=== PATIENT | male | born 1955 | race Caucasian/White ===

== ENCOUNTER 2017-06-10 09:42 | Emergency (ER) | payer MEDICAID, OTHER ==
[2017-06-10 09:51] VITALS: BP 122/72
[2017-06-10] MEDS ORDERED: SULFAMETHOXAZOLE/TRIMETHOPRIM 800-160 MG TABLET PO ONE (10:15)
[2017-06-10] MEDS ORDERED: IBUPROFEN 600 MG TABLET PO ONE (10:15)
[2017-06-10] MEDS ORDERED: LIDOCAINE 2% VISCOUS SOLN 20 ML UDCUP PO ONE (10:15)
--- NOTE | 2017-06-10 10:16 | ER Document Report ---
ED ENT - General Chief Complaint: Swollen Glands Stated Complaint: SWOLLEN JAW Time Seen by Provider: 06/10/17 10:02 Mode of Arrival: Ambulatory Information source: Patient Notes: 61-year-old male presents to ED for complaint of painful left ear with swollen gland to the left side of his jaw. He states he has had this multiple times and they have always given him some kind of antibiotic that was 500 mg but he does not know the name and that it worked. He has no teeth. He also complains of the left ear but there is no ear infection. TRAVEL OUTSIDE OF THE [place] IN LAST 30 DAYS: No - HPI Patient complains to provider of: Ear problem, Other - Left jaw Onset: Other - 2 days states he has had it in the past Onset/Duration: Intermittent Quality of pain: Achy, Dull Severity: Moderate Pain Level: 3 Location of pain: Ears, Other - Gland on the left jaw Associated symptoms: Ear pain, Swollen glands - Left jaw Similar symptoms previously: Yes Recently seen / treated by doctor: No - Related Data Allergies/Adverse Reactions: No Known Allergies Allergy (Verified 06/10/17 09:43) Past Medical History - General Information source: Patient - Social History Smoking Status: Current Every Day Smoker Cigarette use (# per day): Yes - 1-1/2 pack per day Chew tobacco use (# tins/day): No Smoking Education Provided: Yes - Less than 2 minutes Frequency of alcohol use: None Drug Abuse: None Occupation: None Lives with: Alone Family History: Arthritis, CAD, Hyperlipidemia, Hypertension, Malignancy. denies: COPD, CVA, DM, Thyroid Disfunction Patient has suicidal ideation: No Patient has homicidal ideation: No - Past Medical History Cardiac Medical History: Reports: None Pulmonary Medical History: Reports: None EENT Medical History: Reports: None Neurological Medical History: Reports: None Endocrine Medical History: Reports: None Renal/ Medical History: Reports: None Malignancy Medical History: Reports None GI Medical History: Reports: Hx Hepatitis - c Musculoskeltal Medical History: Reports Hx Arthritis - Hands, Reports Hx Musculoskeletal Deformity - Degenerative disc disease especially in the neck Skin Medical History: Reports None Psychiatric Medical History: Reports: None Traumatic Medical History: Reports: None Infectious Medical History: Reports: Hx Hepatitis Past Surgical History: Reports: Hx Orthopedic Surgery - Removal of multiple disc from neck area - Immunizations Immunizations up to date: Yes Hx Diphtheria, Pertussis, Tetanus Vaccination: Yes Review of Systems - Review of Systems Constitutional: No symptoms reported EENT: Ear pain, Other - swollen lymph node left jaw Cardiovascular: No symptoms reported Respiratory: No symptoms reported Gastrointestinal: No symptoms reported Genitourinary: No symptoms reported Male Genitourinary: No symptoms reported Musculoskeletal: No symptoms reported Skin: No symptoms reported Hematologic/Lymphatic: No symptoms reported Neurological/Psychological: No symptoms reported -: Yes All other systems reviewed and negative Physical Exam - Vital signs Vitals: Temp Pulse Resp BP Pulse Ox 98.4 F 84 16 122/72 97 06/10/17 09:51 06/10/17 09:51 06/10/17 09:51 06/10/17 09:51 06/10/17 09:51 Interpretation: Normal - General General appearance: Appears well, Alert - HEENT Head: Normocephalic, Atraumatic Eyes: Normal Pupils: PERRL Ears: Normal External canal: Normal Tympanic membrane: Normal Sinus: Normal Nasal: Normal Mouth/Lips: Normal Mucous membranes: Normal Pharynx: Normal Neck: Supple - Swelling noted along the left side of his jaw - Respiratory Respiratory status: No respiratory distress Chest status: Nontender Breath sounds: Normal Chest palpation: Normal - Cardiovascular Rhythm: Regular Heart sounds: Normal auscultation Murmur: No - Abdominal Inspection: Normal Distension: No distension Bowel sounds: Normal Tenderness: Nontender Organomegaly: No organomegaly - Back Back: Normal, Nontender - Extremities General upper extremity: Normal inspection, Nontender, Normal color, Normal ROM , Normal temperature General lower extremity: Normal inspection, Nontender, Normal color, Normal ROM , Normal temperature, Normal weight bearing. No: Gaurav's sign - Neurological Neuro grossly intact: Yes Cognition: Normal Orientation: AAOx4 [place] Coma Scale Eye Opening: Spontaneous [place] Coma Scale Verbal: Oriented [place] Coma Scale Motor: Obeys Commands [place] Coma Scale Total: 15 Speech: Normal Motor strength normal: LUE, RUE, LLE, RLE Sensory: Normal - Psychological Associated symptoms: Normal affect, Normal mood - Skin Skin Temperature: Warm Skin Moisture: Dry Skin Color: Normal Course - Re-evaluation Re-evalutation: 06/10/17 10:34 Patient treated with Bactrim DS for his swollen lymph node and viscous lidocaine for his ear pain. Patient was discharged home to follow-up with a oral maxillofacial surgeon. - Vital Signs Vital signs: Temp Pulse Resp BP Pulse Ox 98.4 F 84 16 122/72 97 06/10/17 09:51 06/10/17 09:51 06/10/17 09:51 06/10/17 09:51 06/10/17 09:51 Discharge - Discharge Clinical Impression: Otalgia of left ear, Swollen lymph nodes Condition: Stable Disposition: HOME, SELF-CARE Additional Instructions: 61-year-old male you were seen today for swollen lymph night on the left side of your jaw. He states you have had this in the past and antibiotics have reduced it. You do need to follow-up with an actual facial surgeon to have this removed for definitive treatment. I will give him some antibiotics today need to take them to they are completed do not stop until they are all gone. And then take Tylenol or Motrin for your discomfort. I will give him some viscous lidocaine that she can put a small amount in your ear to help with the ear pain. TRIMETHOPRIM-SULFA: You have been given a prescription for trimethoprim-sulfa (TMS, Septra, Bactrim). This is a combination antibiotic of the sulfa class, often used for urinary tract infections, middle ear infections, bronchitis, shigella intestinal infection, and Pneumocystis pneumonia. TMS is usually well-tolerated. Occasional side effects include nausea and decreased appetite. Septra is not recommended for infants less than two months of age. Do not take this medication if you have experienced severe side effects or allergy to sulfa medicine. You should stop this medicine at once and contact your physician if you develop any rash, joint pain, shortness of breath, bruising, or jaundice ( yellow color in the skin), or if you develop any other new or unusual symptoms. FOLLOW-UP CARE: If you have been referred to a physician for follow-up care, call the physician s office for an appointment as you were instructed or within the next two days. If you experience worsening or a significant change in your symptoms, notify the physician immediately or return to the Emergency Department at any time for re-evaluation. Prescriptions: Sulfamethoxazole/Trimethoprim [Bactrim Ds Tablet] 1 each PO BID #20 tablet Forms: Smoking Cessation Education Referrals: TERRY SINGH DDS [ACTIVE STAFF] - Follow up as needed
== END 2017-06-10 10:30 | disposition home or self-care (01) ==
LOC: ER 09:42
DX: R59.0 Localized enlarged lymph nodes (principal); H92.02 Otalgia, left ear; K00.0 Anodontia; F17.210 Nicotine dependence, cigarettes, uncomplicated; Z71.6 Tobacco abuse counseling
CPT/HCPCS: 99283; J3490 ×3

== ENCOUNTER → 2017-08-31 | Outpatient (CLI) | payer MEDICAID ==
--- NOTE | 2017-08-31 13:53 | RADIOLOGY REPORT (SQ) ---
EXAM DESCRIPTION: U/S ABDOMEN LIMITED W/O DOP COMPLETED DATE/TIME: 08/31/2017 8:49 am REASON FOR STUDY: B18.2 CHRONIC VIRAL HEPATITIS C B18.2 CHRONIC VIRAL HEPATITIS C COMPARISON: None. TECHNIQUE: Dynamic and static grayscale images acquired of the abdomen and recorded on PACS. Additio nal selected color Doppler and spectral images recorded. LIMITATIONS: None. FINDINGS: PANCREAS: No masses. Visualized pancreatic duct normal caliber. LIVER: No masses. Echotexture normal. LIVER VASCULATURE: Normal directional flow of the main portal vein. GALLBLADDER: Multiple gallstones are identified. Gallbladder wall is at the upper limits of normal i n thickness. No pericholecystic fluid. ULTRASOUND-DETECTED LAU'S SIGN: Negative. INTRAHEPATIC DUCTS AND COMMON DUCT: CBD and intrahepatic ducts normal caliber. No filling defects. INFERIOR VENA CAVA: Normal flow. AORTA: Abdominal aorta was incompletely visualize. Visualized portions of the abdominal aorta showed no evidence for an abdominal aortic aneurysm. RIGHT KIDNEY: Normal size. Normal echogenicity. No solid or suspicious masses. No hydronephrosis. No calcifications. PERITONEAL AND RIGHT PLEURAL SPACE: No ascites or effusions. OTHER: No other significant findings. IMPRESSION: Multiple gallstones are identified. Gallbladder wall is at the upper limits of normal i n thickness. Other findings as noted above TECHNICAL DOCUMENTATION: JOB ID: [id number]- All Rights Reserved Reading location - IP/workstation name: [email or web address]
== END ==
LOC: RAD 08:07
PROVIDERS: ATTEND Internal Medicine Gastroenterology
DX: B18.2 Chronic viral hepatitis C (principal)
CPT/HCPCS: 76705

== ENCOUNTER 2017-09-02 10:01 | Emergency (ER) | payer MEDICAID ==
[2017-09-02] MEDS ORDERED: DEXAMETHASONE SOD PHOS INJ 10 MG/1 ML VIAL IM ONE (10:50)
[2017-09-02] MEDS ORDERED: DIPHENHYDRAMINE HCL 50 MG CAPSULE PO ONE (10:51)
--- NOTE | 2017-09-02 10:59 | ER Document Report ---
ED Skin Rash/Insect Bite/Abscs - General Chief Complaint: Rash Stated Complaint: POSSIBLE RASH Time Seen by Provider: 09/02/17 10:43 Notes: Patient is a 61-year-old male complaining of a pruritic rash to his back for several weeks that is progressively worsening. Patient denies any new contacts , soaps, lotions, detergents, medications. Sister who lives with him does not have the rash. Patient denies any fever. TRAVEL OUTSIDE OF THE [place] IN LAST 30 DAYS: No - HPI Patient complains to provider of: Skin rash/lesion Onset/Duration: Gradual, Persistent, Worse Skin Character: Erythema, Patchy, Rash Skin Temperature: Warm Quality of rash: Itchy - Related Data Allergies/Adverse Reactions: No Known Allergies Allergy (Verified 09/02/17 10:01) Past Medical History - General Information source: Patient, Relative - Social History Smoking Status: Current Every Day Smoker Frequency of alcohol use: None Drug Abuse: None Lives with: Family Family History: Arthritis, CAD, Hyperlipidemia, Hypertension, Malignancy. denies: COPD, CVA, DM, Thyroid Disfunction - Past Medical History Cardiac Medical History: Denies: Hx Coronary Artery Disease, Hx Heart Attack, Hx Hypertension Pulmonary Medical History: Denies: Hx Asthma, Hx Bronchitis, Hx COPD, Hx Pneumonia Neurological Medical History: Denies: Hx Cerebrovascular Accident, Hx Seizures Renal/ Medical History: Denies: Hx Peritoneal Dialysis GI Medical History: Reports: Hx Hepatitis Musculoskeltal Medical History: Reports Hx Arthritis - Hands, Reports Hx Musculoskeletal Deformity - Degenerative disc disease especially in the neck Infectious Medical History: Reports: Hx Hepatitis Past Surgical History: Reports: Hx Orthopedic Surgery - Removal of multiple disc from neck area - Immunizations Immunizations up to date: Yes Hx Diphtheria, Pertussis, Tetanus Vaccination: Yes Review of Systems - Review of Systems Constitutional: No symptoms reported EENT: No symptoms reported Cardiovascular: No symptoms reported Respiratory: No symptoms reported Gastrointestinal: No symptoms reported Genitourinary: No symptoms reported Male Genitourinary: No symptoms reported Musculoskeletal: No symptoms reported Skin: See HPI, Rash Hematologic/Lymphatic: No symptoms reported Neurological/Psychological: No symptoms reported Physical Exam - Vital signs Vitals: Temp Pulse Resp BP Pulse Ox 98.1 F 83 20 116/68 97 09/02/17 10:15 09/02/17 10:15 09/02/17 10:15 09/02/17 10:15 09/02/17 10:15 Interpretation: Normal - General General appearance: Appears well, Alert - HEENT Head: Normocephalic, Atraumatic Eyes: Normal Pupils: PERRL - Respiratory Respiratory status: No respiratory distress Chest status: Nontender Breath sounds: Normal Chest palpation: Normal - Cardiovascular Rhythm: Regular Heart sounds: Normal auscultation Murmur: No - Abdominal Inspection: Normal Distension: No distension Bowel sounds: Normal Tenderness: Nontender Organomegaly: No organomegaly - Back Back: Normal, Nontender - Extremities General upper extremity: Normal inspection, Nontender, Normal color, Normal ROM , Normal temperature General lower extremity: Normal inspection, Nontender, Normal color, Normal ROM , Normal temperature, Normal weight bearing. No: Gaurav's sign - Neurological Neuro grossly intact: Yes Cognition: Normal Orientation: AAOx4 [place] Coma Scale Eye Opening: Spontaneous Antoinette Coma Scale Verbal: Oriented Antoinette Coma Scale Motor: Obeys Commands [place] Coma Scale Total: 15 Speech: Normal Motor strength normal: LUE, RUE, LLE, RLE Sensory: Normal - Psychological Associated symptoms: Normal affect, Normal mood - Skin Skin Temperature: Warm Skin Moisture: Dry Skin Color: Normal Skin irregularity: Rash Location of irregularity: Back Character of irregularity: Macular, Patchy, Erythematous Irregularity with: Inflammation. negative: Crusting, Weeping Course - Re-evaluation Re-evalutation: 09/02/17 10:55 After performing history and physical Examination, I estimate there is LOW risk for any life threatening rash. At this time the patient looks extremely well and there are no signs of systemic infection. I will treat this rash as more of an allergic dermatitis of some type. IM giving a dose of intramuscular steroid and oral antihistamine. I will prescribe a short course of topical steroid and oral antihistamines. Patient instructed to follow-up with primary care for further evaluation if rash persists. Home care and ED return precautions were discussed. Patient is agreeable with plan and stable for discharge - Vital Signs Vital signs: Temp Pulse Resp BP Pulse Ox 98.1 F 83 20 116/68 97 09/02/17 10:15 09/02/17 10:15 09/02/17 10:15 09/02/17 10:15 09/02/17 10:15 Discharge - Discharge Clinical Impression: Rash and nonspecific skin eruption Condition: Stable Disposition: HOME, SELF-CARE Instructions: Contact Dermatitis ([facility]), Steroid Medication Injection, Topical Steroid Cream or Ointment ([facility]), Antihistamines ([facility]) Additional Instructions: I am treating or rash with topical steroids and oral antihistamines You received a dose of intramuscular steroid here in the emergency department Please follow-up with your primary care for further evaluation and treatment if this rash persists Prescriptions: Hydroxyzine HCl 50 mg PO TID PRN #30 tablet PRN Reason: Triamcinolone Acetonide [Aristocort 0.5% Cream 15 gm] 1 applic TP BID #45 g Referrals: ORIN REYNOLDS MD [Primary Care Provider] - Follow up as needed
[2017-09-02 11:27] VITALS: BP 104/70
== END 2017-09-02 11:27 | disposition home or self-care (01) ==
LOC: ER 10:01
DX: R21 Rash and other nonspecific skin eruption (principal); L29.9 Pruritus, unspecified; F17.200 Nicotine dependence, unspecified, uncomplicated
CPT/HCPCS: 99282; 96372; J3490; J1100

== ENCOUNTER → 2017-09-29 | Outpatient (CLI) | payer MEDICAID ==
[2017-09-29 14:27] LABS: ALANINE AMINOTRANSFERASE 89 U/L (21-72); ALBUMIN 3.3 g/dL (3.5-5.0); ALKALINE PHOSPHATASE 148 U/L (38-126); ASPARTATE AMINO TRANSFERASE 136 U/L (17-59); BILIRUBIN,DIRECT 0.5 mg/dL (0.0-0.4); TOTAL PROTEIN 7.7 g/dL (6.3-8.2)
== END ==
LOC: OD 12:57
PROVIDERS: ATTEND Surgery
DX: R10.9 Unspecified abdominal pain (principal); B19.20 Unspecified viral hepatitis C without hepatic coma
CPT/HCPCS: 36415; 80076

== ENCOUNTER → 2017-10-05 | Outpatient (CLI) | payer MEDICAID ==
--- NOTE | 2017-10-05 10:36 | RADIOLOGY REPORT (SQ) ---
EXAM DESCRIPTION: CT ABD/PELVIS WITH IV ORAL COMPLETED DATE/TIME: 10/05/2017 8:34 am REASON FOR STUDY: UNSPEC ABD PAIN (R10.9), UNSPEC VIRAL HEP C W/O HEPATIC COMA (B19.20) R10.9 UNSPE CIFIED ABDOMINAL PAIN B19.20 UNSPECIFIED VIRAL HEPATITIS C WITHOUT HEPATIC COMA COMPARISON: None. TECHNIQUE: CT scan of the abdomen and pelvis performed with intravenous and oral contrast using elana yvonne scanning technique with dynamic intravenous contrast injection. Images reviewed with lung, soft t issue, and bone windows. Reconstructed coronal and sagittal MPR images reviewed. Delayed images for e valuation of the urinary system also acquired. All images stored on PACS. All CT scanners at this facility use dose modulation, iterative reconstruction, and/or weight based d osing when appropriate to reduce radiation dose to as low as reasonably achievable (ALARA). [facility]: Dose Right [facility]: CareDose [facility]: Dose Right [facility]: Teradose 4D [facility]: Twitt2go CONTRAST TYPE AND DOSE: contrast/concentration: Isovue 370.00 mg/ml; Total Contrast Delivered: 71.0 ml; Total Saline Delivered: 66.0 ml RENAL FUNCTION: Creatinine 0.9 RADIATION DOSE: CT Rad equipment meets quality standard of care and radiation dose reduction techniq ues were employed. CTDIvol: 3.4 - 3.9 mGy. DLP: 360 mGy-cm. . LIMITATIONS: None. FINDINGS: LOWER CHEST: No significant findings. No nodules or infiltrates. LIVER: No focal masses. Moderate ascites. Esophageal, gastric, and perisplenic varices. SPLEEN: Splenomegaly. 14 cm. No focal lesions. PANCREAS: No masses. No significant calcifications. No adjacent inflammation or peripancreatic fluid collections. Pancreatic duct not dilated. GALLBLADDER: Multiple stones in the gallbladder. No pericholecystic fluid. ADRENAL GLANDS: No significant masses or asymmetry. RIGHT KIDNEY AND URETER: No solid masses. No significant calcifications. No hydronephrosis or hyd roureter. LEFT KIDNEY AND URETER: No solid masses. No significant calcifications. No hydronephrosis or hydr oureter. AORTA AND VESSELS: No aneurysm. No dissection. Renal arteries, SMA, celiac without stenosis. RETROPERITONEUM: No retroperitoneal adenopathy, hemorrhage or masses. BOWEL AND PERITONEAL CAVITY: No obstruction. No visualized masses. No free fluid. No inflammatory ch anges or thickening of bowel wall. APPENDIX: Normal. PELVIS: Free fluid. Bladder unremarkable. ABDOMINAL WALL: No masses. No hernias. BONES: No significant or acute findings. OTHER: No other significant finding. IMPRESSION: Generalized ascites. Esophageal gastric and francisco splenic varices. Splenomegaly. Multiple gallstones. No focal lesion in the liver. TECHNICAL DOCUMENTATION: JOB ID: [id number] Quality ID # [id number]: Final reports with documentation of one or more dose reduction techniques (e.g., Au tomated exposure control, adjustment of the mA and/or kV according to patient size, use of iterative reconstruction technique) 2010 [employer]- All Rights Reserved Reading location - IP/workstation name: [email or web address]
== END ==
LOC: RAD 07:43
PROVIDERS: ATTEND Surgery
DX: R10.9 Unspecified abdominal pain (principal); B19.20 Unspecified viral hepatitis C without hepatic coma; R18.8 Other ascites; R16.1 Splenomegaly, not elsewhere classified; K80.80 Other cholelithiasis without obstruction
CPT/HCPCS: 74177; 82565

== ENCOUNTER 2017-11-24 12:25 | Inpatient (IN) | payer MEDICAID ==
[2017-11-24] MEDS ORDERED: HYDROMORPHONE HCL INJ/PF 2 MG/ML AMPULE IV ONE ×2 (12:33→13:23)
[2017-11-24] MEDS ORDERED: ONDANSETRON HCL INJ/PF 4 MG/2 ML SDV IV ONE (12:33)
[2017-11-24] MEDS ORDERED: NORMAL SALINE 1000 ML 1,000 ML IV ONE ×2 (12:34→12:51)
[2017-11-24 13:20] LABS: HEMATOCRIT 33.4 % (37.9-51.0); HEMOGLOBIN 11.7 g/dL (13.5-17.0); INTERNATIONAL RATION (INR) 1.28; MEAN CORPUSCULAR HEMOGLOBIN 32.4 pg (27.0-33.4); MEAN CORPUSCULAR HGB CONC 35.1 g/dL (32.0-36.0); MEAN CORPUSCULAR VOLUME 92 fl (80-97); PLATELET COUNT 201 10^3/uL (150-450); PROTHROMBIN TIME 16.6 SEC (11.4-15.4); RED BLOOD COUNT 3.62 10^6/uL (4.35-5.55); RED CELL DISTRIBUTION WIDTH 14.5 % (11.5-14.0); WHITE BLOOD COUNT 21.9 10^3/uL (4.0-10.5)
[2017-11-24] MEDS ORDERED: PIPERACILLIN/TAZOBACTAM 4.5 GM VIAL IV ONE (13:20)
[2017-11-24 13:21] LABS: PARTIAL THROMBOPLASTIN TIME 37.2 SEC (23.5-35.8)
[2017-11-24] MEDS ORDERED: PIPERACILLIN/TAZOBACTAM 3.375 GM VIAL IV ONE (13:21)
--- NOTE | 2017-11-24 13:23 | ER Document Report ---
ED General - General Chief Complaint: Abdominal Swelling Stated Complaint: ABDOMINAL PAIN Time Seen by Provider: 11/24/17 12:30 TRAVEL OUTSIDE OF THE [place] IN LAST 30 DAYS: No - HPI Patient complains to provider of: Abdominal pain swelling Notes: Patient coming in for abdominal pain and swelling. States ongoing for the last 4 days. Patient states he does have history of umbilical hernia. Patient states most time the hernia will pop up and then go down by itself. Patient states is been able to push his back down state that has become hard. Denies any fevers chills nausea vomiting does state he is having diarrhea. Patient otherwise looks to be hemodynamically stable upon initial visit. Instructed nursing staff is that does like the patient does have incarcerated hernia at this time start IV place an ice pack on the patient and the put him in Trendelenburg. - Related Data Allergies/Adverse Reactions: No Known Allergies Allergy (Verified 09/02/17 10:01) Past Medical History - Social History Smoking Status: Current Some Day Smoker Chew tobacco use (# tins/day): No Frequency of alcohol use: None Drug Abuse: None Family History: Arthritis, CAD, Hyperlipidemia, Hypertension, Malignancy. denies: COPD, CVA, DM, Thyroid Disfunction Patient has suicidal ideation: No Patient has homicidal ideation: No - Past Medical History Cardiac Medical History: Denies: Hx Coronary Artery Disease, Hx Heart Attack, Hx Hypertension Pulmonary Medical History: Denies: Hx Asthma, Hx Bronchitis, Hx COPD, Hx Pneumonia Neurological Medical History: Denies: Hx Cerebrovascular Accident, Hx Seizures Renal/ Medical History: Denies: Hx Peritoneal Dialysis GI Medical History: Reports: Hx Hepatitis Musculoskeltal Medical History: Reports Hx Arthritis - Hands, Reports Hx Musculoskeletal Deformity - Degenerative disc disease especially in the neck Infectious Medical History: Reports: Hx Hepatitis Past Surgical History: Reports: Hx Orthopedic Surgery - Removal of multiple disc from neck area - Immunizations Immunizations up to date: Yes Hx Diphtheria, Pertussis, Tetanus Vaccination: Yes Review of Systems - Review of Systems Constitutional: No symptoms reported EENT: No symptoms reported Cardiovascular: No symptoms reported Respiratory: No symptoms reported Gastrointestinal: Abdominal pain Genitourinary: No symptoms reported Male Genitourinary: No symptoms reported Musculoskeletal: No symptoms reported Skin: No symptoms reported Hematologic/Lymphatic: No symptoms reported Neurological/Psychological: No symptoms reported -: Yes All other systems reviewed and negative Physical Exam - Vital signs Vitals: Temp Resp BP Pulse Ox 98.2 F 25 H 102/68 99 11/24/17 12:55 11/24/17 12:55 11/24/17 12:55 11/24/17 12:55 Interpretation: Normal - General General appearance: Appears well, Alert - HEENT Head: Normocephalic, Atraumatic Eyes: Normal Pupils: PERRL - Respiratory Respiratory status: No respiratory distress Chest status: Nontender Breath sounds: Normal Chest palpation: Normal - Cardiovascular Rhythm: Regular Heart sounds: Normal auscultation Murmur: No - Abdominal Inspection: Normal Distension: No distension Bowel sounds: Normal Tenderness: Tender, Other - The umbilicus does have an area of hardness and bulging consistent with what looks like to be a an umbilical hernia there is already skin changes the skin is erythematous warm to touch and very painful to touch. Auscultation over the bulging area does reveal active bowel sounds again concern for incarcerated hernia Organomegaly: No organomegaly - Back Back: Normal, Nontender - Extremities General upper extremity: Normal inspection, Nontender, Normal color, Normal ROM , Normal temperature General lower extremity: Normal inspection, Nontender, Normal color, Normal ROM , Normal temperature, Normal weight bearing. No: Gaurav's sign - Neurological Neuro grossly intact: Yes Cognition: Normal Orientation: AAOx4 [place] Coma Scale Eye Opening: Spontaneous [place] Coma Scale Verbal: Oriented [place] Coma Scale Motor: Obeys Commands [place] Coma Scale Total: 15 Speech: Normal Motor strength normal: LUE, RUE, LLE, RLE Sensory: Normal - Psychological Associated symptoms: Normal affect, Normal mood - Skin Skin Temperature: Warm Skin Moisture: Dry Skin Color: Normal Course - Re-evaluation Re-evalutation: 11/24/17 16:22 Ice packs pain medication Trendelenburg and gentle pressure were applied to the area of concern for an umbilical hernia this was not able to reduce I did contact the surgeon [facility] laboratory studies were drawn patient does have slight elevation lactic acid with leukocytosis of 21,000. Gracielasyn was initiated Dr. Cintron at bedside evaluate the patient and agrees patient will need to go to the OR for exploration. The requested CT scan with IV contrast this is showing significant fluid collection at the umbilicus unclear if this is bowel omentum or abscess. During patient's stay here in the ER for sure he did go into A. fib with RVR the surgeon was notified IV fluids are given. Instructions otherwise patient remained asymptomatic no chest pain complaining of palpitations. - Vital Signs Vital signs: Temp Pulse Resp BP Pulse Ox 98.7 F 20 102/68 95 11/24/17 14:08 11/24/17 14:00 11/24/17 12:55 11/24/17 14:00 - Laboratory Result Diagrams: 11/24/17 12:45 11/24/17 12:45 Laboratory results interpreted by me: 11/24/17 11/24/17 11/24/17 12:45 12:45 12:45 WBC 21.9 H RBC 3.62 L Hgb 11.7 L Hct 33.4 L RDW 14.5 H Seg Neuts % (Manual) 93 H Lymphocytes % (Manual) 3 L Abs Neuts (Manual) 20.4 H PT APTT Chloride 108 H BUN 26 H Glucose 138 H Lactic Acid 2.4 H Calcium 8.1 L 11/24/17 12:45 WBC RBC Hgb Hct RDW Seg Neuts % (Manual) Lymphocytes % (Manual) Abs Neuts (Manual) PT 16.6 H APTT 37.2 H Chloride BUN Glucose Lactic Acid Calcium Critical Care Note - Critical Care Note Total time excluding time spent on procedures (mins): 35 Comments: Multiple evaluation for concern of incarcerated hernia Discharge - Discharge Clinical Impression: Incarcerated hernia of abdominal cavity Condition: Good Disposition: ADMITTED INPATIENT Admitting Provider: Surgicalist - [facility] Admitted: OR
[2017-11-24 13:34] LABS: ANION GAP 7 (5-19); BLOOD UREA NITROGEN 26 mg/dL (7-20); CALCIUM 8.1 mg/dL (8.4-10.2); CARBON DIOXIDE 23 mmol/L (22-30); CHLORIDE 108 mmol/L (98-107); GLUCOSE 138 mg/dL (75-110); POTASSIUM 3.7 mmol/L (3.6-5.0); SODIUM 137.7 mmol/L (137-145)
[2017-11-24 13:49] LABS: ABSOLUTE LYMPHOCYTES# (MANUAL) 0.7 10^3/uL (0.5-4.7); ABSOLUTE MONOCYTES # (MANUAL) 0.9 10^3/uL (0.1-1.4); ABSOLUTE NEUTROPHILS# (MANUAL) 20.4 10^3/uL (1.7-8.2); BASOPHILS % (MANUAL) 0 % (0-2); EOSINOPHILS % (MANUAL) 0 % (0-6); LYMPHOCYTES % (MANUAL) 3 % (13-45); MONOCYTES % (MANUAL) 4 % (3-13); PLATELET COMMENT ADEQUATE; RBC MORPHOLOGY COMMENT NORMO-CYTIC/CHROMIC; SEGMENTED NEUTROPHILS % (MAN) 93 % (42-78); TOTAL CELLS COUNTED 100; TOXIC GRANULATION SLIGHT
[2017-11-24] MEDS ORDERED: BUPIVACAINE HCL 0.5%-EPI 1:200000 INJ/PF 30 ML VIAL ONE (14:16)
[2017-11-24] MEDS ORDERED: NORMAL SALINE 1000 ML 1,000 ML IV PRN (14:46)
--- NOTE | 2017-11-24 15:11 | RADIOLOGY REPORT (SQ) ---
EXAM DESCRIPTION: CT ABD/PELVIS WITH IV ONLY COMPLETED DATE/TIME: 11/24/2017 2:27 pm REASON FOR STUDY: Eval incarcerated hernia COMPARISON: 10/05/2017 TECHNIQUE: CT scan of the abdomen and pelvis performed using helical scanning technique with dynamic intravenous contrast injection. No oral contrast. Images reviewed with lung, soft tissue, and bone windows. Reconstructed coronal and sagittal MPR images reviewed. Delayed images for evaluation of the urinary system also acquired. All images stored on PACS. All CT scanners at this facility use dose modulation, iterative reconstruction, and/or weight based d osing when appropriate to reduce radiation dose to as low as reasonably achievable (ALARA). [facility]: Dose Right [facility]: CareDose [facility]: Dose Right [facility]: Teradose 4D [facility]: [employer] CONTRAST TYPE AND DOSE: contrast/concentration: Isovue 370.00 mg/ml; Total Contrast Delivered: 69.0 ml; Total Saline Delivered: 65.0 ml 69 cc Isovue 370- low osmolar. RENAL FUNCTION: Creatinine 0.86 RADIATION DOSE: CT Rad equipment meets quality standard of care and radiation dose reduction techniq ues were employed. CTDIvol: 4.9 - 5.6 mGy. DLP: 581 mGy-cm.. LIMITATIONS: None. FINDINGS: LOWER CHEST: No significant findings. No nodules or infiltrates. LIVER: Normal size. No masses. No dilated ducts. SPLEEN: Borderline stable splenomegaly PANCREAS: No masses. No significant calcifications. No adjacent inflammation or peripancreatic fluid collections. Pancreatic duct not dilated. GALLBLADDER: Gallstones. ADRENAL GLANDS: No significant masses or asymmetry. RIGHT KIDNEY AND URETER: No solid masses. No significant calcifications. No hydronephrosis or hyd roureter. LEFT KIDNEY AND URETER: No solid masses. No significant calcifications. No hydronephrosis or hydr oureter. AORTA AND VESSELS: No aneurysm. No dissection. Renal arteries, SMA, celiac without stenosis. RETROPERITONEUM: No retroperitoneal adenopathy, hemorrhage or masses. BOWEL AND PERITONEAL CAVITY: No masses or inflammatory changes. No free fluid or peritoneal masses. APPENDIX: Normal. PELVIS: No mass. No free fluid. Normal bladder. ABDOMINAL WALL: No masses. No hernias. BONES: No significant or acute findings. OTHER: Moderate ascites -volume appears unchanged. Splenic, esophageal and gastric varices again not ed. Thickening of the omentum more prominent than on the previous study. IMPRESSION: Moderate probably stable ascites. Stable borderline splenomegaly. Stable varices. Thi ckening of the omentum that appears more prominent than on the previous study. TECHNICAL DOCUMENTATION: JOB ID: [id number] Quality ID # [id number]: Final reports with documentation of one or more dose reduction techniques (e.g., Au tomated exposure control, adjustment of the mA and/or kV according to patient size, use of iterative reconstruction technique) 2010 [employer]- All Rights Reserved Reading location - IP/workstation name: [email or web address]
[2017-11-24] MEDS ORDERED: FENTANYL CITRATE INJ/PF 250 MCG/5 ML AMPULE ONE (15:30)
[2017-11-24] MEDS ORDERED: MIDAZOLAM 2 MG/2 ML INJ ONE (15:30)
[2017-11-24] MEDS ORDERED: PROPOFOL INJ 200 MG/20 ML VIAL IV ONE (15:30)
[2017-11-24] MEDS ORDERED: HYDROMORPHONE HCL INJ/PF 2 MG/ML AMPULE ONE (15:31)
--- NOTE | 2017-11-24 15:42 | PDOC H&P ---
History of Present Illness Admission Date/PCP: 11/24/17 13:42 VENKATA SAAB MD Patient complains of: umbilical pains History of Present Illness: ELDER KIMBALL is a 62 year old male Past Medical History Cardiac Medical History: Denies: Coronary Artery Disease, Myocardial Infarction, Hypertension Pulmonary Medical History: Denies: Asthma, Bronchitis, Chronic Obstructive Pulmonary Disease (COPD), Pneumonia Neurological Medical History: Denies: Seizures GI Medical History: Reports: Hepatitis Musculoskeltal Medical History: Reports: Arthritis - Hands Hematology: Denies: Anemia Infectious Medical History: Reports: Hepatitis C Past Surgical History Past Surgical History: Reports: Orthopedic Surgery - Removal of multiple disc from neck area Social History Smoking Status: Current Some Day Smoker - Advance Directive Resuscitation Status: Full Code Family History Family History: Arthritis, CAD, Hyperlipidemia, Hypertension, Malignancy. denies: COPD, CVA, DM, Thyroid Disfunction Parental Family History Reviewed: Yes Children Family History Reviewed: No Sibling(s) Family History Reviewed.: No Medication/Allergy Allergies/Adverse Reactions: No Known Allergies Allergy (Verified 09/02/17 10:01) Review of Systems Constitutional: ABSENT: fever(s) Eyes: PRESENT: other - no visual/hearing changes Cardiovascular: ABSENT: other - no chest pains/cough Gastrointestinal: PRESENT: abdominal pain, diarrhea Genitourinary: PRESENT: other - no dysuria Neurological: PRESENT: other - no seizures Physical Exam Vital Signs: Temp Pulse Resp BP Pulse Ox 98.7 F 20 102/68 95 11/24/17 14:08 11/24/17 14:00 11/24/17 12:55 11/24/17 14:00 General appearance: PRESENT: severe distress Head exam: PRESENT: atraumatic Eye exam: PRESENT: conjunctiva pink Mouth exam: PRESENT: dry mucosa Neck exam: PRESENT: full ROM Respiratory exam: PRESENT: clear to auscultation henny Cardiovascular exam: PRESENT: tachycardia Pulses: PRESENT: normal radial pulses Vascular exam: PRESENT: normal capillary refill GI/Abdominal exam: PRESENT: soft, tenderness - and erythematous umbilicus Rectal exam: PRESENT: deferred Extremities exam: PRESENT: full ROM Musculoskeletal exam: PRESENT: ambulatory Neurological exam: PRESENT: alert, oriented to person, oriented to place, oriented to time, oriented to situation Psychiatric exam: PRESENT: appropriate affect Skin exam: PRESENT: normal color, warm Results Impressions: Abdomen/Pelvis CT 11/24/17 13:21 IMPRESSION: Moderate probably stable ascites. Stable borderline splenomegaly. Stable varices. Thickening of the omentum that appears more prominent than on the previous study. Assessment & Plan - Time Time Spent: 30 to 50 Minutes - Inpatient Certification Medical Necessity: Need For IV Fluids, Need for IV Antibiotics, Need for Surgery - Plan Summary Plan Summary: For exploration umbilicus, possible bowel resection and repair of umbilical hernia Start IV antibiotics and hydration
[2017-11-24] MEDS ORDERED: ESMOLOL HCL INJ/PF 100 MG/10 ML SDV IV ONE (16:27)
[2017-11-24] MEDS ORDERED: METOPROLOL TARTRATE PF/INJ 5 MG/5 ML SDV IV ONE (16:27)
[2017-11-24] MEDS ORDERED: AMIODARONE HCL 150 MG in DEXTROSE 5%-WATER 100 ML IV ONE (17:00)
[2017-11-24] MEDS ORDERED: BUPIVACAINE HCL 0.5 % INJ/PF 30 ML SDV ONE (17:05)
[2017-11-24] MEDS ORDERED: DEXTROSE 5%-WATER 500 ML with AMIODARONE HCL 900 MG IV PRN ×2 (17:15)
[2017-11-24] MEDS ORDERED: MEPERIDINE HCL/PF INJ 25 MG/1 ML DISP.SYRIN IV PRN (17:52)
[2017-11-24] MEDS ORDERED: FENTANYL CITRATE INJ/PF 100 MCG/2 ML AMPUL IV PRN ×3 (17:52)
[2017-11-24] MEDS ORDERED: MORPHINE SULFATE 10 MG/ML INJ IV PRN (17:52)
[2017-11-24] MEDS ORDERED: PROMETHAZINE HCL INJ 25 MG/1 ML VIAL IV PRN ×2 (17:52)
[2017-11-24] MEDS ORDERED: DIPHENHYDRAMINE HCL 50 MG/ML VIAL IV PRN (17:52)
[2017-11-24] MEDS ORDERED: ADENOSINE INJ/PF 6 MG/2 ML SDV IV ONE (19:02)
[2017-11-24] MEDS ORDERED: PROPOFOL 1,000 MG/100 ML INFUS..BTL IV ONE (19:08)
[2017-11-24] MEDS ORDERED: PIPERACILLIN SODIUM/TAZOBACTAM 3.375 GM in NORMAL SALINE 100 ML IV ONE (19:30)
[2017-11-24] MEDS ORDERED: PHENYLEPHRINE HCL INJ/PF 10 MG/1 ML SDV ONE (19:45)
[2017-11-24] MEDS ORDERED: ONDANSETRON HCL INJ/PF 4 MG/2 ML SDV ONE (19:45)
[2017-11-24] MEDS ORDERED: SUCCINYLCHOLINE CHLORIDE INJ 200 MG/10 ML VIAL ONE (19:45)
[2017-11-24] MEDS ORDERED: LIDOCAINE 2% INJ-PF (20 MG/ML) 2 ML AMPUL ONE (19:45)
[2017-11-24] MEDS ORDERED: VECURONIUM BROMIDE INJ 10 MG VIAL IV ONE (19:45)
[2017-11-24] MEDS ORDERED: DEXAMETHASONE SOD PHOSPHATE INJ 4 MG/1 ML VIAL ONE (19:45)
[2017-11-24 19:53] LABS: ARTERIAL BLOOD BASE EXCESS -10.3 mmol/L; ARTERIAL BLOOD H2CO3 1.46 mmol/L (1.05-1.35); ARTERIAL BLOOD HCO3 17.9 mmol/L (20-26); ARTERIAL BLOOD PCO2 48.6 mmHg (35-45); ARTERIAL BLOOD PO2 113.1 mmHg (80-100); ARTERIAL BLOOD TOTAL CO2 19.3 mmol/L (23-27)
[2017-11-24 19:54] LABS: ARTERIAL BLOOD FIO2 40%
[2017-11-24] MEDS: PROPOFOL 1,000 MG/100 ML INFUS..BTL IV PRN (19:54)
[2017-11-24 19:57] LABS: ARTERIAL BLOOD PH 7.18 (7.35-7.45)
--- NOTE | 2017-11-24 21:25 | OPERATIVE REPORT E ---
Operative Report NAME: ELDER KIMBALL : 1955 AGE: 62Y DATE OF SURGERY: 11/24/2017 ROOM: 603 PREOPERATIVE DIAGNOSIS: ABSCESS OF UMBILICAL HERNIA. POSTOPERATIVE DIAGNOSIS: ABSCESS OF UMBILICAL HERNIA SAC. OPERATION: Evacuation of abscess and removal of hernia sac, abdominal exploration. SURGEON: RICKEY HORNER M.D. ANESTHESIA: General. INDICATION FOR PROCEDURE: This is a 62-year-old male who has not eaten for the past 4 days because of umbilical pains. The pains in the umbilical area have been getting worse and therefore, he went to the ED today. He had a CT scan of the abdomen which showed abscess in the umbilical hernia sac but no evidence of bowel. Patient claims he had a hernia for the past month. DESCRIPTION OF PROCEDURE: After adequate general anesthesia, patient was placed in the supine position and the abdomen prepped and draped in the usual sterile fashion. An appropriate timeout was then called. A midline incision from above the inflamed area on the umbilicus going to the right of the midline and down below the inflamed area. The sac was then entered and there was a spurt of light yellowish purulent material. This was then suctioned out. Another smaller sac was then opened and again, this spurt of the same material. Cultures were then obtained. The sac was then dissected bluntly down into the base. The patient has a small hernia defect close to 1 cm. Because of the purulent material in the sac, I just was not sure that it went down also into the abdominal cavity. Because of this, the midline incision was then opened through the hernia defect to a distance of about 7-8 cm, just enough to inspect the whole bowel. The small bowel was then lifted up and checked for any evidence of rectus herniation or necrosis. The whole bowel was checked close to the ligament of Treitz to the ileocecal area. No evidence of any abnormality noted. There was a lot, however, of ascites fluid. It is light yellow. Following this, the abdominal cavity was then irrigated with 2 L of saline until the return flow was almost clear. The omentum was then pulled over the area of the umbilicus and the fascia subsequently closed with running suture using #1 single strand PDS. A couple of single stitches of 1 PDS *------* in the fascia to reinforce the closure. Following this, it appears that the wound has been contaminated and a wound V.A.C. was placed to aid in the healing process. Patient tolerated procedure quite well, though he will be continued on intubation to the intensive care unit. Needle, instrument, sponge count were all correct and estimated blood loss about 20 mL. DISPOSITION: Patient then brought to the intensive care unit in guarded condition. DICTATING PHYSICIAN: RICKEY HORNER M.D. [id number] PHY#: [id number] ID: [id number] JOB#: [id number] ACCT: [id number] cc:RICKEY HORNER M.D. >
[2017-11-24 21:29] LABS: ARTERIAL BLOOD BASE EXCESS -7.5 mmol/L; ARTERIAL BLOOD HCO3 17.4 mmol/L (20-26); ARTERIAL BLOOD O2 SATURATION 97.9 % (94-98); ARTERIAL BLOOD PCO2 33.3 mmHg (35-45); ARTERIAL BLOOD PH 7.34 (7.35-7.45); ARTERIAL BLOOD PO2 113.4 mmHg (80-100); ARTERIAL BLOOD TOTAL CO2 18.4 mmol/L (23-27)
[2017-11-24 21:30] LABS: ARTERIAL BLOOD FIO2 40%
--- NOTE | 2017-11-24 22:10 | EKG REPORT ---
SEVERITY:- ABNORMAL ECG - SINUS RHYTHM : Confirmed by: Beth Iqbal MD 24-Nov-2017 22:09:31
--- NOTE | 2017-11-24 22:10 | EKG REPORT ---
SEVERITY:- NORMAL ECG - SINUS RHYTHM : Confirmed by: Beth Iqbal MD 24-Nov-2017 22:09:21
--- NOTE | 2017-11-24 22:10 | EKG REPORT ---
SEVERITY:- ABNORMAL ECG - ATRIAL FIBRILLATION, V-RATE 87-205 : Confirmed by: Beth Iqbal MD 24-Nov-2017 22:09:26
[2017-11-24] MEDS: PIPERACILLIN SODIUM/TAZOBACTAM 3.375 GM in NORMAL SALINE 100 ML IV SCH (23:35)
[2017-11-25] MEDS: PROPOFOL 1,000 MG/100 ML INFUS..BTL IV PRN ×3 (02:05→15:28)
[2017-11-25] MEDS: NORMAL SALINE 1000 ML 1,000 ML IV PRN ×3 (02:05→18:19)
[2017-11-25 04:12] LABS: ABSOLUTE LYMPHOCYTES (AUTO) 1.3 10^3/uL (0.5-4.7); ABSOLUTE MONOCYTES (AUTO) 0.9 10^3/uL (0.1-1.4); ABSOLUTE NEUT (AUTO) 15.5 10^3/uL (1.7-8.2); BASOPHILS % (AUTO) 0.2 % (0-2); HEMATOCRIT 31.5 % (37.9-51.0); HEMOGLOBIN 10.9 g/dL (13.5-17.0); LYMPHOCYTES % (AUTO) 7.2 % (13-45); MEAN CORPUSCULAR HEMOGLOBIN 31.9 pg (27.0-33.4); MEAN CORPUSCULAR HGB CONC 34.6 g/dL (32.0-36.0); MEAN CORPUSCULAR VOLUME 93 fl (80-97); MONOCYTES % (AUTO) 4.9 % (3-13); PLATELET COUNT 216 10^3/uL (150-450); RED BLOOD COUNT 3.41 10^6/uL (4.35-5.55); RED CELL DISTRIBUTION WIDTH 14.8 % (11.5-14.0); SEGMENTED NEUTROPHILS % (AUTO) 87.7 % (42-78); TOTAL CELLS COUNTED % (AUTO) 100 %; WHITE BLOOD COUNT 17.7 10^3/uL (4.0-10.5)
[2017-11-25 04:29] LABS: ALANINE AMINOTRANSFERASE 53 U/L (21-72); ALBUMIN 2.3 g/dL (3.5-5.0); ALKALINE PHOSPHATASE 64 U/L (38-126); ANION GAP 5 (5-19); ASPARTATE AMINO TRANSFERASE 46 U/L (17-59); BILIRUBIN,DIRECT 0.7 mg/dL (0.0-0.4); BILIRUBIN,TOTAL 1.4 mg/dL (0.2-1.3); BLOOD UREA NITROGEN 22 mg/dL (7-20); CALCIUM 7.5 mg/dL (8.4-10.2); CARBON DIOXIDE 18 mmol/L (22-30); CHLORIDE 115 mmol/L (98-107); GLUCOSE 134 mg/dL (75-110); PHOSPHORUS 2.8 mg/dL (2.5-4.5); POTASSIUM 4.3 mmol/L (3.6-5.0)
[2017-11-25] MEDS: PIPERACILLIN SODIUM/TAZOBACTAM 3.375 GM in NORMAL SALINE 100 ML IV SCH ×4 (05:41→23:49)
[2017-11-25 06:10] LABS: ARTERIAL BLOOD BASE EXCESS -6.6 mmol/L; ARTERIAL BLOOD H2CO3 0.99 mmol/L (1.05-1.35); ARTERIAL BLOOD O2 SATURATION 80.3 % (94-98); ARTERIAL BLOOD PCO2 32.9 mmHg (35-45); ARTERIAL BLOOD PH 7.36 (7.35-7.45); ARTERIAL BLOOD PO2 45.6 mmHg (80-100)
[2017-11-25] MEDS: MIDAZOLAM HCL 50 MG/100 ML RTUINJ IV-INFUSE PRN (06:14)
[2017-11-25 06:15] LABS: ARTERIAL BLOOD FIO2 40%
--- NOTE | 2017-11-25 07:24 | RADIOLOGY REPORT (SQ) ---
EXAM DESCRIPTION: XR CHEST 1 VIEW CLINICAL HISTORY: 62 years Male, resp failure COMPARISON: 3..16 NUMBER OF VIEWS/TECHNIQUE: 1/AP FINDINGS: Adequate lung volume, small streaky opacity in the left lung base, normal cardiac silhouette, and tracheal tube tip is 3.7 cm from the jacki, enteric tube tip is 3 cm below the left diaphragm, and intact bony thorax. No pneumothorax. IMPRESSION: Small left basilar pneumonia/atelectasis.
--- NOTE | 2017-11-25 08:11 | PDOC CONSULTATION ---
Consultation Consult Date: 11/24/17 Attending physician:: RICKEY HORNER Consult reason:: resp failure History of Present Illness Admission Date/PCP: 11/24/17 13:42 VENKATA SAAB MD History of Present Illness: ELDER KIMBALL is a 62 year old male admitted after hernia repair when he went into afib=flutter refractory to medication requiring cardioversion currently intubated and sedated Past Medical History Cardiac Medical History: Denies: Coronary Artery Disease, Myocardial Infarction, Hypertension Pulmonary Medical History: Denies: Asthma, Bronchitis, Chronic Obstructive Pulmonary Disease (COPD), Pneumonia Neurological Medical History: Denies: Seizures GI Medical History: Reports: Hepatitis Musculoskeltal Medical History: Reports: Arthritis - Hands Hematology: Denies: Anemia Infectious Medical History: Reports: Hepatitis C Past Surgical History Past Surgical History: Reports: Orthopedic Surgery - Removal of multiple disc from neck area Social History Smoking Status: Current Some Day Smoker - Advance Directive Resuscitation Status: Full Code Family History Family History: Arthritis, CAD, Hyperlipidemia, Hypertension, Malignancy. denies: COPD, CVA, DM, Thyroid Disfunction Parental Family History Reviewed: No Children Family History Reviewed: No Sibling(s) Family History Reviewed.: No Medication/Allergy Home Medications: Oxycodone HCl [Oxycodone HCl 10 MG Tablet] 10 mg PO Q8HP PRN 11/24/17 Ribavirin 400 mg PO Q12 11/24/17 Sofosbuvir/Velpatas/Voxilaprev [Vosevi 400-100-100 mg Tablet] 1 tab PO DAILY 11/06 Allergies/Adverse Reactions: No Known Allergies Allergy (Verified 09/02/17 10:01) Review of Systems ROS unobtainable: Due to endotracheal tube, Due to mental status Physical Exam Vital Signs: Temp Pulse Resp BP Pulse Ox 98.4 F 140 H 10 L 136/107 H 98 11/24/17 19:25 11/24/17 19:25 11/24/17 19:25 11/24/17 19:25 11/24/17 19:25 Intake & Output 11/23/17 11/24/17 11/25/17 06:59 06:59 06:59 Intake Total 2000 Output Total 2000 Balance 0 Weight 63.9 kg General appearance: PRESENT: no acute distress, disheveled, well-developed, well -nourished. ABSENT: cooperative Head exam: PRESENT: atraumatic, normocephalic Eye exam: PRESENT: conjunctiva pale. ABSENT: nystagmus, periorbital swelling, scleral icterus Mouth exam: PRESENT: dry mucosa, neck supple, tongue midline, other - ET tube Neck exam: ABSENT: carotid bruit, JVD, lymphadenopathy, thyromegaly, tracheal deviation, tracheostomy Respiratory exam: PRESENT: decreased breath sounds, prolonged expiratory phas, rhonchi, unlabored. ABSENT: stridor Cardiovascular exam: PRESENT: irregular rhythm, rubs, tachycardia Pulses: PRESENT: normal radial pulses GI/Abdominal exam: PRESENT: other - s/p surgery Gentrourinary exam: PRESENT: indwelling catheter Extremities exam: ABSENT: clubbing, joint swelling Musculoskeletal exam: ABSENT: ambulatory, deformity, dislocation Neurological exam: ABSENT: awake Skin exam: PRESENT: dry, warm Results Laboratory Results: 11/24/17 11/24/17 18:50 19:39 Carbonic Acid 1.46 H HCO3/H2CO3 Ratio 12:1 ABG pH 7.18 L* ABG pCO2 48.6 H ABG pO2 113.1 H ABG HCO3 17.9 L ABG O2 Saturation 97.0 ABG Base Excess -10.3 FiO2 40% Lactic Acid 1.8 Impressions: Abdomen/Pelvis CT 11/24/17 13:21 IMPRESSION: Moderate probably stable ascites. Stable borderline splenomegaly. Stable varices. Thickening of the omentum that appears more prominent than on the previous study. Assessment & Plan - Diagnosis (1) Atrial fibrillation and flutter Is this a current diagnosis for this admission?: Yes Plan: controlled at this time (2) Acute respiratory failure Is this a current diagnosis for this admission?: Yes Plan: ventilate to correct ph (3) Incarcerated hernia of abdominal cavity Is this a current diagnosis for this admission?: Yes Plan: as per surgery - Time Total Critical Time (Minutes): 65
[2017-11-25 09:35] LABS: ARTERIAL BLOOD HCO3 16.3 mmol/L (20-26); ARTERIAL BLOOD PCO2 26.6 mmHg (35-45); ARTERIAL BLOOD PH 7.41 (7.35-7.45); ARTERIAL BLOOD PO2 106.6 mmHg (80-100); ARTERIAL BLOOD TOTAL CO2 17.1 mmol/L (23-27)
[2017-11-25] MEDS: ENOXAPARIN SODIUM INJ 40 MG/0.4 ML DISP.SYRIN SUBCUT SCH (09:43)
[2017-11-25] MEDS: AMIODARONE HCL 200 MG TABLET PO SCH ×2 (09:45→17:37)
[2017-11-25 10:08] LABS: ARTERIAL BLOOD FIO2 40%
[2017-11-25] MEDS ORDERED: HYDROMORPHONE HCL INJ/PF 2 MG/ML AMPULE IV PRN (10:16)
--- NOTE | 2017-11-25 11:27 | PDOC PROGRESS REPORT ---
Subjective Progress Note for:: 11/25/17 Subjective:: intubated/sedated Reason For Visit: ABSCESS OF UMBILICAL HERNIA Physical Exam Vital Signs: Temp Pulse Resp BP Pulse Ox 97.9 F 68 18 111/79 100 11/25/17 05:15 11/25/17 07:25 11/25/17 06:00 11/25/17 05:58 11/25/17 06:00 Intake & Output 11/24/17 11/25/17 11/26/17 06:59 06:59 06:59 Intake Total 4192 Output Total 2375 Balance 1817 Weight 62.2 kg General appearance: PRESENT: no acute distress, disheveled. ABSENT: cooperative Head exam: PRESENT: atraumatic, normocephalic Eye exam: PRESENT: conjunctiva pale. ABSENT: EOMI, nystagmus, periorbital swelling, scleral icterus Mouth exam: PRESENT: dry mucosa, neck supple, tongue midline, other - ET tube Neck exam: ABSENT: carotid bruit, JVD, lymphadenopathy, thyromegaly, tracheal deviation, tracheostomy Respiratory exam: PRESENT: decreased breath sounds, prolonged expiratory phas, rhonchi, unlabored. ABSENT: retraction, stridor Cardiovascular exam: PRESENT: +S1, +S2, tachycardia Pulses: PRESENT: normal radial pulses GI/Abdominal exam: PRESENT: other - < 24 h s/p surgery Extremities exam: ABSENT: clubbing, joint swelling Musculoskeletal exam: ABSENT: deformity, dislocation Neurological exam: ABSENT: awake Skin exam: PRESENT: dry, warm Results Laboratory Results: 11/25/17 03:54 11/25/17 03:54 11/24/17 11/24/17 11/24/17 18:50 19:39 21:15 WBC RBC Hgb Hct MCV MCH MCHC RDW Plt Count Seg Neutrophils % Lymphocytes % Monocytes % Eosinophils % Basophils % Absolute Neutrophils Absolute Lymphocytes Absolute Monocytes Absolute Eosinophils Absolute Basophils Carbonic Acid 1.46 H 1.00 L HCO3/H2CO3 Ratio 12:1 17:1 ABG pH 7.18 L* 7.34 L ABG pCO2 48.6 H 33.3 L ABG pO2 113.1 H 113.4 H ABG HCO3 17.9 L 17.4 L ABG O2 Saturation 97.0 97.9 ABG Base Excess -10.3 -7.5 FiO2 40% 40% Sodium Potassium Chloride Carbon Dioxide Anion Gap BUN Creatinine Est GFR ( Amer) Est GFR (Non-Af Amer) Glucose Lactic Acid 1.8 Calcium Phosphorus Magnesium Total Bilirubin AST ALT Alkaline Phosphatase Total Protein Albumin 11/25/17 11/25/17 11/25/17 03:54 03:54 06:02 WBC 17.7 H RBC 3.41 L Hgb 10.9 L Hct 31.5 L MCV 93 MCH 31.9 MCHC 34.6 RDW 14.8 H Plt Count 216 Seg Neutrophils % 87.7 H Lymphocytes % 7.2 L Monocytes % 4.9 Eosinophils % 0.0 Basophils % 0.2 Absolute Neutrophils 15.5 H Absolute Lymphocytes 1.3 Absolute Monocytes 0.9 Absolute Eosinophils 0.0 Absolute Basophils 0.0 Carbonic Acid 0.99 L HCO3/H2CO3 Ratio 18:1 ABG pH 7.36 ABG pCO2 32.9 L ABG pO2 45.6 L ABG HCO3 18.0 L ABG O2 Saturation 80.3 L ABG Base Excess -6.6 FiO2 40% Sodium 138.0 Potassium 4.3 Chloride 115 H Carbon Dioxide 18 L Anion Gap 5 BUN 22 H Creatinine 0.75 Est GFR ( Amer) > 60 Est GFR (Non-Af Amer) > 60 Glucose 134 H Lactic Acid Calcium 7.5 L Phosphorus 2.8 Magnesium 2.0 Total Bilirubin 1.4 H AST 46 ALT 53 Alkaline Phosphatase 64 Total Protein 6.0 L Albumin 2.3 L 11/25/17 03:54 NT-Pro-B Natriuret Pep 1590 H Impressions: Abdomen/Pelvis CT 11/24/17 13:21 IMPRESSION: Moderate probably stable ascites. Stable borderline splenomegaly. Stable varices. Thickening of the omentum that appears more prominent than on the previous study. Chest X-Ray 11/25/17 06:00 IMPRESSION: Small left basilar pneumonia/atelectasis. Assessment & Plan - Diagnosis (1) Atrial fibrillation and flutter Is this a current diagnosis for this admission?: Yes Plan: controlled at this time (2) Acute respiratory failure Is this a current diagnosis for this admission?: Yes Plan: ventilate to correct ph (3) Incarcerated hernia of abdominal cavity Is this a current diagnosis for this admission?: Yes - Time Total Critical Time (Minutes): 40
--- NOTE | 2017-11-25 12:24 | PDOC PROGRESS REPORT ---
Subjective Progress Note for:: 11/25/17 Subjective:: Intubated and sedated Reason For Visit: ABSCESS OF UMBILICAL HERNIA Physical Exam Vital Signs: Temp Pulse Resp BP Pulse Ox 96.8 F L 69 20 113/78 100 11/25/17 10:00 11/25/17 10:00 11/25/17 10:13 11/25/17 10:13 11/25/17 10:13 Intake & Output 11/24/17 11/25/17 11/26/17 06:59 06:59 06:59 Intake Total 4192 Output Total 2375 200 Balance 1817 -200 Weight 62.2 kg General appearance: PRESENT: no acute distress Respiratory exam: PRESENT: clear to auscultation henny Cardiovascular exam: PRESENT: RRR GI/Abdominal exam: PRESENT: other - Soft, nondistended, unable to appreciate whether he has tenderness due to sedation. Extremities exam: PRESENT: other - No swelling and no tenderness. Results Laboratory Results: 11/25/17 03:54 11/25/17 03:54 11/24/17 11/24/17 11/24/17 18:50 19:39 21:15 WBC RBC Hgb Hct MCV MCH MCHC RDW Plt Count Seg Neutrophils % Lymphocytes % Monocytes % Eosinophils % Basophils % Absolute Neutrophils Absolute Lymphocytes Absolute Monocytes Absolute Eosinophils Absolute Basophils Carbonic Acid 1.46 H 1.00 L HCO3/H2CO3 Ratio 12:1 17:1 ABG pH 7.18 L* 7.34 L ABG pCO2 48.6 H 33.3 L ABG pO2 113.1 H 113.4 H ABG HCO3 17.9 L 17.4 L ABG O2 Saturation 97.0 97.9 ABG Base Excess -10.3 -7.5 FiO2 40% 40% Sodium Potassium Chloride Carbon Dioxide Anion Gap BUN Creatinine Est GFR ( Amer) Est GFR (Non-Af Amer) Glucose Lactic Acid 1.8 Calcium Phosphorus Magnesium Total Bilirubin AST ALT Alkaline Phosphatase Total Protein Albumin 11/25/17 11/25/17 11/25/17 03:54 03:54 06:02 WBC 17.7 H RBC 3.41 L Hgb 10.9 L Hct 31.5 L MCV 93 MCH 31.9 MCHC 34.6 RDW 14.8 H Plt Count 216 Seg Neutrophils % 87.7 H Lymphocytes % 7.2 L Monocytes % 4.9 Eosinophils % 0.0 Basophils % 0.2 Absolute Neutrophils 15.5 H Absolute Lymphocytes 1.3 Absolute Monocytes 0.9 Absolute Eosinophils 0.0 Absolute Basophils 0.0 Carbonic Acid 0.99 L HCO3/H2CO3 Ratio 18:1 ABG pH 7.36 ABG pCO2 32.9 L ABG pO2 45.6 L ABG HCO3 18.0 L ABG O2 Saturation 80.3 L ABG Base Excess -6.6 FiO2 40% Sodium 138.0 Potassium 4.3 Chloride 115 H Carbon Dioxide 18 L Anion Gap 5 BUN 22 H Creatinine 0.75 Est GFR ( Amer) > 60 Est GFR (Non-Af Amer) > 60 Glucose 134 H Lactic Acid Calcium 7.5 L Phosphorus 2.8 Magnesium 2.0 Total Bilirubin 1.4 H AST 46 ALT 53 Alkaline Phosphatase 64 Total Protein 6.0 L Albumin 2.3 L 11/25/17 09:25 WBC RBC Hgb Hct MCV MCH MCHC RDW Plt Count Seg Neutrophils % Lymphocytes % Monocytes % Eosinophils % Basophils % Absolute Neutrophils Absolute Lymphocytes Absolute Monocytes Absolute Eosinophils Absolute Basophils Carbonic Acid 0.80 L HCO3/H2CO3 Ratio 20:1 ABG pH 7.41 ABG pCO2 26.6 L ABG pO2 106.6 H ABG HCO3 16.3 L ABG O2 Saturation 98.0 ABG Base Excess -7.0 FiO2 40% Sodium Potassium Chloride Carbon Dioxide Anion Gap BUN Creatinine Est GFR ( Amer) Est GFR (Non-Af Amer) Glucose Lactic Acid Calcium Phosphorus Magnesium Total Bilirubin AST ALT Alkaline Phosphatase Total Protein Albumin 11/25/17 03:54 NT-Pro-B Natriuret Pep 1590 H Impressions: Abdomen/Pelvis CT 11/24/17 13:21 IMPRESSION: Moderate probably stable ascites. Stable borderline splenomegaly. Stable varices. Thickening of the omentum that appears more prominent than on the previous study. Chest X-Ray 11/25/17 06:00 IMPRESSION: Small left basilar pneumonia/atelectasis. Assessment & Plan - Diagnosis (1) Incarcerated hernia of abdominal cavity Is this a current diagnosis for this admission?: Yes Plan: Status post repair. Still on ventilator. Defer to pulmonary for management. Pulmonary did not wish to try extubation today. We will keep sedated and will try tomorrow. Continue supportive care.
[2017-11-25] MEDS ORDERED: LEVALBUTEROL HCL NEB 0.63 MG/3 ML AMPUL NEB PRN (12:28)
--- NOTE | 2017-11-25 12:47 | PDOC CONSULTATION ---
Consultation Consult Date: 11/24/17 Attending physician:: RICKEY HORNER Consult reason:: Atrial fibrillation with rapid ventricular response History of Present Illness Admission Date/PCP: 11/24/17 13:42 VENKATA SAAB MD Patient complains of: Palpitations History of Present Illness: ELDER KIMBALL is a 62 year old male, patient was initially seen in the PACU unit when he was noted to be in atrial fibrillation with rapid ventricular response in the range of 150. Patient was en route to OR because of a incarcerated abdominal hernia. It seems patient was in sinus rhythm until recently. He denied any prior history of atrial fibrillation or any cardiac problems. Even though patient heart rate was in the 150s, he looked comfortable in no acute distress therefore emergency cardioversion was not performed. Anesthesiologist were advised that patient be given IV metoprolol or esmolol drip and also simultaneously start on amiodarone bolus and drip protocol. Patient subsequently taken to surgery and returned to the unit. He was noted to be intubated and sedated. Patient was noted to be in atrial flutter with heart rate in the 140 range. His blood pressure slight bit on the low side intermittently. It was felt that since he was already intubated and sedated, it may be worthwhile to just go ahead and cardiovert him. This was then performed. Patient converted to sinus rhythm. With this his vitals became more stable. Past Medical History Cardiac Medical History: Denies: Coronary Artery Disease, Myocardial Infarction, Hypertension Pulmonary Medical History: Denies: Asthma, Bronchitis, Chronic Obstructive Pulmonary Disease (COPD), Pneumonia Neurological Medical History: Denies: Seizures GI Medical History: Reports: Hepatitis Musculoskeltal Medical History: Reports: Arthritis - Hands Hematology: Denies: Anemia Infectious Medical History: Reports: Hepatitis C Past Surgical History Past Surgical History: Reports: Orthopedic Surgery - Removal of multiple disc from neck area Social History Information Source: Patient Smoking Status: Current Some Day Smoker - Advance Directive Resuscitation Status: Full Code Surrogate healthcare decision maker:: Patient sister is the surrogate decision-maker Family History Family History: Arthritis, CAD, Hyperlipidemia, Hypertension, Malignancy. denies: COPD, CVA, DM, Thyroid Disfunction Parental Family History Reviewed: Yes Children Family History Reviewed: Yes Sibling(s) Family History Reviewed.: Yes Medication/Allergy Home Medications: Oxycodone HCl [Oxycodone HCl 10 MG Tablet] 10 mg PO Q8HP PRN 11/24/17 Ribavirin 400 mg PO Q12 11/24/17 Sofosbuvir/Velpatas/Voxilaprev [Vosevi 400-100-100 mg Tablet] 1 tab PO DAILY 11/06 Allergies/Adverse Reactions: No Known Allergies Allergy (Verified 09/02/17 10:01) Review of Systems ROS unobtainable: Due to endotracheal tube Physical Exam Vital Signs: Temp Pulse Resp BP Pulse Ox 98.4 F 140 H 10 L 136/107 H 98 11/24/17 19:25 11/24/17 19:25 11/24/17 19:25 11/24/17 19:25 11/24/17 19:25 Intake & Output 11/23/17 11/24/17 11/25/17 06:59 06:59 06:59 Intake Total 2000 Output Total 1999 Balance 0 Weight 63.9 kg Exam: GENERAL: well-nourished and in no acute distress. Patient is intubated and sedated. Orientation cannot be checked HEAD: Atraumatic, normocephalic. EYES: Pupils equal round and reactive to light, extraocular movements could not be checked, sclera anicteric, conjunctiva are normal. ENT: TMs normal, nares patent, oropharynx clear without exudates. Moist mucous membranes. No oral ulcerations or bleeding gums noted NECK: supple without lymphadenopathy or JVD. Trachea is central. No cervical or axillary lymphadenopathy noted. Carotids are 2+ LUNGS: Breath sounds mostly clear to auscultation patient is noted to have bibasal crackles at the extreme bases CHEST: Palpation of the chest wall shows no significant chest wall tenderness or abnormalities. 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 ABDOMEN: Soft, no significant tenderness appreciated, normoactive bowel sounds. No guarding, no rebound. No rigidity noted . No masses appreciated. EXTREMITIES: Pedal pulses are 1-2+, no calf tenderness noted, Negative pedal edema noted. No clubbing or cyanosis. NEUROLOGICAL: The patient cannot participate in the neurological exam but no facial asymmetry noted. Extremities slightly hypotonic PSYCH: This cannot be evaluated. Patient cannot participate. SKIN: No significant ecchymosis, rash, or signs of pruritus noted. MUSCULOSKELETAL EXAM: No significant joint swelling noted. Patient cannot participate in musculoskeletal exam Results Laboratory Results: 11/24/17 18:50 Lactic Acid 1.8 EKG Comments: Atrial fibrillation with rapid ventricular response noted on monitor. Subsequently post cardioversion patient noted to maintain sinus rhythm. Impressions: Abdomen/Pelvis CT 11/24/17 13:21 IMPRESSION: Moderate probably stable ascites. Stable borderline splenomegaly. Stable varices. Thickening of the omentum that appears more prominent than on the previous study. Assessment & Plan - Diagnosis (1) Atrial fibrillation and flutter Is this a current diagnosis for this admission?: Yes (2) Incarcerated hernia of abdominal cavity Is this a current diagnosis for this admission?: Yes (3) COPD (chronic obstructive pulmonary disease) Qualifiers: Chronic bronchitis type: unspecified Is this a current diagnosis for this admission?: Yes (4) Tobacco abuse Is this a current diagnosis for this admission?: Yes (5) Acute respiratory failure Qualifiers: Respiratory failure complication: unspecified whether with hypoxia or hypercapnia Qualified Code(s): J96.00 - Acute respiratory failure, unspecified whether with hypoxia or hypercapnia Is this a current diagnosis for this admission?: Yes - Notes Notes: Atrial flutter fibrillation: Patient was noted to be in atrial flutter fibrillation with rapid ventricular response. Initially it was difficult to differentiate whether patient was in sinus tachycardia or atrial flutter with 2- 1 conduction. Patient was given IV adenosine 6 mg followed by 20 mL of normal saline bolus under my supervision. this clearly showed underlying flutter waves. Cardiac dysrhythmia most likely precipitated by incarcerated hernia. Patient was cardioverted. Currently maintaining sinus rhythm. I was at bedside for adenosine IV bolus and monitoring patient's heart rhythm. Incarcerated abdominal's hernia: Patient is status post surgery. Surgeons following patient very closely. COPD: Currently stable. Patient being evaluated by community service aide. Tobacco abuse: Currently intubated. Patient's sister advised to avoid any first time had secondhand smoking for the patient. Acute respiratory failure: This happened postop. Possibly related to anesthesia on top of underlying COPD. Patient was also noted to be acidotic probably related to CO2 retention versus some element of sepsis/lactic acidosis. - Time Time Spent: 50 to 70 Minutes Total Critical Time (Minutes): 30 Medications reviewed and adjusted accordingly: Yes
--- NOTE | 2017-11-25 12:49 | Progress Note ---
Provider Note Provider Note: Cardioversion: External synchronized cardioversion of atrial fibrillation to sinus rhythm. Patient was noted to be initially in atrial fibrillation with rapid ventricular response but subsequently converted to atrial flutter with 2-1 response. It was felt that cardioversion is indicated as patient was noted to have some acidosis, possible reduced cardiac output related and was also noted to have intermittently low blood pressure. Patient's was informed. Patient already being sedated and intubated. A single shock at 100 J was given synchronized to QRS. Patient converted to sinus rhythm. Impression: Successful cardioversion of atrial flutter to sinus rhythm without any immediate complications
[2017-11-25] MEDS: IPRATROPIUM/ALBUTEROL 0.5-2.5 MG/3 ML AMPUL NEB SCH ×2 (14:35→20:12)
[2017-11-25] MEDS: HYDROMORPHONE HCL INJ/PF 2 MG/ML AMPULE IV PRN (15:28)
[2017-11-25] MEDS: DILTIAZEM HCL 30 MG TABLET PO SCH ×2 (15:29→21:49)
--- NOTE | 2017-11-25 20:30 | PDOC PROGRESS REPORT ---
Subjective Progress Note for:: 11/25/17 Subjective:: Status post incarcerated hernia surgery. Was brought into the unit intubated and sedated. Was cardioverted last night from atrial fibrillation into sinus rhythm. There is no significant change in general condition. Patient remains intubated, sedated, patient however looks comfortable and in acute distress. Patient maintaining sinus rhythm. Medications reviewed. Reason For Visit: ABSCESS OF UMBILICAL HERNIA Physical Exam Vital Signs: Temp Pulse Resp BP Pulse Ox 97.7 F 70 18 104/75 100 11/25/17 12:00 11/25/17 12:00 11/25/17 12:00 11/25/17 12:00 11/25/17 12:23 Intake & Output 11/24/17 11/25/17 11/26/17 06:59 06:59 06:59 Intake Total 4192 Output Total 2375 280 Balance 1817 -280 Weight 62.2 kg Exam: GENERAL: well-nourished and in no acute distress. Patient is intubated and sedated. Orientation cannot be checked HEAD: Atraumatic, normocephalic. EYES: Pupils equal round and reactive to light, extraocular movements could not be checked, sclera anicteric, conjunctiva are normal. ENT: TMs normal, nares patent, oropharynx clear without exudates. Moist mucous membranes. No oral ulcerations or bleeding gums noted NECK: supple without lymphadenopathy or JVD. Trachea is central. No cervical or axillary lymphadenopathy noted. Carotids are 2+ LUNGS: Breath sounds mostly clear to auscultation patient is noted to have bibasal crackles at the extreme bases CHEST: Palpation of the chest wall shows no significant chest wall tenderness or abnormalities. 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 ABDOMEN: Soft, no significant tenderness appreciated, normoactive bowel sounds. No guarding, no rebound. No rigidity noted . No masses appreciated. EXTREMITIES: Pedal pulses are 1-2+, no calf tenderness noted, 1+ pedal edema noted. No clubbing or cyanosis. NEUROLOGICAL: The patient cannot participate in the neurological exam but no facial asymmetry noted. Extremities slightly hypotonic PSYCH: This cannot be evaluated. Patient cannot participate. SKIN: No significant ecchymosis, rash, or signs of pruritus noted. MUSCULOSKELETAL EXAM: No significant joint swelling noted. Patient cannot participate in musculoskeletal exam Results Laboratory Results: 11/25/17 03:54 11/25/17 03:54 11/24/17 11/24/17 11/24/17 18:50 19:39 21:15 WBC RBC Hgb Hct MCV MCH MCHC RDW Plt Count Seg Neutrophils % Lymphocytes % Monocytes % Eosinophils % Basophils % Absolute Neutrophils Absolute Lymphocytes Absolute Monocytes Absolute Eosinophils Absolute Basophils Carbonic Acid 1.46 H 1.00 L HCO3/H2CO3 Ratio 12:1 17:1 ABG pH 7.18 L* 7.34 L ABG pCO2 48.6 H 33.3 L ABG pO2 113.1 H 113.4 H ABG HCO3 17.9 L 17.4 L ABG O2 Saturation 97.0 97.9 ABG Base Excess -10.3 -7.5 FiO2 40% 40% Sodium Potassium Chloride Carbon Dioxide Anion Gap BUN Creatinine Est GFR ( Amer) Est GFR (Non-Af Amer) Glucose Lactic Acid 1.8 Calcium Phosphorus Magnesium Total Bilirubin AST ALT Alkaline Phosphatase Total Protein Albumin 11/25/17 11/25/17 11/25/17 03:54 03:54 06:02 WBC 17.7 H RBC 3.41 L Hgb 10.9 L Hct 31.5 L MCV 93 MCH 31.9 MCHC 34.6 RDW 14.8 H Plt Count 216 Seg Neutrophils % 87.7 H Lymphocytes % 7.2 L Monocytes % 4.9 Eosinophils % 0.0 Basophils % 0.2 Absolute Neutrophils 15.5 H Absolute Lymphocytes 1.3 Absolute Monocytes 0.9 Absolute Eosinophils 0.0 Absolute Basophils 0.0 Carbonic Acid 0.99 L HCO3/H2CO3 Ratio 18:1 ABG pH 7.36 ABG pCO2 32.9 L ABG pO2 45.6 L ABG HCO3 18.0 L ABG O2 Saturation 80.3 L ABG Base Excess -6.6 FiO2 40% Sodium 138.0 Potassium 4.3 Chloride 115 H Carbon Dioxide 18 L Anion Gap 5 BUN 22 H Creatinine 0.75 Est GFR ( Amer) > 60 Est GFR (Non-Af Amer) > 60 Glucose 134 H Lactic Acid Calcium 7.5 L Phosphorus 2.8 Magnesium 2.0 Total Bilirubin 1.4 H AST 46 ALT 53 Alkaline Phosphatase 64 Total Protein 6.0 L Albumin 2.3 L 11/25/17 09:25 WBC RBC Hgb Hct MCV MCH MCHC RDW Plt Count Seg Neutrophils % Lymphocytes % Monocytes % Eosinophils % Basophils % Absolute Neutrophils Absolute Lymphocytes Absolute Monocytes Absolute Eosinophils Absolute Basophils Carbonic Acid 0.80 L HCO3/H2CO3 Ratio 20:1 ABG pH 7.41 ABG pCO2 26.6 L ABG pO2 106.6 H ABG HCO3 16.3 L ABG O2 Saturation 98.0 ABG Base Excess -7.0 FiO2 40% Sodium Potassium Chloride Carbon Dioxide Anion Gap BUN Creatinine Est GFR ( Amer) Est GFR (Non-Af Amer) Glucose Lactic Acid Calcium Phosphorus Magnesium Total Bilirubin AST ALT Alkaline Phosphatase Total Protein Albumin 11/25/17 03:54 NT-Pro-B Natriuret Pep 1590 H EKG Comments: Telemetry strips shows sinus rhythm. Impressions: Abdomen/Pelvis CT 11/24/17 13:21 IMPRESSION: Moderate probably stable ascites. Stable borderline splenomegaly. Stable varices. Thickening of the omentum that appears more prominent than on the previous study. Chest X-Ray 11/25/17 06:00 IMPRESSION: Small left basilar pneumonia/atelectasis. Assessment & Plan - Diagnosis (1) Atrial fibrillation and flutter Is this a current diagnosis for this admission?: Yes (2) Incarcerated hernia of abdominal cavity Is this a current diagnosis for this admission?: Yes (3) COPD (chronic obstructive pulmonary disease) Qualifiers: Chronic bronchitis type: unspecified Is this a current diagnosis for this admission?: Yes (4) Tobacco abuse Is this a current diagnosis for this admission?: Yes (5) Acute respiratory failure Qualifiers: Respiratory failure complication: unspecified whether with hypoxia or hypercapnia Qualified Code(s): J96.00 - Acute respiratory failure, unspecified whether with hypoxia or hypercapnia Is this a current diagnosis for this admission?: Yes - Notes Notes: Atrial flutter fibrillation: Patient was cardioverted yesterday. Previously he was also on amiodarone drip. Today he will be switched to p.o. amiodarone. Aim would be to give him amiodarone just for 1 month. Currently maintaining sinus rhythm. Incarcerated abdominal's hernia: Patient is status post surgery. COPD: Currently stable. 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 Tobacco abuse: Currently intubated. Patient's sister advised to avoid any first time had secondhand smoking for the patient. Acute respiratory failure: This happened postop. Possibly related to anesthesia on top of underlying COPD. Patient was also noted to be acidotic probably related to CO2 retention versus some element of sepsis/lactic acidosis. - Time Time with patient: Greater than 35 minutes - CODE STATUS was discussed, patient remains full code. Surrogate decision-maker unchanged. Multiple medical problems were addressed. More than 50% of the time spent coordinating care, discussing management plans with involved caregivers. Management plans discussed with involved personnels. Medical decision making was of moderate to high complexity, patient's has multiple comorbidities. Medications reviewed and adjusted accordingly: Yes
--- NOTE | 2017-11-25 20:47 | XCELERA REPORT ---
[address] [address] Transthoracic Echocardiogram Report Name: ELDER KIMBALL Age: 62 yrs Gender: Male : 1955 Patient Status: Inpatient Patient Location: ICU^[id number] Study Date: 11/25/2017 09:17 AM Procedure: A complete two-dimensional transthoracic echocardiogram was performed (2D, M-mode, spectral and color flow Doppler). The study was technically difficult with many images being suboptimal in quality. Reason For Study: a fib Ordering Physician: CORAL FLORES Performed By: Jimena Candelaria Interpretation Summary The left ventricular ejection fraction is normal. There is borderline concentric left ventricular hypertrophy. The left ventricle is grossly normal size. LV diastolic function could not be adequately assessed. Wall motion cannot be accurately commented on, but no definite regional wall motion abnormalities noted. The right ventricular systolic function is normal. The left atrial size is normal. The right atrium is normal in size There is no mitral valve stenosis. There is a mild amount of mitral regurgitation There is no aortic valve stenosis No aortic regurgitation is present. There is a trace or physiologic amount of tricuspid regurgitation Tricuspid regurgitation jet envelope not well defined to measure RV systolic pressure accurately. There is no pericardial effusion. MMode/2D Measurements & Calculations RVDd: 3.1 cm LVIDd: 4.3 cm FS: 38.4 % Ao root diam: 2.8 cm IVSd: 1.1 cm LVIDs: 2.6 cm EDV(Teich): 82.8 ml Ao root area: 6.0 cm2 LVPWd: 0.97 cmESV(Teich): 25.7 ml EF(Teich): 68.9 % LVOT diam: 1.7 cm LVOT area: 2.3 cm2 Doppler Measurements & Calculations MV E max yunior: MV dec slope: Ao V2 max: LV V1 max P.1 cm/sec 101.5 cm/sec 2.4 mmHg MV A max yunior: 351.9 cm/sec2 Ao max P.1 mmHg LV V1 max: 62.2 cm/sec MV dec time: 77.8 cm/sec MV E/A: 1.3 0.23 sec [place](V,D): 1.8 cm2 PA V2 max: TR max yunior: Pulm Sys Yunior: 83.0 cm/sec 218.6 cm/sec 39.7 cm/sec PA max PG: TR max P.1 mmHgPulm Vargas Yunior: 2.8 mmHg 30.0 cm/sec Pulm A Revs Yunior: 20.5 cm/sec Pulm A Revs Dur: 0.10 sec Pulm S/D: 1.3 Left Ventricle The left ventricle is grossly normal size. There is borderline concentric left ventricular hypertrophy. The left ventricular ejection fraction is normal. LV diastolic function could not be adequately assessed. Wall motion cannot be accurately commented on, but no definite regional wall motion abnormalities noted. Right Ventricle The right ventricle is grossly normal size. There is normal right ventricular wall thickness. The right ventricular systolic function is normal. Atria The right atrium is normal in size. The left atrial size is normal. Interarterial septum not well visualized and not well dopplered. Cannot comment on ASD/PFO presence. Mitral Valve There is mild mitral leaflet calcification. There is no mitral valve stenosis. There is a mild amount of mitral regurgitation. Aortic Valve The aortic valve is mildly calcified. The aortic valve is not well visualized secondary to technical limitations. There is no aortic valve stenosis. No aortic regurgitation is present. Tricuspid Valve The tricuspid valve is not well visualized, but is grossly normal. There is no tricuspid stenosis. There is a trace or physiologic amount of tricuspid regurgitation. Tricuspid regurgitation jet envelope not well defined to measure RV systolic pressure accurately. Pulmonic Valve The pulmonic valve is not well visualized. Great Vessels The aortic root is not well visualized but is probably normal size. Effusions There is no pericardial effusion. : CORAL FLORES > Coral Flores
[2017-11-25 21:32] LABS: CREATINE KINASE MB 0.68 ng/mL (<4.55)
[2017-11-25 21:35] LABS: TROPONIN I < 0.012 ng/mL
[2017-11-26] MEDS ORDERED: PIPERACILLIN/TAZOBACTAM 3.375 GM VIAL IV SCH
[2017-11-26] MEDS: IPRATROPIUM/ALBUTEROL 0.5-2.5 MG/3 ML AMPUL NEB SCH ×4 (01:41→19:49)
[2017-11-26 03:03] LABS: ABSOLUTE BASOPHILS # (AUTO) 0.1 10^3/uL (0.0-0.2); ABSOLUTE LYMPHOCYTES (AUTO) 1.9 10^3/uL (0.5-4.7); ABSOLUTE MONOCYTES (AUTO) 1.3 10^3/uL (0.1-1.4); ABSOLUTE NEUT (AUTO) 16.4 10^3/uL (1.7-8.2); BASOPHILS % (AUTO) 0.3 % (0-2); EOSINOPHILS % (AUTO) 0.2 % (0-6); HEMATOCRIT 30.6 % (37.9-51.0); HEMOGLOBIN 10.6 g/dL (13.5-17.0); LYMPHOCYTES % (AUTO) 9.7 % (13-45); MEAN CORPUSCULAR HEMOGLOBIN 31.9 pg (27.0-33.4); MEAN CORPUSCULAR HGB CONC 34.5 g/dL (32.0-36.0); MEAN CORPUSCULAR VOLUME 93 fl (80-97); MONOCYTES % (AUTO) 6.8 % (3-13); PLATELET COUNT 227 10^3/uL (150-450); RED BLOOD COUNT 3.31 10^6/uL (4.35-5.55); RED CELL DISTRIBUTION WIDTH 14.7 % (11.5-14.0); TOTAL CELLS COUNTED % (AUTO) 100 %; WHITE BLOOD COUNT 19.8 10^3/uL (4.0-10.5)
[2017-11-26 03:17] LABS: ANION GAP 10 (5-19); BLOOD UREA NITROGEN 21 mg/dL (7-20); CALCIUM 7.8 mg/dL (8.4-10.2); CARBON DIOXIDE 16 mmol/L (22-30); CHLORIDE 116 mmol/L (98-107); GLUCOSE 113 mg/dL (75-110); POTASSIUM 3.8 mmol/L (3.6-5.0); SODIUM 141.7 mmol/L (137-145)
[2017-11-26 03:29] LABS: CREATINE KINASE MB 0.58 ng/mL (<4.55)
[2017-11-26 03:31] LABS: TROPONIN I < 0.012 ng/mL
[2017-11-26 05:59] LABS: ARTERIAL BLOOD BASE EXCESS -4.7 mmol/L; ARTERIAL BLOOD HCO3 18.9 mmol/L (20-26); ARTERIAL BLOOD O2 SATURATION 98.1 % (94-98); ARTERIAL BLOOD PH 7.42 (7.35-7.45); ARTERIAL BLOOD PO2 109.3 mmHg (80-100); ARTERIAL BLOOD TOTAL CO2 19.9 mmol/L (23-27)
[2017-11-26 06:00] LABS: ARTERIAL BLOOD FIO2 30%
[2017-11-26] MEDS: PIPERACILLIN SODIUM/TAZOBACTAM 3.375 GM in NORMAL SALINE 100 ML IV SCH ×4 (06:06→23:50)
[2017-11-26] MEDS: DILTIAZEM HCL 30 MG TABLET PO SCH ×3 (06:06→21:52)
--- NOTE | 2017-11-26 06:34 | RADIOLOGY REPORT (SQ) ---
EXAM DESCRIPTION: XR CHEST 1 VIEW CLINICAL HISTORY: 62 years Male, resp failure/pna COMPARISON: One day prior. NUMBER OF VIEWS/TECHNIQUE: 1/AP FINDINGS: Moderate lung volume, small left basilar atelectasis or scar, normal cardiac silhouette, and tracheal tube tip is 5.1 cm from the jacki, adequate appearing enteric tube. No pneumothorax. No acute bone defect. IMPRESSION: No significant change.
[2017-11-26] MEDS: AMIODARONE HCL 200 MG TABLET PO SCH ×2 (09:54→17:07)
[2017-11-26] MEDS: ENOXAPARIN SODIUM INJ 40 MG/0.4 ML DISP.SYRIN SUBCUT SCH (09:55)
[2017-11-26] MEDS: HYDROMORPHONE HCL INJ/PF 2 MG/ML AMPULE IV PRN ×3 (09:57→17:44)
[2017-11-26 10:03] LABS: CREATINE KINASE MB 0.53 ng/mL (<4.55)
[2017-11-26 10:08] LABS: TROPONIN I < 0.012 ng/mL
--- NOTE | 2017-11-26 11:46 | PDOC PROGRESS REPORT ---
Subjective Progress Note for:: 11/26/17 Subjective:: intubated/sedated Reason For Visit: ABSCESS OF UMBILICAL HERNIA Physical Exam Vital Signs: Temp Pulse Resp BP Pulse Ox 98.6 F 76 21 H 106/67 100 11/26/17 04:00 11/26/17 07:34 11/26/17 07:00 11/26/17 06:44 11/26/17 07:00 Intake & Output 11/25/17 11/26/17 11/27/17 06:59 06:59 06:59 Intake Total 4192 3689 Output Total 2375 1035 Balance 1815 8644 Weight 62.2 kg 64 kg General appearance: PRESENT: no acute distress, disheveled, well-developed, well -nourished Head exam: PRESENT: atraumatic, normocephalic Eye exam: PRESENT: conjunctiva pale. ABSENT: nystagmus, periorbital swelling, scleral icterus Mouth exam: PRESENT: dry mucosa, neck supple, tongue midline, other - ET tube Neck exam: ABSENT: carotid bruit, JVD, lymphadenopathy, thyromegaly, tracheal deviation, tracheostomy Respiratory exam: PRESENT: decreased breath sounds, prolonged expiratory phas, rhonchi, unlabored. ABSENT: stridor Cardiovascular exam: PRESENT: +S1, +S2, tachycardia Pulses: PRESENT: normal radial pulses GI/Abdominal exam: PRESENT: other - s/p surgery Extremities exam: ABSENT: calf tenderness, clubbing, joint swelling Musculoskeletal exam: ABSENT: ambulatory, deformity, dislocation Neurological exam: ABSENT: awake Skin exam: PRESENT: dry, warm Results Laboratory Results: 11/26/17 02:56 11/26/17 02:56 11/25/17 11/26/17 11/26/17 09:25 02:56 02:56 WBC 19.8 H RBC 3.31 L Hgb 10.6 L Hct 30.6 L MCV 93 MCH 31.9 MCHC 34.5 RDW 14.7 H Plt Count 227 Seg Neutrophils % 83.0 H Lymphocytes % 9.7 L Monocytes % 6.8 Eosinophils % 0.2 Basophils % 0.3 Absolute Neutrophils 16.4 H Absolute Lymphocytes 1.9 Absolute Monocytes 1.3 Absolute Eosinophils 0.0 Absolute Basophils 0.1 Carbonic Acid 0.80 L HCO3/H2CO3 Ratio 20:1 ABG pH 7.41 ABG pCO2 26.6 L ABG pO2 106.6 H ABG HCO3 16.3 L ABG O2 Saturation 98.0 ABG Base Excess -7.0 FiO2 40% Sodium 141.7 Potassium 3.8 Chloride 116 H Carbon Dioxide 16 L Anion Gap 10 BUN 21 H Creatinine 0.78 Est GFR ( Amer) > 60 Est GFR (Non-Af Amer) > 60 Glucose 113 H Calcium 7.8 L Magnesium 2.1 11/26/17 05:51 WBC RBC Hgb Hct MCV MCH MCHC RDW Plt Count Seg Neutrophils % Lymphocytes % Monocytes % Eosinophils % Basophils % Absolute Neutrophils Absolute Lymphocytes Absolute Monocytes Absolute Eosinophils Absolute Basophils Carbonic Acid 0.90 L HCO3/H2CO3 Ratio 21:1 ABG pH 7.42 ABG pCO2 30.0 L ABG pO2 109.3 H ABG HCO3 18.9 L ABG O2 Saturation 98.1 H ABG Base Excess -4.7 FiO2 30% Sodium Potassium Chloride Carbon Dioxide Anion Gap BUN Creatinine Est GFR ( Amer) Est GFR (Non-Af Amer) Glucose Calcium Magnesium 11/25/17 11/25/17 11/26/17 03:54 20:54 02:56 CK-MB (CK-2) 0.68 0.58 Troponin I < 0.012 < 0.012 NT-Pro-B Natriuret Pep 1590 H Impressions: Abdomen/Pelvis CT 11/24/17 13:21 IMPRESSION: Moderate probably stable ascites. Stable borderline splenomegaly. Stable varices. Thickening of the omentum that appears more prominent than on the previous study. Chest X-Ray 11/26/17 06:00 IMPRESSION: No significant change. Assessment & Plan - Diagnosis (1) Atrial fibrillation and flutter Is this a current diagnosis for this admission?: Yes Plan: controlled at this time (2) Acute respiratory failure Qualifiers: Respiratory failure complication: unspecified whether with hypoxia or hypercapnia Qualified Code(s): J96.00 - Acute respiratory failure, unspecified whether with hypoxia or hypercapnia Is this a current diagnosis for this admission?: Yes Plan: Labs- All tests 24 hr 11/24/17 11/25/17 11/26/17 12:45 03:54 02:56 Carbon Dioxide 23 18 L 16 L (3) Incarcerated hernia of abdominal cavity Is this a current diagnosis for this admission?: Yes Plan: as per surgery Labs- All tests 24 hr 11/24/17 11/25/17 11/26/17 12:45 03:54 02:56 WBC 21.9 H 17.7 H 19.8 H 11/24/17 17:21 Gram Stain - Final Abdomen - Tissue (Surgical) Wound Culture - Final Escherichia Coli No Anaerobic Organisms 11/24/17 17:11 Gram Stain - Final Abdomen - Abscess Wound Culture - Final Escherichia Coli No Anaerobic Organisms - Time Total Critical Time (Minutes): 40
--- NOTE | 2017-11-26 12:35 | PDOC PROGRESS REPORT ---
Subjective Progress Note for:: 11/26/17 Subjective:: Intubated and sedated. Pulmonary did not wish to extubate patient today. Reason For Visit: ABSCESS OF UMBILICAL HERNIA Physical Exam Vital Signs: Temp Pulse Resp BP Pulse Ox 98.6 F 77 17 107/73 98 11/26/17 04:00 11/26/17 09:05 11/26/17 11:00 11/26/17 10:45 11/26/17 11:00 Intake & Output 11/25/17 11/26/17 11/27/17 06:59 06:59 06:59 Intake Total 4192 3689 0 Output Total 2375 1035 225 Balance 1817 2654 -225 Weight 62.2 kg 64 kg General appearance: PRESENT: no acute distress, cooperative Respiratory exam: PRESENT: clear to auscultation henny Cardiovascular exam: PRESENT: RRR GI/Abdominal exam: PRESENT: other - Moderately distended. But soft. Unable to determine whether he has any tenderness. Patient does not respond with deep palpation. Results Laboratory Results: 11/26/17 02:56 11/26/17 02:56 11/26/17 11/26/17 11/26/17 02:56 02:56 05:51 WBC 19.8 H RBC 3.31 L Hgb 10.6 L Hct 30.6 L MCV 93 MCH 31.9 MCHC 34.5 RDW 14.7 H Plt Count 227 Seg Neutrophils % 83.0 H Lymphocytes % 9.7 L Monocytes % 6.8 Eosinophils % 0.2 Basophils % 0.3 Absolute Neutrophils 16.4 H Absolute Lymphocytes 1.9 Absolute Monocytes 1.3 Absolute Eosinophils 0.0 Absolute Basophils 0.1 Carbonic Acid 0.90 L HCO3/H2CO3 Ratio 21:1 ABG pH 7.42 ABG pCO2 30.0 L ABG pO2 109.3 H ABG HCO3 18.9 L ABG O2 Saturation 98.1 H ABG Base Excess -4.7 FiO2 30% Sodium 141.7 Potassium 3.8 Chloride 116 H Carbon Dioxide 16 L Anion Gap 10 BUN 21 H Creatinine 0.78 Est GFR ( Amer) > 60 Est GFR (Non-Af Amer) > 60 Glucose 113 H Calcium 7.8 L Magnesium 2.1 11/24/17 17:11 Abdomen - Abscess Gram Stain - Final 11/24/17 17:11 Abdomen - Abscess Wound Culture - Final Escherichia Coli No Anaerobic Organisms 11/24/17 17:21 Abdomen - Tissue (Surgical) Gram Stain - Final 11/24/17 17:21 Abdomen - Tissue (Surgical) Wound Culture - Final Escherichia Coli No Anaerobic Organisms 11/25/17 11/25/17 11/26/17 03:54 20:54 02:56 CK-MB (CK-2) 0.68 0.58 Troponin I < 0.012 < 0.012 NT-Pro-B Natriuret Pep 1590 H 11/26/17 09:24 CK-MB (CK-2) 0.53 Troponin I < 0.012 NT-Pro-B Natriuret Pep Impressions: Abdomen/Pelvis CT 11/24/17 13:21 IMPRESSION: Moderate probably stable ascites. Stable borderline splenomegaly. Stable varices. Thickening of the omentum that appears more prominent than on the previous study. Chest X-Ray 11/26/17 06:00 IMPRESSION: No significant change. Assessment & Plan - Diagnosis (1) Incarcerated hernia of abdominal cavity Is this a current diagnosis for this admission?: Yes Plan: Status post repair. Still on ventilator. Defer to pulmonary for management. Pulmonary did not wish to try extubation today. We will keep sedated and will try tomorrow. Continue supportive care. Leukocytosis is concerning but he does not have tachycardia and has been hemodynamically stable. I do not think he has abdominal sepsis. However will continue close observation.
[2017-11-26] MEDS: PROPOFOL 1,000 MG/100 ML INFUS..BTL IV PRN ×2 (14:28→20:32)
[2017-11-26 16:20] LABS: CREATINE KINASE MB 0.43 ng/mL (<4.55)
[2017-11-26 16:22] LABS: TROPONIN I < 0.012 ng/mL
[2017-11-26] MEDS: NORMAL SALINE 1000 ML 1,000 ML IV PRN (21:52)
--- NOTE | 2017-11-26 23:02 | PDOC PROGRESS REPORT ---
Subjective Progress Note for:: 11/26/17 Subjective:: Status post incarcerated hernia surgery. Was brought into the unit intubated and sedated. Was cardioverted last night from atrial fibrillation into sinus rhythm. There is no significant change in general condition. Patient remains intubated, sedated, patient however looks comfortable and in acute distress. Patient maintaining sinus rhythm. Medications reviewed. Reason For Visit: ABSCESS OF UMBILICAL HERNIA Physical Exam Vital Signs: Temp Pulse Resp BP Pulse Ox 97.7 F 83 18 109/67 99 11/26/17 21:53 11/26/17 20:00 11/26/17 22:00 11/26/17 21:45 11/26/17 22:00 Intake & Output 11/25/17 11/26/17 11/27/17 06:59 06:59 06:59 Intake Total 4192 3689 1458 Output Total 2375 1035 675 Balance 1817 9574 783 Weight 62.2 kg 64 kg Exam: GENERAL: well-nourished and in no acute distress. Patient is intubated and sedated. Orientation cannot be checked HEAD: Atraumatic, normocephalic. EYES: Pupils equal round and reactive to light, extraocular movements could not be checked, sclera anicteric, conjunctiva are normal. ENT: TMs normal, nares patent, oropharynx clear without exudates. Moist mucous membranes. No oral ulcerations or bleeding gums noted NECK: supple without lymphadenopathy or JVD. Trachea is central. No cervical or axillary lymphadenopathy noted. Carotids are 2+ LUNGS: Breath sounds mostly clear to auscultation patient is noted to have bibasal crackles at the extreme bases CHEST: Palpation of the chest wall shows no significant chest wall tenderness or abnormalities. HEART: [place] [employer], No PSH, 2/6 MARIANA aortic area, 1/6 arias systolic murmur mitral area , no rubs or gallops. ABDOMEN: Soft, mild abdominal distention noted with hypoactive bowel sounds. No guarding, no rebound. No rigidity noted . No masses appreciated. EXTREMITIES: Pedal pulses are 1-2+, no calf tenderness noted, 1+ pedal edema noted. No clubbing or cyanosis. NEUROLOGICAL: The patient cannot participate in the neurological exam but no facial asymmetry noted. Extremities slightly hypotonic PSYCH: This cannot be evaluated. Patient cannot participate. SKIN: No significant ecchymosis, rash, or signs of pruritus noted. MUSCULOSKELETAL EXAM: No significant joint swelling noted. Patient cannot participate in musculoskeletal exam Results Laboratory Results: 11/26/17 02:56 11/26/17 02:56 11/26/17 11/26/17 11/26/17 02:56 02:56 05:51 WBC 19.8 H RBC 3.31 L Hgb 10.6 L Hct 30.6 L MCV 93 MCH 31.9 MCHC 34.5 RDW 14.7 H Plt Count 227 Seg Neutrophils % 83.0 H Lymphocytes % 9.7 L Monocytes % 6.8 Eosinophils % 0.2 Basophils % 0.3 Absolute Neutrophils 16.4 H Absolute Lymphocytes 1.9 Absolute Monocytes 1.3 Absolute Eosinophils 0.0 Absolute Basophils 0.1 Carbonic Acid 0.90 L HCO3/H2CO3 Ratio 21:1 ABG pH 7.42 ABG pCO2 30.0 L ABG pO2 109.3 H ABG HCO3 18.9 L ABG O2 Saturation 98.1 H ABG Base Excess -4.7 FiO2 30% Sodium 141.7 Potassium 3.8 Chloride 116 H Carbon Dioxide 16 L Anion Gap 10 BUN 21 H Creatinine 0.78 Est GFR ( Amer) > 60 Est GFR (Non-Af Amer) > 60 Glucose 113 H Calcium 7.8 L Magnesium 2.1 11/24/17 17:11 Abdomen - Abscess Gram Stain - Final 11/24/17 17:11 Abdomen - Abscess Wound Culture - Final Escherichia Coli No Anaerobic Organisms 11/24/17 17:21 Abdomen - Tissue (Surgical) Gram Stain - Final 11/24/17 17:21 Abdomen - Tissue (Surgical) Wound Culture - Final Escherichia Coli No Anaerobic Organisms 11/25/17 11/25/17 11/26/17 03:54 20:54 02:56 CK-MB (CK-2) 0.68 0.58 Troponin I < 0.012 < 0.012 NT-Pro-B Natriuret Pep 1590 H 11/26/17 11/26/17 09:24 15:25 CK-MB (CK-2) 0.53 0.43 Troponin I < 0.012 < 0.012 NT-Pro-B Natriuret Pep EKG Comments: Shows sinus rhythm without any sustained tachycardia or bradycardia Impressions: Abdomen/Pelvis CT 11/24/17 13:21 IMPRESSION: Moderate probably stable ascites. Stable borderline splenomegaly. Stable varices. Thickening of the omentum that appears more prominent than on the previous study. Chest X-Ray 11/26/17 06:00 IMPRESSION: No significant change. Assessment & Plan - Diagnosis (1) Atrial fibrillation and flutter Is this a current diagnosis for this admission?: Yes (2) Incarcerated hernia of abdominal cavity Is this a current diagnosis for this admission?: Yes (3) COPD (chronic obstructive pulmonary disease) Qualifiers: Chronic bronchitis type: unspecified Is this a current diagnosis for this admission?: Yes (4) Tobacco abuse Is this a current diagnosis for this admission?: Yes (5) Acute respiratory failure Qualifiers: Respiratory failure complication: unspecified whether with hypoxia or hypercapnia Qualified Code(s): J96.00 - Acute respiratory failure, unspecified whether with hypoxia or hypercapnia Is this a current diagnosis for this admission?: Yes - Notes Notes: Atrial flutter fibrillation: Status post cardioversion. Completed amiodarone drip protocol currently switched to p.o. amiodarone. Aim would be to give him amiodarone just for 1 month. Currently maintaining sinus rhythm. No need for chronic anticoagulation. Incarcerated abdominal's hernia: Patient is status post surgery. COPD: Currently stable. Patient being evaluated by qa tech. Tobacco abuse: Currently intubated. Patient's sister advised to avoid any first time had secondhand smoking for the patient. Acute respiratory failure: This happened postop. Possibly related to anesthesia on top of underlying COPD. Patient was also noted to be acidotic probably related to CO2 retention versus some element of sepsis/lactic acidosis. Patient not ready for extubation as patient is noted to have increased respiratory rate during weaning. This was reported by the nurse. Patient also noted to have some abdominal distention. - Time Time with patient: Greater than 35 minutes - CODE STATUS was discussed, patient remains full code. Surrogate decision-maker unchanged. Multiple medical problems were addressed. More than 50% of the time spent coordinating care, discussing management plans with involved caregivers. Management plans discussed with involved personnels. Medical decision making was of moderate to high complexity, patient's has multiple comorbidities. Medications reviewed and adjusted accordingly: Yes
[2017-11-27] MEDS: HYDROMORPHONE HCL INJ/PF 2 MG/ML AMPULE IV PRN ×4 (00:57→14:24)
[2017-11-27] MEDS: IPRATROPIUM/ALBUTEROL 0.5-2.5 MG/3 ML AMPUL NEB SCH ×4 (02:03→20:50)
[2017-11-27] MEDS: PROPOFOL 1,000 MG/100 ML INFUS..BTL IV PRN ×5 (02:51→22:16)
[2017-11-27 04:05] LABS: ABSOLUTE EOSINOPHILS # (AUTO) 0.3 10^3/uL (0.0-0.6); ABSOLUTE LYMPHOCYTES (AUTO) 1.6 10^3/uL (0.5-4.7); ABSOLUTE MONOCYTES (AUTO) 1.3 10^3/uL (0.1-1.4); ABSOLUTE NEUT (AUTO) 8.6 10^3/uL (1.7-8.2); BASOPHILS % (AUTO) 0.4 % (0-2); EOSINOPHILS % (AUTO) 2.1 % (0-6); HEMATOCRIT 32.2 % (37.9-51.0); HEMOGLOBIN 11.1 g/dL (13.5-17.0); LYMPHOCYTES % (AUTO) 13.9 % (13-45); MEAN CORPUSCULAR HEMOGLOBIN 31.9 pg (27.0-33.4); MEAN CORPUSCULAR HGB CONC 34.3 g/dL (32.0-36.0); MEAN CORPUSCULAR VOLUME 93 fl (80-97); MONOCYTES % (AUTO) 10.7 % (3-13); PLATELET COUNT 206 10^3/uL (150-450); RED BLOOD COUNT 3.47 10^6/uL (4.35-5.55); RED CELL DISTRIBUTION WIDTH 14.8 % (11.5-14.0); SEGMENTED NEUTROPHILS % (AUTO) 72.9 % (42-78); TOTAL CELLS COUNTED % (AUTO) 100 %; WHITE BLOOD COUNT 11.8 10^3/uL (4.0-10.5)
[2017-11-27 04:19] LABS: ALANINE AMINOTRANSFERASE 39 U/L (21-72); ALBUMIN 2.5 g/dL (3.5-5.0); ALKALINE PHOSPHATASE 67 U/L (38-126); ANION GAP 9 (5-19); ASPARTATE AMINO TRANSFERASE 30 U/L (17-59); BILIRUBIN,DIRECT 0.7 mg/dL (0.0-0.4); BLOOD UREA NITROGEN 18 mg/dL (7-20); CALCIUM 7.7 mg/dL (8.4-10.2); CARBON DIOXIDE 21 mmol/L (22-30); CHLORIDE 116 mmol/L (98-107); GLUCOSE 88 mg/dL (75-110); POTASSIUM 3.2 mmol/L (3.6-5.0); SODIUM 145.5 mmol/L (137-145); TOTAL PROTEIN 6.2 g/dL (6.3-8.2)
[2017-11-27] MEDS: PIPERACILLIN SODIUM/TAZOBACTAM 3.375 GM in NORMAL SALINE 100 ML IV SCH ×3 (05:14→18:25)
[2017-11-27] MEDS: DILTIAZEM HCL 30 MG TABLET PO SCH ×3 (05:14→22:16)
[2017-11-27 05:40] LABS: ARTERIAL BLOOD BASE EXCESS -3.4 mmol/L; ARTERIAL BLOOD H2CO3 0.93 mmol/L (1.05-1.35); ARTERIAL BLOOD O2 SATURATION 97.5 % (94-98); ARTERIAL BLOOD PCO2 30.9 mmHg (35-45); ARTERIAL BLOOD PH 7.43 (7.35-7.45); ARTERIAL BLOOD PO2 94.1 mmHg (80-100)
[2017-11-27 05:45] LABS: ARTERIAL BLOOD FIO2 30%
--- NOTE | 2017-11-27 06:23 | RADIOLOGY REPORT (SQ) ---
EXAM DESCRIPTION: XR CHEST 1 VIEW COMPLETED DATE/TME: 11/27/2017 06:00 CLINICAL HISTORY: 62 years Male, resp failure/sepsis COMPARISON: One day prior. NUMBER OF VIEWS/TECHNIQUE: 1/AP FINDINGS: Small left basilar atelectasis or scar, normal cardiac silhouette, adequate appearing enteric tube, endotracheal tube tip is 4.8 cm from the jacki. No pneumothorax. No acute bone defect. IMPRESSION: No significant change.
[2017-11-27] MEDS: NORMAL SALINE 1000 ML 1,000 ML IV PRN (07:29)
[2017-11-27] MEDS ORDERED: POTASSI CL 20 MEQ/50 ML RIDER 20 MEQ/50 ML RTUPB IV ONE (07:40)
[2017-11-27] MEDS ORDERED: HYDROMORPHONE HCL INJ/PF 2 MG/ML AMPULE ONE (07:46)
[2017-11-27] MEDS: POTASSI CL 20 MEQ/50 ML RIDER 20 MEQ/50 ML RTUPB IV SCH ×3 (08:00→13:00)
[2017-11-27] MEDS ORDERED: NORMAL SALINE 1000 ML 1,000 ML IV PRN (08:21)
[2017-11-27] MEDS ORDERED: FUROSEMIDE INJ/PF 20 MG/2 ML SDV IV ONE (08:21)
--- NOTE | 2017-11-27 10:51 | PDOC PROGRESS REPORT ---
Subjective Progress Note for:: 11/27/17 Subjective:: Patient intubated; sedated; unable to communicate. Reason For Visit: ABSCESS OF UMBILICAL HERNIA Physical Exam Vital Signs: Temp Pulse Resp BP Pulse Ox 97.9 F 80 26 H 104/72 97 11/27/17 08:00 11/27/17 08:36 11/27/17 08:36 11/27/17 08:00 11/27/17 08:36 Intake & Output 11/26/17 11/27/17 11/28/17 06:59 06:59 06:59 Intake Total 3689 3296 Output Total 1035 985 125 Balance 2654 2311 -125 Weight 64 kg 67.9 kg General appearance: PRESENT: other - Support lines in position including NG tube , Mock catheter, oral tracheal tube; patient pharmacologically sedated. GI/Abdominal exam: PRESENT: other - Abdomen is distended; very edematous; dressing dry and intact; difficult to assess tenderness due to sedation status Results Laboratory Results: 11/27/17 03:53 11/27/17 03:53 11/27/17 11/27/17 11/27/17 03:53 03:53 05:22 WBC 11.8 H RBC 3.47 L Hgb 11.1 L Hct 32.2 L MCV 93 MCH 31.9 MCHC 34.3 RDW 14.8 H Plt Count 206 Seg Neutrophils % 72.9 Lymphocytes % 13.9 Monocytes % 10.7 Eosinophils % 2.1 Basophils % 0.4 Absolute Neutrophils 8.6 H Absolute Lymphocytes 1.6 Absolute Monocytes 1.3 Absolute Eosinophils 0.3 Absolute Basophils 0.0 Carbonic Acid 0.93 L HCO3/H2CO3 Ratio 21:1 ABG pH 7.43 ABG pCO2 30.9 L ABG pO2 94.1 ABG HCO3 20.0 ABG O2 Saturation 97.5 ABG Base Excess -3.4 FiO2 30% Sodium 145.5 H Potassium 3.2 L Chloride 116 H Carbon Dioxide 21 L Anion Gap 9 BUN 18 Creatinine 0.78 Est GFR ( Amer) > 60 Est GFR (Non-Af Amer) > 60 Glucose 88 Calcium 7.7 L Magnesium 2.1 Total Bilirubin 1.0 AST 30 ALT 39 Alkaline Phosphatase 67 Total Protein 6.2 L Albumin 2.5 L 11/24/17 17:11 Abdomen - Abscess Gram Stain - Final 11/24/17 17:11 Abdomen - Abscess Wound Culture - Final Escherichia Coli No Anaerobic Organisms 11/24/17 17:21 Abdomen - Tissue (Surgical) Gram Stain - Final 11/24/17 17:21 Abdomen - Tissue (Surgical) Wound Culture - Final Escherichia Coli No Anaerobic Organisms 11/25/17 11/25/17 11/26/17 03:54 20:54 02:56 CK-MB (CK-2) 0.68 0.58 Troponin I < 0.012 < 0.012 NT-Pro-B Natriuret Pep 1590 H 11/26/17 11/26/17 09:24 15:25 CK-MB (CK-2) 0.53 0.43 Troponin I < 0.012 < 0.012 NT-Pro-B Natriuret Pep Impressions: Abdomen/Pelvis CT 11/24/17 13:21 IMPRESSION: Moderate probably stable ascites. Stable borderline splenomegaly. Stable varices. Thickening of the omentum that appears more prominent than on the previous study. Chest X-Ray 11/27/17 06:00 IMPRESSION: No significant change. Assessment & Plan - Diagnosis (1) Incarcerated hernia of abdominal cavity Is this a current diagnosis for this admission?: Yes Plan: Patient remains intubated postoperative day 3 status post abdominal wall exploration, reduction of incarcerated umbilical hernia, with primary closure, no mesh, no bowel resection. Patient is very edematous. Volume status up. Recommendations: 1. Decrease IV fluids; provide IV diuretic now 2. Replace potassium; orders written 3. HEENT from ventilator; discussed with Dr. Ham 4. Continue nasogastric tube drainage; abdominal distention may be multifactorial including ascites; patient has a long history of liver insufficiency.
--- NOTE | 2017-11-27 11:18 | PDOC PROGRESS REPORT ---
Subjective Progress Note for:: 11/27/17 Subjective:: intubated/sedated discussed with surgeon was planning on extubation however abdomen distened and tympanitic Reason For Visit: ABSCESS OF UMBILICAL HERNIA Physical Exam Vital Signs: Temp Pulse Resp BP Pulse Ox 97.2 F 82 18 94/68 L 100 11/27/17 05:22 11/27/17 02:05 11/27/17 06:00 11/27/17 05:45 11/27/17 06:00 Intake & Output 11/26/17 11/27/17 11/28/17 06:59 06:59 06:59 Intake Total 3689 3296 Output Total 1035 985 Balance 2654 2311 Weight 64 kg 67.9 kg General appearance: PRESENT: no acute distress, disheveled, thin. ABSENT: cooperative Head exam: PRESENT: atraumatic, normocephalic Eye exam: PRESENT: conjunctiva pale. ABSENT: nystagmus, periorbital swelling, scleral icterus Mouth exam: PRESENT: dry mucosa, neck supple, tongue midline, other - ET tube Neck exam: ABSENT: carotid bruit, JVD, lymphadenopathy, thyromegaly, tracheal deviation, tracheostomy Respiratory exam: PRESENT: decreased breath sounds, prolonged expiratory phas, rhonchi, unlabored. ABSENT: rales, retraction, stridor Cardiovascular exam: PRESENT: RRR, +S1, +S2, tachycardia Pulses: PRESENT: normal radial pulses GI/Abdominal exam: PRESENT: distended Extremities exam: ABSENT: calf tenderness, clubbing, joint swelling Musculoskeletal exam: ABSENT: deformity, dislocation Neurological exam: ABSENT: awake, oriented to person Skin exam: PRESENT: dry, warm Results Laboratory Results: 11/27/17 03:53 11/27/17 03:53 11/27/17 11/27/17 11/27/17 03:53 03:53 05:22 WBC 11.8 H RBC 3.47 L Hgb 11.1 L Hct 32.2 L MCV 93 MCH 31.9 MCHC 34.3 RDW 14.8 H Plt Count 206 Seg Neutrophils % 72.9 Lymphocytes % 13.9 Monocytes % 10.7 Eosinophils % 2.1 Basophils % 0.4 Absolute Neutrophils 8.6 H Absolute Lymphocytes 1.6 Absolute Monocytes 1.3 Absolute Eosinophils 0.3 Absolute Basophils 0.0 Carbonic Acid 0.93 L HCO3/H2CO3 Ratio 21:1 ABG pH 7.43 ABG pCO2 30.9 L ABG pO2 94.1 ABG HCO3 20.0 ABG O2 Saturation 97.5 ABG Base Excess -3.4 FiO2 30% Sodium 145.5 H Potassium 3.2 L Chloride 116 H Carbon Dioxide 21 L Anion Gap 9 BUN 18 Creatinine 0.78 Est GFR ( Amer) > 60 Est GFR (Non-Af Amer) > 60 Glucose 88 Calcium 7.7 L Magnesium 2.1 Total Bilirubin 1.0 AST 30 ALT 39 Alkaline Phosphatase 67 Total Protein 6.2 L Albumin 2.5 L 11/24/17 17:11 Abdomen - Abscess Gram Stain - Final 11/24/17 17:11 Abdomen - Abscess Wound Culture - Final Escherichia Coli No Anaerobic Organisms 11/24/17 17:21 Abdomen - Tissue (Surgical) Gram Stain - Final 11/24/17 17:21 Abdomen - Tissue (Surgical) Wound Culture - Final Escherichia Coli No Anaerobic Organisms 11/25/17 11/25/17 11/26/17 03:54 20:54 02:56 CK-MB (CK-2) 0.68 0.58 Troponin I < 0.012 < 0.012 NT-Pro-B Natriuret Pep 1590 H 11/26/17 11/26/17 09:24 15:25 CK-MB (CK-2) 0.53 0.43 Troponin I < 0.012 < 0.012 NT-Pro-B Natriuret Pep Impressions: Abdomen/Pelvis CT 11/24/17 13:21 IMPRESSION: Moderate probably stable ascites. Stable borderline splenomegaly. Stable varices. Thickening of the omentum that appears more prominent than on the previous study. Chest X-Ray 11/27/17 06:00 IMPRESSION: No significant change. Assessment & Plan - Diagnosis (1) Atrial fibrillation and flutter Is this a current diagnosis for this admission?: Yes Plan: controlled at this time (2) Acute respiratory failure Qualifiers: Respiratory failure complication: unspecified whether with hypoxia or hypercapnia Qualified Code(s): J96.00 - Acute respiratory failure, unspecified whether with hypoxia or hypercapnia Is this a current diagnosis for this admission?: Yes Plan: Plan to extubate abdomen extremely distended will hold off for another 24 hours (3) Incarcerated hernia of abdominal cavity Is this a current diagnosis for this admission?: Yes Plan: as per surgery Labs- All tests 24 hr 11/24/17 11/25/17 11/26/17 12:45 03:54 02:56 WBC 21.9 H 17.7 H 19.8 H 11/24/17 17:21 Gram Stain - Final Abdomen - Tissue (Surgical) Wound Culture - Final Escherichia Coli No Anaerobic Organisms 11/24/17 17:11 Gram Stain - Final Abdomen - Abscess Wound Culture - Final Escherichia Coli No Anaerobic Organisms - Time Total Critical Time (Minutes): 50
[2017-11-27] MEDS: MIDAZOLAM HCL 50 MG/100 ML RTUINJ IV-INFUSE PRN ×2 (11:30→18:24)
[2017-11-27] MEDS: ENOXAPARIN SODIUM INJ 40 MG/0.4 ML DISP.SYRIN SUBCUT SCH (11:34)
[2017-11-27] MEDS: AMIODARONE HCL 200 MG TABLET PO SCH ×2 (11:34→18:23)
--- NOTE | 2017-11-27 13:51 | PDOC PROGRESS REPORT ---
Subjective Progress Note for:: 11/27/17 Subjective:: Status post incarcerated hernia surgery. Was brought into the unit intubated and sedated. Was cardioverted postop day from atrial fibrillation into sinus rhythm. There is no significant change in general condition. Patient has been noted to have progressive abdominal distention. This I am told is preventing extubation. Lung vincent am told that patient is doing reasonably well. Patient remains intubated, sedated, patient however looks comfortable and in acute distress. Patient maintaining sinus rhythm. Medications reviewed. Reason For Visit: ABSCESS OF UMBILICAL HERNIA Physical Exam Vital Signs: Temp Pulse Resp BP Pulse Ox 98.2 F 83 31 H 116/72 98 11/27/17 12:00 11/27/17 12:00 11/27/17 12:00 11/27/17 12:00 11/27/17 12:00 Intake & Output 11/26/17 11/27/17 11/28/17 06:59 06:59 06:59 Intake Total 3689 3296 Output Total 3014 764 6939 Balance 2654 2311 -1250 Weight 64 kg 67.9 kg Exam: GENERAL: well-nourished and in no acute distress. Patient is intubated and sedated. Orientation cannot be checked HEAD: Atraumatic, normocephalic. EYES: Pupils equal round and reactive to light, extraocular movements could not be checked, sclera anicteric, conjunctiva are normal. ENT: TMs normal, nares patent, oropharynx clear without exudates. Moist mucous membranes. No oral ulcerations or bleeding gums noted NECK: supple without lymphadenopathy or JVD. Trachea is central. No cervical or axillary lymphadenopathy noted. Carotids are 2+ LUNGS: Breath sounds mostly clear to auscultation patient is noted to have bibasal crackles at the extreme bases CHEST: Palpation of the chest wall shows no significant chest wall tenderness or abnormalities. HEART: [place] [employer], No PSH, 2/6 MARIANA aortic area, 1/6 arias systolic murmur mitral area , no rubs or gallops. ABDOMEN: Distended, tympanitic, hypoactive bowel sounds. No masses appreciated. EXTREMITIES: Pedal pulses are 1-2+, no calf tenderness noted, 1+ pedal edema noted. No clubbing or cyanosis. NEUROLOGICAL: The patient cannot participate in the neurological exam but no facial asymmetry noted. Extremities slightly hypotonic PSYCH: This cannot be evaluated. Patient cannot participate. SKIN: No significant ecchymosis, rash, or signs of pruritus noted. MUSCULOSKELETAL EXAM: No significant joint swelling noted. Patient cannot participate in musculoskeletal exam Results Laboratory Results: 11/27/17 03:53 11/27/17 03:53 11/27/17 11/27/17 11/27/17 03:53 03:53 05:22 WBC 11.8 H RBC 3.47 L Hgb 11.1 L Hct 32.2 L MCV 93 MCH 31.9 MCHC 34.3 RDW 14.8 H Plt Count 206 Seg Neutrophils % 72.9 Lymphocytes % 13.9 Monocytes % 10.7 Eosinophils % 2.1 Basophils % 0.4 Absolute Neutrophils 8.6 H Absolute Lymphocytes 1.6 Absolute Monocytes 1.3 Absolute Eosinophils 0.3 Absolute Basophils 0.0 Carbonic Acid 0.93 L HCO3/H2CO3 Ratio 21:1 ABG pH 7.43 ABG pCO2 30.9 L ABG pO2 94.1 ABG HCO3 20.0 ABG O2 Saturation 97.5 ABG Base Excess -3.4 FiO2 30% Sodium 145.5 H Potassium 3.2 L Chloride 116 H Carbon Dioxide 21 L Anion Gap 9 BUN 18 Creatinine 0.78 Est GFR ( Amer) > 60 Est GFR (Non-Af Amer) > 60 Glucose 88 Calcium 7.7 L Magnesium 2.1 Total Bilirubin 1.0 AST 30 ALT 39 Alkaline Phosphatase 67 Total Protein 6.2 L Albumin 2.5 L 11/24/17 17:11 Abdomen - Abscess Gram Stain - Final 11/24/17 17:11 Abdomen - Abscess Wound Culture - Final Escherichia Coli No Anaerobic Organisms 11/24/17 17:21 Abdomen - Tissue (Surgical) Gram Stain - Final 11/24/17 17:21 Abdomen - Tissue (Surgical) Wound Culture - Final Escherichia Coli No Anaerobic Organisms 11/25/17 11/25/17 11/26/17 03:54 20:54 02:56 CK-MB (CK-2) 0.68 0.58 Troponin I < 0.012 < 0.012 NT-Pro-B Natriuret Pep 1590 H 11/26/17 11/26/17 09:24 15:25 CK-MB (CK-2) 0.53 0.43 Troponin I < 0.012 < 0.012 NT-Pro-B Natriuret Pep EKG Comments: Patient seems to be maintaining sinus rhythm. Impressions: Abdomen/Pelvis CT 11/24/17 13:21 IMPRESSION: Moderate probably stable ascites. Stable borderline splenomegaly. Stable varices. Thickening of the omentum that appears more prominent than on the previous study. Chest X-Ray 11/27/17 06:00 IMPRESSION: No significant change. Assessment & Plan - Diagnosis (1) Atrial fibrillation and flutter Is this a current diagnosis for this admission?: Yes (2) Incarcerated hernia of abdominal cavity Is this a current diagnosis for this admission?: Yes (3) COPD (chronic obstructive pulmonary disease) Qualifiers: Chronic bronchitis type: unspecified Is this a current diagnosis for this admission?: Yes (4) Tobacco abuse Is this a current diagnosis for this admission?: Yes (5) Acute respiratory failure Qualifiers: Respiratory failure complication: unspecified whether with hypoxia or hypercapnia Qualified Code(s): J96.00 - Acute respiratory failure, unspecified whether with hypoxia or hypercapnia Is this a current diagnosis for this admission?: Yes - Notes Notes: Patient noted to have some progress in of abdominal distention. This is causing decreased lung function. I am told patient's pulmonary status otherwise better. Atrial flutter fibrillation: Status post cardioversion, currently on p.o. amiodarone. Aim would be to give him amiodarone just for 1 month. Currently maintaining sinus rhythm. No need for chronic anticoagulation Incarcerated abdominal's hernia: Patient is status post surgery. Patient is being followed by Surgeon every day. COPD: Currently stable. Patient being evaluated by pointer helper. Tobacco abuse: Currently intubated. Family had been advised about avoiding secondhand smoking for the patient. Acute respiratory failure: This happened postop. Multifactorial in nature. Pulmonary following. Currently intubated on assisted ventilation and oxygenation. - Time Time with patient: 15-25 minutes - CODE STATUS was discussed, patient remains full code. Surrogate decision-maker unchanged. Multiple medical problems were addressed. More than 50% of the time spent coordinating care, discussing management plans with involved caregivers. Management plans discussed with involved personnels. Medical decision making was of moderate to high complexity , patient's has multiple comorbidities. Medications reviewed and adjusted accordingly: Yes
[2017-11-28] MEDS: PIPERACILLIN SODIUM/TAZOBACTAM 3.375 GM in NORMAL SALINE 100 ML IV SCH ×2 (00:16→05:42)
[2017-11-28] MEDS: IPRATROPIUM/ALBUTEROL 0.5-2.5 MG/3 ML AMPUL NEB SCH ×4 (02:18→20:32)
[2017-11-28 03:44] LABS: HEMATOCRIT 33.3 % (37.9-51.0); HEMOGLOBIN 11.4 g/dL (13.5-17.0); MEAN CORPUSCULAR HEMOGLOBIN 31.9 pg (27.0-33.4); MEAN CORPUSCULAR HGB CONC 34.3 g/dL (32.0-36.0); MEAN CORPUSCULAR VOLUME 93 fl (80-97); PLATELET COUNT 219 10^3/uL (150-450); RED BLOOD COUNT 3.58 10^6/uL (4.35-5.55); RED CELL DISTRIBUTION WIDTH 15.1 % (11.5-14.0); WHITE BLOOD COUNT 13.2 10^3/uL (4.0-10.5)
[2017-11-28 03:57] LABS: ABSOLUTE MONOCYTES # (MANUAL) 1.5 10^3/uL (0.1-1.4); ABSOLUTE NEUTROPHILS# (MANUAL) 9.6 10^3/uL (1.7-8.2); BASOPHILS % (MANUAL) 0 % (0-2); EOSINOPHILS % (MANUAL) 1 % (0-6); LYMPHOCYTES % (MANUAL) 15 % (13-45); MONOCYTES % (MANUAL) 11 % (3-13); SEGMENTED NEUTROPHILS % (MAN) 73 % (42-78); TOTAL CELLS COUNTED 100
[2017-11-28 03:58] LABS: ALANINE AMINOTRANSFERASE 42 U/L (21-72); ALBUMIN 2.5 g/dL (3.5-5.0); ALKALINE PHOSPHATASE 70 U/L (38-126); ANION GAP 8 (5-19); ANISOCYTOSIS SLIGHT; ASPARTATE AMINO TRANSFERASE 38 U/L (17-59); BILIRUBIN,DIRECT 0.9 mg/dL (0.0-0.4); BILIRUBIN,TOTAL 1.2 mg/dL (0.2-1.3); BLOOD UREA NITROGEN 20 mg/dL (7-20); CARBON DIOXIDE 22 mmol/L (22-30); CHLORIDE 115 mmol/L (98-107); GLUCOSE 96 mg/dL (75-110); PLATELET COMMENT ADEQUATE; POTASSIUM 3.7 mmol/L (3.6-5.0); SODIUM 144.9 mmol/L (137-145); TOTAL PROTEIN 6.4 g/dL (6.3-8.2); TOXIC GRANULATION SLIGHT
[2017-11-28] MEDS: DILTIAZEM HCL 30 MG TABLET PO SCH ×3 (05:41→22:27)
[2017-11-28] MEDS: PROPOFOL 1,000 MG/100 ML INFUS..BTL IV PRN ×4 (05:42→22:21)
[2017-11-28 05:45] LABS: ARTERIAL BLOOD BASE EXCESS -3.1 mmol/L; ARTERIAL BLOOD FIO2 25%; ARTERIAL BLOOD H2CO3 0.88 mmol/L (1.05-1.35); ARTERIAL BLOOD HCO3 19.9 mmol/L (20-26); ARTERIAL BLOOD O2 SATURATION 95.4 % (94-98); ARTERIAL BLOOD PCO2 29.2 mmHg (35-45); ARTERIAL BLOOD PH 7.45 (7.35-7.45); ARTERIAL BLOOD TOTAL CO2 20.8 mmol/L (23-27)
--- NOTE | 2017-11-28 06:50 | RADIOLOGY REPORT (SQ) ---
EXAM DESCRIPTION: XR CHEST 1 VIEW COMPLETED DATE/TME: 11/28/2017 06:00 CLINICAL HISTORY: 62 years Male, pna COMPARISON: One day prior. NUMBER OF VIEWS/TECHNIQUE: 1/AP FINDINGS: Minimal left basilar atelectasis or scar, normal cardiac silhouette, endotracheal tip is 6.2 cm from the jacki adequate appearing enteric tube. No pneumothorax. No acute bone defect. IMPRESSION: No significant change.
[2017-11-28] MEDS: ENOXAPARIN SODIUM INJ 40 MG/0.4 ML DISP.SYRIN SUBCUT SCH (09:24)
[2017-11-28] MEDS: AMIODARONE HCL 200 MG TABLET PO SCH ×2 (09:24→17:08)
--- NOTE | 2017-11-28 09:52 | PDOC PROGRESS REPORT ---
Subjective Progress Note for:: 11/28/17 Subjective:: intubated/sedated discussed with surgeon was planning on extubation however abdomen distened and tympanitic Reason For Visit: ABSCESS OF UMBILICAL HERNIA Physical Exam Vital Signs: Temp Pulse Resp BP Pulse Ox 97.9 F 81 20 100/68 95 11/28/17 08:00 11/28/17 08:26 11/28/17 08:26 11/28/17 08:00 11/28/17 08:26 Intake & Output 11/27/17 11/28/17 11/29/17 06:59 06:59 06:59 Intake Total 3296 2555 Output Total 985 3785 90 Balance 2311 -1230 -90 Weight 67.9 kg 65.5 kg General appearance: PRESENT: no acute distress, disheveled Head exam: PRESENT: atraumatic, normocephalic Eye exam: PRESENT: conjunctiva pale. ABSENT: EOMI, nystagmus, periorbital swelling, scleral icterus Mouth exam: PRESENT: dry mucosa, neck supple, tongue midline, other - ET tube Neck exam: ABSENT: carotid bruit, JVD, lymphadenopathy, thyromegaly, tracheal deviation, tracheostomy Respiratory exam: PRESENT: decreased breath sounds, prolonged expiratory phas, rhonchi, unlabored. ABSENT: rales, retraction, stridor, tachypnea Cardiovascular exam: PRESENT: RRR, +S1, +S2 Pulses: PRESENT: normal radial pulses GI/Abdominal exam: PRESENT: other - s/p surgery Gentrourinary exam: PRESENT: indwelling catheter Musculoskeletal exam: ABSENT: ambulatory, deformity, dislocation Neurological exam: ABSENT: awake, oriented to person Skin exam: PRESENT: dry, warm Results Laboratory Results: 11/28/17 03:33 11/28/17 03:33 11/28/17 11/28/17 11/28/17 03:33 03:33 05:36 WBC 13.2 H RBC 3.58 L Hgb 11.4 L Hct 33.3 L MCV 93 MCH 31.9 MCHC 34.3 RDW 15.1 H Plt Count 219 Seg Neutrophils % Not Reportable Lymphocytes % Not Reportable Monocytes % Not Reportable Eosinophils % Not Reportable Basophils % Not Reportable Absolute Neutrophils Not Reportable Absolute Lymphocytes Not Reportable Absolute Monocytes Not Reportable Absolute Eosinophils Not Reportable Absolute Basophils Not Reportable Carbonic Acid 0.88 L HCO3/H2CO3 Ratio 22:1 ABG pH 7.45 ABG pCO2 29.2 L ABG pO2 72.0 L ABG HCO3 19.9 L ABG O2 Saturation 95.4 ABG Base Excess -3.1 FiO2 25% Sodium 144.9 Potassium 3.7 Chloride 115 H Carbon Dioxide 22 Anion Gap 8 BUN 20 Creatinine 0.85 Est GFR ( Amer) > 60 Est GFR (Non-Af Amer) > 60 Glucose 96 Calcium 8.0 L Total Bilirubin 1.2 AST 38 ALT 42 Alkaline Phosphatase 70 Total Protein 6.4 Albumin 2.5 L 11/25/17 11/25/17 11/26/17 03:54 20:54 02:56 CK-MB (CK-2) 0.68 0.58 Troponin I < 0.012 < 0.012 NT-Pro-B Natriuret Pep 1590 H 11/26/17 11/26/17 11/28/17 09:24 15:25 03:33 CK-MB (CK-2) 0.53 0.43 Troponin I < 0.012 < 0.012 NT-Pro-B Natriuret Pep 565 Impressions: Abdomen/Pelvis CT 11/24/17 13:21 IMPRESSION: Moderate probably stable ascites. Stable borderline splenomegaly. Stable varices. Thickening of the omentum that appears more prominent than on the previous study. Chest X-Ray 11/28/17 06:00 IMPRESSION: No significant change. Assessment & Plan - Diagnosis (1) Atrial fibrillation and flutter Is this a current diagnosis for this admission?: Yes Plan: controlled at this time (2) Acute respiratory failure Qualifiers: Respiratory failure complication: unspecified whether with hypoxia or hypercapnia Qualified Code(s): J96.00 - Acute respiratory failure, unspecified whether with hypoxia or hypercapnia Is this a current diagnosis for this admission?: Yes Plan: Plan to extubate abdomen extremely distended will hold off for another 24 hours (3) Incarcerated hernia of abdominal cavity Is this a current diagnosis for this admission?: Yes Plan: as per surgery Labs- All tests 24 hr 11/24/17 11/25/17 11/26/17 12:45 03:54 02:56 WBC 21.9 H 17.7 H 19.8 H 11/24/17 17:21 Gram Stain - Final Abdomen - Tissue (Surgical) Wound Culture - Final Escherichia Coli No Anaerobic Organisms 11/24/17 17:11 Gram Stain - Final Abdomen - Abscess Wound Culture - Final Escherichia Coli No Anaerobic Organisms - Time Total Critical Time (Minutes): 45
[2017-11-28] MEDS: DEXTROSE 5%-1/2 NORMAL SALINE 1,000 ML IV PRN (13:51)
--- NOTE | 2017-11-28 17:04 | PDOC PROGRESS REPORT ---
Subjective Progress Note for:: 11/28/17 Subjective:: No significant change in patient's condition. He remains on NG tube suction. Abdomen is still distended. Status post incarcerated hernia surgery. Patient on admission to the unit was noted to have atrial flutter fibrillation. Patient had borderline hemodynamic instability. He was cardioverted and since then has maintained sinus rhythm. He was however placed on amiodarone bolus and drip protocol. Currently on p.o. maintenance dose. There is no significant change in general condition. Patient has been noted to have progressive abdominal distention. This I am told is preventing extubation. Lung vincent am told that patient is doing reasonably well. Patient remains intubated, sedated, patient however looks comfortable and in acute distress. Patient maintaining sinus rhythm. Medications reviewed. Reason For Visit: ABSCESS OF UMBILICAL HERNIA Physical Exam Vital Signs: Temp Pulse Resp BP Pulse Ox 99.5 F 87 23 H 115/71 95 11/28/17 12:00 11/28/17 13:57 11/28/17 14:00 11/28/17 13:45 11/28/17 15:26 Intake & Output 11/27/17 11/28/17 11/29/17 06:59 06:59 06:59 Intake Total 3296 2555 Output Total 985 3785 320 Balance 2311 -1230 -320 Weight 67.9 kg 65.5 kg Exam: GENERAL: well-nourished and in no acute distress. Patient is intubated and sedated. Orientation cannot be checked. HEAD: Atraumatic, normocephalic. EYES: Pupils equal round and reactive to light, extraocular movements could not be checked, sclera anicteric, conjunctiva are normal. ENT: TMs normal, nares patent, oropharynx clear without exudates. Moist mucous membranes. No oral ulcerations or bleeding gums noted NECK: supple without lymphadenopathy or JVD. Trachea is central. No cervical or axillary lymphadenopathy noted. Carotids are 2+ LUNGS: Breath sounds mostly clear to auscultation patient is noted to have bibasal crackles at the extreme bases CHEST: Palpation of the chest wall shows no significant chest wall tenderness or abnormalities. HEART: [place] [employer] [employer], No PSH, 2/6 MARIANA aortic area, 1/6 arias systolic murmur mitral area , no rubs or gallops. ABDOMEN: Distended tympanitic and with reduced bowel sounds. No guarding, no rebound. No rigidity noted . No masses appreciated. EXTREMITIES: Pedal pulses are 1-2+, no calf tenderness noted, 1+ pedal edema noted. No clubbing or cyanosis. Mild generalized edema noted. NEUROLOGICAL: The patient cannot participate in the neurological exam but no facial asymmetry noted. Extremities slightly hypotonic PSYCH: This cannot be evaluated. Patient cannot participate. SKIN: No significant ecchymosis, rash, or signs of pruritus noted. MUSCULOSKELETAL EXAM: No significant joint swelling noted. Patient cannot participate in musculoskeletal exam Results Laboratory Results: 11/28/17 03:33 11/28/17 03:33 11/28/17 11/28/17 11/28/17 03:33 03:33 05:36 WBC 13.2 H RBC 3.58 L Hgb 11.4 L Hct 33.3 L MCV 93 MCH 31.9 MCHC 34.3 RDW 15.1 H Plt Count 219 Seg Neutrophils % Not Reportable Lymphocytes % Not Reportable Monocytes % Not Reportable Eosinophils % Not Reportable Basophils % Not Reportable Absolute Neutrophils Not Reportable Absolute Lymphocytes Not Reportable Absolute Monocytes Not Reportable Absolute Eosinophils Not Reportable Absolute Basophils Not Reportable Carbonic Acid 0.88 L HCO3/H2CO3 Ratio 22:1 ABG pH 7.45 ABG pCO2 29.2 L ABG pO2 72.0 L ABG HCO3 19.9 L ABG O2 Saturation 95.4 ABG Base Excess -3.1 FiO2 25% Sodium 144.9 Potassium 3.7 Chloride 115 H Carbon Dioxide 22 Anion Gap 8 BUN 20 Creatinine 0.85 Est GFR ( Amer) > 60 Est GFR (Non-Af Amer) > 60 Glucose 96 Calcium 8.0 L Total Bilirubin 1.2 AST 38 ALT 42 Alkaline Phosphatase 70 Total Protein 6.4 Albumin 2.5 L 11/25/17 11/25/17 11/26/17 03:54 20:54 02:56 CK-MB (CK-2) 0.68 0.58 Troponin I < 0.012 < 0.012 NT-Pro-B Natriuret Pep 1590 H 11/26/17 11/26/17 11/28/17 09:24 15:25 03:33 CK-MB (CK-2) 0.53 0.43 Troponin I < 0.012 < 0.012 NT-Pro-B Natriuret Pep 565 EKG Comments: Telemetry strips shows sinus rhythm without any sustained tachycardia or bradycardia Impressions: Abdomen/Pelvis CT 11/24/17 13:21 IMPRESSION: Moderate probably stable ascites. Stable borderline splenomegaly. Stable varices. Thickening of the omentum that appears more prominent than on the previous study. Chest X-Ray 11/28/17 06:00 IMPRESSION: No significant change. Assessment & Plan - Diagnosis (1) Atrial fibrillation and flutter Is this a current diagnosis for this admission?: Yes (2) Incarcerated hernia of abdominal cavity Is this a current diagnosis for this admission?: Yes (3) COPD (chronic obstructive pulmonary disease) Qualifiers: Chronic bronchitis type: unspecified Is this a current diagnosis for this admission?: Yes (4) Tobacco abuse Is this a current diagnosis for this admission?: Yes (5) Acute respiratory failure Qualifiers: Respiratory failure complication: unspecified whether with hypoxia or hypercapnia Qualified Code(s): J96.00 - Acute respiratory failure, unspecified whether with hypoxia or hypercapnia Is this a current diagnosis for this admission?: Yes (6) Paralytic ileus Is this a current diagnosis for this admission?: Yes - Notes Notes: Dr. Iqbal to cover from tomorrow. Nothing acute going on from cardiac standpoint however. Just need to make sure that we stop the amiodarone over the next several days, once his metabolic problems have resolved. Atrial flutter fibrillation: Status post cardioversion, currently on p.o. amiodarone. Aim would be to give him amiodarone just for 1 month. Currently maintaining sinus rhythm. No need for chronic anticoagulation Incarcerated abdominal's hernia: Patient is status post surgery. Patient is being followed by Surgeon every day. Currently seems to be having some postop ileus. Currently on NG suction. Paralytic ileus: Patient being managed by surgeon and has NG tube ongoing. COPD: Currently stable. Patient being evaluated by line patrolman. Tobacco abuse: Currently intubated. Family had been advised about avoiding secondhand smoking for the patient. Acute respiratory failure: This happened postop. Multifactorial in nature. Pulmonary following. Currently intubated on assisted ventilation and oxygenation. - Time Time with patient: 15-25 minutes - CODE STATUS was discussed, patient remains full code. Surrogate decision-maker unchanged. Multiple medical problems were addressed. More than 50% of the time spent coordinating care, discussing management plans with involved caregivers. Management plans discussed with involved personnels. Medical decision making was of moderate to high complexity , patient's has multiple comorbidities. Medications reviewed and adjusted accordingly: Yes
--- NOTE | 2017-11-28 20:04 | PDOC PROGRESS REPORT ---
Subjective Reason For Visit: ABSCESS OF UMBILICAL HERNIA Physical Exam Vital Signs: Temp Pulse Resp BP Pulse Ox 99.7 F 78 18 107/70 95 11/28/17 19:35 11/28/17 18:00 11/28/17 18:00 11/28/17 18:00 11/28/17 18:00 Intake & Output 11/27/17 11/28/17 11/29/17 06:59 06:59 06:59 Intake Total 3296 2555 1206 Output Total 985 9845 795 Balance 2311 -1230 411 Weight 67.9 kg 65.5 kg Results Laboratory Results: 11/28/17 03:33 11/28/17 03:33 11/28/17 11/28/17 11/28/17 03:33 03:33 05:36 WBC 13.2 H RBC 3.58 L Hgb 11.4 L Hct 33.3 L MCV 93 MCH 31.9 MCHC 34.3 RDW 15.1 H Plt Count 219 Seg Neutrophils % Not Reportable Lymphocytes % Not Reportable Monocytes % Not Reportable Eosinophils % Not Reportable Basophils % Not Reportable Absolute Neutrophils Not Reportable Absolute Lymphocytes Not Reportable Absolute Monocytes Not Reportable Absolute Eosinophils Not Reportable Absolute Basophils Not Reportable Carbonic Acid 0.88 L HCO3/H2CO3 Ratio 22:1 ABG pH 7.45 ABG pCO2 29.2 L ABG pO2 72.0 L ABG HCO3 19.9 L ABG O2 Saturation 95.4 ABG Base Excess -3.1 FiO2 25% Sodium 144.9 Potassium 3.7 Chloride 115 H Carbon Dioxide 22 Anion Gap 8 BUN 20 Creatinine 0.85 Est GFR ( Amer) > 60 Est GFR (Non-Af Amer) > 60 Glucose 96 Calcium 8.0 L Total Bilirubin 1.2 AST 38 ALT 42 Alkaline Phosphatase 70 Total Protein 6.4 Albumin 2.5 L 11/25/17 11/25/17 11/26/17 03:54 20:54 02:56 CK-MB (CK-2) 0.68 0.58 Troponin I < 0.012 < 0.012 NT-Pro-B Natriuret Pep 1590 H 11/26/17 11/26/17 11/28/17 09:24 15:25 03:33 CK-MB (CK-2) 0.53 0.43 Troponin I < 0.012 < 0.012 NT-Pro-B Natriuret Pep 565 Impressions: Abdomen/Pelvis CT 11/24/17 13:21 IMPRESSION: Moderate probably stable ascites. Stable borderline splenomegaly. Stable varices. Thickening of the omentum that appears more prominent than on the previous study. Chest X-Ray 11/28/17 06:00 IMPRESSION: No significant change. Assessment & Plan - Plan Summary Plan Summary: This is a 62-year-old male status post laparotomy for incarcerated hernia. Patient is still on the ventilator, and has been difficult to wean. Pulmonology is following for this. Patient continues to make urine. The patient has good bowel sounds. I will start thick tube feedings today. Monitor residuals closely.
[2017-11-29] MEDS: IPRATROPIUM/ALBUTEROL 0.5-2.5 MG/3 ML AMPUL NEB SCH ×4 (02:51→20:02)
[2017-11-29] MEDS: PROPOFOL 1,000 MG/100 ML INFUS..BTL IV PRN ×4 (03:32→18:31)
[2017-11-29 04:19] LABS: HEMATOCRIT 36.1 % (37.9-51.0); HEMOGLOBIN 12.3 g/dL (13.5-17.0); MEAN CORPUSCULAR HEMOGLOBIN 31.6 pg (27.0-33.4); MEAN CORPUSCULAR VOLUME 93 fl (80-97); PLATELET COUNT 241 10^3/uL (150-450); RED BLOOD COUNT 3.89 10^6/uL (4.35-5.55); RED CELL DISTRIBUTION WIDTH 15.2 % (11.5-14.0)
[2017-11-29 04:43] LABS: BLOOD UREA NITROGEN 19 mg/dL (7-20); CALCIUM 7.8 mg/dL (8.4-10.2); GLUCOSE 111 mg/dL (75-110)
[2017-11-29 04:44] LABS: ANION GAP 7 (5-19); CARBON DIOXIDE 25 mmol/L (22-30); CHLORIDE 113 mmol/L (98-107); PHOSPHORUS 2.8 mg/dL (2.5-4.5); POTASSIUM 4.1 mmol/L (3.6-5.0); SODIUM 145.2 mmol/L (137-145)
[2017-11-29 05:03] LABS: ABSOLUTE LYMPHOCYTES# (MANUAL) 1.8 10^3/uL (0.5-4.7); ABSOLUTE MONOCYTES # (MANUAL) 1.2 10^3/uL (0.1-1.4); ABSOLUTE NEUTROPHILS# (MANUAL) 16.8 10^3/uL (1.7-8.2); BASOPHILS % (MANUAL) 0 % (0-2); EOSINOPHILS % (MANUAL) 2 % (0-6); LYMPHOCYTES % (MANUAL) 9 % (13-45); MONOCYTES % (MANUAL) 6 % (3-13); SEGMENTED NEUTROPHILS % (MAN) 83 % (42-78); TOTAL CELLS COUNTED 100
[2017-11-29 05:04] LABS: ANISOCYTOSIS SLIGHT; OVALOCYTES SLIGHT; PLATELET COMMENT ADEQUATE; POLYCHROMASIA SLIGHT
[2017-11-29 05:14] LABS: WHITE BLOOD COUNT 20.2 10^3/uL (4.0-10.5)
[2017-11-29] MEDS: DILTIAZEM HCL 30 MG TABLET PO SCH ×3 (06:41→22:29)
[2017-11-29 06:58] LABS: ARTERIAL BLOOD BASE EXCESS 1.2 mmol/L; ARTERIAL BLOOD H2CO3 0.96 mmol/L (1.05-1.35); ARTERIAL BLOOD HCO3 23.8 mmol/L (20-26); ARTERIAL BLOOD O2 SATURATION 95.4 % (94-98); ARTERIAL BLOOD PCO2 31.9 mmHg (35-45); ARTERIAL BLOOD PH 7.49 (7.35-7.45); ARTERIAL BLOOD PO2 69.7 mmHg (80-100); ARTERIAL BLOOD TOTAL CO2 24.8 mmol/L (23-27)
[2017-11-29 06:59] LABS: ARTERIAL BLOOD FIO2 25%
[2017-11-29] MEDS: ENOXAPARIN SODIUM INJ 40 MG/0.4 ML DISP.SYRIN SUBCUT SCH (10:35)
[2017-11-29] MEDS: AMIODARONE HCL 200 MG TABLET PO SCH ×2 (10:35→17:18)
[2017-11-29 12:23] LABS: APPEARANCE,URINE CLEAR; BILIRUBIN,URINE NEGATIVE (NEGATIVE); COLOR,URINE AMBER; GLUCOSE, URINE NEGATIVE (NEGATIVE); KETONES,URINE NEGATIVE (NEGATIVE); LEUKOCYTE ESTERASE,URINE NEGATIVE (NEGATIVE); NITRITE,URINE NEGATIVE (NEGATIVE); PROTEIN,URINE 30 mg/dL (NEGATIVE); URINE SPECIFIC GRAVITY 1.029
--- NOTE | 2017-11-29 12:34 | PDOC PROGRESS REPORT ---
Subjective Reason For Visit: ABSCESS OF UMBILICAL HERNIA Physical Exam Vital Signs: Temp Pulse Resp BP Pulse Ox 98.1 F 72 27 H 125/87 H 97 11/29/17 07:40 11/29/17 08:00 11/29/17 10:14 11/29/17 10:14 11/29/17 10:14 Intake & Output 11/28/17 11/29/17 11/30/17 06:59 06:59 06:59 Intake Total 2555 2381 Output Total 3785 1205 25 Balance -1230 1176 -25 Weight 65.5 kg 67.3 kg Results Laboratory Results: 11/29/17 03:42 11/29/17 03:42 11/29/17 11/29/17 11/29/17 03:42 03:42 06:40 WBC 20.2 H RBC 3.89 L Hgb 12.3 L Hct 36.1 L MCV 93 MCH 31.6 MCHC 34.0 RDW 15.2 H Plt Count 241 Seg Neutrophils % Not Reportable Lymphocytes % Not Reportable Monocytes % Not Reportable Eosinophils % Not Reportable Basophils % Not Reportable Absolute Neutrophils Not Reportable Absolute Lymphocytes Not Reportable Absolute Monocytes Not Reportable Absolute Eosinophils Not Reportable Absolute Basophils Not Reportable Carbonic Acid 0.96 L HCO3/H2CO3 Ratio 24:1 ABG pH 7.49 H ABG pCO2 31.9 L ABG pO2 69.7 L ABG HCO3 23.8 ABG O2 Saturation 95.4 ABG Base Excess 1.2 FiO2 25% Sodium 145.2 H Potassium 4.1 Chloride 113 H Carbon Dioxide 25 Anion Gap 7 BUN 19 Creatinine 0.62 Est GFR ( Amer) > 60 Est GFR (Non-Af Amer) > 60 Glucose 111 H Calcium 7.8 L Phosphorus 2.8 Magnesium 2.2 11/25/17 11/25/17 11/26/17 03:54 20:54 02:56 CK-MB (CK-2) 0.68 0.58 Troponin I < 0.012 < 0.012 NT-Pro-B Natriuret Pep 1590 H 11/26/17 11/26/17 11/28/17 09:24 15:25 03:33 CK-MB (CK-2) 0.53 0.43 Troponin I < 0.012 < 0.012 NT-Pro-B Natriuret Pep 565 Impressions: Abdomen/Pelvis CT 11/24/17 13:21 IMPRESSION: Moderate probably stable ascites. Stable borderline splenomegaly. Stable varices. Thickening of the omentum that appears more prominent than on the previous study. Chest X-Ray 11/28/17 06:00 IMPRESSION: No significant change. Assessment & Plan - Plan Summary Plan Summary: This is a 62-year-old male status post laparotomy for incarcerated hernia. Patient is still on the ventilator, and has been difficult to wean. He is undergoing CPAP trials today. Pulmonology is following for this. Patient continues to make urine. The patient has good bowel sounds. Trophic tube feedings were started this morning. Monitor residuals closely. Electrolytes reasonable.
[2017-11-29] MEDS: DEXTROSE 5%-1/2 NORMAL SALINE 1,000 ML IV PRN (13:08)
--- NOTE | 2017-11-29 14:55 | PROGRESS NOTE E ---
Progress Note NAME: ELDER KIMBALL : 1955 AGE: 62Y DATE: 11/29/2017 ROOM: 603 SUBJECTIVE: Note that the patient is intubated and sedated. He is not on any pressors. The patient keeps his eyes open, but does not respond to any verbal communication or request, since the patient is sedated. He does not appear to be fighting the ventilator. He remains in sinus rhythm. There are no atrial or ventricular arrhythmias seen. The patient still has not passed any flatus. The patient has an NG tube connected to suction. OBJECTIVE: GENERAL: The patient is frail-built, appears malnourished and chronically ill. VITAL SIGNS: He is afebrile, with a temperature of 98.1 degrees Fahrenheit. His pulse is 79 beats per minute, with a sinus rhythm. Blood pressure is 125/87, respirations are 23 per minute, O2 sats are 975 on FiO2 of 25%. HEENT: Head is atraumatic, normocephalic. Eyes: Pupils are equal, reactive to light. ENT is negative. NECK: Supple. There is no JVD. There is no bruit. There is no goiter. There is no lymphadenopathy. Carotids are equal. Trachea is central. LUNGS: Clear to auscultation and percussion. HEART: S1, S2 are heard. There is no S3 gallop, there is no S4 gallop. S1 is of normal intensity. There is a systolic murmur in the left sternal border and in the apex. There is no significant radiation of the murmurs. There is no rub. There are no gallops. ABDOMEN: Soft, nondistended. There is no hepatosplenomegaly. Bowel sounds are absent. EXTREMITIES: Femorals are diminished. There are no femoral bruits. Leg pulses are diminished. There is no pedal edema. There is no DVT or cellulitis. There is no calf tenderness. BUSINESS LAW TEACHER/PSYCHIATRIC: Not examined since the patient is intubated and sedated. The patient's 24-hour intake is 2381 mL and output is 1205 mL. LABORATORY DATA: The patient's sodium is 145.2, potassium is 4.1, chloride is 113. The patient's CO2 is 25. The patient's BUN is 19, creatinine 0.62. GFR is greater than 60. Glucose is 111. His calcium is low at 7.8. His phosphorus is 2.8. Magnesium is 2.2. His NT-proBNP yesterday was 565. On the 7th, troponin I was negative x2. The patient's ABGs show pH of 7.49, pCO2 of 31.9, pO2 is low at 69.7. O2 sats are 95.4% on an FiO2 of 25%. IMPRESSION: 1. PAROXYSMAL ATRIAL FIBRILLATION *------*. Patient at present in sinus rhythm. Patient is on amiodarone via the NG tube. 2. STATUS POST SURGERY FOR INCARCERATED HERNIA. 3. PARALYTIC ILEUS. Patient being treated conservatively. 4. COPD. At present, no evidence of acute exacerbation. 5. TOBACCO ABUSE. 6. ACUTE RESPIRATORY FAILURE WITH HYPOXEMIA. RECOMMENDATIONS: Continue the patient on amiodarone. Continue ventilator support. Continue Cardizem 30 mg via the NG tube. Continue Versed drip and propofol drip. Continue IV fluids at 75 mL/hr. Continue amiodarone. Cardiac status is stable. Will follow with you. Note, 30 minutes spent on this patient, with more than 50% of the time spent on direct patient care. Medications have been reviewed. Also, new lab tests ordered, in the form of TSH and LFTs, since the patient is on amiodarone. This will be done on 11/30/2017 a.m. Note, medical decision-making is of moderate complexity. The patient is a FULL CODE. His healthcare surrogate decision-maker remains unchanged. Will follow with you. Discussed the case with the attending physician on the case. DICTATING PHYSICIAN: IBETH CHESTER M.D. [id number] PHY#: [id number] ID: [id number] JOB#: [id number] ACCT: [id number] cc: >
[2017-11-30] MEDS: IPRATROPIUM/ALBUTEROL 0.5-2.5 MG/3 ML AMPUL NEB SCH ×4 (01:09→20:42)
[2017-11-30 04:53] LABS: ABSOLUTE BASOPHILS # (AUTO) 0.1 10^3/uL (0.0-0.2); ABSOLUTE EOSINOPHILS # (AUTO) 0.5 10^3/uL (0.0-0.6); ABSOLUTE LYMPHOCYTES (AUTO) 1.2 10^3/uL (0.5-4.7); ABSOLUTE MONOCYTES (AUTO) 0.9 10^3/uL (0.1-1.4); ABSOLUTE NEUT (AUTO) 9.7 10^3/uL (1.7-8.2); BASOPHILS % (AUTO) 0.6 % (0-2); EOSINOPHILS % (AUTO) 3.8 % (0-6); HEMATOCRIT 33.7 % (37.9-51.0); HEMOGLOBIN 11.5 g/dL (13.5-17.0); LYMPHOCYTES % (AUTO) 9.6 % (13-45); MEAN CORPUSCULAR HGB CONC 34.2 g/dL (32.0-36.0); MEAN CORPUSCULAR VOLUME 94 fl (80-97); MONOCYTES % (AUTO) 7.1 % (3-13); PLATELET COUNT 253 10^3/uL (150-450); RED BLOOD COUNT 3.59 10^6/uL (4.35-5.55); RED CELL DISTRIBUTION WIDTH 15.6 % (11.5-14.0); SEGMENTED NEUTROPHILS % (AUTO) 78.9 % (42-78); TOTAL CELLS COUNTED % (AUTO) 100 %; WHITE BLOOD COUNT 12.3 10^3/uL (4.0-10.5)
[2017-11-30 05:00] LABS: ARTERIAL BLOOD BASE EXCESS 1.7 mmol/L; ARTERIAL BLOOD FIO2 25%; ARTERIAL BLOOD H2CO3 0.96 mmol/L (1.05-1.35); ARTERIAL BLOOD HCO3 24.4 mmol/L (20-26); ARTERIAL BLOOD O2 SATURATION 95.3 % (94-98); ARTERIAL BLOOD PCO2 31.9 mmHg (35-45); ARTERIAL BLOOD PO2 68.5 mmHg (80-100); ARTERIAL BLOOD TOTAL CO2 25.4 mmol/L (23-27)
[2017-11-30 05:19] LABS: ALANINE AMINOTRANSFERASE 42 U/L (21-72); ALBUMIN 2.3 g/dL (3.5-5.0); ALKALINE PHOSPHATASE 80 U/L (38-126); ANION GAP 9 (5-19); ASPARTATE AMINO TRANSFERASE 81 U/L (17-59); BILIRUBIN,DIRECT 0.9 mg/dL (0.0-0.4); BILIRUBIN,TOTAL 1.2 mg/dL (0.2-1.3); BLOOD UREA NITROGEN 18 mg/dL (7-20); CALCIUM 7.8 mg/dL (8.4-10.2); CARBON DIOXIDE 23 mmol/L (22-30); CHLORIDE 112 mmol/L (98-107); GLUCOSE 103 mg/dL (75-110); POTASSIUM 3.8 mmol/L (3.6-5.0); SODIUM 143.9 mmol/L (137-145); TOTAL PROTEIN 6.1 g/dL (6.3-8.2)
--- NOTE | 2017-11-30 06:20 | RADIOLOGY REPORT (SQ) ---
EXAM DESCRIPTION: XR CHEST 1 VIEW COMPLETED DATE/TME: 11/30/2017 06:00 CLINICAL HISTORY: 62 years Male, resp failure/sepsis COMPARISON: 2 days prior. NUMBER OF VIEWS/TECHNIQUE: 1/AP FINDINGS: Small bibasilar atelectasis or scar, normal cardiac silhouette size, endotracheal tube tip is 4.6 cm from the jacki, and adequate appearing enteric tube. No pneumothorax. No acute bone defect. IMPRESSION: No significant change.
[2017-11-30] MEDS: DILTIAZEM HCL 30 MG TABLET PO SCH ×3 (06:46→21:30)
[2017-11-30 08:19] LABS: FREE T3 2.9 pg/mL (2.77-5.27); FREE T4 (FREE THYROXINE) 2.02 ng/dL (0.78-2.19)
[2017-11-30 08:34] LABS: THYROID STIMULATING HORMONE 4.27 uIU/mL (0.47-4.68)
[2017-11-30] MEDS: MORPHINE SULFATE 10 MG/ML INJ IV PRN ×2 (08:42→21:29)
[2017-11-30] MEDS: PROPOFOL 1,000 MG/100 ML INFUS..BTL IV PRN ×3 (08:53→21:30)
--- NOTE | 2017-11-30 09:08 | PDOC PROGRESS REPORT ---
Subjective Progress Note for:: 11/30/17 Reason For Visit: ABSCESS OF UMBILICAL HERNIA Patient is intubated sedated Physical Exam Vital Signs: Temp Pulse Resp BP Pulse Ox 99.5 F 92 29 H 111/64 93 11/30/17 06:00 11/30/17 07:53 11/30/17 07:53 11/30/17 07:15 11/30/17 07:53 Intake & Output 11/29/17 11/30/17 12/01/17 06:59 06:59 06:59 Intake Total 2381 1979 Output Total 1205 595 Balance 1176 1384 Weight 67.3 kg 69.9 kg General appearance: PRESENT: no acute distress Respiratory exam: PRESENT: other - Occasional rales bilaterally GI/Abdominal exam: PRESENT: other - Slightly distended not as tight as it was last week; VAC in place. Bowel sounds hypoactive Gentrourinary exam: PRESENT: scrotal swelling - Secondary to anasarca, other - Massive scrotal swelling Results Laboratory Results: 11/30/17 04:11 11/30/17 04:11 11/29/17 11/30/17 11/30/17 12:00 04:11 04:11 WBC 12.3 H RBC 3.59 L Hgb 11.5 L Hct 33.7 L MCV 94 MCH 32.0 MCHC 34.2 RDW 15.6 H Plt Count 253 Seg Neutrophils % 78.9 H Lymphocytes % 9.6 L Monocytes % 7.1 Eosinophils % 3.8 Basophils % 0.6 Absolute Neutrophils 9.7 H Absolute Lymphocytes 1.2 Absolute Monocytes 0.9 Absolute Eosinophils 0.5 Absolute Basophils 0.1 Carbonic Acid HCO3/H2CO3 Ratio ABG pH ABG pCO2 ABG pO2 ABG HCO3 ABG O2 Saturation ABG Base Excess FiO2 Sodium 143.9 Potassium 3.8 Chloride 112 H Carbon Dioxide 23 Anion Gap 9 BUN 18 Creatinine 0.61 Est GFR ( Amer) > 60 Est GFR (Non-Af Amer) > 60 Glucose 103 Calcium 7.8 L Magnesium 2.1 Total Bilirubin 1.2 AST 81 H ALT 42 Alkaline Phosphatase 80 Total Protein 6.1 L Albumin 2.3 L TSH Free T4 Free T3 pg/mL Urine Color KINJAL Urine Appearance CLEAR Urine pH 5.0 Ur Specific [place] 1.029 Urine Protein 30 H Urine Glucose (UA) NEGATIVE Urine Ketones NEGATIVE Urine Blood SMALL H Urine Nitrite NEGATIVE Ur Leukocyte Esterase NEGATIVE Urine WBC (Auto) 3 Urine RBC (Auto) 102 11/30/17 11/30/17 04:11 04:45 WBC RBC Hgb Hct MCV MCH MCHC RDW Plt Count Seg Neutrophils % Lymphocytes % Monocytes % Eosinophils % Basophils % Absolute Neutrophils Absolute Lymphocytes Absolute Monocytes Absolute Eosinophils Absolute Basophils Carbonic Acid 0.96 L HCO3/H2CO3 Ratio 25:1 ABG pH 7.50 H ABG pCO2 31.9 L ABG pO2 68.5 L ABG HCO3 24.4 ABG O2 Saturation 95.3 ABG Base Excess 1.7 FiO2 25% Sodium Potassium Chloride Carbon Dioxide Anion Gap BUN Creatinine Est GFR ( Amer) Est GFR (Non-Af Amer) Glucose Calcium Magnesium Total Bilirubin AST ALT Alkaline Phosphatase Total Protein Albumin TSH 4.27 Free T4 2.02 Free T3 pg/mL 2.90 Urine Color Urine Appearance Urine pH Ur Specific [place] Urine Protein Urine Glucose (UA) Urine Ketones Urine Blood Urine Nitrite Ur Leukocyte Esterase Urine WBC (Auto) Urine RBC (Auto) 11/24/17 18:50 Blood Blood Culture - Final NO GROWTH IN 5 DAYS 11/25/17 11/25/17 11/26/17 03:54 20:54 02:56 CK-MB (CK-2) 0.68 0.58 Troponin I < 0.012 < 0.012 NT-Pro-B Natriuret Pep 1590 H 11/26/17 11/26/17 11/28/17 09:24 15:25 03:33 CK-MB (CK-2) 0.53 0.43 Troponin I < 0.012 < 0.012 NT-Pro-B Natriuret Pep 565 Impressions: Abdomen/Pelvis CT 11/24/17 13:21 IMPRESSION: Moderate probably stable ascites. Stable borderline splenomegaly. Stable varices. Thickening of the omentum that appears more prominent than on the previous study. Chest X-Ray 11/30/17 06:00 IMPRESSION: No significant change. Assessment & Plan - Diagnosis (1) Incarcerated hernia of abdominal cavity Is this a current diagnosis for this admission?: Yes Plan: Postoperative day 6 status post mini exploratory laparotomy through umbilical hernia with incarceration, status post repair without a bowel resection, Laboratory profile improved. Tolerating tube feeds Recommendations: 1. Start VAC dressing changes today. 2. Attempt to wean from ventilator. 3. Consolidate and/or discontinue intravenous antibiotics.
[2017-11-30] MEDS: ENOXAPARIN SODIUM INJ 40 MG/0.4 ML DISP.SYRIN SUBCUT SCH (09:13)
[2017-11-30] MEDS: AMIODARONE HCL 200 MG TABLET PO SCH ×2 (09:13→18:43)
[2017-11-30] MEDS ORDERED: ACETAMINOPHEN 325 MG TABLET PO PRN (09:29)
[2017-11-30] MEDS ORDERED: NORMAL SALINE 500 ML IV ONE ×2 (11:45→18:15)
[2017-11-30 13:22] LABS: ARTERIAL BLOOD BASE EXCESS -0.3 mmol/L; ARTERIAL BLOOD FIO2 25%; ARTERIAL BLOOD H2CO3 0.79 mmol/L (1.05-1.35); ARTERIAL BLOOD HCO3 21.2 mmol/L (20-26); ARTERIAL BLOOD O2 SATURATION 92.7 % (94-98); ARTERIAL BLOOD PCO2 26.4 mmHg (35-45); ARTERIAL BLOOD PH 7.52 (7.35-7.45); ARTERIAL BLOOD PO2 56.5 mmHg (80-100)
[2017-11-30] MEDS: MIDAZOLAM HCL 50 MG/100 ML RTUINJ IV-INFUSE PRN (14:27)
[2017-11-30 16:02] LABS: ARTERIAL BLOOD BASE EXCESS 0.3 mmol/L; ARTERIAL BLOOD H2CO3 0.85 mmol/L (1.05-1.35); ARTERIAL BLOOD HCO3 22.3 mmol/L (20-26); ARTERIAL BLOOD O2 SATURATION 94.3 % (94-98); ARTERIAL BLOOD PCO2 28.4 mmHg (35-45); ARTERIAL BLOOD PH 7.51 (7.35-7.45); ARTERIAL BLOOD PO2 62.7 mmHg (80-100); ARTERIAL BLOOD TOTAL CO2 23.2 mmol/L (23-27)
[2017-11-30 16:07] LABS: ARTERIAL BLOOD FIO2 35%
[2017-11-30] MEDS ORDERED: DEXTROSE 5%-WATER 250 ML with NOREPINEPHRINE BITARTRATE 4 MG IV PRN ×2 (18:01)
[2017-11-30] MEDS ORDERED: DEXTROSE 5%-WATER 250 ML with PHENYLEPHRINE HCL 40 MG IV PRN ×2 (18:09)
--- NOTE | 2017-11-30 18:59 | PROGRESS NOTE E ---
Progress Note NAME: ELDER KIMBALL : 1955 AGE: 62Y DATE: 11/30/2017 ROOM: 603 SUBJECTIVE: Note the patient remains in sinus rhythm, there is no ventricular arrhythmia, there is no recurrence of atrial fibrillation. The patient appears to be comfortably. He has passed only a minimal amount of flatus. He is tolerating tube feedings. OBJECTIVE: GENERAL: The patient is frail built, appears malnourished, and chronically ill. VITAL SIGNS: His temperature is 100.9 degrees Fahrenheit, pulse is 92 beats per minute, sinus rhythm on the monitor, blood pressure is 106/67, respirations are 22 per minute, O2 saturations are 92% on the ventilator with an FiO2 of 21%. Note, later the patient's blood pressure was 95 systolic, hence, we stopped the patient's Cardizem, continue with the amiodarone which is at 200 mg p.o. b.i.d. HEENT: Head is atraumatic, normocephalic. Eyes: Pupils are equal, round, regular, reactive to light. ENT is negative. NECK: Supple. There is no JVD. There is no lymphadenopathy. There is no goiter. Carotids are equal. There is no bruit. Trachea is central. LUNGS: Clear to auscultation and percussion. HEART: S1, S2 is heard. There is no S3 gallop. There is no S4 gallop. There is a systolic murmur in the left sternal border and the apex. There is no rub. S1 is of normal intensity. ABDOMEN: Soft, slightly distended. There is no hepatosplenomegaly. Bowel sounds are absent. EXTREMITIES: Femorals are diminished. There are no femoral bruits. Leg pulses are diminished. There is no pedal edema. There is no DVT or cellulitis. There is no calf tenderness. CENTRAL NERVOUS SYSTEM: Not examined since the patient is intubated and sedated. PSYCHIATRIC: Not examined since the patient is intubated and sedated. PSYCHIATRIC: The patient's judgment and insight are intact. His affect is normal. LABORATORY DATA: The patient's white count is 12,300; hemoglobin is 11.5; hematocrit is 33.7; and the platelet count is 253,000. The patient's sodium is 143.9, potassium 3.8, chloride 112, CO2 is 23. The patient's BUN is 18, creatinine is 0.61, GFR is greater than 60. His liver function test show an elevated AST of 81, an elevated bilirubin of 0.9, the rest of the liver function tests are normal. The patient's TSH is 4.27, free T4 is 2.02, and free T3 is 2.90. His total protein is 6.1, his albumin is 2.3. His NT-proBNP yesterday was 565. His ABG showed a pH of 7.51, pCO2 of 78.4, pO2 is 62.7, O2 sats are 94.3% on an FiO2 of 35%. On yesterday's stool *------* was positive. IMPRESSION: 1. PAROXYSMAL ATRIAL FIBRILLATION. Remains in sinus rhythm. Continue amiodarone. In view of the patient's blood pressure being marginal we will stop the patient's Cardizem. 2. STATUS POST SURGERY FOR INCARCERATED HERNIA. 3. PARALYTIC ILEUS. The patient is being treated conservatively. 4. COPD. No evidence of acute exacerbation. No prior tobacco abuse. No history of acute respiratory failure. Still some degree of hypoxemia on the ventilator. Continue ventilator support. RECOMMENDATIONS: Continue antibiotics. The patient's medications have been reviewed. Discussed with the patient's daughter, who is the patient's surrogate healthcare decision maker for the patient. TIME SPENT: Note 35 minutes spent on this patient with more than 50% of the time spent on direct patient care. His medications have been reviewed and adjusted. Medical decision making is of high complexity. We will follow with you. DICTATING PHYSICIAN: IBETH CHESTER M.D. [id number] GAYEY#: [id number] ID: [id number] JOB#: [id number] ACCT: [id number] cc: >
[2017-11-30] MEDS: DEXTROSE 5%-1/2 NORMAL SALINE 1,000 ML IV PRN (19:46)
--- NOTE | 2017-11-30 20:16 | PDOC PROGRESS REPORT ---
Subjective Progress Note for:: 11/30/17 Reason For Visit: ABSCESS OF UMBILICAL HERNIA The patient's family arrived at bedside. This was the patient's daughter, and son-in-law from [place]. This is the first family at bedside since patient hospitalization 1 week ago. They were concerned about his failure to progress. Patient's urine output throughout the day has dwindled despite fluid boluses. Physical Exam Vital Signs: Signs remained stable throughout the day. No pressors. Temp Pulse Resp BP Pulse Ox 100.0 F 89 18 99/70 L 99 11/30/17 19:34 11/30/17 20:00 11/30/17 18:36 11/30/17 18:36 11/30/17 18:36 Intake & Output 11/29/17 11/30/17 12/01/17 06:59 06:59 06:59 Intake Total 2381 1979 2299 Output Total 1205 595 327 Balance 1176 1384 1972 Weight 67.3 kg 69.9 kg General appearance: PRESENT: no acute distress GI/Abdominal exam: PRESENT: ascites, other - Marked abdominal distention but no titers this evening. VAC replaced earlier today. Gentrourinary exam: PRESENT: other - Massive scrotal edema. Especially around the glans penis. Results Laboratory Results: 11/30/17 04:11 11/30/17 04:11 11/30/17 11/30/17 11/30/17 04:11 04:11 04:11 WBC 12.3 H RBC 3.59 L Hgb 11.5 L Hct 33.7 L MCV 94 MCH 32.0 MCHC 34.2 RDW 15.6 H Plt Count 253 Seg Neutrophils % 78.9 H Lymphocytes % 9.6 L Monocytes % 7.1 Eosinophils % 3.8 Basophils % 0.6 Absolute Neutrophils 9.7 H Absolute Lymphocytes 1.2 Absolute Monocytes 0.9 Absolute Eosinophils 0.5 Absolute Basophils 0.1 Carbonic Acid HCO3/H2CO3 Ratio ABG pH ABG pCO2 ABG pO2 ABG HCO3 ABG O2 Saturation ABG Base Excess FiO2 Sodium 143.9 Potassium 3.8 Chloride 112 H Carbon Dioxide 23 Anion Gap 9 BUN 18 Creatinine 0.61 Est GFR ( Amer) > 60 Est GFR (Non-Af Amer) > 60 Glucose 103 Calcium 7.8 L Magnesium 2.1 Total Bilirubin 1.2 AST 81 H ALT 42 Alkaline Phosphatase 80 Total Protein 6.1 L Albumin 2.3 L TSH 4.27 Free T4 2.02 Free T3 pg/mL 2.90 11/30/17 11/30/17 11/30/17 04:45 13:10 15:43 WBC RBC Hgb Hct MCV MCH MCHC RDW Plt Count Seg Neutrophils % Lymphocytes % Monocytes % Eosinophils % Basophils % Absolute Neutrophils Absolute Lymphocytes Absolute Monocytes Absolute Eosinophils Absolute Basophils Carbonic Acid 0.96 L 0.79 L 0.85 L HCO3/H2CO3 Ratio 25:1 26:1 26:1 ABG pH 7.50 H 7.52 H 7.51 H ABG pCO2 31.9 L 26.4 L 28.4 L ABG pO2 68.5 L 56.5 L 62.7 L ABG HCO3 24.4 21.2 22.3 ABG O2 Saturation 95.3 92.7 L 94.3 ABG Base Excess 1.7 -0.3 0.3 FiO2 25% 25% 35% Sodium Potassium Chloride Carbon Dioxide Anion Gap BUN Creatinine Est GFR ( Amer) Est GFR (Non-Af Amer) Glucose Calcium Magnesium Total Bilirubin AST ALT Alkaline Phosphatase Total Protein Albumin TSH Free T4 Free T3 pg/mL 11/24/17 18:50 Blood Blood Culture - Final NO GROWTH IN 5 DAYS 11/25/17 11/25/17 11/26/17 03:54 20:54 02:56 CK-MB (CK-2) 0.68 0.58 Troponin I < 0.012 < 0.012 NT-Pro-B Natriuret Pep 1590 H 11/26/17 11/26/17 11/28/17 09:24 15:25 03:33 CK-MB (CK-2) 0.53 0.43 Troponin I < 0.012 < 0.012 NT-Pro-B Natriuret Pep 565 Impressions: Abdomen/Pelvis CT 11/24/17 13:21 IMPRESSION: Moderate probably stable ascites. Stable borderline splenomegaly. Stable varices. Thickening of the omentum that appears more prominent than on the previous study. Chest X-Ray 11/30/17 06:00 IMPRESSION: No significant change. Assessment & Plan - Diagnosis (1) Incarcerated hernia of abdominal cavity Is this a current diagnosis for this admission?: Yes Plan: Discussion: The patient's daughter was interested in speaking to a velvet steamer earlier today , however Dr. Hays was engaged in acute care and could attend to the family members needs at approximately 7:30 PM on 11/30/2017. I reviewed the intraoperative management of this patient from last week by Dr. Cintron, and patient's postoperative course to date. Fortunately the patient remains ventilator dependent for a variety of subtle reasons mostly having to do with it spacing of fluid. I explained to the patient's daughter that the patient has severe underlying liver insufficiency. I saw this patient 2 months ago at [facility] at which time the patient was complaining of some abdominal pain although not acute. He was sent to me for consideration for laparoscopic cholecystectomy for gallstones noted on ultrasonography. I discouraged him from undergoing the operation, and to support my decision, I obtained a CT scan of the abdomen and pelvis with oral contrast which showed the gallstones, but furthermore showed hepatomegaly, splenomegaly, mesenteric and splenic venous varicosities with ascites. I believe the patient's postoperative risk multiple complications was high. He did have the small umbilical hernia which was not incarcerated at the time. He agreed to nonoperative management. Over the next several weeks the patient to need to have an active lifestyle according to the patient's daughter. Patient is having difficulty mobilizing his third space fluid which is a manifestation of the acute fluid insult following surgery superimposed on his chronic ascites. I do not believe he has an acute abdomen, but to satisfy the daughter's concerns, will obtain tomorrow CT scan of the abdomen pelvis with oral contrast. Of note the patient is on tube feeds although it is low rate. She would also like hospitalist involved in the patient's care so we will recruit their services in the morning. (3) Mesenteric varices Is this a current diagnosis for this admission?: Yes (4) Ascites of liver Is this a current diagnosis for this admission?: Yes - Time Time Spent with patient: 25-34 minutes
[2017-12-01] MEDS: IPRATROPIUM/ALBUTEROL 0.5-2.5 MG/3 ML AMPUL NEB SCH ×4 (02:11→20:50)
[2017-12-01 04:35] LABS: HEMATOCRIT 31.6 % (37.9-51.0); HEMOGLOBIN 10.7 g/dL (13.5-17.0); MEAN CORPUSCULAR HEMOGLOBIN 31.9 pg (27.0-33.4); MEAN CORPUSCULAR VOLUME 94 fl (80-97); PLATELET COUNT 239 10^3/uL (150-450); RED BLOOD COUNT 3.37 10^6/uL (4.35-5.55)
[2017-12-01 04:45] LABS: WHITE BLOOD COUNT 26.1 10^3/uL (4.0-10.5)
[2017-12-01 04:46] LABS: ANION GAP 6 (5-19); BLOOD UREA NITROGEN 23 mg/dL (7-20); CALCIUM 7.7 mg/dL (8.4-10.2); CARBON DIOXIDE 23 mmol/L (22-30); CHLORIDE 112 mmol/L (98-107); GLUCOSE 121 mg/dL (75-110); SODIUM 141.2 mmol/L (137-145)
[2017-12-01 04:58] LABS: ABSOLUTE LYMPHOCYTES# (MANUAL) 1.3 10^3/uL (0.5-4.7); ABSOLUTE MONOCYTES # (MANUAL) 0.8 10^3/uL (0.1-1.4); ABSOLUTE NEUTROPHILS# (MANUAL) 23.8 10^3/uL (1.7-8.2); BAND NEUTROPHILS % (MANUAL) 4 % (3-5); BASOPHILS % (MANUAL) 1 % (0-2); EOSINOPHILS % (MANUAL) 0 % (0-6); LYMPHOCYTES % (MANUAL) 5 % (13-45); MONOCYTES % (MANUAL) 3 % (3-13); SEGMENTED NEUTROPHILS % (MAN) 87 % (42-78); TOTAL CELLS COUNTED 100
[2017-12-01 05:00] LABS: ANISOCYTOSIS SLIGHT; HYPOCHROMASIA 1+; TOXIC GRANULATION 1+
[2017-12-01 05:02] LABS: OVALOCYTES 1+; PLATELET COMMENT ADEQUATE
[2017-12-01] MEDS: DILTIAZEM HCL 30 MG TABLET PO SCH ×3 (05:27→21:29)
[2017-12-01] MEDS: PROPOFOL 1,000 MG/100 ML INFUS..BTL IV PRN ×4 (05:27→21:30)
[2017-12-01 05:50] LABS: ARTERIAL BLOOD BASE EXCESS -0.5 mmol/L; ARTERIAL BLOOD FIO2 35%; ARTERIAL BLOOD H2CO3 0.95 mmol/L (1.05-1.35); ARTERIAL BLOOD HCO3 22.5 mmol/L (20-26); ARTERIAL BLOOD O2 SATURATION 96.4 % (94-98); ARTERIAL BLOOD PCO2 31.6 mmHg (35-45); ARTERIAL BLOOD PH 7.47 (7.35-7.45); ARTERIAL BLOOD PO2 78.4 mmHg (80-100); ARTERIAL BLOOD TOTAL CO2 23.5 mmol/L (23-27)
[2017-12-01] MEDS ORDERED: NORMAL SALINE 1000 ML 1,000 ML IV PRN (06:46)
--- NOTE | 2017-12-01 07:06 | RADIOLOGY REPORT (SQ) ---
EXAM DESCRIPTION: XR CHEST 1 VIEW COMPLETED DATE/TME: 12/01/2017 06:00 CLINICAL HISTORY: 62 years, Male, resp failure. Endotracheal tube. COMPARISON: 11/30/2017 FINDINGS: Single view of the chest. Endotracheal tube with tip 5 cm above the jacki. NG tube with tip below the diaphragm. Leads overlie the chest. Cardiomediastinal silhouette is stable. Streaky bibasilar opacities are stable. No large effusion or pneumothorax. Osseous structures are stable. IMPRESSION: Stable appearance of the chest. 2010 [facility] [employer]- All Rights Reserved
--- NOTE | 2017-12-01 08:40 | PDOC PROGRESS REPORT ---
Subjective Progress Note for:: 11/29/17 Subjective:: intubated/sedated discussed with surgeon was planning on extubation however abdomen distened and tympanitic Reason For Visit: ABSCESS OF UMBILICAL HERNIA Physical Exam Vital Signs: Temp Pulse Resp BP Pulse Ox 98.1 F 75 18 109/67 97 11/29/17 06:00 11/29/17 02:51 11/29/17 06:00 11/29/17 05:46 11/29/17 06:00 Intake & Output 11/28/17 11/29/17 11/30/17 06:59 06:59 06:59 Intake Total 2555 1206 Output Total 3785 1205 Balance -1230 1 Weight 65.5 kg 67.3 kg General appearance: PRESENT: no acute distress, disheveled. ABSENT: cooperative Head exam: PRESENT: atraumatic, normocephalic Eye exam: PRESENT: conjunctiva pale. ABSENT: EOMI, nystagmus, periorbital swelling, scleral icterus Mouth exam: PRESENT: dry mucosa, neck supple, tongue midline, other - ET tube Neck exam: ABSENT: carotid bruit, JVD, lymphadenopathy, thyromegaly, tracheal deviation - [id number], tracheostomy Respiratory exam: PRESENT: decreased breath sounds, prolonged expiratory phas, rales, rhonchi, unlabored. ABSENT: retraction, stridor, tachypnea Cardiovascular exam: PRESENT: RRR, +S1, +S2, tachycardia Pulses: PRESENT: normal radial pulses GI/Abdominal exam: PRESENT: diminished bowel sounds, soft Extremities exam: ABSENT: calf tenderness, clubbing, joint swelling - [id number] Musculoskeletal exam: ABSENT: deformity, dislocation Neurological exam: ABSENT: awake, oriented to person Skin exam: PRESENT: dry, warm Results Laboratory Results: 11/29/17 03:42 11/29/17 03:42 11/29/17 11/29/17 11/29/17 03:42 03:42 06:40 WBC 20.2 H RBC 3.89 L Hgb 12.3 L Hct 36.1 L MCV 93 MCH 31.6 MCHC 34.0 RDW 15.2 H Plt Count 241 Seg Neutrophils % Not Reportable Lymphocytes % Not Reportable Monocytes % Not Reportable Eosinophils % Not Reportable Basophils % Not Reportable Absolute Neutrophils Not Reportable Absolute Lymphocytes Not Reportable Absolute Monocytes Not Reportable Absolute Eosinophils Not Reportable Absolute Basophils Not Reportable Carbonic Acid 0.96 L HCO3/H2CO3 Ratio 24:1 ABG pH 7.49 H ABG pCO2 31.9 L ABG pO2 69.7 L ABG HCO3 23.8 ABG O2 Saturation 95.4 ABG Base Excess 1.2 FiO2 25% Sodium 145.2 H Potassium 4.1 Chloride 113 H Carbon Dioxide 25 Anion Gap 7 BUN 19 Creatinine 0.62 Est GFR ( Amer) > 60 Est GFR (Non-Af Amer) > 60 Glucose 111 H Calcium 7.8 L Phosphorus 2.8 Magnesium 2.2 11/25/17 11/25/17 11/26/17 03:54 20:54 02:56 CK-MB (CK-2) 0.68 0.58 Troponin I < 0.012 < 0.012 NT-Pro-B Natriuret Pep 1590 H 11/26/17 11/26/17 11/28/17 09:24 15:25 03:33 CK-MB (CK-2) 0.53 0.43 Troponin I < 0.012 < 0.012 NT-Pro-B Natriuret Pep 565 Impressions: Abdomen/Pelvis CT 11/24/17 13:21 IMPRESSION: Moderate probably stable ascites. Stable borderline splenomegaly. Stable varices. Thickening of the omentum that appears more prominent than on the previous study. Chest X-Ray 11/28/17 06:00 IMPRESSION: No significant change. Assessment & Plan - Diagnosis (1) Atrial fibrillation and flutter Is this a current diagnosis for this admission?: Yes Plan: controlled (2) Acute respiratory failure Qualifiers: Respiratory failure complication: unspecified whether with hypoxia or hypercapnia Qualified Code(s): J96.00 - Acute respiratory failure, unspecified whether with hypoxia or hypercapnia Is this a current diagnosis for this admission?: Yes Plan: abdomen extremely distended (3) Incarcerated hernia of abdominal cavity Is this a current diagnosis for this admission?: Yes Plan: as per surgery Labs- All tests 24 hr 11/24/17 11/25/17 11/26/17 12:45 03:54 02:56 WBC 21.9 H 17.7 H 19.8 H 11/24/17 17:21 Gram Stain - Final Abdomen - Tissue (Surgical) Wound Culture - Final Escherichia Coli No Anaerobic Organisms 11/24/17 17:11 Gram Stain - Final Abdomen - Abscess Wound Culture - Final Escherichia Coli No Anaerobic Organisms - Time Total Critical Time (Minutes): 45
--- NOTE | 2017-12-01 08:42 | PDOC PROGRESS REPORT ---
Subjective Progress Note for:: 11/30/17 Subjective:: intubated/sedated discussed with surgeon was planning on extubation however abdomen distened and tympanitic Reason For Visit: ABSCESS OF UMBILICAL HERNIA Physical Exam Vital Signs: Temp Pulse Resp BP Pulse Ox 99.5 F 92 29 H 111/64 93 11/30/17 06:00 11/30/17 07:53 11/30/17 07:53 11/30/17 07:15 11/30/17 07:53 Intake & Output 11/29/17 11/30/17 12/01/17 06:59 06:59 06:59 Intake Total 2381 1979 Output Total 1205 595 Balance 1176 1384 Weight 67.3 kg 69.9 kg General appearance: PRESENT: no acute distress, disheveled. ABSENT: cooperative Head exam: ABSENT: atraumatic, normocephalic Eye exam: PRESENT: conjunctiva pale. ABSENT: EOMI, nystagmus, periorbital swelling, scleral icterus Mouth exam: PRESENT: dry mucosa, neck supple, tongue midline, other - ET tube Neck exam: ABSENT: carotid bruit, JVD, lymphadenopathy, thyromegaly, tracheal deviation, tracheostomy Respiratory exam: PRESENT: decreased breath sounds, prolonged expiratory phas, rhonchi, unlabored. ABSENT: retraction, stridor Cardiovascular exam: PRESENT: RRR, +S1, +S2 Pulses: PRESENT: normal radial pulses GI/Abdominal exam: PRESENT: diminished bowel sounds, soft Extremities exam: ABSENT: clubbing, joint swelling Musculoskeletal exam: ABSENT: deformity, dislocation Neurological exam: ABSENT: awake, oriented to person Skin exam: PRESENT: dry, warm Results Laboratory Results: 11/30/17 04:11 11/30/17 04:11 11/29/17 11/30/17 11/30/17 12:00 04:11 04:11 WBC 12.3 H RBC 3.59 L Hgb 11.5 L Hct 33.7 L MCV 94 MCH 32.0 MCHC 34.2 RDW 15.6 H Plt Count 253 Seg Neutrophils % 78.9 H Lymphocytes % 9.6 L Monocytes % 7.1 Eosinophils % 3.8 Basophils % 0.6 Absolute Neutrophils 9.7 H Absolute Lymphocytes 1.2 Absolute Monocytes 0.9 Absolute Eosinophils 0.5 Absolute Basophils 0.1 Carbonic Acid HCO3/H2CO3 Ratio ABG pH ABG pCO2 ABG pO2 ABG HCO3 ABG O2 Saturation ABG Base Excess FiO2 Sodium 143.9 Potassium 3.8 Chloride 112 H Carbon Dioxide 23 Anion Gap 9 BUN 18 Creatinine 0.61 Est GFR ( Amer) > 60 Est GFR (Non-Af Amer) > 60 Glucose 103 Calcium 7.8 L Magnesium 2.1 Total Bilirubin 1.2 AST 81 H ALT 42 Alkaline Phosphatase 80 Total Protein 6.1 L Albumin 2.3 L Urine Color KINJAL Urine Appearance CLEAR Urine pH 5.0 Ur Specific Waldo 1.029 Urine Protein 30 H Urine Glucose (UA) NEGATIVE Urine Ketones NEGATIVE Urine Blood SMALL H Urine Nitrite NEGATIVE Ur Leukocyte Esterase NEGATIVE Urine WBC (Auto) 3 Urine RBC (Auto) 102 11/30/17 04:45 WBC RBC Hgb Hct MCV MCH MCHC RDW Plt Count Seg Neutrophils % Lymphocytes % Monocytes % Eosinophils % Basophils % Absolute Neutrophils Absolute Lymphocytes Absolute Monocytes Absolute Eosinophils Absolute Basophils Carbonic Acid 0.96 L HCO3/H2CO3 Ratio 25:1 ABG pH 7.50 H ABG pCO2 31.9 L ABG pO2 68.5 L ABG HCO3 24.4 ABG O2 Saturation 95.3 ABG Base Excess 1.7 FiO2 25% Sodium Potassium Chloride Carbon Dioxide Anion Gap BUN Creatinine Est GFR ( Amer) Est GFR (Non-Af Amer) Glucose Calcium Magnesium Total Bilirubin AST ALT Alkaline Phosphatase Total Protein Albumin Urine Color Urine Appearance Urine pH Ur Specific [place] Urine Protein Urine Glucose (UA) Urine Ketones Urine Blood Urine Nitrite Ur Leukocyte Esterase Urine WBC (Auto) Urine RBC (Auto) 11/24/17 18:50 Blood Blood Culture - Final NO GROWTH IN 5 DAYS 11/25/17 11/25/17 11/26/17 03:54 20:54 02:56 CK-MB (CK-2) 0.68 0.58 Troponin I < 0.012 < 0.012 NT-Pro-B Natriuret Pep 1590 H 11/26/17 11/26/17 11/28/17 09:24 15:25 03:33 CK-MB (CK-2) 0.53 0.43 Troponin I < 0.012 < 0.012 NT-Pro-B Natriuret Pep 565 Impressions: Abdomen/Pelvis CT 11/24/17 13:21 IMPRESSION: Moderate probably stable ascites. Stable borderline splenomegaly. Stable varices. Thickening of the omentum that appears more prominent than on the previous study. Chest X-Ray 11/30/17 06:00 IMPRESSION: No significant change. Assessment & Plan - Diagnosis (1) Atrial fibrillation and flutter Is this a current diagnosis for this admission?: Yes Plan: controlled (2) Acute respiratory failure Qualifiers: Respiratory failure complication: unspecified whether with hypoxia or hypercapnia Qualified Code(s): J96.00 - Acute respiratory failure, unspecified whether with hypoxia or hypercapnia Is this a current diagnosis for this admission?: Yes Plan: abdomen extremely distended (3) Incarcerated hernia of abdominal cavity Is this a current diagnosis for this admission?: Yes Plan: as per surgery Labs- All tests 24 hr 11/24/17 11/25/17 11/26/17 12:45 03:54 02:56 WBC 21.9 H 17.7 H 19.8 H 11/24/17 17:21 Gram Stain - Final Abdomen - Tissue (Surgical) Wound Culture - Final Escherichia Coli No Anaerobic Organisms 11/24/17 17:11 Gram Stain - Final Abdomen - Abscess Wound Culture - Final Escherichia Coli No Anaerobic Organisms - Time Total Critical Time (Minutes): 40
[2017-12-01] MEDS ORDERED: DOPAMINE HCL/DEXTROSE 5%-WATER 800 MG/250 ML RTUINJ IV PRN (09:15)
--- NOTE | 2017-12-01 10:06 | PDOC PROGRESS REPORT ---
Subjective Progress Note for:: 12/01/17 Subjective:: abdomen distened and tympanitic Reason For Visit: ABSCESS OF UMBILICAL HERNIA Physical Exam Vital Signs: Temp Pulse Resp BP Pulse Ox 97.5 F 79 18 87/61 L 98 12/01/17 05:20 12/01/17 02:11 12/01/17 06:00 12/01/17 05:51 12/01/17 06:00 Intake & Output 11/30/17 12/01/17 12/02/17 06:59 06:59 06:59 Intake Total 1979 3513 Output Total 595 542 Balance 1384 2971 Weight 69.9 kg 70.7 kg General appearance: PRESENT: no acute distress, disheveled, thin. ABSENT: cooperative Head exam: PRESENT: atraumatic, normocephalic Eye exam: PRESENT: conjunctiva pale. ABSENT: EOMI, nystagmus, periorbital swelling, scleral icterus Mouth exam: PRESENT: dry mucosa, neck supple, tongue midline, other - Et tube Neck exam: ABSENT: carotid bruit, JVD, lymphadenopathy, thyromegaly, tracheal deviation, tracheostomy Respiratory exam: PRESENT: decreased breath sounds, prolonged expiratory phas, rhonchi, unlabored, other - Peak airway pressures elevated over the last 24 hours. ABSENT: rales, retraction, tachypnea Cardiovascular exam: PRESENT: RRR, +S1, +S2, tachycardia Pulses: PRESENT: normal radial pulses GI/Abdominal exam: PRESENT: distended, other - Status post surgery midline wound Gentrourinary exam: PRESENT: scrotal swelling, indwelling catheter Extremities exam: PRESENT: +2 edema. ABSENT: clubbing Musculoskeletal exam: ABSENT: ambulatory, deformity, dislocation Neurological exam: ABSENT: awake, oriented to person Skin exam: PRESENT: dry, warm, other - Generalized anasarca Results Laboratory Results: 12/01/17 04:13 12/01/17 04:13 11/30/17 11/30/17 11/30/17 04:11 13:10 15:43 WBC RBC Hgb Hct MCV MCH MCHC RDW Plt Count Seg Neutrophils % Lymphocytes % Monocytes % Eosinophils % Basophils % Absolute Neutrophils Absolute Lymphocytes Absolute Monocytes Absolute Eosinophils Absolute Basophils Carbonic Acid 0.79 L 0.85 L HCO3/H2CO3 Ratio 26:1 26:1 ABG pH 7.52 H 7.51 H ABG pCO2 26.4 L 28.4 L ABG pO2 56.5 L 62.7 L ABG HCO3 21.2 22.3 ABG O2 Saturation 92.7 L 94.3 ABG Base Excess -0.3 0.3 FiO2 25% 35% Sodium Potassium Chloride Carbon Dioxide Anion Gap BUN Creatinine Est GFR ( Amer) Est GFR (Non-Af Amer) Glucose Calcium Magnesium TSH 4.27 Free T4 2.02 Free T3 pg/mL 2.90 12/01/17 12/01/17 12/01/17 04:13 04:13 05:27 WBC 26.1 H D RBC 3.37 L Hgb 10.7 L Hct 31.6 L MCV 94 MCH 31.9 MCHC 34.0 RDW 15.0 H Plt Count 239 Seg Neutrophils % Not Reportable Lymphocytes % Not Reportable Monocytes % Not Reportable Eosinophils % Not Reportable Basophils % Not Reportable Absolute Neutrophils Not Reportable Absolute Lymphocytes Not Reportable Absolute Monocytes Not Reportable Absolute Eosinophils Not Reportable Absolute Basophils Not Reportable Carbonic Acid 0.95 L HCO3/H2CO3 Ratio 23:1 ABG pH 7.47 H ABG pCO2 31.6 L ABG pO2 78.4 L ABG HCO3 22.5 ABG O2 Saturation 96.4 ABG Base Excess -0.5 FiO2 35% Sodium 141.2 Potassium 4.0 Chloride 112 H Carbon Dioxide 23 Anion Gap 6 BUN 23 H Creatinine 0.69 Est GFR ( Amer) > 60 Est GFR (Non-Af Amer) > 60 Glucose 121 H Calcium 7.7 L Magnesium 2.1 TSH Free T4 Free T3 pg/mL 11/25/17 11/25/17 11/26/17 03:54 20:54 02:56 CK-MB (CK-2) 0.68 0.58 Troponin I < 0.012 < 0.012 NT-Pro-B Natriuret Pep 1590 H 11/26/17 11/26/17 11/28/17 09:24 15:25 03:33 CK-MB (CK-2) 0.53 0.43 Troponin I < 0.012 < 0.012 NT-Pro-B Natriuret Pep 565 Impressions: Abdomen/Pelvis CT 11/24/17 13:21 IMPRESSION: Moderate probably stable ascites. Stable borderline splenomegaly. Stable varices. Thickening of the omentum that appears more prominent than on the previous study. Chest X-Ray 12/01/17 06:00 IMPRESSION: Stable appearance of the chest. 2010 [employer]- All Rights Reserved Assessment & Plan - Diagnosis (1) Atrial fibrillation and flutter Is this a current diagnosis for this admission?: Yes Plan: controlled (2) Acute respiratory failure Qualifiers: Respiratory failure complication: unspecified whether with hypoxia or hypercapnia Qualified Code(s): J96.00 - Acute respiratory failure, unspecified whether with hypoxia or hypercapnia Is this a current diagnosis for this admission?: Yes Plan: Airway pressures increased significantly over the last 24 hours, will decrease tidal volume decreased respiratory time and increased respiratory rate to maintain the same minute ventilation this did bring his airway pressures down from the low 30's into 20's (3) Incarcerated hernia of abdominal cavity Is this a current diagnosis for this admission?: Yes Plan: Labs- All tests 24 hr 11/24/17 11/25/17 11/26/17 12:45 03:54 02:56 WBC 21.9 H 17.7 H 19.8 H 11/27/17 11/28/17 11/29/17 03:53 03:33 03:42 WBC 11.8 H 13.2 H 20.2 H 11/30/17 12/01/17 04:11 04:13 WBC 12.3 H 26.1 H D Selected Entries 11/30/17 11/30/17 11/30/17 08:00 08:15 08:50 Core 100.9 F H 101.3 F H 101.7 F H Temperature 11/30/17 11/30/17 11/30/17 09:20 09:51 10:20 Core 102.0 F H 102.2 F H 102.2 F H Temperature 11/30/17 11/30/17 11/30/17 10:50 11:20 11:50 Core 102.0 F H 101.8 F H 101.5 F H Temperature 11/30/17 11/30/17 11/30/17 12:21 17:21 17:36 Core 100.9 F H 100.6 F H 100.6 F H Temperature 11/30/17 11/30/17 11/30/17 17:51 18:06 20:00 Core 100.6 F H 100.6 F H 100.0 F Temperature 11/30/17 11/30/17 11/30/17 20:05 20:06 21:51 Core 100.0 F 100.0 F 99.7 F Temperature 11/30/17 11/30/17 11/30/17 22:00 22:01 22:05 Core 99.5 F 99.5 F 99.5 F Temperature - Time Total Critical Time (Minutes): 45
[2017-12-01] MEDS: DEXTROSE 5%-1/2 NORMAL SALINE 1,000 ML IV PRN (10:22)
[2017-12-01] MEDS: FUROSEMIDE INJ/PF 20 MG/2 ML SDV IV SCH ×2 (10:22→17:49)
[2017-12-01] MEDS: MIDAZOLAM HCL 50 MG/100 ML RTUINJ IV-INFUSE PRN (10:23)
[2017-12-01] MEDS: AMIODARONE HCL 200 MG TABLET PO SCH ×2 (10:23→17:53)
--- NOTE | 2017-12-01 11:02 | RADIOLOGY REPORT (SQ) ---
EXAM DESCRIPTION: CT ABD/PELVIS ORAL ONLY COMPLETED DATE/TIME: 12/01/2017 10:05 am REASON FOR STUDY: Failure to tolerate tube feeds; use NG for oral co COMPARISON: CT abdomen pelvis 11/24/2017, 10/05/2017 TECHNIQUE: CT scan of the abdomen and pelvis performed without intravenous contrast. Oral contrast was instilled through the patient's nasogastric tube. Images reviewed with lung, soft tissue, and kerwin ne windows. Reconstructed coronal and sagittal MPR images reviewed. All images stored on PACS. All CT scanners at this facility use dose modulation, iterative reconstruction, and/or weight based d osing when appropriate to reduce radiation dose to as low as reasonably achievable (ALARA). [facility]: Dose Right [facility]: CareDose [facility]: Dose Right [facility]: Teradose 4D [facility]: Smart Rapid Mobile RADIATION DOSE: CT Rad equipment meets quality standard of care and radiation dose reduction techniq ues were employed. CTDIvol: 8.8 mGy. DLP: 627 mGy-cm.mGy. LIMITATIONS: None. FINDINGS: Diffuse third-spacing is present, with edema/interstitial tissue fluid throughout the lowe r chest and abdominal wall, pelvic soft tissues, with masses scrotal edema. Moderate ascites, increa sed compared to 11/24/2017. Edema throughout the mesentery. LOWER CHEST: There is dense consolidation in the right lower lobe, right lower lobe segmental bronchi are occluded with fluid or debris. Findings are worrisome for aspiration pneumonia. Minimal left b asilar atelectasis. NON-CONTRASTED LIVER, SPLEEN, ADRENALS: Nodular liver with hypertrophy left lobe likely from cirrhosi s. Splenomegaly, 15 cm in greatest craniocaudad length. Varices in the upper abdomen are present. Adrenal glands are unremarkable PANCREAS: No masses. No peripancreatic inflammatory changes. GALLBLADDER: Stones in the gallbladder without gross gallbladder wall thickening RIGHT KIDNEY AND URETER: No suspicious masses. Assessment limited by lack of IV contrast. No signif icant calcifications. No hydronephrosis or hydroureter. LEFT KIDNEY AND URETER: No suspicious masses. Assessment limited by lack of IV contrast. No signifi cant calcifications. No hydronephrosis or hydroureter. AORTA AND RETROPERITONEUM: No aneurysm. No retroperitoneal masses or adenopathy. BOWEL AND PERITONEAL CAVITY: A nasogastric tube is present with the tip and side port in the stomach. Oral contrast was instilled through the nasogastric tube. This courses throughout the stomach smal l bowel and colon in a nonobstructive pattern. There is some bowel wall thickening along the ascendi ng and descending colon, likely related to 3rd spacing APPENDIX: Not identified PELVIS, BLADDER, AND ABDOMINAL WALL:Free pelvic fluid. Mock catheter drains the bladder. No gross pelvic masses or adenopathy. BONES: No significant findings. OTHER: Results discussed with Dr. Hays IMPRESSION: Diffuse third-spacing, now with moderate ascites Right lower lobe pneumonia worrisome for aspiration No CT evidence of bowel obstruction Portal hypertension/cirrhosis COMMENT: Quality ID # [id number]: Final reports with documentation of one or more dose reduction techniques (e.g., Automated exposure control, adjustment of the mA and/or kV according to patient size, use of iterative reconstruction technique) TECHNICAL DOCUMENTATION: JOB ID: [id number] [employer]- All Rights Reserved Reading location - IP/workstation name: [facility]
[2017-12-01] MEDS ORDERED: FUROSEMIDE INJ/PF 20 MG/2 ML SDV IV PRN (11:15)
[2017-12-01] MEDS ORDERED: NORMAL SALINE 500 ML IV PRN (11:16)
[2017-12-01] MEDS ORDERED: ALBUMIN HUMAN 12.5 GM/50 ML RTUINJ IV ONE (12:00)
[2017-12-01] MEDS ORDERED: PIPERACILLIN SODIUM/TAZOBACTAM 4.5 GM in NORMAL SALINE 100 ML IV SCH (12:15)
--- NOTE | 2017-12-01 13:11 | PDOC CONSULTATION ---
Consultation Consult Date: 12/01/17 Attending physician:: VENKATA HAYS Consult reason:: Anasarca History of Present Illness Admission Date/PCP: 11/24/17 13:42 VENKATA HAYS MD Patient complains of: Swelling History of Present Illness: ELDER KIMBALL is a 62 year old male with past medical history of Left hand arthritis Tobacco use Umbilical hernia COPD Hepatitis C He presented to the emergency room on November 24 with abdominal pain and swelling that started 4 days prior to presentation. CAT scan of the abdomen and pelvis showed moderate ascites with borderline splenomegaly and stable splenic esophageal and gastric varices with thickening of the omentum. He was evaluated by the surgical service and taken to the OR for exploration of incarcerated umbilical hernia. En route to the OR he developed atrial fibrillation with RVR. He was evaluated by Dr. Flores from the cardiology service, who recommended IV beta blockers and amiodarone. Postoperatively he was intubated and sedated and was noted to be in atrial flutter. He was therefore cardioverted and continue to maintain sinus rhythm. The plan is to keep him on amiodarone for 1 month with no indication for anticoagulation. Echocardiogram done on November 25, 2017 showed normal LV ejection fraction with borderline concentric left ventricular hypertrophy. Diastolic function could not be adequately assessed. No pericardial effusion. No significant valvular abnormalities. The patient has been difficult to wean due to persistent abdominal distention which is felt to be secondary to ascites due to underlying liver disease which was noted by Dr. Hays as an outpatient also 2 months ago. A CAT scan of the abdomen and pelvis with oral contrast done today shows diffuse third spacing with interstitial fluid throughout the lower chest and abdominal wall pelvic soft tissues and scrotal edema. The liver was noted to be cirrhotic, spleen is enlarged and varices were present. Gallstones were seen with no gallbladder wall thickening. Right lower lobe consolidation was also noted. Sputum culture grew Serratia and Strep pneumo. Blo is d and urine cultures were drawn today. Urine analysis did not show any evidence of infection. I spoke to his daughter and discussed the plan of care. Past Medical History Infectious Medical History: Reports: Hepatitis C Past Surgical History Past Surgical History: Reports: Orthopedic Surgery - Removal of multiple disc from neck area Social History Smoking Status: Current Some Day Smoker - Advance Directive Resuscitation Status: Full Code Family History Family History: Hyperlipidemia, Hypertension, Malignancy Parental Family History Reviewed: No Children Family History Reviewed: No Sibling(s) Family History Reviewed.: No Medication/Allergy Home Medications: Oxycodone HCl [Oxycodone HCl 10 MG Tablet] 10 mg PO Q8HP PRN 11/24/17 Ribavirin 400 mg PO Q12 11/24/17 Sofosbuvir/Velpatas/Voxilaprev [Vosevi 400-100-100 mg Tablet] 1 tab PO DAILY 11/06 Allergies/Adverse Reactions: No Known Allergies Allergy (Verified 09/02/17 10:01) Review of Systems ROS unobtainable: Due to endotracheal tube Physical Exam Vital Signs: Temp Pulse Resp BP Pulse Ox 98.1 F 77 18 87/61 L 99 12/01/17 10:00 12/01/17 08:04 12/01/17 08:04 12/01/17 05:51 12/01/17 09:29 Intake & Output 11/30/17 12/01/17 12/02/17 06:59 06:59 06:59 Intake Total 1979 3513 Output Total 595 542 160 Balance 1384 2971 -160 Weight 69.9 kg 70.7 kg Results Laboratory Results: 12/01/17 04:13 12/01/17 04:13 11/30/17 11/30/17 12/01/17 13:10 15:43 04:13 WBC 26.1 H D RBC 3.37 L Hgb 10.7 L Hct 31.6 L MCV 94 MCH 31.9 MCHC 34.0 RDW 15.0 H Plt Count 239 Seg Neutrophils % Not Reportable Lymphocytes % Not Reportable Monocytes % Not Reportable Eosinophils % Not Reportable Basophils % Not Reportable Absolute Neutrophils Not Reportable Absolute Lymphocytes Not Reportable Absolute Monocytes Not Reportable Absolute Eosinophils Not Reportable Absolute Basophils Not Reportable Carbonic Acid 0.79 L 0.85 L HCO3/H2CO3 Ratio 26:1 26:1 ABG pH 7.52 H 7.51 H ABG pCO2 26.4 L 28.4 L ABG pO2 56.5 L 62.7 L ABG HCO3 21.2 22.3 ABG O2 Saturation 92.7 L 94.3 ABG Base Excess -0.3 0.3 FiO2 25% 35% Sodium Potassium Chloride Carbon Dioxide Anion Gap BUN Creatinine Est GFR ( Amer) Est GFR (Non-Af Amer) Glucose Calcium Magnesium 12/01/17 12/01/17 04:13 05:27 WBC RBC Hgb Hct MCV MCH MCHC RDW Plt Count Seg Neutrophils % Lymphocytes % Monocytes % Eosinophils % Basophils % Absolute Neutrophils Absolute Lymphocytes Absolute Monocytes Absolute Eosinophils Absolute Basophils Carbonic Acid 0.95 L HCO3/H2CO3 Ratio 23:1 ABG pH 7.47 H ABG pCO2 31.6 L ABG pO2 78.4 L ABG HCO3 22.5 ABG O2 Saturation 96.4 ABG Base Excess -0.5 FiO2 35% Sodium 141.2 Potassium 4.0 Chloride 112 H Carbon Dioxide 23 Anion Gap 6 BUN 23 H Creatinine 0.69 Est GFR ( Amer) > 60 Est GFR (Non-Af Amer) > 60 Glucose 121 H Calcium 7.7 L Magnesium 2.1 11/29/17 12:00 Mock Catheter Urine Culture - Final NO GROWTH 2 DAYS 11/25/17 11/25/17 11/26/17 03:54 20:54 02:56 CK-MB (CK-2) 0.68 0.58 Troponin I < 0.012 < 0.012 NT-Pro-B Natriuret Pep 1590 H 11/26/17 11/26/17 11/28/17 09:24 15:25 03:33 CK-MB (CK-2) 0.53 0.43 Troponin I < 0.012 < 0.012 NT-Pro-B Natriuret Pep 565 Impressions: Chest X-Ray 12/01/17 06:00 IMPRESSION: Stable appearance of the chest. 2010 [employer]- All Rights Reserved Abdomen/Pelvis CT 12/01/17 09:00 IMPRESSION: Diffuse third-spacing, now with moderate ascites Right lower lobe pneumonia worrisome for aspiration No CT evidence of bowel obstruction Portal hypertension/cirrhosis Assessment & Plan - Diagnosis (1) Ascites Qualifiers: Ascites type: other type Qualified Code(s): R18.8 - Other ascites Is this a current diagnosis for this admission?: Yes Plan: Diagnostic and therapeutic tap. (2) Acute respiratory failure Qualifiers: Respiratory failure complication: unspecified whether with hypoxia or hypercapnia Qualified Code(s): J96.00 - Acute respiratory failure, unspecified whether with hypoxia or hypercapnia Is this a current diagnosis for this admission?: Yes Plan: Continue vent support, hopefully paracentesis will help relieve the pressure and facilitate weaning. (3) COPD (chronic obstructive pulmonary disease) Qualifiers: Chronic bronchitis type: unspecified Is this a current diagnosis for this admission?: Yes (4) Incarcerated hernia of abdominal cavity Is this a current diagnosis for this admission?: Yes (5) Tobacco abuse Is this a current diagnosis for this admission?: Yes (6) Pneumonia Qualifiers: Pneumonia type: due to Pneumococcus Laterality: right Lung location: lower lobe of lung Qualified Code(s): J13 - Pneumonia due to Streptococcus pneumoniae Is this a current diagnosis for this admission?: Yes Plan: Start antibiotic. (7) Leukocytosis Is this a current diagnosis for this admission?: Yes Plan: Likely secondary to right lower lobe pneumonia. Check a cyclic fluid to rule out SBP. Follow-up on blood cultures. (8) Atrial fibrillation and flutter Is this a current diagnosis for this admission?: Yes Plan: Continue amiodarone and Cardizem. (9) Hepatitis C Is this a current diagnosis for this admission?: Yes (10) Anasarca Is this a current diagnosis for this admission?: Yes Plan: IV albumin and IV Lasix, add benefiber to tube feeds. - Time Time Spent: Greater than 70 Minutes
[2017-12-01] MEDS ORDERED: LIDOCAINE 1% INJ-PF (10 MG/ML) 30 ML SDV ONE (13:28)
[2017-12-01 13:53] LABS: INTERNATIONAL RATION (INR) 1.19; PROTHROMBIN TIME 15.7 SEC (11.4-15.4)
[2017-12-01 13:54] LABS: PARTIAL THROMBOPLASTIN TIME 35.1 SEC (23.5-35.8)
[2017-12-01] MEDS: ALBUMIN HUMAN 12.5 GM/50 ML RTUINJ IV SCH ×2 (14:50→23:36)
--- NOTE | 2017-12-01 15:26 | PDOC PROGRESS REPORT ---
Subjective Progress Note for:: 12/01/17 Subjective:: Intubated and sedated Reason For Visit: ABSCESS OF UMBILICAL HERNIA Physical Exam Vital Signs: Temp Pulse Resp BP Pulse Ox 97.9 F 81 24 H 101/66 98 12/01/17 14:00 12/01/17 14:38 12/01/17 14:38 12/01/17 11:51 12/01/17 14:38 Intake & Output 11/30/17 12/01/17 12/02/17 06:59 06:59 06:59 Intake Total 1979 3513 Output Total 564 798 3695 Balance 1384 2971 -1235 Weight 69.9 kg 70.7 kg Respiratory exam: PRESENT: other - Diminished breath sounds at the bases with rhonchi Cardiovascular exam: PRESENT: RRR GI/Abdominal exam: PRESENT: other - Distended, soft, unable to determine tenderness. Wound VAC in place. No erythema. Results Laboratory Results: 12/01/17 04:13 12/01/17 04:13 11/30/17 12/01/17 12/01/17 15:43 04:13 04:13 WBC 26.1 H D RBC 3.37 L Hgb 10.7 L Hct 31.6 L MCV 94 MCH 31.9 MCHC 34.0 RDW 15.0 H Plt Count 239 Seg Neutrophils % Not Reportable Lymphocytes % Not Reportable Monocytes % Not Reportable Eosinophils % Not Reportable Basophils % Not Reportable Absolute Neutrophils Not Reportable Absolute Lymphocytes Not Reportable Absolute Monocytes Not Reportable Absolute Eosinophils Not Reportable Absolute Basophils Not Reportable Carbonic Acid 0.85 L HCO3/H2CO3 Ratio 26:1 ABG pH 7.51 H ABG pCO2 28.4 L ABG pO2 62.7 L ABG HCO3 22.3 ABG O2 Saturation 94.3 ABG Base Excess 0.3 FiO2 35% Sodium 141.2 Potassium 4.0 Chloride 112 H Carbon Dioxide 23 Anion Gap 6 BUN 23 H Creatinine 0.69 Est GFR ( Amer) > 60 Est GFR (Non-Af Amer) > 60 Glucose 121 H Calcium 7.7 L Magnesium 2.1 Total Protein 12/01/17 12/01/17 05:27 07:35 WBC RBC Hgb Hct MCV MCH MCHC RDW Plt Count Seg Neutrophils % Lymphocytes % Monocytes % Eosinophils % Basophils % Absolute Neutrophils Absolute Lymphocytes Absolute Monocytes Absolute Eosinophils Absolute Basophils Carbonic Acid 0.95 L HCO3/H2CO3 Ratio 23:1 ABG pH 7.47 H ABG pCO2 31.6 L ABG pO2 78.4 L ABG HCO3 22.5 ABG O2 Saturation 96.4 ABG Base Excess -0.5 FiO2 35% Sodium Potassium Chloride Carbon Dioxide Anion Gap BUN Creatinine Est GFR ( Amer) Est GFR (Non-Af Amer) Glucose Calcium Magnesium Total Protein 5.9 L 11/29/17 12:00 Mock Catheter Urine Culture - Final NO GROWTH 2 DAYS 11/25/17 11/25/17 11/26/17 03:54 20:54 02:56 CK-MB (CK-2) 0.68 0.58 Troponin I < 0.012 < 0.012 NT-Pro-B Natriuret Pep 1590 H 11/26/17 11/26/17 11/28/17 09:24 15:25 03:33 CK-MB (CK-2) 0.53 0.43 Troponin I < 0.012 < 0.012 NT-Pro-B Natriuret Pep 565 Impressions: Chest X-Ray 12/01/17 06:00 IMPRESSION: Stable appearance of the chest. 2010 [employer]- All Rights Reserved Abdomen/Pelvis CT 12/01/17 09:00 IMPRESSION: Diffuse third-spacing, now with moderate ascites Right lower lobe pneumonia worrisome for aspiration No CT evidence of bowel obstruction Portal hypertension/cirrhosis Assessment & Plan - Diagnosis (1) Incarcerated hernia of abdominal cavity Is this a current diagnosis for this admission?: Yes Plan: Status post repair. Patient with postoperative ascites with evidence of postoperative ileus as well. Still on ventilator. Now with pneumonia. Likely his pneumonia explains his leukocytosis. I do not think he has abdominal sepsis. Continue supportive care. Defer to hospitalist for management of his pneumonia. Will obtain a PICC line for TPN
--- NOTE | 2017-12-01 15:35 | RADIOLOGY REPORT (SQ) ---
EXAM DESCRIPTION: U/S ABD PARACENTESIS COMPLETED DATE/TIME: 12/01/2017 3:06 pm REASON FOR STUDY: infection, ascites COMPARISON None. LIMITATIONS: None. PROCEDURE: After obtaining informed consent, the patient was brought to the ultrasound suite. The p rocedure was performed with the patient on a gurney. Ultrasound was used to identify a prominent poc ket of ascites in the right lower quadrant. An appropriate access site was selected. The patient wa s prepped and draped in usual sterile fashion. The access site was anesthetized with 6 mL 1% lidoca ine. A Hptk-H-Wozsyymz needle was advanced into the fluid. After aspiration of fluid the needle, th e catheter was advanced off the needle into the fluid. A total of 3 L of clear straw-colored fluid w as removed. Specimen was sent to the lab for studies ordered by the attending physician. The patien t tolerated the procedure well left the department in satisfactory condition. IMPRESSION: Successful ultrasound-guided paracentesis, sample of fluid sent for testing. COMMENT: Patient medication list reviewed: Yes- Quality ID# [id number]:Eligible professional attests to doc umenting in the medical record they obtained, updated, or reviewed the patient's current medications. TECHNICAL DOCUMENTATION: JOB ID: [id number] [employer]- All Rights Reserved Reading location - IP/workstation name: [email or web address]
[2017-12-01 15:42] LABS: FLUID APPEARANCE SLIGHTLY HAZY; FLUID COLOR YELLOW; FLUID SOURCE ASCITES; FLUID TYPE PERITONEAL; FLUID VISCOSITY LIQUID
[2017-12-01] MEDS ORDERED: CEFOTAXIME SODIUM 2 GM in DEXTROSE 5%-WATER 50 ML IV SCH (16:00)
[2017-12-01] MEDS: LACTOBACILLUS ACIDOPHILUS 250 MG TAB NG SCH (17:52)
[2017-12-01] MEDS ORDERED: CEFTRIAXONE 2 GM/D5W RTU 2 GM/50 ML RTUPB IV SCH (18:00)
[2017-12-01] MEDS: MORPHINE SULFATE 10 MG/ML INJ IV PRN (19:41)
[2017-12-01] MEDS ORDERED: FUROSEMIDE INJ/PF 40 MG/4 ML SDV IV ONE (22:15)
[2017-12-02 00:46] LABS: ANION GAP 9 (5-19); BLOOD UREA NITROGEN 23 mg/dL (7-20); CALCIUM 7.9 mg/dL (8.4-10.2); CARBON DIOXIDE 25 mmol/L (22-30); CHLORIDE 105 mmol/L (98-107); GLUCOSE 89 mg/dL (75-110); POTASSIUM 3.6 mmol/L (3.6-5.0); SODIUM 139.2 mmol/L (137-145)
[2017-12-02] MEDS: IPRATROPIUM/ALBUTEROL 0.5-2.5 MG/3 ML AMPUL NEB SCH ×3 (02:00→13:41)
[2017-12-02] MEDS: FUROSEMIDE INJ/PF 20 MG/2 ML SDV IV SCH ×2 (03:03→09:57)
[2017-12-02 04:24] LABS: ALANINE AMINOTRANSFERASE 42 U/L (21-72); ALBUMIN 2.7 g/dL (3.5-5.0); ALKALINE PHOSPHATASE 90 U/L (38-126); ANION GAP 12 (5-19); ASPARTATE AMINO TRANSFERASE 63 U/L (17-59); BILIRUBIN,DIRECT 1.2 mg/dL (0.0-0.4); BILIRUBIN,TOTAL 1.7 mg/dL (0.2-1.3); BLOOD UREA NITROGEN 23 mg/dL (7-20); CALCIUM 7.7 mg/dL (8.4-10.2); CARBON DIOXIDE 24 mmol/L (22-30); CHLORIDE 105 mmol/L (98-107); GLUCOSE 94 mg/dL (75-110); POTASSIUM 3.6 mmol/L (3.6-5.0); SODIUM 141.3 mmol/L (137-145); TOTAL PROTEIN 6.3 g/dL (6.3-8.2)
[2017-12-02 04:37] LABS: HEMATOCRIT 32.5 % (37.9-51.0); HEMOGLOBIN 11.1 g/dL (13.5-17.0); MEAN CORPUSCULAR HEMOGLOBIN 31.7 pg (27.0-33.4); MEAN CORPUSCULAR HGB CONC 34.2 g/dL (32.0-36.0); MEAN CORPUSCULAR VOLUME 93 fl (80-97); PLATELET COUNT 226 10^3/uL (150-450); RED CELL DISTRIBUTION WIDTH 14.9 % (11.5-14.0)
[2017-12-02 04:41] LABS: ABSOLUTE LYMPHOCYTES# (MANUAL) 0.6 10^3/uL (0.5-4.7); ABSOLUTE MONOCYTES # (MANUAL) 1.3 10^3/uL (0.1-1.4); ABSOLUTE NEUTROPHILS# (MANUAL) 29.3 10^3/uL (1.7-8.2); BAND NEUTROPHILS % (MANUAL) 4 % (3-5); BASOPHILS % (MANUAL) 0 % (0-2); EOSINOPHILS % (MANUAL) 1 % (0-6); LYMPHOCYTES % (MANUAL) 2 % (13-45); MONOCYTES % (MANUAL) 4 % (3-13); SEGMENTED NEUTROPHILS % (MAN) 89 % (42-78); TOTAL CELLS COUNTED 100
[2017-12-02 04:44] LABS: ANISOCYTOSIS SLIGHT; OVALOCYTES SLIGHT; PLATELET COMMENT ADEQUATE; POIKILOCYTOSIS SLIGHT; POLYCHROMASIA SLIGHT
[2017-12-02 04:46] LABS: WHITE BLOOD COUNT 31.5 10^3/uL (4.0-10.5)
[2017-12-02 05:33] LABS: ARTERIAL BLOOD BASE EXCESS 2.5 mmol/L; ARTERIAL BLOOD H2CO3 0.95 mmol/L (1.05-1.35); ARTERIAL BLOOD HCO3 25.1 mmol/L (20-26); ARTERIAL BLOOD O2 SATURATION 96.5 % (94-98); ARTERIAL BLOOD PCO2 31.7 mmHg (35-45); ARTERIAL BLOOD PH 7.52 (7.35-7.45); ARTERIAL BLOOD PO2 76.3 mmHg (80-100)
[2017-12-02 05:34] LABS: ARTERIAL BLOOD FIO2 40%
[2017-12-02] MEDS: DILTIAZEM HCL 30 MG TABLET PO SCH (05:40)
[2017-12-02] MEDS: PROPOFOL 1,000 MG/100 ML INFUS..BTL IV PRN ×2 (06:04→12:48)
--- NOTE | 2017-12-02 06:12 | RADIOLOGY REPORT (SQ) ---
EXAM DESCRIPTION: XR CHEST 1 VIEW COMPLETED DATE/TME: 12/02/2017 06:00 CLINICAL HISTORY: 62 years, Male, resp failure. Endotracheal tube. COMPARISON: 12/01/2017 FINDINGS: Single view of the chest. Endotracheal tube and NG tube are stable. Leads overlie the chest. Cardiomediastinal silhouette is stable. Streaky bibasilar opacities are stable. No large effusion or pneumothorax. Osseous structures are stable. IMPRESSION: Stable appearance of the chest. 2011 [employer]- All Rights Reserved Electronically signed by: León Marshall 12/02/2017 5:10 AM
[2017-12-02] MEDS ORDERED: ACETAMINOPHEN 325 MG TABLET NG PRN (07:30)
[2017-12-02] MEDS ORDERED: DEXTROSE 40% GEL 15 GM TUBE X 2 PO PRN (07:39)
[2017-12-02] MEDS ORDERED: DEXTROSE 50%-WATER SYRINGE 12.5 GM/25 ML DOSE IV PRN (07:39)
[2017-12-02] MEDS ORDERED: DEXTROSE 50%-WATER SYRINGE 25 GM/50 ML DOSE IV PRN (07:39)
[2017-12-02] MEDS ORDERED: DEXTROSE 40% GEL 15 GM TUBE PO PRN (07:39)
[2017-12-02] MEDS ORDERED: DEXTROSE 10%-WATER 1,000 ML IV PRN (07:39)
[2017-12-02] MEDS ORDERED: INSULIN REG, HUMAN 100 UNIT/ML 3 ML VIAL (PYX) SUBCUT PRN (07:39)
[2017-12-02] MEDS ORDERED: GLUCAGON,HUMAN RECOMB 1 MG INJ IM PRN (07:39)
[2017-12-02] MEDS ORDERED: VANCOMYCIN HCL 0 MG in DEXTROSE 5%-WATER 250 ML IV NR (08:45)
[2017-12-02] MEDS: LACTOBACILLUS ACIDOPHILUS 250 MG TAB NG SCH (09:57)
[2017-12-02] MEDS ORDERED: MORPHINE SULFATE 10 MG/ML INJ IV SCH (10:00)
[2017-12-02] MEDS ORDERED: AMIODARONE HCL 200 MG TABLET NG SCH (10:00)
[2017-12-02] MEDS ORDERED: SPIRONOLACTONE 25 MG TABLET NG SCH (10:00)
[2017-12-02 10:10] LABS: PATH REVIEW PATHOLOGIST REVIEWED
[2017-12-02] MEDS ORDERED: ACETYLCYSTEINE 20% SOLN 800 MG/4 ML VIAL.NEB NEB ONE (11:00)
[2017-12-02] MEDS: ALBUMIN HUMAN 12.5 GM/50 ML RTUINJ IV SCH (11:05)
--- NOTE | 2017-12-02 11:11 | PDOC DISCHARGE SUMMARY ---
General - Admit/Disc Date/PCP Admission Date/Primary Care Provider: 11/24/17 13:42 VENKATA SAAB MD Discharge Date: 12/02/17 - transfer to [facility] [address] [facility] - Discharge Diagnosis (1) Respiratory failure requiring intubation Is this a current diagnosis for this admission?: Yes (2) Ascites of liver Is this a current diagnosis for this admission?: Yes (3) Hepatic insufficiency Is this a current diagnosis for this admission?: Yes (4) Incarcerated hernia of abdominal cavity Is this a current diagnosis for this admission?: Yes - Additional Information Resuscitation Status: Full Code Discharge Diet: Other (Comments) - Tube feedings Discharge Activity: Other Home Medications: Oxycodone HCl [Oxycodone HCl 10 MG Tablet] 10 mg PO Q8HP PRN 11/24/17 Ribavirin 400 mg PO Q12 11/24/17 Sofosbuvir/Velpatas/Voxilaprev [Vosevi 400-100-100 mg Tablet] 1 tab PO DAILY 11/06 History of Present Illness History of Present Illness: ELDER KIMBALL is a 62 year old male with liver failure presenting with an incarcerated ventral hernia. He was taken to the OR for laparotomy. See the operative report for details. Hospital Course Hospital Course: After surgery, the pt was admitted to the ICU for close observation and weaning. The pt was difficult to wean from the ventilator. He failed CPAP trials several days in a row. His WBC's were stable after surgery, however on 05/09 they began to increase. Yesterday his WBC's increased to 26. CT was obtained on 12/01/17 showing no obvious pathology except ascites. Paracentesis was performed suggesting bacterial peritonitis. Antibiotics were increased. His WBC's increased again today to 31.5. Stool for c.diff has been requested as well. The pt's family has requested transfer to tertiary care facility for continued weaning and increased level of care. I have arranged for this. Physical Exam Vital Signs: Temp Pulse Resp BP Pulse Ox 98.4 F 82 22 H 98/64 L 97 12/02/17 10:57 12/02/17 10:57 12/02/17 10:57 12/02/17 10:57 12/02/17 10:57 Intake & Output 12/01/17 12/02/17 12/03/17 06:59 06:59 06:59 Intake Total 1463 2093 0 Output Total 542 3770 210 Balance 9164 -2129 -210 Weight 70.7 kg 69.6 kg Results Laboratory Results: 12/02/17 03:53 12/02/17 03:53 12/01/17 12/01/17 12/02/17 07:35 13:52 00:30 WBC RBC Hgb Hct MCV MCH MCHC RDW Plt Count Seg Neutrophils % Lymphocytes % Monocytes % Eosinophils % Basophils % Absolute Neutrophils Absolute Lymphocytes Absolute Monocytes Absolute Eosinophils Absolute Basophils Carbonic Acid HCO3/H2CO3 Ratio ABG pH ABG pCO2 ABG pO2 ABG HCO3 ABG O2 Saturation ABG Base Excess FiO2 Sodium 139.2 Potassium 3.6 Chloride 105 Carbon Dioxide 25 Anion Gap 9 BUN 23 H Creatinine 0.67 Est GFR ( Amer) > 60 Est GFR (Non-Af Amer) > 60 Glucose 89 Calcium 7.9 L Phosphorus Magnesium Total Bilirubin AST ALT Alkaline Phosphatase Ammonia Total Protein 5.9 L Albumin Prealbumin Fluid Type PERITONEAL Fluid Source ASCITES Fluid Color YELLOW Fluid Appearance SLIGHTLY HAZY Fluid Viscosity LIQUID Fluid WBC 918 Fluid RBC 117 12/02/17 12/02/17 12/02/17 03:53 03:53 03:53 WBC 31.5 H* RBC 3.50 L Hgb 11.1 L Hct 32.5 L MCV 93 MCH 31.7 MCHC 34.2 RDW 14.9 H Plt Count 226 Seg Neutrophils % Not Reportable Lymphocytes % Not Reportable Monocytes % Not Reportable Eosinophils % Not Reportable Basophils % Not Reportable Absolute Neutrophils Not Reportable Absolute Lymphocytes Not Reportable Absolute Monocytes Not Reportable Absolute Eosinophils Not Reportable Absolute Basophils Not Reportable Carbonic Acid HCO3/H2CO3 Ratio ABG pH ABG pCO2 ABG pO2 ABG HCO3 ABG O2 Saturation ABG Base Excess FiO2 Sodium 141.3 Potassium 3.6 Chloride 105 Carbon Dioxide 24 Anion Gap 12 BUN 23 H Creatinine 0.72 Est GFR ( Amer) > 60 Est GFR (Non-Af Amer) > 60 Glucose 94 Calcium 7.7 L Phosphorus 4.0 Magnesium 1.9 Total Bilirubin 1.7 H AST 63 H ALT 42 Alkaline Phosphatase 90 Ammonia < 8.7 L Total Protein 6.3 Albumin 2.7 L Prealbumin Fluid Type Fluid Source Fluid Color Fluid Appearance Fluid Viscosity Fluid WBC Fluid RBC 12/02/17 12/02/17 03:53 05:24 WBC RBC Hgb Hct MCV MCH MCHC RDW Plt Count Seg Neutrophils % Lymphocytes % Monocytes % Eosinophils % Basophils % Absolute Neutrophils Absolute Lymphocytes Absolute Monocytes Absolute Eosinophils Absolute Basophils Carbonic Acid 0.95 L HCO3/H2CO3 Ratio 26:1 ABG pH 7.52 H ABG pCO2 31.7 L ABG pO2 76.3 L ABG HCO3 25.1 ABG O2 Saturation 96.5 ABG Base Excess 2.5 FiO2 40% Sodium Potassium Chloride Carbon Dioxide Anion Gap BUN Creatinine Est GFR ( Amer) Est GFR (Non-Af Amer) Glucose Calcium Phosphorus Magnesium Total Bilirubin AST ALT Alkaline Phosphatase Ammonia Total Protein Albumin Prealbumin 4.9 L Fluid Type Fluid Source Fluid Color Fluid Appearance Fluid Viscosity Fluid WBC Fluid RBC 11/29/17 12:00 Tracheal Aspirate Gram Stain - Final 11/29/17 12:00 Tracheal Aspirate Sputum Culture - Final Serratia Marcescens Streptococcus Pneumoniae Mrsa (Meth Resis Staph Aureus) Normal Miladis Absent 11/29/17 12:00 Mock Catheter Urine Culture - Final NO GROWTH 2 DAYS 11/25/17 11/25/17 11/26/17 03:54 20:54 02:56 CK-MB (CK-2) 0.68 0.58 Troponin I < 0.012 < 0.012 NT-Pro-B Natriuret Pep 1590 H 11/26/17 11/26/17 11/28/17 09:24 15:25 03:33 CK-MB (CK-2) 0.53 0.43 Troponin I < 0.012 < 0.012 NT-Pro-B Natriuret Pep 565 Impressions: Paracentesis Ultrasound 12/01/17 00:00 IMPRESSION: Successful ultrasound-guided paracentesis, sample of fluid sent for testing. Abdomen/Pelvis CT 12/01/17 09:00 IMPRESSION: Diffuse third-spacing, now with moderate ascites Right lower lobe pneumonia worrisome for aspiration No CT evidence of bowel obstruction Portal hypertension/cirrhosis Chest X-Ray 12/02/17 06:00 IMPRESSION: Stable appearance of the chest. 2010 [employer]- All Rights Reserved Qualifiers - * PATIENT BEING DISCHARGED WITH ANY OF THE FOLLOWING DIAGNOSIS: No Plan Time Spent: Less than 30 Minutes
[2017-12-02] MEDS ORDERED: IMIPENEM/CILASTATIN SODIUM 1,000 MG in NORMAL SALINE 250 ML IV SCH (12:00)
[2017-12-02] MEDS ORDERED: METRONIDAZOLE 500 MG/NS RTU 100 ML IV SCH (12:00)
[2017-12-02] MEDS ORDERED: NORMAL SALINE 10 ML SDV (AFTER EACH USE) IV PRN (12:27)
--- NOTE | 2017-12-02 12:28 | RADIOLOGY REPORT (SQ) ---
EXAM DESCRIPTION: PICC INSERTION; U/S GUIDE FOR VASCULAR ACCESS COMPLETED DATE/TIME: 12/02/2017 12:16 pm REASON FOR STUDY: TPN; IV ACCESS COMPARISON: Chest films 12/02/2017, 0554 hours FLUOROSCOPY TIME: No fluoroscopy was used. Procedure was performed at bedside 3 AP chest films are submitted, 1 ultrasound image image saved to PACS. TECHNIQUE: Fluoroscopic and ultrasound guided PICC placement. LIMITATIONS: None. PROCEDURE: After written consent and assessment were obtained, ultrasound evaluation of potential a ccess sites were performed. After successfully identifying a patent left basilic vein, the left arm w as prepped and draped in a sterile fashion along with the ultrasound probe. The entry site was anesth etized with 1% lidocaine. A 21 gauge 7 cm needle was advanced through the skin and into the basilic v ein under live ultrasound guidance. An ultrasound image was saved to PACS confirming access site. A .018 guide wire was then inserted through the needle and into the venous system. The needle was the removed and an 11 blade scalpel was used to make a 1cm skin incision. A 5 fr peel-away sheath was ad vanced over the wire and into the venous system. A measurement was then made using the existing wire and digital portable chest film. The wire was then removed and the trimmed. The PICC was advanced thr ough the peel-away sheath and into the venous system. The peel-away sheath was removed and the cathet er was adhered to the patients arm with a stat lock. The catheter was then aspirated and flushed and a sterile bandage was placed over the access site. A post procedure digital portable chest film 1121 hours 12/02/2017 was saved to PACS confirming the ca theter tip within the superior vena cava. Patient has an endotracheal tube with the tip 5 cm above t he jacki. Nasogastric tube tip and side port in the stomach. PICC line tip superior vena cava. Ri ght basilar consolidation is present unchanged. This is worrisome for pneumonia. Left lung grossly clear. No pneumothorax. IMPRESSION: SUCCESSFUL PLACEMENT OF A 5 FR DUAL LUMEN 40 CM PICC IN THE LEFT BASILIC VEIN. COMMENT: Patient medication list reviewed: Yes- Quality ID# [id number]:Eligible professional attests to doc umenting in the medical record they obtained, updated, or reviewed the patient's current medications. . Quality ID 145: Final reports for procedures using fluoroscopy that document radiation exposure alexandra carrol, or exposure time and number of fluorographic images (if radiation exposure indices are not avail able) Quality ID #76: The patient was prepped and draped using maximum sterile barrier technique including cap, mask, sterile gown, sterile gloves, a large sterile sheet, hand hygiene, and 2% Chlorhexidine fo r cutaneous antisepsis. When ultrasound is used, sterile ultrasound techniques are followed requiring sterile gel and sterile probes. TECHNICAL DOCUMENTATION: JOB ID: [id number] [employer]- All Rights Reserved rev-11/06 Reading location - IP/workstation name: [facility]
[2017-12-02 12:35] VITALS: BP 92/60
--- NOTE | 2017-12-02 13:46 | PDOC PROGRESS REPORT ---
Subjective Progress Note for:: 12/02/17 Subjective:: Intubated and sedated Reason For Visit: ABSCESS OF UMBILICAL HERNIA Physical Exam Vital Signs: Temp Pulse Resp BP Pulse Ox 98.2 F 80 24 H 90/60 L 96 12/02/17 08:28 12/02/17 08:28 12/02/17 08:28 12/02/17 08:28 12/02/17 08:28 Intake & Output 12/01/17 12/02/17 12/03/17 06:59 06:59 06:59 Intake Total 3513 2093 Output Total 542 3770 90 Balance 7227 -9277 -90 Weight 70.7 kg 69.6 kg General appearance: PRESENT: no acute distress, disheveled, thin. ABSENT: cooperative Head exam: PRESENT: atraumatic, normocephalic Eye exam: PRESENT: conjunctiva pale. ABSENT: EOMI, nystagmus, periorbital swelling, scleral icterus Mouth exam: PRESENT: dry mucosa, neck supple, tongue midline, other - ET tube Neck exam: ABSENT: carotid bruit, JVD, lymphadenopathy, thyromegaly, tracheal deviation, tracheostomy Respiratory exam: PRESENT: decreased breath sounds, prolonged expiratory phas, rales, rhonchi, unlabored. ABSENT: retraction, stridor Cardiovascular exam: PRESENT: RRR, +S1, +S2, tachycardia GI/Abdominal exam: PRESENT: other - Midline dressing Pleur-evac status post surgery Much less abdominal distention than was previously noted Gentrourinary exam: PRESENT: indwelling catheter Extremities exam: PRESENT: +2 edema. ABSENT: calf tenderness, clubbing Musculoskeletal exam: ABSENT: ambulatory, deformity, dislocation Neurological exam: ABSENT: awake, oriented to person Skin exam: PRESENT: dry, warm Results Laboratory Results: 12/02/17 03:53 12/02/17 03:53 12/01/17 12/01/17 12/02/17 07:35 13:52 00:30 WBC RBC Hgb Hct MCV MCH MCHC RDW Plt Count Seg Neutrophils % Lymphocytes % Monocytes % Eosinophils % Basophils % Absolute Neutrophils Absolute Lymphocytes Absolute Monocytes Absolute Eosinophils Absolute Basophils Carbonic Acid HCO3/H2CO3 Ratio ABG pH ABG pCO2 ABG pO2 ABG HCO3 ABG O2 Saturation ABG Base Excess FiO2 Sodium 139.2 Potassium 3.6 Chloride 105 Carbon Dioxide 25 Anion Gap 9 BUN 23 H Creatinine 0.67 Est GFR ( Amer) > 60 Est GFR (Non-Af Amer) > 60 Glucose 89 Calcium 7.9 L Phosphorus Magnesium Total Bilirubin AST ALT Alkaline Phosphatase Ammonia Total Protein 5.9 L Albumin Prealbumin Fluid Type PERITONEAL Fluid Source ASCITES Fluid Color YELLOW Fluid Appearance SLIGHTLY HAZY Fluid Viscosity LIQUID Fluid WBC 918 Fluid RBC 117 12/02/17 12/02/17 12/02/17 03:53 03:53 03:53 WBC 31.5 H* RBC 3.50 L Hgb 11.1 L Hct 32.5 L MCV 93 MCH 31.7 MCHC 34.2 RDW 14.9 H Plt Count 226 Seg Neutrophils % Not Reportable Lymphocytes % Not Reportable Monocytes % Not Reportable Eosinophils % Not Reportable Basophils % Not Reportable Absolute Neutrophils Not Reportable Absolute Lymphocytes Not Reportable Absolute Monocytes Not Reportable Absolute Eosinophils Not Reportable Absolute Basophils Not Reportable Carbonic Acid HCO3/H2CO3 Ratio ABG pH ABG pCO2 ABG pO2 ABG HCO3 ABG O2 Saturation ABG Base Excess FiO2 Sodium 141.3 Potassium 3.6 Chloride 105 Carbon Dioxide 24 Anion Gap 12 BUN 23 H Creatinine 0.72 Est GFR ( Amer) > 60 Est GFR (Non-Af Amer) > 60 Glucose 94 Calcium 7.7 L Phosphorus 4.0 Magnesium 1.9 Total Bilirubin 1.7 H AST 63 H ALT 42 Alkaline Phosphatase 90 Ammonia < 8.7 L Total Protein 6.3 Albumin 2.7 L Prealbumin Fluid Type Fluid Source Fluid Color Fluid Appearance Fluid Viscosity Fluid WBC Fluid RBC 12/02/17 12/02/17 03:53 05:24 WBC RBC Hgb Hct MCV MCH MCHC RDW Plt Count Seg Neutrophils % Lymphocytes % Monocytes % Eosinophils % Basophils % Absolute Neutrophils Absolute Lymphocytes Absolute Monocytes Absolute Eosinophils Absolute Basophils Carbonic Acid 0.95 L HCO3/H2CO3 Ratio 26:1 ABG pH 7.52 H ABG pCO2 31.7 L ABG pO2 76.3 L ABG HCO3 25.1 ABG O2 Saturation 96.5 ABG Base Excess 2.5 FiO2 40% Sodium Potassium Chloride Carbon Dioxide Anion Gap BUN Creatinine Est GFR ( Amer) Est GFR (Non-Af Amer) Glucose Calcium Phosphorus Magnesium Total Bilirubin AST ALT Alkaline Phosphatase Ammonia Total Protein Albumin Prealbumin 4.9 L Fluid Type Fluid Source Fluid Color Fluid Appearance Fluid Viscosity Fluid WBC Fluid RBC 11/29/17 12:00 Mock Catheter Urine Culture - Final NO GROWTH 2 DAYS 11/25/17 11/25/17 11/26/17 03:54 20:54 02:56 CK-MB (CK-2) 0.68 0.58 Troponin I < 0.012 < 0.012 NT-Pro-B Natriuret Pep 1590 H 11/26/17 11/26/17 11/28/17 09:24 15:25 03:33 CK-MB (CK-2) 0.53 0.43 Troponin I < 0.012 < 0.012 NT-Pro-B Natriuret Pep 565 Impressions: Paracentesis Ultrasound 12/01/17 00:00 IMPRESSION: Successful ultrasound-guided paracentesis, sample of fluid sent for testing. Abdomen/Pelvis CT 12/01/17 09:00 IMPRESSION: Diffuse third-spacing, now with moderate ascites Right lower lobe pneumonia worrisome for aspiration No CT evidence of bowel obstruction Portal hypertension/cirrhosis Chest X-Ray 12/02/17 06:00 IMPRESSION: Stable appearance of the chest. 2010 [email or web address]- All Rights Reserved Assessment & Plan - Diagnosis (1) Atrial fibrillation and flutter Is this a current diagnosis for this admission?: Yes Plan: controlled (2) Acute respiratory failure Qualifiers: Respiratory failure complication: unspecified whether with hypoxia or hypercapnia Qualified Code(s): J96.00 - Acute respiratory failure, unspecified whether with hypoxia or hypercapnia Is this a current diagnosis for this admission?: Yes Plan: Currently appears that patient has developed right lower lobe pneumonia thought to be atelectasis suspect aspiration pneumonia from infectious disease point of view patient appears to be declining despite several antibiotic 12/01/17 08:20 Urine Culture - Preliminary Catheterized Urine Gram Negative Rods 12/01/17 06:30 Gram Stain - Preliminary Tracheal Aspirate Sputum Culture - Preliminary Gram Negative Rods 11/29/17 12:00 Gram Stain - Preliminary Tracheal Aspirate Sputum Culture - Preliminary Serratia Marcescens Streptococcus Pneumoniae Gram Positive Cocci Clusters Normal Miladis Absent 11/29/17 12:00 Gram Stain - Final Tracheal Aspirate Sputum Culture - Final Serratia Marcescens Streptococcus Pneumoniae Mrsa (Meth Resis Staph Aureus) Normal Miladis Absent 11/24/17 17:21 Gram Stain - Final Abdomen - Tissue (Surgical) Wound Culture - Final Escherichia Coli No Anaerobic Organisms 11/24/17 17:11 Gram Stain - Final Abdomen - Abscess Wound Culture - Final Escherichia Coli No Anaerobic Organisms (3) Incarcerated hernia of abdominal cavity Is this a current diagnosis for this admission?: Yes Plan: Labs- All tests 24 hr 11/24/17 11/25/17 11/26/17 12:45 03:54 02:56 WBC 21.9 H 17.7 H 19.8 H 11/27/17 11/28/17 11/29/17 03:53 03:33 03:42 WBC 11.8 H 13.2 H 20.2 H 11/30/17 12/01/17 04:11 04:13 WBC 12.3 H 26.1 H D Selected Entries 11/30/17 11/30/17 11/30/17 08:00 08:15 08:50 Core 100.9 F H 101.3 F H 101.7 F H Temperature 11/30/17 11/30/17 11/30/17 09:20 09:51 10:20 Core 102.0 F H 102.2 F H 102.2 F H Temperature 11/30/17 11/30/17 11/30/17 10:50 11:20 11:50 Core 102.0 F H 101.8 F H 101.5 F H Temperature 11/30/17 11/30/17 11/30/17 12:21 17:21 17:36 Core 100.9 F H 100.6 F H 100.6 F H Temperature 11/30/17 11/30/17 11/30/17 17:51 18:06 20:00 Core 100.6 F H 100.6 F H 100.0 F Temperature 11/30/17 11/30/17 11/30/17 20:05 20:06 21:51 Core 100.0 F 100.0 F 99.7 F Temperature 11/30/17 11/30/17 11/30/17 22:00 22:01 22:05 Core 99.5 F 99.5 F 99.5 F Temperature - Time Total Critical Time (Minutes): 50
[2017-12-02] MEDS ORDERED: DILTIAZEM HCL 30 MG TABLET NG SCH (14:00)
[2017-12-02] MEDS ORDERED: VANCOMYCIN HCL 1,000 MG in DEXTROSE 5%-WATER 250 ML IV SCH (14:00)
[2017-12-02] MEDS ORDERED: AMINO ACIDS 5%/D25W 1,000 ML IV PRN (18:00)
[2017-12-02] MEDS ORDERED: ACETYLCYSTEINE 20% SOLN 800 MG/4 ML VIAL.NEB NEB SCH (20:00)
--- NOTE | 2017-12-02 21:45 | PROGRESS NOTE E ---
Progress Note NAME: ELDER KIMBALL : 1955 AGE: 62Y DATE: 12/01/2017 ROOM: 603 SUBJECTIVE: The patient remains in sinus rhythm, he is intubated and on the ventilator. There is ventricular arrhythmia seen. Note that the patient's urine output is declining. Also the patient has *------* and this is going to be tapped. OBJECTIVE: GENERAL: The patient is of frail built, appears malnourished, and chronically ill. VITAL SIGNS: Afebrile with a temperature of 97.2 degrees Fahrenheit, pulse is 77 beats per minute, respirations are 24 per minute on the ventilator, and O2 saturations are 99% on an FiO2 of 38% on the ventilator. His blood pressure is 106/80. HEENT: Head is atraumatic, normocephalic. Eyes: Pupils are equal, round, regular, reactive to light. ENT is negative. NECK: Supple. There is no JVD. There is no lymphadenopathy. There is no goiter. Carotids are equal. LUNGS: Show a few crackles at the right base. HEART: S1, S2 is heard. There is no S3 gallop. There is no S4 gallop. There is a systolic murmur in the left sternal border and the apex. There is no rub. S1 is of normal intensity. ABDOMEN: Soft, there is ascites present. There is no hepatosplenomegaly. Bowel sounds are absent. EXTREMITIES: Femorals are diminished. There are no femoral bruits. Leg pulses are diminished. There is no pedal edema. There is no DVT or cellulitis. There is no calf tenderness. CENTRAL NERVOUS SYSTEM: Not examined since the patient is intubated and sedated. PSYCHIATRIC: Not examined since the patient is intubated and sedated. LABORATORY DATA: The patient's white count is 26,100; hemoglobin is 10.7; hematocrit is 31.6; and platelet count is 239,000. The patient's sodium is 141.2, potassium 4.0, chloride 112. The patient's CO2 is 23, BUN is 23, creatinine is 0.69, GFR is greater than 60, glucose is 121, calcium is 7.7, magnesium is 2.1. His total protein is 5.9. IMPRESSION: 1. PAROXYSMAL ATRIAL FIBRILLATION. At present in sinus rhythm. 2. RESPIRATORY FAILURE WITH POSSIBLY RIGHT LOWER LOBE PNEUMONIA. The patient on ventilator. 3. STATUS POST SURGERY FOR INCARCERATED HERNIA. 4. PARALYTIC ILEUS. 5. COPD. There is no evidence of acute exacerbation. 6. ASCITES, MOST LIKELY SECONDARY TO CIRRHOSIS OF THE LIVER AND ALSO THIRD SPACING. 7. BACTERIAL PERITONITIS, PER RECORDS. 8. CIRRHOSIS OF THE LIVER. 9. DECREASE IN URINE OUTPUT. RECOMMENDATIONS: As the initial plan was to start the patient on Levophed, but I thought since the patient's albumin showed below would recommend giving the patient albumin and normal saline bolus of Lasix. He is also going to have ascites tap. Note in view of the patient's liver condition it is recommended that the patient's amiodarone be continued for a month and then stopped. The patient not at present a candidate for chronic anticoagulation. TIME SPENT: Note 30 minutes spent on this patient with more than 50% of the time spent on direct patient care. In view of the multiple medical problems, medical decision making is of high complexity. Note discussed with the patient's family. The patient's medications have been reviewed. Discussed with the hospitalist. Would recommend transferring the patient to a tertiary care center since the patient is not improving much from his other conditions. We will follow with you. If the patient's blood pressure should drop would recommend the patient be placed on Vladimir-Synephrine rather than Levophed. At present would not recommend renal dosed dopamine. DICTATING PHYSICIAN: IBETH CHESTER M.D. [id number] GAYEY#: [id number] ID: [id number] JOB#: [id number] ACCT: [id number] cc: >
[2017-12-02] MEDS ORDERED: NORMAL SALINE 10 ML SDV (SCHEDULED) IV SCH (22:00)
== END 2017-12-02 13:40 | disposition short-term general hospital (02) | DRG 353 ==
LOC: ER 12:25 → EH 13:42 → ICU 18:40
PROVIDERS: ATTEND Surgery
PROC: 0W9F00Z Drainage of Abdominal Wall with Drainage Device, Open Approach (ICD-10-PCS; 2017-11-24)
PROC: 5A1955Z Respiratory Ventilation, Greater than 96 Consecutive Hours (ICD-10-PCS; 2017-11-24)
PROC: 5A2204Z Restoration of Cardiac Rhythm, Single (ICD-10-PCS; 2017-11-24)
PROC: 0WQF0ZZ Repair Abdominal Wall, Open Approach (ICD-10-PCS; principal; 2017-11-24 16:00)
PROC: 0W9G3ZX Drainage of Peritoneal Cavity, Percutaneous Approach, Diagnostic (ICD-10-PCS; 2017-12-01)
PROC: 02HV33Z Insertion of Infusion Device into Superior Vena Cava, Percutaneous Approach (ICD-10-PCS; 2017-12-02)
PROC: B548ZZA Ultrasonography of Superior Vena Cava, Guidance (ICD-10-PCS; 2017-12-02)
DX: K42.0 Umbilical hernia with obstruction, without gangrene (principal); K65.1 Peritoneal abscess; J95.821 Acute postprocedural respiratory failure; J18.9 Pneumonia, unspecified organism; R18.8 Other ascites; K56.7 Ileus, unspecified; I48.0 Paroxysmal atrial fibrillation; I86.8 Varicose veins of other specified sites; K74.60 Unspecified cirrhosis of liver; B19.20 Unspecified viral hepatitis C without hepatic coma; K80.80 Other cholelithiasis without obstruction; B96.89 Other specified bacterial agents as the cause of diseases classified elsewhere; J44.9 Chronic obstructive pulmonary disease, unspecified; B96.20 Unspecified Escherichia coli [E. coli] as the cause of diseases classified elsewhere; M13.842 Other specified arthritis, left hand; M13.841 Other specified arthritis, right hand; F17.200 Nicotine dependence, unspecified, uncomplicated; Z82.61 Family history of arthritis; Z82.49 Family history of ischemic heart disease and other diseases of the circulatory system; Z80.9 Family history of malignant neoplasm, unspecified; Z78.1 Physical restraint status
CPT/HCPCS: 36415; 36569; 49083; 71045; 74176; 74177; 76937; 790; 80048; 80053; 81001; 82140; 82271; 82553; 82803; 83605; 83735; 83880; 84100; 84134; 84155; 84439; 84443; 84481; 84484; 85025; 85610; 85730; 87040; 87070; 87075; 87077; 87086; 87088; 87186; 87205; 88304; 89050; 93005; 93010; 93306; 94002; 94003; 94667; 96361; 96374; 96375; 99291; J0153; J0282; J0330; J0696; J0743; J1100; J1170; J1265; J1642; J1650; J1940; J2250; J2270; J2370; J2405; J2543; J2704; J3010; J3480; J3490; J7030; J7040; J7050; J7060; J7614; J7620; P9047

== ENCOUNTER 2019-07-17 08:55 | Inpatient (IN) | payer MEDICAID ==
[2019-07-17] MEDS ORDERED: NORMAL SALINE 1000 ML 1,000 ML IV PRN ×2 (09:02→11:39)
[2019-07-17 09:16] LABS: HEMATOCRIT 31.7 % (37.9-51.0); HEMOGLOBIN 10.8 g/dL (13.5-17.0); MEAN CORPUSCULAR HEMOGLOBIN 32.1 pg (27.0-33.4); MEAN CORPUSCULAR HGB CONC 34.2 g/dL (32.0-36.0); MEAN CORPUSCULAR VOLUME 94 fl (80-97); PLATELET COUNT 180 10^3/uL (150-450); RED BLOOD COUNT 3.37 10^6/uL (4.35-5.55); RED CELL DISTRIBUTION WIDTH 15.3 % (11.5-14.0); VENOUS BLOOD BASE EXCESS -10.4 mmol/L; VENOUS BLOOD HCO3 16.2 mmol/L (20-32); VENOUS BLOOD PCO2 38.5 mmHg (35-63); VENOUS BLOOD PH 7.24 (7.30-7.42); WHITE BLOOD COUNT 23.1 10^3/uL (4.0-10.5)
[2019-07-17] MEDS ORDERED: IPRATROPIUM/ALBUTEROL 0.5-2.5 MG/3 ML AMPUL NEB ONE (09:18)
[2019-07-17] MEDS ORDERED: CEFTRIAXONE 1 GM/D5W RTU 1 GM/50 ML RTUPB IV ONE (09:18)
[2019-07-17 09:21] LABS: INTERNATIONAL RATION (INR) 1.44; PROTHROMBIN TIME 17.7 SEC (11.4-15.4)
[2019-07-17] MEDS ORDERED: AZITHROMYCIN INJ 500 MG VIAL IV ONE (09:24)
--- NOTE | 2019-07-17 09:24 | ER Document Report ---
ED General - General TRAVEL OUTSIDE OF THE [place] IN LAST 30 DAYS: No <SWETA STEELE Jevon - Last Filed: 07/17/19 11:19> <SILAS GRAMAJO - Last Filed: 07/17/19 12:14> - General Stated Complaint: POSSIBLE SEPSIS Time Seen by Provider: 07/17/19 09:06 Notes: CHIEF COMPLAINT: Respiratory distress HPI: 63-year-old male with history of atrial fibrillation, hepatitis C, pneumonia, COPD, intubation for respiratory distress brought by EMS for evaluation of respiratory distress. Patient states that he has had a worsening cough and shortness of breath over the last 2 days. EMS reports fever of 101, states that they did give him Tylenol. Patient history somewhat limited by critical condition ROS: See HPI - all other systems were reviewed and are otherwise negative Constitutional: + fever Eyes: no drainage, no blurred vision ENT: no runny nose, no sore throat Cardiovascular: no chest pain Resp: + SOB, + cough GI: no vomiting, no diarrhea, + chronic abdominal pain : no dysuria Integumentary: no rash Allergy: no hives Musculoskeletal: no extremity pain or swelling Neurological: no numbness/tingling, no weakness MEDICATIONS: I agree with the patient medications as charted by the RN. ALLERGIES: I agree with the allergies as charted by the RN. PAST MEDICAL HISTORY/PAST SURGICAL HISTORY: Reviewed and agree as charted by RN. SOCIAL HISTORY: Reviewed and agree as charted by RN. FAMILY HISTORY: No significant familial comorbid conditions directly related to patient complaint EXAM: Reviewed vital signs as charted by RN. CONSTITUTIONAL: Alert and oriented and responds appropriately to questions. cachetic appearing, severe respiratory distress HEAD: Normocephalic; atraumatic EYES: PERRL; Conjunctivae clear, sclerae non-icteric ENT: normal nose; no rhinorrhea; moist mucous membranes; pharynx without lesions noted NECK: Supple without meningismus; non-tender; no cervical lymphadenopathy, no masses CARD: Tachycardic; no murmurs, no clicks, no rubs, no gallops; symmetric distal pulses RESP: Rhonchi are noted in the bilateral bases posterior especially on the left side. Pulse oximetry 90% on 2 L nasal cannula hypoxic. Patient with splinting and accessory muscle use noted. ABD/GI: Normal bowel sounds; non-distended; soft, mild tenderness across the abdomen on palpation more so in the left upper quadrant region, no rebound, no guarding; no palpable organomegaly or masses. BACK: The back appears normal and is non-tender to palpation, there is no CVA tenderness EXT: Normal ROM in all joints; non-tender to palpation; no cyanosis, no effusions, no edema SKIN: Normal color for age and race; warm; dry; good turgor; no acute lesions noted NEURO: Moves all extremities equally; Motor and sensory function intact PSYCH: The patient's mood and manner are distressed. Grooming and personal hygiene are appropriate. MDM: 63-year-old male brought in for respiratory distress. Patient is hypoxic. Patient is hypotensive. Patient is tachycardic. I immediately went to the room, BiPAP is being placed on the patient at this time. Sepsis labs ordered, sepsis fluids and antibiotics were immediately ordered. Portable chest x-ray seems to show a large left upper lobe pneumonia. I have ordered both Rocephin and Zithromax to cover community-acquired pneumonia. Discussed with Dr. Gramajo, attending who evaluated paitent (SWETA STEELE) - Related Data Allergies/Adverse Reactions: No Known Allergies Allergy (Verified 09/02/17 10:01) Past Medical History - Social History Smoking Status: Current Every Day Smoker Family History: Hyperlipidemia, Hypertension, Malignancy - Past Medical History Cardiac Medical History: Denies: Hx Coronary Artery Disease, Hx Heart Attack, Hx Hypertension Pulmonary Medical History: Denies: Hx Asthma, Hx Bronchitis, Hx COPD, Hx Pneumonia Neurological Medical History: Denies: Hx Cerebrovascular Accident, Hx Seizures Renal/ Medical History: Denies: Hx Peritoneal Dialysis GI Medical History: Reports: Hx Hepatitis Musculoskeletal Medical History: Reports Hx Arthritis - Hands, Reports Hx Musculoskeletal Deformity - Degenerative disc disease especially in the neck Infectious Medical History: Reports: Hx Hepatitis Past Surgical History: Reports: Hx Orthopedic Surgery - Removal of multiple disc from neck area - Immunizations Immunizations up to date: Yes Hx Diphtheria, Pertussis, Tetanus Vaccination: Yes <SWETA STEELE - Last Filed: 07/17/19 11:19> Physical Exam - Vital signs Vitals: Resp BP Pulse Ox 29 H 78/50 L 91 L 07/17/19 08:59 07/17/19 08:59 07/17/19 08:59 Course - Laboratory Result Diagrams: 07/17/19 09:02 07/17/19 09:02 <SWETA STEELE - Last Filed: 07/17/19 11:19> - Laboratory Result Diagrams: 07/17/19 09:02 07/17/19 09:02 <SILAS GRAMAJO - Last Filed: 07/17/19 12:14> - Re-evaluation Re-evalutation: 07/17/19 10:00 Patient remained hypotensive, was started on norepinephrine. Patient receiving IV fluids. Appears to be in acute renal failure. BNP is also elevated. Heart rate is improving to 115. Blood pressure has improved to 82/48. Patient is septic shock, will need admission to ICU, remains on BiPAP. Patient very vocal about not being intubated. 07/17/19 10:[address] Maravilla, Inventory Specialist Manager. Case discussed, labs/XR reviewed. will admit (SWETA STEELE) 07/17/19 12:12 I did personally see and examined this patient in conjunction with the PA Sweta Coats. Patient has been feeling weak and dizzy, having shortness of breath and states that he can feel fluid on his lungs. On physical examination the patient is hypoxic, acutely short of breath, using accessory muscles of respiration, has expiratory wheezing and inspiratory rales. He is also hypotensive and tachycardic. There was difficulty getting a good seal with BiPAP, we did apply petroleum jelly to the edges of the BiPAP mask to close off leaks that were being caused by his facial hair. This did improve his oxygenation significantly decreased his work of breathing. I discussed with the patient whether or not he would ever want to be intubated. His initial response to me was no he did not want to be intubated ever again after having been in a coma for a month and a half a year or 2 ago due to respiratory failure. His daughter has since arrived in the emergency department and is discussing this decision with him now. Patient did remain hypotensive so we started him norepinephrine. No central line has been started at this point because with the epinephrine his blood pressure is steadily increasing. Patient will be admitted to the ICU under Dr. Maravilla's care. (SILAS GRAMAJO) - Vital Signs Vital signs: Temp Pulse Resp BP Pulse Ox 99.4 F 35 H 102/64 100 07/17/19 11:41 07/17/19 11:41 07/17/19 11:41 07/17/19 11:41 - Laboratory Laboratory results interpreted by me: 07/17/19 07/17/19 07/17/19 09:02 09:02 09:02 WBC 23.1 H RBC 3.37 L Hgb 10.8 L Hct 31.7 L RDW 15.3 H Seg Neuts % (Manual) 83 H Band Neutrophils % 6 H Lymphocytes % (Manual) 4 L Abs Neuts (Manual) 20.6 H Abs Monocytes (Manual) 1.6 H PT 17.7 H VBG pH VBG HCO3 Sodium 136.8 L Carbon Dioxide 17 L BUN 27 H Creatinine 2.04 H Est GFR ( Amer) 40 L Est GFR (MDRD) Non-Af 33 L Lactic Acid Calcium 8.3 L Total Bilirubin 3.2 H Direct Bilirubin 0.8 H AST 106 H NT-Pro-B Natriuret Pep Albumin 2.5 L Urine Protein Urine Glucose (UA) Urine Ketones Urine Blood Urine Urobilinogen Leukocyte Esterase [facility] 07/17/19 07/17/19 07/17/19 09:02 09:02 09:02 WBC RBC Hgb Hct RDW Seg Neuts % (Manual) Band Neutrophils % Lymphocytes % (Manual) Abs Neuts (Manual) Abs Monocytes (Manual) PT VBG pH 7.24 L VBG HCO3 16.2 L Sodium Carbon Dioxide BUN Creatinine Est GFR ( Amer) Est GFR (MDRD) Non-Af Lactic Acid 9.6 H Calcium Total Bilirubin Direct Bilirubin AST NT-Pro-B Natriuret Pep 2710 H Albumin Urine Protein Urine Glucose (UA) Urine Ketones Urine Blood Urine Urobilinogen Leukocyte Esterase R[facility] 07/17/19 09:45 WBC RBC Hgb Hct RDW Seg Neuts % (Manual) Band Neutrophils % Lymphocytes % (Manual) Abs Neuts (Manual) Abs Monocytes (Manual) PT VBG pH VBG HCO3 Sodium Carbon Dioxide BUN Creatinine Est GFR ( Amer) Est GFR (MDRD) Non-Af Lactic Acid Calcium Total Bilirubin Direct Bilirubin AST NT-Pro-B Natriuret Pep Albumin Urine Protein 100 H Urine Glucose (UA) 50 H Urine Ketones TRACE H Urine Blood SMALL H Urine Urobilinogen 2.0 H Leukocyte Esterase Rfl SMALL H Critical Care Note - Critical Care Note Total time excluding time spent on procedures (mins): 60 <SWETA STEELE - Last Filed: 07/17/19 11:19> - Critical Care Note Comments: Hypotension with septic shock from left-sided pneumonia requiring IV fluids, BiPAP, pressors (SWETA STEELE) Discharge - Discharge Admitting Provider: Renita (Inventory Specialist Manager) Unit Admitted: ICU <SWETA STEELE - Last Filed: 07/17/19 11:19> <SILAS GRAMAJO - Last Filed: 07/17/19 12:14> - Discharge Clinical Impression: Septic shock Pneumonia involving left lung Qualifiers: Pneumonia type: due to unspecified organism Lung location: unspecified part of lung Qualified Code(s): J18.9 - Pneumonia, unspecified organism Condition: Critical Disposition: ADMITTED INPATIENT ED Sepsis - Sepsis Documentation Sepsis Patient: Yes - Vital Signs Interpretation: Hypotensive, Tachycardic - Cardiovascular Peripheral Pulse Strength: Weak Capillary refill: Delayed Rhythm: Tachycardia Heart Sounds: Normal auscultation <SWETA STEELE - Last Filed: 07/17/19 11:19>
[2019-07-17 09:33] LABS: ALBUMIN 2.5 g/dL (3.5-5.0); ALKALINE PHOSPHATASE 98 U/L (38-126); ANION GAP 14 (5-19); ASPARTATE AMINO TRANSFERASE 106 U/L (17-59); BILIRUBIN,DIRECT 0.8 mg/dL (0.0-0.4); BILIRUBIN,TOTAL 3.2 mg/dL (0.2-1.3); BLOOD UREA NITROGEN 27 mg/dL (7-20); CALCIUM 8.3 mg/dL (8.4-10.2); CARBON DIOXIDE 17 mmol/L (22-30); CHLORIDE 106 mmol/L (98-107); GLUCOSE 96 mg/dL (75-110); POTASSIUM 3.8 mmol/L (3.6-5.0); TOTAL PROTEIN 7.1 g/dL (6.3-8.2)
[2019-07-17] MEDS: RINGERS SOLUTION,LACTATED 1,000 ML IV PRN ×3 (09:33→23:56)
[2019-07-17] MEDS ORDERED: FUROSEMIDE INJ/PF 40 MG/4 ML SDV IV ONE (09:39)
[2019-07-17] MEDS ORDERED: DEXTROSE 5%-WATER 250 ML with NOREPINEPHRINE BITARTRATE 4 MG IV PRN ×4 (09:39→11:39)
[2019-07-17] MEDS ORDERED: METHYLPREDNISOLONE INJ 125 MG/2 ML SDV IV ONE (09:40)
[2019-07-17 09:45] LABS: NT PRO BNP 2710 pg/mL (<125)
[2019-07-17 09:47] LABS: TROPONIN I < 0.012 ng/mL
--- NOTE | 2019-07-17 09:50 | RADIOLOGY REPORT (SQ) ---
EXAM DESCRIPTION: CHEST SINGLE VIEW COMPLETED DATE/TIME: 07/17/2019 9:20 am REASON FOR STUDY: sepsis alert COMPARISON: Chest films 12/02/2017, 09/13/2015 EXAM PARAMETERS: NUMBER OF VIEWS: One view. TECHNIQUE: Single frontal radiographic view of the chest acquired. RADIATION DOSE: NA LIMITATIONS: None. FINDINGS: LUNGS AND PLEURA: Dense consolidation in the left lower lobe from pneumonia. Trace left p leural effusion. Right lung well inflated and clear. No right pleural effusion. No right or left pneumothorax. MEDIASTINUM AND HILAR STRUCTURES: No masses. Contour normal. HEART AND VASCULAR STRUCTURES: Heart normal in size. Normal vasculature. BONES: No acute findings. HARDWARE: None in the chest. OTHER: No other significant finding. IMPRESSION: Dense consolidation in the left lower lobe worrisome for pneumonia. Trace left pleural effusion TECHNICAL DOCUMENTATION: JOB ID: [id number] [employer]- All Rights Reserved Reading location - IP/workstation name: [email or web address]
[2019-07-17] MEDS ORDERED: NOREPINEPHRINE BITARTRATE INJ/PF 4 MG/4 ML SDV IV ONE (09:51)
[2019-07-17 10:13] LABS: ABSOLUTE LYMPHOCYTES# (MANUAL) 0.9 10^3/uL (0.5-4.7); ABSOLUTE MONOCYTES # (MANUAL) 1.6 10^3/uL (0.1-1.4); BAND NEUTROPHILS % (MANUAL) 6 % (3-5); BASOPHILS % (MANUAL) 0 % (0-2); EOSINOPHILS % (MANUAL) 0 % (0-6); LYMPHOCYTES % (MANUAL) 4 % (13-45); MONOCYTES % (MANUAL) 7 % (3-13); SEGMENTED NEUTROPHILS % (MAN) 83 % (42-78); TOTAL CELLS COUNTED 100
[2019-07-17 10:15] LABS: ANISOCYTOSIS SLIGHT; OVALOCYTES 1+; PLATELET COMMENT ADEQUATE; POIKILOCYTOSIS 1+; TOXIC GRANULATION 1+; TOXIC VACUOLATION PRESENT
[2019-07-17 10:19] LABS: AMORPHOUS SEDIMENT,URINE TRACE /HPF; APPEARANCE,URINE CLOUDY; BILIRUBIN,URINE NEGATIVE (NEGATIVE); COLOR,URINE AMBER; GLUCOSE, URINE 50 mg/dL (NEGATIVE); KETONES,URINE TRACE mg/dL (NEGATIVE); PROTEIN,URINE 100 mg/dL (NEGATIVE); URINE SPECIFIC GRAVITY 1.023
[2019-07-17] MEDS ORDERED: RINGERS SOLUTION,LACTATED 1,000 ML IV ONE ×2 (10:42→21:00)
--- NOTE | 2019-07-17 11:33 | CRITICAL CARE ADMISSION REPORT ---
HPI Date:: 07/17/19 Time:: 11:00 Reason for ICU Reason:: Septic shock on levophed and bipap HPI: This patient is a 63 yo man ill for about 2 days. [place] like the flu with fever, bodyaches,. anorexia. However has not improved, gotten worse prompting a visit to the ED. No cough, some SOB, fatigue. Smoker. Found to have dense LIN lobe PNA probably CAP and dehydration. On levephed at variable rate. History obtained from:: Patient and family. and daughter who is a nurse. - Diagnosis/Plan (1) Septic shock Is this a current diagnosis for this admission?: Yes Plan: Patient tachycardic, tachypneic with WBC 3K meets septic criteria. Need for levophed with volume loading is septic shock especially with a lactic acid of 9.7 (2) Pneumonia involving left lung Qualifiers: Pneumonia type: due to unspecified organism Lung location: unspecified part of lung Qualified Code(s): J18.9 - Pneumonia, unspecified organism Is this a current diagnosis for this admission?: Yes Plan: His pneumonia appears to be the lower portion of the LIN unlikely to be aspiration. No hx of N/V. Treat with current antibiotics. (3) Hepatitis C Qualifiers: Viral hepatitis chronicity: chronic Hepatic coma status: without hepatic coma Qualified Code(s): B18.2 - Chronic viral hepatitis C Is this a current diagnosis for this admission?: Yes Plan: This is chronic and inactive. He had a resection for hepatic carcinoma about 1 year ago attributed to Hep C. - . Plan Summary: Admit to ICU. Tritrate levophed to keep MAP 65 or better. Continue rehydration. Intubate only if needed. Past Medical History Cardiac Medical History: Denies: Coronary Artery Disease, Myocardial Infarction, Hypertension Pulmonary Medical History: Denies: Asthma, Bronchitis, Chronic Obstructive Pulmonary Disease (COPD), Pneumonia Neurological Medical History: Denies: Seizures GI Medical History: Reports: Hepatitis Musculoskeltal Medical History: Reports: Arthritis - Hands Hematology: Denies: Anemia Past Surgical History Past Surgical History: Reports: Orthopedic Surgery - Removal of multiple disc from neck area Social/Family History - Social History Smoking Status: Current Every Day Smoker - Medication/Allergies Home Medications: Oxycodone HCl [Oxycodone HCl 10 MG Tablet] 10 mg PO Q8HP PRN 11/24/17 Ribavirin 400 mg PO Q12 11/24/17 Sofosbuvir/Velpatas/Voxilaprev [Vosevi 400-100-100 mg Tablet] 1 tab PO DAILY 11/24/17 Allergies/Adverse Reactions: No Known Allergies Allergy (Verified 09/02/17 10:01) Review of Systems All systems: reviewed and no additional remarkable complaints except as stated Physical Exam Vital Signs: Temp Pulse Resp BP Pulse Ox 99.1 F 25 H 114/65 100 07/17/19 11:13 07/17/19 11:13 07/17/19 11:13 07/17/19 11:13 Intake & Output 07/16/19 07/17/19 07/18/19 06:59 06:59 06:59 Intake Total 3089 Balance 3089 Weight 62.1 kg Weight/Height Weight 62.1 kg Height 5 ft 8 in General appearance: PRESENT: no acute distress, disheveled, well-developed, well-nourished Head exam: ABSENT: atraumatic, normocephalic, other Eye exam: PRESENT: conjunctiva pink, EOMI, PERRLA. ABSENT: scleral icterus Ear exam: PRESENT: normal external ear exam Mouth exam: PRESENT: dry mucosa Respiratory exam: PRESENT: crackles, decreased breath sounds, rhonchi, tachypnea, unlabored Cardiovascular exam: PRESENT: RRR, tachycardia Vascular exam: PRESENT: normal capillary refill Rectal exam: PRESENT: deferred Extremities exam: PRESENT: full ROM. ABSENT: calf tenderness, clubbing, pedal edema Neurological exam: PRESENT: alert, awake, oriented to person, oriented to place, oriented to time, oriented to situation, CN II-XII grossly intact. ABSENT: mot or sensory deficit Skin exam: PRESENT: dry, intact, warm. ABSENT: cyanosis, rash Laboratory/Radiographs Laboratory Results: 07/17/19 09:02 07/17/19 09:02 07/17/19 07/17/19 07/17/19 09:02 09:02 09:02 WBC 23.1 H RBC 3.37 L Hgb 10.8 L Hct 31.7 L MCV 94 MCH 32.1 MCHC 34.2 RDW 15.3 H Plt Count 180 Seg Neutrophils % Not Reportable VBG pH 7.24 L VBG pCO2 38.5 VBG HCO3 16.2 L VBG Base Excess -10.4 Sodium 136.8 L Potassium 3.8 Chloride 106 Carbon Dioxide 17 L Anion Gap 14 BUN 27 H Creatinine 2.04 H Est GFR ( Amer) 40 L Glucose 96 Lactic Acid Calcium 8.3 L Total Bilirubin 3.2 H AST 106 H Alkaline Phosphatase 98 Total Protein 7.1 Albumin 2.5 L Urine Color Urine Appearance Urine pH Ur Specific [place] Urine Protein Urine Glucose (UA) Urine Ketones Urine Blood Urine RBC (Auto) 07/17/19 07/17/19 09:02 09:45 WBC RBC Hgb Hct MCV MCH MCHC RDW Plt Count Seg Neutrophils % VBG pH VBG pCO2 VBG HCO3 VBG Base Excess Sodium Potassium Chloride Carbon Dioxide Anion Gap BUN Creatinine Est GFR ( Amer) Glucose Lactic Acid 9.6 H Calcium Total Bilirubin AST Alkaline Phosphatase Total Protein Albumin Urine Color KINJAL Urine Appearance CLOUDY Urine pH 5.0 Ur Specific [place] 1.023 Urine Protein 100 H Urine Glucose (UA) 50 H Urine Ketones TRACE H Urine Blood SMALL H Urine RBC (Auto) 4 07/17/19 09:02 Troponin I < 0.012 NT-Pro-B Natriuret Pep 2710 H Impressions: Chest X-Ray 07/17/19 09:02 IMPRESSION: Dense consolidation in the left lower lobe worrisome for pneumonia. Trace left pleural effusion All labs, radiographs, diagnostic studies and EKGs were personally reviewed: Yes In addition, reports of radiographic and diagnostic studies were read: Yes Critical Time Critical Time (minutes): 40 -: The care of a critically ill patient is dynamic. This note represents a static moment in the admission process. Orders and treatments may be given simultaneously and urgently, and time is not freight representative of the treatment process. This patient requires Critical Care secondary to life threatening organ or limb dysfunction. Without Critical Care services, the patient is at risk for increased mortality and morbidity.
[2019-07-17] MEDS ORDERED: ALBUTEROL SULFATE 0.083% NEB 2.5 MG/3 ML AMPUL NEB PRN (11:39)
[2019-07-17] MEDS ORDERED: ACETAMINOPHEN 325 MG TABLET PO PRN (11:39)
[2019-07-17] MEDS ORDERED: INFLUENZA QUAD (6MOS+) 2019-20 VAC 0.5 ML SYR IM ONE (13:26)
[2019-07-17] MEDS: ENOXAPARIN SODIUM INJ 40 MG/0.4 ML DISP.SYRIN SUBCUT SCH (14:37)
[2019-07-17] MEDS ORDERED: MORPHINE SULFATE 10 MG/ML INJ IV PRN (14:48)
--- NOTE | 2019-07-17 16:00 | EKG REPORT ---
SEVERITY:- ABNORMAL ECG - SINUS TACHYCARDIA MULTIPLE ATRIAL PREMATURE COMPLEXES : Confirmed by: Dave Flaherty MD 17-Jul-2019 15:59:58
[2019-07-17] MEDS ORDERED: RINGERS SOLUTION,LACTATED 1,000 ML IV PRN (19:33)
[2019-07-17 21:19] LABS: A TYPE INFLUENZA AG NEGATIVE (NEGATIVE); B INFLUENZA AG NEGATIVE (NEGATIVE)
[2019-07-17] MEDS ORDERED: METOPROLOL SUCCINATE 25 MG TAB.SR.24H PO SCH (22:00)
[2019-07-18] MEDS: ALBUMIN HUMAN 12.5 GM/50 ML RTUINJ IV PRN ×2 (00:05→02:52)
[2019-07-18] MEDS: RINGERS SOLUTION,LACTATED 1,000 ML IV PRN ×2 (01:29→05:28)
[2019-07-18] MEDS ORDERED: ALBUMIN HUMAN 12.5 GM/50 ML RTUINJ IV PRN (02:55)
[2019-07-18 04:23] LABS: ANION GAP 13 (5-19); BLOOD UREA NITROGEN 32 mg/dL (7-20); CARBON DIOXIDE 16 mmol/L (22-30); CHLORIDE 109 mmol/L (98-107); GLUCOSE 82 mg/dL (75-110); PHOSPHORUS 3.8 mg/dL (2.5-4.5); POTASSIUM 4.5 mmol/L (3.6-5.0)
[2019-07-18 04:45] LABS: HEMATOCRIT 30.7 % (37.9-51.0); HEMOGLOBIN 10.5 g/dL (13.5-17.0); MEAN CORPUSCULAR HEMOGLOBIN 31.7 pg (27.0-33.4); MEAN CORPUSCULAR HGB CONC 34.2 g/dL (32.0-36.0); MEAN CORPUSCULAR VOLUME 93 fl (80-97); PLATELET COUNT 140 10^3/uL (150-450); RED BLOOD COUNT 3.31 10^6/uL (4.35-5.55); RED CELL DISTRIBUTION WIDTH 15.6 % (11.5-14.0); WHITE BLOOD COUNT 23.7 10^3/uL (4.0-10.5)
[2019-07-18 05:01] LABS: ABSOLUTE LYMPHOCYTES# (MANUAL) 0.7 10^3/uL (0.5-4.7); ABSOLUTE MONOCYTES # (MANUAL) 0.2 10^3/uL (0.1-1.4); ANISOCYTOSIS 1+; BAND NEUTROPHILS % (MANUAL) 7 % (3-5); BASOPHILS % (MANUAL) 0 % (0-2); EOSINOPHILS % (MANUAL) 0 % (0-6); LYMPHOCYTES % (MANUAL) 3 % (13-45); MONOCYTES % (MANUAL) 1 % (3-13); PLATELET COMMENT ADEQUATE; POLYCHROMASIA 1+; SEGMENTED NEUTROPHILS % (MAN) 89 % (42-78); TOTAL CELLS COUNTED 100
[2019-07-18] MEDS ORDERED: RINGERS SOLUTION,LACTATED 500 ML IV ONE (05:06)
[2019-07-18] MEDS ORDERED: MAGNESIUM SULFATE 0 GM/0 ML RTUPB IV ONE (05:23)
[2019-07-18] MEDS ORDERED: MAGNESIUM SULFATE/D5W 3 GM/300 ML RTUPB IV ONE (05:37)
[2019-07-18] MEDS: MAGNESIUM SULFATE/D5W 1 GM/100 ML RTUPB IV SCH ×3 (05:44→08:00)
[2019-07-18] MEDS ORDERED: CEFTRIAXONE SODIUM 1,000 MG in DEXTROSE 5%-WATER 100 ML IV SCH (09:00)
[2019-07-18] MEDS ORDERED: GLUCAGON,HUMAN RECOMB 1 MG INJ IM PRN (09:04)
[2019-07-18] MEDS ORDERED: DEXTROSE 40% GEL 15 GM TUBE PO PRN ×2 (09:04)
[2019-07-18] MEDS ORDERED: DEXTROSE 50%-WATER 25 GM/50 ML DISP.SYRIN IV PRN ×2 (09:04)
[2019-07-18] MEDS: ENOXAPARIN SODIUM INJ 40 MG/0.4 ML DISP.SYRIN SUBCUT SCH (09:57)
[2019-07-18] MEDS: AZITHROMYCIN 500 MG in DEXTROSE 5%-WATER 250 ML IV SCH (09:57)
[2019-07-18] MEDS: CEFTRIAXONE 1 GM/D5W RTU 1 GM/50 ML RTUPB IV SCH (09:57)
[2019-07-18] MEDS ORDERED: AZITHROMYCIN INJ 500 MG VIAL IV SCH (10:00)
--- NOTE | 2019-07-18 10:53 | PDOC CRITICAL CARE PROG REPORT ---
General Date:: 07/18/19 - Critical Care Attending Resuscitation Status: Full Code Events in the past 12 to 24 Hours:: Pt remains on bipap. Is off levophed. c/o left rib pain due to coughing. Reason for ICU Addmission:: Septic shock on levophed and bipap - Medications: Medications reviewed and adjusted accordingly: Yes Physical Exam Vital Signs: Temp Pulse Resp BP Pulse Ox 98.1 F 113 H 31 H 108/68 97 07/18/19 07:00 07/18/19 07:00 07/18/19 07:00 07/18/19 07:00 07/18/19 07:00 Intake & Output 07/17/19 07/18/19 07/19/19 06:59 06:59 06:59 Intake Total 7423 100 Output Total 2970 50 Balance 4453 50 Weight 63.8 kg Weight/Height Weight 63.8 kg Height 5 ft 9 in General appearance: PRESENT: no acute distress, thin, well-developed, well- nourished Head exam: PRESENT: atraumatic, normocephalic Respiratory exam: PRESENT: rhonchi, unlabored Cardiovascular exam: PRESENT: RRR GI/Abdominal exam: PRESENT: soft Gentrourinary exam: PRESENT: indwelling catheter Extremities exam: PRESENT: other - no edema Neurological exam: PRESENT: alert, awake Laboratory/Radiographs Laboratory Results: 07/18/19 03:44 07/18/19 03:44 07/17/19 07/17/19 07/18/19 12:00 14:30 03:44 WBC 23.7 H RBC 3.31 L Hgb 10.5 L Hct 30.7 L MCV 93 MCH 31.7 MCHC 34.2 RDW 15.6 H Plt Count 140 L Seg Neutrophils % Not Reportable Sodium Potassium Chloride Carbon Dioxide Anion Gap BUN Creatinine Est GFR ( Amer) Glucose Lactic Acid 7.6 H 5.4 H Calcium Phosphorus Magnesium 07/18/19 07/18/19 07/18/19 03:44 03:44 09:00 WBC RBC Hgb Hct MCV MCH MCHC RDW Plt Count Seg Neutrophils % Sodium 138.0 Potassium 4.5 Chloride 109 H Carbon Dioxide 16 L Anion Gap 13 BUN 32 H Creatinine 1.06 Est GFR ( Amer) > 60 Glucose 82 Lactic Acid 6.5 H 6.5 H Calcium 8.0 L Phosphorus 3.8 Magnesium 1.5 L 07/17/19 09:02 Blood Blood Culture (PCR) - Final Streptococcus Pneumoniae 07/17/19 09:02 Troponin I < 0.012 NT-Pro-B Natriuret Pep 2710 H All labs, radiographs, diagnostic studies and EKGs were personally reviewed: Yes Assessment and Plan - Diagnosis (1) Acute respiratory failure Qualifiers: Respiratory failure complication: unspecified whether with hypoxia or hypercapnia Qualified Code(s): J96.00 - Acute respiratory failure, unspecified whether with hypoxia or hypercapnia Is this a current diagnosis for this admission?: Yes (2) Pneumonia involving left lung Qualifiers: Pneumonia type: due to unspecified organism Lung location: unspecified part of lung Qualified Code(s): J18.9 - Pneumonia, unspecified organism Is this a current diagnosis for this admission?: Yes (3) Septic shock Is this a current diagnosis for this admission?: Yes (4) COPD (chronic obstructive pulmonary disease) Qualifiers: Chronic bronchitis type: unspecified Is this a current diagnosis for this admission?: Yes (5) Atrial fibrillation and flutter Is this a current diagnosis for this admission?: Yes (6) Liver cancer Qualifiers: Liver malignancy type: unspecified liver malignancy Qualified Code(s): C22.9 - Malignant neoplasm of liver, not specified as primary or secondary Is this a current diagnosis for this admission?: No Plan Summary: Assessment: critically ill 63 yo man with acute respiratory failure, PNA due to strep pneumonia, septic shock, h/o afib, COPD, h/o liver cancer, RHONDA. Plan: 1. Respiratory: acute respiratory failure. Pt is on bipap. Will wean to nasal cannula as tolerated. 2. Pulmonary: PNA due to strep pneumoniae. Continue rocepin and azithromycin. COPD, bronchodilators and steroids. Will order CT of chest 3. CV: hypotension due to septic shock, resolving. Off levophed. Continue IVF. h/o afib, but in sinus rhythm 4. ID: septic shock due to strep pneumoniae PNA. Continue rocephin and azithromycin 5. GI/Oncology: h/o hep c and liver cancer. Per report, pt has not follow-up as an outpt 6. Renal: RHONDA, resolving. Cr is 1.06 7. Nutrition: clear liquid diet 8. Prophylaxis: lovenox Critical Time Critical Time (minutes): 35 Level of Care: ICU -: 1. The care of a critical patient is a dynamic process. This note is a technical service representative synopsis but static in nature. The timeframe for treatments given in order is not necessarily the actual time these treatments may have been done. 2. This patient requires critical care secondary to ongoing requirements for therapy not offered or safe outside the critical care environment. Transfer to a lower level of care will result in altered life or limb morbidity and mortality. 3. Multidisciplinary rounds completed. 4. ABCDE bundle addressed.
--- NOTE | 2019-07-18 11:02 | RADIOLOGY REPORT (SQ) ---
EXAM DESCRIPTION: CT CHEST WITHOUT COMPLETED DATE/TIME: 07/18/2019 10:45 am REASON FOR STUDY: PNA COMPARISON: None. TECHNIQUE: CT scan performed of the chest without intravenous contrast. Images reviewed with lung, soft tissue and bone windows. Reconstructed coronal and sagittal MPR images reviewed. All images st ored on PACS. All CT scanners at this facility use dose modulation, iterative reconstruction, and/or weight based d osing when appropriate to reduce radiation dose to as low as reasonably achievable (ALARA). [facility]: Dose Right [facility]: CareDose [facility]: Dose Right [facility]: Teradose 4D [facility]: [employer] RADIATION DOSE: CT Rad equipment meets quality standard of care and radiation dose reduction techniq ues were employed. CTDIvol: 6.2 mGy. DLP: 246 mGy-cm. mGy. LIMITATIONS: No technical limitations. FINDINGS: LUNGS AND PLEURA: Extensive consolidation throughout the left upper lobe. Volume loss and consolidation dependently in the left lower lobe. Patchy additional areas of consolidation in the r ight upper lobe, right middle lobe and bilateral lower lobes. Small bilateral effusions, left greate r than right. HILAR AND MEDIASTINAL STRUCTURES: Small hiatal hernia. No gross mass. Limited assessment for adenop athy. HEART AND VASCULAR STRUCTURES: No pericardial fusion. Minimal coronary and valvular calcification. UPPER ABDOMEN: Cholelithiasis. Probable ascites and mesenteric edema, incompletely assessed. THYROID AND OTHER SOFT TISSUES: No masses. No adenopathy. BONES: No significant finding. HARDWARE: None in the chest. OTHER: No other significant findings. IMPRESSION: 1. Extensive left upper lobe and left lower lobe pneumonia. Additional findings include patchy multi focal additional areas of pneumonia with small effusions. 2. Upper abdominal findings as above. TECHNICAL DOCUMENTATION: JOB ID: [id number] Quality ID # [id number]: Final reports with documentation of one or more dose reduction techniques (e.g., Au tomated exposure control, adjustment of the mA and/or kV according to patient size, use of iterative reconstruction technique) 2010 [employer]- All Rights Reserved Reading location - IP/workstation name: [email or web address]
--- NOTE | 2019-07-18 11:18 | RADIOLOGY REPORT (SQ) ---
EXAM DESCRIPTION: CHEST SINGLE VIEW COMPLETED DATE/TIME: 07/18/2019 10:33 am REASON FOR STUDY: PNA COMPARISON: 07/17/2019 NUMBER OF VIEWS: One view. TECHNIQUE: Single frontal radiographic image of the chest acquired. LIMITATIONS: None. FINDINGS: LUNGS AND PLEURA: Persistent dense consolidation in the left base. There is infiltrate in the left upper lobe as well. Findings have progressed from prior study. This focal infiltrate now present the periphery of the right upper lobe. MEDIASTINUM AND HILAR STRUCTURES: Stable heart size and mediastinal structures. HEART AND VASCULAR STRUCTURES: Stable appearance. BONES: No acute findings. HARDWARE: None in the chest. OTHER: No other significant finding. IMPRESSION: Increasing left lower lobe consolidation. Stable left upper lobe infiltrate. There is focal infiltrate in the periphery of the right upper lobe as well. TECHNICAL DOCUMENTATION: JOB ID: [id number] [employer]- All Rights Reserved Reading location - IP/workstation name: [email or web address]
[2019-07-18] MEDS: INSULIN REG, HUMAN 100 UNIT/ML 3 ML VIAL (PYX) SUBCUT SCH ×3 (12:16→21:53)
[2019-07-18] MEDS: METHYLPREDNISOLONE INJ 125 MG/2 ML SDV IV SCH ×3 (12:17→21:54)
[2019-07-18] MEDS ORDERED: METOPROLOL TARTRATE PF/INJ 5 MG/5 ML SDV IV ONE (12:58)
[2019-07-18] MEDS ORDERED: AMIODARONE HCL INJ 150 MG/3 ML VIAL IV ONE (14:09)
[2019-07-18] MEDS ORDERED: DEXTROSE 5%-WATER 500 ML with AMIODARONE HCL 900 MG IV PRN ×2 (15:00)
[2019-07-18] MEDS ORDERED: AMIODARONE HCL 150 MG in DEXTROSE 5%-WATER 100 ML IV ONE (15:00)
[2019-07-18] MEDS ORDERED: DIGOXIN INJ 0.5 MG/2 ML AMPULE IV ONE ×2 (18:52→22:00)
[2019-07-19] MEDS: METHYLPREDNISOLONE INJ 125 MG/2 ML SDV IV SCH ×4 (02:37→20:10)
[2019-07-19] MEDS: RINGERS SOLUTION,LACTATED 1,000 ML IV PRN (03:30)
[2019-07-19 05:06] LABS: HEMATOCRIT 34.8 % (37.9-51.0); HEMOGLOBIN 11.9 g/dL (13.5-17.0); MEAN CORPUSCULAR HEMOGLOBIN 31.4 pg (27.0-33.4); MEAN CORPUSCULAR VOLUME 92 fl (80-97); PLATELET COUNT 201 10^3/uL (150-450); RED BLOOD COUNT 3.78 10^6/uL (4.35-5.55); RED CELL DISTRIBUTION WIDTH 15.6 % (11.5-14.0); WHITE BLOOD COUNT 21.4 10^3/uL (4.0-10.5)
[2019-07-19 05:31] LABS: ANION GAP 8 (5-19); BLOOD UREA NITROGEN 36 mg/dL (7-20); CALCIUM 7.9 mg/dL (8.4-10.2); CARBON DIOXIDE 22 mmol/L (22-30); CHLORIDE 105 mmol/L (98-107); GLUCOSE 118 mg/dL (75-110); POTASSIUM 4.9 mmol/L (3.6-5.0)
[2019-07-19] MEDS: INSULIN REG, HUMAN 100 UNIT/ML 3 ML VIAL (PYX) SUBCUT SCH ×4 (07:57→22:18)
[2019-07-19] MEDS ORDERED: FUROSEMIDE INJ/PF 20 MG/2 ML SDV IV ONE (09:30)
[2019-07-19] MEDS: AZITHROMYCIN 500 MG in DEXTROSE 5%-WATER 250 ML IV SCH (09:30)
[2019-07-19] MEDS: CEFTRIAXONE 1 GM/D5W RTU 1 GM/50 ML RTUPB IV SCH (09:31)
[2019-07-19] MEDS: METOPROLOL SUCCINATE 25 MG TAB.SR.24H PO SCH (09:31)
[2019-07-19] MEDS: ENOXAPARIN SODIUM INJ 40 MG/0.4 ML DISP.SYRIN SUBCUT SCH (09:31)
--- NOTE | 2019-07-19 10:39 | PDOC CRITICAL CARE PROG REPORT ---
General Date:: 07/19/19 - Critical Care Attending Resuscitation Status: Full Code Events in the past 12 to 24 Hours:: Pt developed afib with RVR yesterday and was started on an amiodarone infusion and given dig. He is now back in NSR. Is off bipap. Reports to nurse that he uses meth. Reason for ICU Addmission:: Septic shock on levophed and bipap - Medications: Medications reviewed and adjusted accordingly: Yes Physical Exam Vital Signs: Temp Pulse Resp BP Pulse Ox 98.1 F 78 24 H 128/67 H 99 07/19/19 08:00 07/19/19 08:00 07/19/19 08:00 07/19/19 08:00 07/19/19 08:00 Intake & Output 07/18/19 07/19/19 07/20/19 06:59 06:59 06:59 Intake Total 7423 1591 100 Output Total 2970 1170 50 Balance 4453 421 50 Weight 63.8 kg 67.9 kg Weight/Height Weight 67.9 kg Height 5 ft 9 in General appearance: PRESENT: no acute distress, well-developed, well-nourished Head exam: PRESENT: atraumatic, normocephalic Respiratory exam: PRESENT: rhonchi, tachypnea Cardiovascular exam: PRESENT: RRR GI/Abdominal exam: PRESENT: other - firm, distended Gentrourinary exam: PRESENT: indwelling catheter Extremities exam: PRESENT: other - no edema Neurological exam: PRESENT: alert, awake Laboratory/Radiographs Laboratory Results: 07/19/19 04:28 07/19/19 04:28 07/18/19 07/19/19 07/19/19 15:52 04:28 04:28 WBC 21.4 H RBC 3.78 L Hgb 11.9 L Hct 34.8 L MCV 92 MCH 31.4 MCHC 34.0 RDW 15.6 H Plt Count 201 Sodium 135.0 L Potassium 4.9 Chloride 105 Carbon Dioxide 22 Anion Gap 8 BUN 36 H Creatinine 0.76 Est GFR ( Amer) > 60 Glucose 118 H Calcium 7.9 L Magnesium 2.2 07/17/19 09:02 Blood Blood Culture (PCR) - Final Streptococcus Pneumoniae 07/17/19 09:02 Troponin I < 0.012 NT-Pro-B Natriuret Pep 2710 H Impressions: Chest CT 07/18/19 00:00 IMPRESSION: 1. Extensive left upper lobe and left lower lobe pneumonia. Additional findings include patchy multifocal additional areas of pneumonia with small effusions. 2. Upper abdominal findings as above. Chest X-Ray 07/18/19 00:00 IMPRESSION: Increasing left lower lobe consolidation. Stable left upper lobe infiltrate. There is focal infiltrate in the periphery of the right upper lobe as well. All labs, radiographs, diagnostic studies and EKGs were personally reviewed: Yes Assessment and Plan - Diagnosis (1) Acute respiratory failure Qualifiers: Respiratory failure complication: unspecified whether with hypoxia or hypercapnia Qualified Code(s): J96.00 - Acute respiratory failure, unspecified whether with hypoxia or hypercapnia Is this a current diagnosis for this admission?: Yes (2) Pneumonia involving left lung Qualifiers: Pneumonia type: due to unspecified organism Lung location: unspecified part of lung Qualified Code(s): J18.9 - Pneumonia, unspecified organism Is this a current diagnosis for this admission?: Yes (3) Septic shock Is this a current diagnosis for this admission?: Yes (4) COPD (chronic obstructive pulmonary disease) Qualifiers: Chronic bronchitis type: unspecified Is this a current diagnosis for this admission?: Yes (5) Atrial fibrillation and flutter Is this a current diagnosis for this admission?: Yes (6) Liver cancer Qualifiers: Liver malignancy type: unspecified liver malignancy Qualified Code(s): C22.9 - Malignant neoplasm of liver, not specified as primary or secondary Is this a current diagnosis for this admission?: No Plan Summary: Assessment: critically ill 63 yo man with acute respiratory failure, PNA and bacteremia due to strep pneumonia, septic shock, h/o afib, COPD, h/o liver cancer, RHONDA, methampetamine abuse. Plan: 1. Respiratory: acute respiratory failure. Pt is nasal cannula. Wean RA as tolerated. Continue bipap prn 2. Pulmonary: PNA due to strep pneumoniae. Continue rocepin and azithromycin. COPD, bronchodilators and steroids. 3. CV: hypotension due to septic shock, resolved. Afib with RVR, resolved. Now in NSR. WIll d/c amiodarone and resume home Toprol. Will d/c IVF and give lasix today 4. ID: severe sepsis due to strep pneumoniae PNA and bacteremia. Continue rocephin and azithromycin. WBC decreasing. 5. GI/Oncology: h/o hep c and liver cancer. Per report, pt has not followed-up as an outpt. Ascites. Will order ab US 6. Renal: RHONDA, resolved. 7. Social: methampetamine abuse 8. Nutrition: regular diet 9. Prophylaxis: lovenox 10. Pt is stable for transfer to [facility] Critical Time Critical Time (minutes): 0 Level of Care: [facility] -: 1. The care of a critical patient is a dynamic process. This note is a software support representative synopsis but static in nature. The timeframe for treatments given in order is not necessarily the actual time these treatments may have been done. 2. This patient requires critical care secondary to ongoing requirements for therapy not offered or safe outside the critical care environment. Transfer to a lower level of care will result in altered life or limb morbidity and mortality. 3. Multidisciplinary rounds completed. 4. ABCDE bundle addressed.
--- NOTE | 2019-07-19 17:43 | RADIOLOGY REPORT (SQ) ---
EXAM DESCRIPTION: U/S ABDOMEN LIMITED W/O DOP COMPLETED DATE/TIME: 07/19/2019 5:27 pm REASON FOR STUDY: ascites COMPARISON: CT chest 07/18/2019 CT abdomen pelvis 12/01/2017 TECHNIQUE: Dynamic and static grayscale images acquired of the abdomen and recorded on PACS. Additio nal selected color Doppler and spectral images recorded. LIMITATIONS: None. FINDINGS: Limited 4 quadrant abdominal ultrasound was performed to assess for ascites. No significa nt ascites is present. IMPRESSION: No significant ascites is present TECHNICAL DOCUMENTATION: JOB ID: [id number] [employer]- All Rights Reserved Reading location - IP/workstation name: [email or web address]
[2019-07-20] MEDS: METHYLPREDNISOLONE INJ 125 MG/2 ML SDV IV SCH ×4 (02:59→22:33)
[2019-07-20 06:41] LABS: BLOOD UREA NITROGEN 36 mg/dL (7-20); CALCIUM 7.8 mg/dL (8.4-10.2); GLUCOSE 129 mg/dL (75-110)
[2019-07-20 06:46] LABS: CARBON DIOXIDE 26 mmol/L (22-30); CHLORIDE 108 mmol/L (98-107)
[2019-07-20 07:05] LABS: HEMATOCRIT 33.7 % (37.9-51.0); HEMOGLOBIN 11.8 g/dL (13.5-17.0); MEAN CORPUSCULAR HEMOGLOBIN 31.6 pg (27.0-33.4); MEAN CORPUSCULAR VOLUME 90 fl (80-97); PLATELET COUNT 173 10^3/uL (150-450); RED BLOOD COUNT 3.73 10^6/uL (4.35-5.55); RED CELL DISTRIBUTION WIDTH 15.5 % (11.5-14.0); WHITE BLOOD COUNT 24.8 10^3/uL (4.0-10.5)
[2019-07-20 07:21] LABS: ANION GAP 4 (5-19)
[2019-07-20] MEDS: INSULIN REG, HUMAN 100 UNIT/ML 3 ML VIAL (PYX) SUBCUT SCH ×2 (08:14→12:17)
[2019-07-20] MEDS: ENOXAPARIN SODIUM INJ 40 MG/0.4 ML DISP.SYRIN SUBCUT SCH (09:25)
[2019-07-20] MEDS: AZITHROMYCIN 500 MG in DEXTROSE 5%-WATER 250 ML IV SCH (09:26)
[2019-07-20] MEDS: CEFTRIAXONE 1 GM/D5W RTU 1 GM/50 ML RTUPB IV SCH (09:26)
[2019-07-20] MEDS: METOPROLOL SUCCINATE 25 MG TAB.SR.24H PO SCH (09:27)
[2019-07-20] MEDS ORDERED: GLUCAGON,HUMAN RECOMB 1 MG INJ IM PRN (13:22)
[2019-07-20] MEDS ORDERED: DEXTROSE 50%-WATER 25 GM/50 ML DISP.SYRIN IV PRN ×2 (13:22)
[2019-07-20] MEDS ORDERED: DEXTROSE 40% GEL 15 GM TUBE PO PRN ×2 (13:22)
--- NOTE | 2019-07-20 13:22 | PDOC PROGRESS REPORT ---
Subjective Progress Note for:: 07/20/19 Subjective:: Shan Palmer is a 63-year-old male with past medical history of arthritis, hepatitis C on Vosevi and Ribavarin, admitted to ICU on 07/17/2019 after being admitted in ED complaining of flulike symptoms, bradycardia anorexia, found to have left lower lobe pneumonia and noted to be hypotensive, tachycardic, tachypnea with elevated LFTs and leukocytosis, and RHONDA. Was admitted to ICU, where he was started on Levophed, BiPAP and empiric IV antibiotics. Transfer to [facility] on 07/11/2019. Reason For Visit: SEPTIC SHOCK FROM CAP, DEHYDRATION, POSSIBLE Physical Exam Vital Signs: Temp Pulse Resp BP Pulse Ox 97.4 F 76 18 116/76 100 07/20/19 12:01 07/20/19 12:01 07/20/19 12:01 07/20/19 12:01 07/20/19 12:01 Intake & Output 07/19/19 07/20/19 07/21/19 06:59 06:59 06:59 Intake Total 1591 2353 300 Output Total 1170 995 250 Balance 421 1358 50 Weight 67.9 kg 59.9 kg Results Laboratory Results: 07/20/19 05:00 07/20/19 05:00 07/20/19 07/20/19 05:00 05:00 WBC 24.8 H RBC 3.73 L Hgb 11.8 L Hct 33.7 L MCV 90 MCH 31.6 MCHC 35.0 RDW 15.5 H Plt Count 173 Sodium 137.7 Potassium 4.0 Chloride 108 H Carbon Dioxide 26 Anion Gap 4 L BUN 36 H Creatinine 0.73 Est GFR ( Amer) > 60 Glucose 129 H Calcium 7.8 L 07/17/19 09:02 Blood Blood Culture (PCR) - Final Streptococcus Pneumoniae 07/17/19 09:02 Blood Blood Culture - Final Streptococcus Pneumoniae 07/17/19 09:02 Troponin I < 0.012 NT-Pro-B Natriuret Pep 2710 H Impressions: Chest CT 07/18/19 00:00 IMPRESSION: 1. Extensive left upper lobe and left lower lobe pneumonia. Additional findings include patchy multifocal additional areas of pneumonia with small effusions. 2. Upper abdominal findings as above. Chest X-Ray 07/18/19 00:00 IMPRESSION: Increasing left lower lobe consolidation. Stable left upper lobe infiltrate. There is focal infiltrate in the periphery of the right upper lobe as well. Abdomen Ultrasound 07/19/19 00:00 IMPRESSION: No significant ascites is present Assessment and Plan - Diagnosis (1) Pneumonia involving left lung Qualifiers: Pneumonia type: due to Pneumococcus Lung location: unspecified part of lung Qualified Code(s): J13 - Pneumonia due to Streptococcus pneumoniae Is this a current diagnosis for this admission?: Yes Plan: Community-acquired. Left lower lobe. Due to Streptococcus pneumonia pansensitive. Still having persistent leukocytosis, afebrile, vitals WNL, repeat cultures negative. Day 4 IV antibiotics. Day 4 IV ceftriaxone. Received 4 days of IV azithromycin. Continue IV ceftriaxone. (2) Acute respiratory failure with hypoxia Is this a current diagnosis for this admission?: Yes Plan: Due to #1. As per #1. (3) Acute kidney injury Is this a current diagnosis for this admission?: Yes Plan: Resolved. Prerenal. Most likely due to septic shock. Creatinine on admission 2.04. Continue monitoring volume status and electrolytes replace as needed. Avoid nephrotoxic meds. (4) Pneumococcal bacteremia Is this a current diagnosis for this admission?: Yes Plan: Initial blood cultures on admission positive for Streptococcus pneumonia pansensitive. Repeat cultures negative. Day 4 IV antibiotics. Day 4 IV ceftriaxone. Received 4 days of IV azithromycin. Continue IV ceftriaxone. (5) Atrial fibrillation and flutter Is this a current diagnosis for this admission?: Yes Plan: Sinus rhythm. Controlled. Patient denies history of A. fib. Review of EKGs on EMR does not show any history of A. fib. Not sure if patient has A. fib RVR but as per ICU note patient developed A. fib RVR while in ICU and was started on amnio drip and converted back to sinus rhythm. No EKG to confirm A. fib RVR. Continue metoprolol. Will obtain EKG. Outpatient cardiology follow-up. (6) COPD (chronic obstructive pulmonary disease) Qualifiers: Chronic bronchitis type: unspecified Is this a current diagnosis for this admission?: Yes Plan: History of non-oxygen dependent COPD. SPO2 WNL on RA. Continue PRN nebs, PRN BiPAP. Outpatient PCP and pulmonology follow-up. (7) Liver cancer Qualifiers: Liver malignancy type: unspecified liver malignancy Qualified Code(s): C22. 9 - Malignant neoplasm of liver, not specified as primary or secondary Is this a current diagnosis for this admission?: Yes Plan: Likely due to hepatitis C. Outpatient oncology follow-up. (8) Septic shock Is this a current diagnosis for this admission?: Yes Plan: Resolved. Likely due to Streptococcus pneumonia. Blood cultures positive for Streptococcus pneumonia. Repeat blood cultures negative. Presented with leukocytosis, hypotension, tachypnea, tachycardia, RHONDA, elevated lactic acid. Was initially admitted to ICU started on Levophed and empiric IV antibiotics. Currently vitals stable. SPO2 WNL on RA. (9) History of hepatitis C Is this a current diagnosis for this admission?: Yes Plan: Elevated T bili. Elevated AST. INR 1.4. Platelets WNL. Used to take Vosevi and Ribavarin. Patient is stating that he has an appointment as outpatient with gastroenterology and oncology for resumption of his meds. (10) Tobacco abuse Is this a current diagnosis for this admission?: Yes Plan: Extensively counseled on quitting. NicoDerm patch provided.
[2019-07-20] MEDS: NICOTINE 14 MG/24 HR PATCH.TD24 TD SCH (16:41)
[2019-07-20] MEDS: INSULIN LISPRO 100 UNIT/ML 3 ML VIAL SUBCUT SCH ×2 (16:47→22:22)
[2019-07-21] MEDS: METHYLPREDNISOLONE INJ 125 MG/2 ML SDV IV SCH (03:06)
[2019-07-21 05:10] LABS: HEMATOCRIT 34.3 % (37.9-51.0); HEMOGLOBIN 11.7 g/dL (13.5-17.0); MEAN CORPUSCULAR HEMOGLOBIN 31.2 pg (27.0-33.4); MEAN CORPUSCULAR VOLUME 92 fl (80-97); PLATELET COUNT 152 10^3/uL (150-450); RED BLOOD COUNT 3.74 10^6/uL (4.35-5.55); RED CELL DISTRIBUTION WIDTH 15.4 % (11.5-14.0); WHITE BLOOD COUNT 21.4 10^3/uL (4.0-10.5)
[2019-07-21 05:32] LABS: ANION GAP 5 (5-19); BLOOD UREA NITROGEN 31 mg/dL (7-20); CALCIUM 7.5 mg/dL (8.4-10.2); CARBON DIOXIDE 24 mmol/L (22-30); CHLORIDE 109 mmol/L (98-107); GLUCOSE 176 mg/dL (75-110); POTASSIUM 3.9 mmol/L (3.6-5.0)
[2019-07-21] MEDS: INSULIN LISPRO 100 UNIT/ML 3 ML VIAL SUBCUT SCH ×4 (07:34→23:00)
--- NOTE | 2019-07-21 09:17 | EKG REPORT ---
SEVERITY:- BORDERLINE ECG - SINUS RHYTHM BORDERLINE RIGHT AXIS DEVIATION BORDERLINE R WAVE PROGRESSION, ANTERIOR LEADS : Confirmed by: Coral Flores 21-Jul-2019 09:16:35
[2019-07-21] MEDS: METOPROLOL SUCCINATE 25 MG TAB.SR.24H PO SCH (09:29)
[2019-07-21] MEDS: FUROSEMIDE 40 MG TABLET PO SCH (09:29)
[2019-07-21] MEDS: ENOXAPARIN SODIUM INJ 40 MG/0.4 ML DISP.SYRIN SUBCUT SCH (09:29)
[2019-07-21] MEDS: CEFTRIAXONE 1 GM/D5W RTU 1 GM/50 ML RTUPB IV SCH (09:30)
[2019-07-21] MEDS: NICOTINE 14 MG/24 HR PATCH.TD24 TD SCH (09:30)
--- NOTE | 2019-07-21 15:35 | PDOC PROGRESS REPORT ---
Subjective Progress Note for:: 07/21/19 Subjective:: Shan Palmer is a 63-year-old male with past medical history of arthritis, hepatitis C on Vosevi and Ribavarin, admitted to ICU on 07/17/2019 after being admitted in ED complaining of flulike symptoms, bradycardia anorexia, found to have left lower lobe pneumonia and noted to be hypotensive, tachycardic, tachypnea with elevated LFTs and leukocytosis, and RHONDA. Was admitted to ICU, where he was started on Levophed, BiPAP and empiric IV antibiotics. Transfer to IMCU on 07/11/2019. 07/21/2019. No acute events overnight. Comfortably sitting in bed in no appa rent distress. Alert and noted x3, SPO2 WNL on 2 L nasal cannula, denies any fever, chills, nausea, vomiting, diarrhea, constipation or any urinary symptoms. P.o. tolerant. Ambulatory. Having normal bowel and bladder movement. Patient would like to go home unfortunately still having significant leukocytosis and requiring oxygen. Possible discharge home tomorrow. Reason For Visit: SEPTIC SHOCK FROM CAP, DEHYDRATION, POSSIBLE Physical Exam Vital Signs: Temp Pulse Resp BP Pulse Ox 97.7 F 84 17 132/80 H 93 07/21/19 07:13 07/21/19 14:00 07/21/19 13:46 07/21/19 07:13 07/21/19 13:46 Intake & Output 07/20/19 07/21/19 07/22/19 06:59 06:59 06:59 Intake Total 2353 1340 770 Output Total 995 950 200 Balance 1358 390 570 Weight 59.9 kg 60 kg General appearance: PRESENT: no acute distress, well-developed, well-nourished Head exam: PRESENT: atraumatic, normocephalic Respiratory exam: PRESENT: clear to auscultation henny. ABSENT: rales, rhonchi, wheezes Cardiovascular exam: PRESENT: RRR. ABSENT: diastolic murmur, rubs, systolic murmur GI/Abdominal exam: PRESENT: normal bowel sounds, soft. ABSENT: distended, guarding, mass, organolmegaly, rebound, tenderness Neurological exam: PRESENT: alert, awake, oriented to person, oriented to place, oriented to time, oriented to situation, CN II-XII grossly intact. ABSENT: motor sensory deficit Results Laboratory Results: 07/21/19 04:30 07/21/19 04:30 07/21/19 07/21/19 04:30 04:30 WBC 21.4 H RBC 3.74 L Hgb 11.7 L Hct 34.3 L MCV 92 MCH 31.2 MCHC 34.0 RDW 15.4 H Plt Count 152 Sodium 138.2 Potassium 3.9 Chloride 109 H Carbon Dioxide 24 Anion Gap 5 BUN 31 H Creatinine 0.71 Est GFR ( Amer) > 60 Glucose 176 H Calcium 7.5 L 07/17/19 09:02 Blood Blood Culture (PCR) - Final Streptococcus Pneumoniae 07/17/19 09:02 Blood Blood Culture - Final Streptococcus Pneumoniae 07/17/19 09:45 Catheterized Urine Urine Culture - Final Streptococcus Pneumoniae 07/17/19 09:02 Troponin I < 0.012 NT-Pro-B Natriuret Pep 2710 H Impressions: Chest CT 07/18/19 00:00 IMPRESSION: 1. Extensive left upper lobe and left lower lobe pneumonia. Additional findings include patchy multifocal additional areas of pneumonia with small effusions. 2. Upper abdominal findings as above. Chest X-Ray 07/18/19 00:00 IMPRESSION: Increasing left lower lobe consolidation. Stable left upper lobe infiltrate. There is focal infiltrate in the periphery of the right upper lobe as well. Abdomen Ultrasound 07/19/19 00:00 IMPRESSION: No significant ascites is present Assessment and Plan - Diagnosis (1) Pneumonia involving left lung Qualifiers: Pneumonia type: due to Pneumococcus Lung location: unspecified part of lung Qualified Code(s): J13 - Pneumonia due to Streptococcus pneumoniae Is this a current diagnosis for this admission?: Yes Plan: Community-acquired. Left lower lobe. Due to Streptococcus pneumonia pansensitive. Still having persistent leukocytosis, afebrile, vitals WNL, repeat cultures negative. Day 5 IV antibiotics. Day 5 IV ceftriaxone. Received 4 days of IV azithromycin. Continue IV ceftriaxone. (2) Acute respiratory failure with hypoxia Is this a current diagnosis for this admission?: Yes Plan: Due to #1. As per #1. (3) Acute kidney injury Is this a current diagnosis for this admission?: Yes Plan: Resolved. Prerenal. Most likely due to septic shock. Creatinine on admission 2.04. Continue monitoring volume status and electrolytes replace as needed. Avoid nep hrotoxic meds. (4) Pneumococcal bacteremia Is this a current diagnosis for this admission?: Yes Plan: Initial blood cultures on admission positive for Streptococcus pneumonia pansensitive. Repeat cultures negative. Day 5 IV antibiotics. Day 5 IV ceftriaxone. Received 4 days of IV azithromycin. Continue IV ceftriaxone. Will switch to levofloxacin to complete a total of 10 days of antibiotics on discharge. (5) Atrial fibrillation and flutter Is this a current diagnosis for this admission?: Yes Plan: Sinus rhythm. Controlled. Patient denies history of A. fib. Review of EKGs on EMR does not show any history of A. fib. Not sure if patient has A. fib RVR but as per ICU note patient developed A. fib RVR while in ICU and was started on amnio drip and converted back to sinus rhythm. No EKG to confirm A. fib RVR. Continue metoprolol. Will obtain EKG. Outpatient cardiology follow-up. (6) COPD (chronic obstructive pulmonary disease) Qualifiers: Chronic bronchitis type: unspecified Is this a current diagnosis for this admission?: Yes Plan: History of non-oxygen dependent COPD. SPO2 WNL on RA. Continue PRN nebs, PRN BiPAP. Outpatient PCP and pulmonology follow-up. (7) Liver cancer Qualifiers: Liver malignancy type: unspecified liver malignancy Qualified Code(s): C22.9 - Malignant neoplasm of liver, not specified as primary or secondary Is this a current diagnosis for this admission?: Yes Plan: Likely due to hepatitis C. Outpatient oncology follow-up. (8) Septic shock Is this a current diagnosis for this admission?: Yes Plan: Resolved. Likely due to Streptococcus pneumonia. Blood cultures positive for Streptococcus pneumonia. Repeat blood cultures negative. Presented with leukocytosis, hypotension, tachypnea, tachycardia, RHONDA, elevated lactic acid. Was initially admitted to ICU started on Levophed and empiric IV antibiotics. Currently vitals stable. SPO2 WNL on RA. (9) History of hepatitis C Is this a current diagnosis for this admission?: Yes Plan: Elevated T bili. Elevated AST. INR 1.4. Platelets WNL. Used to take Vosevi and Ribavarin. Patient is stating that he has an appointment as outpatient with gastroenterology and oncology for resumption of his meds. (10) Tobacco abuse Is this a current diagnosis for this admission?: Yes Plan: Extensively counseled on quitting. NicoDerm patch provided.
[2019-07-22 05:13] LABS: HEMATOCRIT 33.1 % (37.9-51.0); HEMOGLOBIN 11.6 g/dL (13.5-17.0); MEAN CORPUSCULAR HGB CONC 34.9 g/dL (32.0-36.0); MEAN CORPUSCULAR VOLUME 92 fl (80-97); PLATELET COUNT 149 10^3/uL (150-450); RED BLOOD COUNT 3.61 10^6/uL (4.35-5.55); RED CELL DISTRIBUTION WIDTH 15.2 % (11.5-14.0); WHITE BLOOD COUNT 19.7 10^3/uL (4.0-10.5)
[2019-07-22 06:15] LABS: ABSOLUTE LYMPHOCYTES# (MANUAL) 0.8 10^3/uL (0.5-4.7); ABSOLUTE MONOCYTES # (MANUAL) 1.4 10^3/uL (0.1-1.4); BAND NEUTROPHILS % (MANUAL) 1 % (3-5); BASOPHILS % (MANUAL) 0 % (0-2); EOSINOPHILS % (MANUAL) 0 % (0-6); LYMPHOCYTES % (MANUAL) 3 % (13-45); MONOCYTES % (MANUAL) 7 % (3-13); SEGMENTED NEUTROPHILS % (MAN) 87 % (42-78); TOTAL CELLS COUNTED 100
[2019-07-22 06:17] LABS: ANISOCYTOSIS SLIGHT; OVALOCYTES 1+; PLATELET COMMENT DECREASED; POLYCHROMASIA SLIGHT
[2019-07-22 06:18] LABS: MYELOCYTES % (MANUAL) 1 % (0)
[2019-07-22] MEDS: INSULIN LISPRO 100 UNIT/ML 3 ML VIAL SUBCUT SCH ×2 (08:38→12:20)
[2019-07-22] MEDS: OXYCODONE-ACETAMINOPHEN 5-325 MG TABLET PO PRN ×2 (08:39→16:58)
[2019-07-22] MEDS: CEFTRIAXONE 1 GM/D5W RTU 1 GM/50 ML RTUPB IV SCH (11:59)
[2019-07-22] MEDS: FUROSEMIDE 40 MG TABLET PO SCH (12:07)
[2019-07-22] MEDS: METOPROLOL SUCCINATE 25 MG TAB.SR.24H PO SCH (12:07)
[2019-07-22] MEDS: NICOTINE 14 MG/24 HR PATCH.TD24 TD SCH (12:08)
[2019-07-22] MEDS: ENOXAPARIN SODIUM INJ 40 MG/0.4 ML DISP.SYRIN SUBCUT SCH (12:09)
[2019-07-22 14:32] LABS: PATH REVIEW PATHOLOGIST REVIEWED
--- NOTE | 2019-07-22 14:33 | PDOC PROGRESS REPORT ---
Subjective Progress Note for:: 07/22/19 Subjective:: Shan Palmer is a 63-year-old male with past medical history of arthritis, hepatitis C on Vosevi and Ribavarin, admitted to ICU on 07/17/2019 after being admitted in ED complaining of flulike symptoms, bradycardia anorexia, found to have left lower lobe pneumonia and noted to be hypotensive, tachycardic, tachypnea with elevated LFTs and leukocytosis, and RHONDA. Was admitted to ICU, where he was started on Levophed, BiPAP and empiric IV antibiotics. Transfer to IMCU on 07/11/2019. 07/21/2019. No acute events overnight. Comfortably sitting in bed in no appa rent distress. Alert and noted x3, SPO2 WNL on 2 L nasal cannula, denies any fever, chills, nausea, vomiting, diarrhea, constipation or any urinary symptoms. P.o. tolerant. Ambulatory. Having normal bowel and bladder movement. Patient would like to go home unfortunately still having significant leukocytosis and requiring oxygen. Possible discharge home tomorrow. 07/22/2019. No acute events overnight. Patient currently resting in bed no apparent distress, endorsing shortness of breath on exertion, denies any fever, chills, nausea, vomiting, diarrhea, constipation or any urinary symptoms. Patient still has a significant leukocytosis and requiring supplemental O2. Reason For Visit: SEPTIC SHOCK FROM CAP, DEHYDRATION, POSSIBLE Physical Exam Vital Signs: Temp Pulse Resp BP Pulse Ox 98.1 F 79 18 107/72 93 07/22/19 11:11 07/22/19 11:11 07/22/19 11:11 07/22/19 11:11 07/22/19 11:11 Intake & Output 07/21/19 07/22/19 07/23/19 06:59 06:59 06:59 Intake Total 1340 1130 430 Output Total 950 1350 150 Balance 390 -220 280 Weight 60 kg 60 kg General appearance: PRESENT: no acute distress, well-developed, well-nourished Head exam: PRESENT: atraumatic, normocephalic Respiratory exam: PRESENT: clear to auscultation henny. ABSENT: rales, rhonchi, wheezes Cardiovascular exam: PRESENT: RRR. ABSENT: diastolic murmur, rubs, systolic murmur GI/Abdominal exam: PRESENT: ascites, normal bowel sounds, soft. ABSENT: distended, guarding, mass, organolmegaly, rebound, tenderness Neurological exam: PRESENT: alert, awake, oriented to person, oriented to place, oriented to time, oriented to situation, CN II-XII grossly intact. ABSENT: motor sensory deficit Skin exam: PRESENT: dry, intact, warm. ABSENT: cyanosis, rash Results Laboratory Results: 07/22/19 04:17 07/21/19 04:30 07/22/19 04:17 WBC 19.7 H RBC 3.61 L Hgb 11.6 L Hct 33.1 L MCV 92 MCH 32.0 MCHC 34.9 RDW 15.2 H Plt Count 149 L Seg Neutrophils % Not Reportable 07/17/19 10:30 Blood Blood Culture - Final NO GROWTH IN 5 DAYS 07/17/19 09:02 Blood Blood Culture (PCR) - Final Streptococcus Pneumoniae 07/17/19 09:02 Blood Blood Culture - Final Streptococcus Pneumoniae 07/17/19 09:02 Troponin I < 0.012 NT-Pro-B Natriuret Pep 2710 H Impressions: Chest CT 07/18/19 00:00 IMPRESSION: 1. Extensive left upper lobe and left lower lobe pneumonia. Additional findings include patchy multifocal additional areas of pneumonia with small effusions. 2. Upper abdominal findings as above. Chest X-Ray 07/18/19 00:00 IMPRESSION: Increasing left lower lobe consolidation. Stable left upper lobe infiltrate. There is focal infiltrate in the periphery of the right upper lobe as well. Abdomen Ultrasound 07/19/19 00:00 IMPRESSION: No significant ascites is present Assessment and Plan - Diagnosis (1) Pneumonia involving left lung Qualifiers: Pneumonia type: due to Pneumococcus Lung location: unspecified part of lung Qualified Code(s): J13 - Pneumonia due to Streptococcus pneumoniae Is this a current diagnosis for this admission?: Yes Plan: Community-acquired. Left lower lobe. Due to Streptococcus pneumonia pansensitive. Still having persistent leukocytosis, afebrile, vitals WNL, repeat cultures negative. Day 6 IV antibiotics. Day 6 IV ceftriaxone. Received 4 days of IV azithromycin. Continue IV ceftriaxone. Repeat blood cultures all negative. (2) Acute respiratory failure with hypoxia Is this a current diagnosis for this admission?: Yes Plan: Due to #1. As per #1. (3) Acute kidney injury Is this a current diagnosis for this admission?: Yes Plan: Resolved. Prerenal. Most likely due to septic shock. Creatinine on admission 2.04. Continue monitoring volume status and electrolytes replace as needed. Avoid nephrotoxic meds. (4) Pneumococcal bacteremia Is this a current diagnosis for this admission?: Yes Plan: Initial blood cultures on admission positive for Streptococcus pneumonia pansensitive. Repeat cultures negative. Day 6 IV antibiotics. Day 6 IV ceftriaxone. Received 4 days of IV azithromycin. Continue IV ceftriaxone. Will switch to levofloxacin to complete a total of 10 days of antibiotics on discharge. (5) Atrial fibrillation and flutter Is this a current diagnosis for this admission?: Yes Plan: Sinus rhythm. Controlled. Patient denies history of A. fib. Review of EKGs on EMR does not show any history of A. fib. Not sure if patient has A. fib RVR but as per ICU note patient developed A. fib RVR while in ICU and was started on amnio drip and converted back to sinus rhythm. No EKG to confirm A. fib RVR. Continue metoprolol. Will obtain EKG. Outpatient cardiology follow-up. (6) COPD (chronic obstructive pulmonary disease) Qualifiers: Chronic bronchitis type: unspecified Is this a current diagnosis for this admission?: Yes Plan: History of non-oxygen dependent COPD. SPO2 WNL on RA. Continue PRN nebs, PRN BiPAP. Outpatient PCP and pulmonology follow-up. (7) Liver cancer Qualifiers: Liver malignancy type: unspecified liver malignancy Qualified Code(s): C22.9 - Malignant neoplasm of liver, not specified as primary or secondary Is this a current diagnosis for this admission?: Yes Plan: Likely due to hepatitis C. Outpatient oncology follow-up. (8) Septic shock Is this a current diagnosis for this admission?: Yes Plan: Resolved. Likely due to Streptococcus pneumonia. Blood cultures positive for Streptococcus pneumonia. Repeat blood cultures negative. Presented with leukocytosis, hypotension, tachypnea, tachycardia, RHONDA, elevated lactic acid. Was initially admitted to ICU started on Levophed and empiric IV antibiotics. Currently vitals stable. SPO2 WNL on RA. (9) History of hepatitis C Is this a current diagnosis for this admission?: Yes Plan: Elevated T bili. Elevated AST. INR 1.4. Platelets WNL. Used to take Vosevi and Ribavarin. Patient is stating that he has an appointment as outpatient with gastroente rology and oncology for resumption of his meds. (10) Tobacco abuse Is this a current diagnosis for this admission?: Yes Plan: Extensively counseled on quitting. NicoDerm patch provided.
[2019-07-23] MEDS: OXYCODONE-ACETAMINOPHEN 5-325 MG TABLET PO PRN ×3 (03:14→22:05)
[2019-07-23 06:49] LABS: HEMATOCRIT 34.9 % (37.9-51.0); MEAN CORPUSCULAR HEMOGLOBIN 31.5 pg (27.0-33.4); MEAN CORPUSCULAR HGB CONC 34.4 g/dL (32.0-36.0); MEAN CORPUSCULAR VOLUME 92 fl (80-97); PLATELET COUNT 141 10^3/uL (150-450); RED CELL DISTRIBUTION WIDTH 15.6 % (11.5-14.0); WHITE BLOOD COUNT 16.4 10^3/uL (4.0-10.5)
[2019-07-23 07:39] LABS: ABSOLUTE LYMPHOCYTES# (MANUAL) 1.1 10^3/uL (0.5-4.7); ABSOLUTE MONOCYTES # (MANUAL) 0.2 10^3/uL (0.1-1.4); BAND NEUTROPHILS % (MANUAL) 1 % (3-5); BASOPHILS % (MANUAL) 0 % (0-2); EOSINOPHILS % (MANUAL) 2 % (0-6); LYMPHOCYTES % (MANUAL) 7 % (13-45); MONOCYTES % (MANUAL) 1 % (3-13); SEGMENTED NEUTROPHILS % (MAN) 89 % (42-78); TOTAL CELLS COUNTED 100
[2019-07-23 07:44] LABS: ANISOCYTOSIS SLIGHT; OVALOCYTES SLIGHT; PLATELET COMMENT DECREASED
[2019-07-23] MEDS: ENOXAPARIN SODIUM INJ 40 MG/0.4 ML DISP.SYRIN SUBCUT SCH (10:34)
[2019-07-23] MEDS: FUROSEMIDE 40 MG TABLET PO SCH (10:35)
[2019-07-23] MEDS: NICOTINE 14 MG/24 HR PATCH.TD24 TD SCH (10:36)
[2019-07-23] MEDS: LEVOFLOXACIN 750 MG TABLET PO SCH (10:36)
[2019-07-23] MEDS: METOPROLOL SUCCINATE 25 MG TAB.SR.24H PO SCH (10:36)
--- NOTE | 2019-07-23 11:03 | PDOC PROGRESS REPORT ---
Subjective Progress Note for:: 07/23/19 Subjective:: Shan Palmer is a 63-year-old male with past medical history of arthritis, hepatitis C on Vosevi and Ribavarin, admitted to ICU on 07/17/2019 after being admitted in ED complaining of flulike symptoms, bradycardia anorexia, found to have left lower lobe pneumonia and noted to be hypotensive, tachycardic, tachypnea with elevated LFTs and leukocytosis, and RHONDA. Was admitted to ICU, where he was started on Levophed, BiPAP and empiric IV antibiotics. Transfer to IMCU on 07/11/2019. 07/21/2019. No acute events overnight. Comfortably sitting in bed in no appa rent distress. Alert and noted x3, SPO2 WNL on 2 L nasal cannula, denies any fever, chills, nausea, vomiting, diarrhea, constipation or any urinary symptoms. P.o. tolerant. Ambulatory. Having normal bowel and bladder movement. Patient would like to go home unfortunately still having significant leukocytosis and requiring oxygen. Possible discharge home tomorrow. 07/22/2019. No acute events overnight. Patient currently resting in bed no apparent distress, endorsing shortness of breath on exertion, denies any fever, chills, nausea, vomiting, diarrhea, constipation or any urinary symptoms. Patient still has a significant leukocytosis and requiring supplemental O2. 07/23/2019. No acute events overnight. Unfortunately patient noncompliant with his BiPAP and is still requiring 4 to 5 L of oxygen. Denies any fever, chills, nausea, vomiting, diarrhea, constipation or any urinary symptoms. Ambulatory. P.o. tolerant. Having normal bowel and bladder movements. Reason For Visit: SEPTIC SHOCK FROM CAP, DEHYDRATION, POSSIBLE Physical Exam Vital Signs: Temp Pulse Resp BP Pulse Ox 97.2 F 78 18 113/68 94 07/23/19 07:19 07/23/19 07:19 07/23/19 07:19 07/23/19 07:19 07/23/19 07:19 Intake & Output 07/22/19 07/23/19 07/24/19 06:59 06:59 06:59 Intake Total 1130 1840 Output Total 1350 1075 Balance -220 765 Weight 60 kg General appearance: PRESENT: no acute distress, well-developed, well-nourished Head exam: PRESENT: atraumatic, normocephalic Respiratory exam: PRESENT: clear to auscultation henny. ABSENT: rales, rhonchi, wheezes Cardiovascular exam: PRESENT: RRR. ABSENT: diastolic murmur, rubs, systolic murmur GI/Abdominal exam: PRESENT: ascites, normal bowel sounds, soft. ABSENT: distended, guarding, mass, organolmegaly, rebound, tenderness Neurological exam: PRESENT: alert, awake, oriented to person, oriented to place, oriented to time, oriented to situation, CN II-XII grossly intact. ABSENT: motor sensory deficit Results Laboratory Results: 07/23/19 05:57 07/21/19 04:30 07/23/19 05:57 WBC 16.4 H RBC 3.80 L Hgb 12.0 L Hct 34.9 L MCV 92 MCH 31.5 MCHC 34.4 RDW 15.6 H Plt Count 141 L Seg Neutrophils % Not Reportable 07/17/19 10:30 Blood Blood Culture - Final NO GROWTH IN 5 DAYS 07/17/19 09:02 Troponin I < 0.012 NT-Pro-B Natriuret Pep 2710 H Impressions: Chest CT 07/18/19 00:00 IMPRESSION: 1. Extensive left upper lobe and left lower lobe pneumonia. Additional findings include patchy multifocal additional areas of pneumonia with small effusions. 2. Upper abdominal findings as above. Abdomen Ultrasound 07/19/19 00:00 IMPRESSION: No significant ascites is present Assessment and Plan - Diagnosis (1) Pneumonia involving left lung Qualifiers: Pneumonia type: due to Pneumococcus Lung location: unspecified part of lung Qualified Code(s): J13 - Pneumonia due to Streptococcus pneumoniae Is this a current diagnosis for this admission?: Yes Plan: Community-acquired. Left lower lobe. Due to Streptococcus pneumonia pansensitive. Still having persistent leukocytosis, afebrile, vitals WNL, repeat cultures negative. Day 7 IV antibiotics. Day 1 p.o. levofloxacin. Received 6 days of IV ceftriaxone. Received 4 days of IV azithromycin. Switch to p.o. levofloxacin in anticipation of discharge. Repeat blood cultures all negative. (2) COPD (chronic obstructive pulmonary disease) Qualifiers: Chronic bronchitis type: unspecified Is this a current diagnosis for this admission?: Yes Plan: History of non-oxygen dependent COPD. Still requiring 4 to 5 L nasal cannula to keep SPO2 88 to 92%. Unfortunately noncompliant with BiPAP. May need home oxygen upon discharge. Continue PRN nebs, PRN BiPAP. Outpatient PCP and pulmonology follow-up. (3) Acute respiratory failure with hypoxia Is this a current diagnosis for this admission?: Yes Plan: Due to #1 and #2. Plan as above. (4) Acute kidney injury Is this a current diagnosis for this admission?: Yes Plan: Resolved. Prerenal. Most likely due to septic shock. Creatinine on admission 2.04. Continue monitoring volume status and electrolytes replace as needed. Avoid nep hrotoxic meds. (5) Pneumococcal bacteremia Is this a current diagnosis for this admission?: Yes Plan: Initial blood cultures on admission positive for Streptococcus pneumonia pansensitive. Repeat cultures negative. Plan as per #1. (6) Atrial fibrillation and flutter Is this a current diagnosis for this admission?: Yes Plan: Sinus rhythm. Controlled. Patient denies history of A. fib. Review of EKGs on EMR does not show any history of A. fib. Not sure if patient has A. fib RVR but as per ICU note patient developed A. fib RVR while in ICU and was started on amnio drip and converted back to sinus rhythm. No EKG to confirm A. fib RVR. Continue metoprolol. Will obtain EKG. Outpatient cardiology follow-up. (7) Liver cancer Qualifiers: Liver malignancy type: unspecified liver malignancy Qualified Code(s): C22.9 - Malignant neoplasm of liver, not specified as primary or secondary Is this a current diagnosis for this admission?: Yes Plan: Likely due to hepatitis C. Outpatient oncology follow-up. (8) Septic shock Is this a current diagnosis for this admission?: Yes Plan: Resolved. Likely due to Streptococcus pneumonia. Blood cultures positive for Streptococcus pneumonia. Repeat blood cultures negative. Presented with leukocytosis, hypotension, tachypnea, tachycardia, RHONDA, elevated lactic acid. Was initially admitted to ICU started on Levophed and empiric IV antibiotics. Currently vitals stable. SPO2 WNL on RA. (9) History of hepatitis C Is this a current diagnosis for this admission?: Yes Plan: Elevated T bili. Elevated AST. INR 1.4. Platelets WNL. Used to take Vosevi and Ribavarin. Patient is stating that he has an appointment as outpatient with gastroenterol ogy and oncology for resumption of his meds. (10) Tobacco abuse Is this a current diagnosis for this admission?: Yes Plan: Extensively counseled on quitting. NicoDerm patch provided.
--- NOTE | 2019-07-23 11:20 | RADIOLOGY REPORT (SQ) ---
EXAM DESCRIPTION: CHEST 2 VIEWS COMPLETED DATE/TIME: 07/23/2019 10:14 am REASON FOR STUDY: hypoxia COMPARISON: 07/18/2019 EXAM PARAMETERS: NUMBER OF VIEWS: two views TECHNIQUE: Digital Frontal and Lateral radiographic views of the chest acquired. RADIATION DOSE: NA LIMITATIONS: none FINDINGS: LUNGS AND PLEURA: Marked progression of parenchymal opacities throughout both lungs. Diff erential includes pneumonia and vaping related injuries. MEDIASTINUM AND HILAR STRUCTURES: No masses or contour abnormalities. HEART AND VASCULAR STRUCTURES: Heart normal size. No evidence for failure. BONES: No acute findings. HARDWARE: None in the chest. OTHER: No other significant finding. IMPRESSION: Marked progression of diffuse parenchymal opacities. Differential includes pneumonia an d vaping related injuries. TECHNICAL DOCUMENTATION: JOB ID: [id number] [employer]- All Rights Reserved Reading location - IP/workstation name: [email or web address]
[2019-07-23] MEDS: METHYLPREDNISOLONE INJ 125 MG/2 ML SDV IV SCH (21:51)
[2019-07-23] MEDS ORDERED: METHYLPREDNISOLONE INJ 40 MG/1 ML SDV IV SCH (22:00)
[2019-07-23] MEDS: LORAZEPAM 0.5 MG TABLET PO PRN (23:36)
[2019-07-24 05:10] LABS: HEMATOCRIT 35.3 % (37.9-51.0); MEAN CORPUSCULAR HEMOGLOBIN 31.3 pg (27.0-33.4); MEAN CORPUSCULAR VOLUME 92 fl (80-97); PLATELET COUNT 149 10^3/uL (150-450); RED BLOOD COUNT 3.84 10^6/uL (4.35-5.55); RED CELL DISTRIBUTION WIDTH 15.6 % (11.5-14.0); WHITE BLOOD COUNT 22.5 10^3/uL (4.0-10.5)
[2019-07-24] MEDS: METHYLPREDNISOLONE INJ 125 MG/2 ML SDV IV SCH ×3 (05:24→21:38)
[2019-07-24 05:37] LABS: ANION GAP 5 (5-19); BLOOD UREA NITROGEN 22 mg/dL (7-20); CALCIUM 7.1 mg/dL (8.4-10.2); CARBON DIOXIDE 27 mmol/L (22-30); CHLORIDE 101 mmol/L (98-107); GLUCOSE 210 mg/dL (75-110); POTASSIUM 4.5 mmol/L (3.6-5.0)
[2019-07-24 05:45] LABS: BAND NEUTROPHILS % (MANUAL) 2 % (3-5); BASOPHILS % (MANUAL) 0 % (0-2); EOSINOPHILS % (MANUAL) 1 % (0-6); LYMPHOCYTES % (MANUAL) 0 % (13-45); MONOCYTES % (MANUAL) 0 % (3-13); SEGMENTED NEUTROPHILS % (MAN) 97 % (42-78); TOTAL CELLS COUNTED 100
[2019-07-24 05:47] LABS: ANISOCYTOSIS SLIGHT; BURR CELLS SLIGHT; OVALOCYTES 1+; PLATELET COMMENT ADEQUATE; POIKILOCYTOSIS SLIGHT; TOXIC GRANULATION 1+
[2019-07-24] MEDS: METOPROLOL SUCCINATE 25 MG TAB.SR.24H PO SCH (10:03)
[2019-07-24] MEDS: LEVOFLOXACIN 750 MG TABLET PO SCH (10:03)
[2019-07-24] MEDS: NICOTINE 14 MG/24 HR PATCH.TD24 TD SCH (10:03)
[2019-07-24] MEDS: FUROSEMIDE 40 MG TABLET PO SCH (10:03)
[2019-07-24] MEDS: ENOXAPARIN SODIUM INJ 40 MG/0.4 ML DISP.SYRIN SUBCUT SCH (10:04)
[2019-07-24] MEDS: OXYCODONE-ACETAMINOPHEN 5-325 MG TABLET PO PRN ×2 (10:08→17:54)
--- NOTE | 2019-07-24 11:58 | RADIOLOGY REPORT (SQ) ---
EXAM DESCRIPTION: CTA CHEST COMPLETED DATE/TIME: 07/24/2019 11:41 am REASON FOR STUDY: persistant hypoxia elevated d-dimer COMPARISON: 07/18/2019. TECHNIQUE: CT scan of the chest performed using helical scanning technique with dynamic intravenous contrast injection. Images reviewed with lung, soft tissue and bone windows. Reconstructed coronal and sagittal MPR images reviewed. Additional 3 dimensional post-processing performed to develop Maximal Intensity Projection images (OR P). All images stored on PACS. All CT scanners at this facility use dose modulation, iterative reconstruction, and/or weight based d osing when appropriate to reduce radiation dose to as low as reasonably achievable (ALARA). [facility]: Dose Right [facility]: CareDose [facility]: Dose Right [facility]: Teradose 4D [facility]: GlySure CONTRAST TYPE AND DOSE: contrast/concentration: Isovue 350.00 mg/ml; Total Contrast Delivered: 52.0 ml; Total Saline Delivered: 77.0 ml Contrast bolus adequate for pulmonary arteries and aorta. RENAL FUNCTION: BUN 22 creatinine 0.54. RADIATION DOSE: CT Rad equipment meets quality standard of care and radiation dose reduction techniq ues were employed. CTDIvol: 9.9 - 14.8 mGy. DLP: 516 mGy-cm. . LIMITATIONS: None. FINDINGS: LUNGS AND PLEURA: Significant worsening. Diffuse ground-glass opacities throughout both l ungs, most pronounced in the upper lobes and superior aspect of the lower lobes. Bronchiectasis and numerous tiny cystic air spaces. No pleural effusion. AORTA AND GREAT VESSELS: No aneurysm. No dissection. HEART: No pericardial effusion. No significant coronary artery calcifications. PULMONARY ARTERIES: No emboli visualized in the main pulmonary arteries or the segmental branches. HILAR AND MEDIASTINAL STRUCTURES: No identified masses or abnormal nodes. HARDWARE: None in the chest. UPPER ABDOMEN: Gallstones. Ascites. Limited exam. THYROID AND OTHER SOFT TISSUES: No masses. No adenopathy. BONES: No acute or significant finding. 3D MIPS: Confirm above findings. OTHER: No other significant finding. IMPRESSION: 1. NORMAL CTA OF THE CHEST. NO PULMONARY EMBOLI. 2. SIGNIFICANT WORSENING IN APPEARANCE OF THE CHEST. EXTENSIVE GROUND-GLASS OPACITIES WHICH MAY BE D UE TO PNEUMONITIS. VAPING IS A POSSIBILITY. COULD ALSO BE DUE TO INFECTION, INCLUDING PNEUMOCYSTIS. 3. GALLSTONES. ASCITES. COMMENT: Quality ID # [id number]: Final reports with documentation of one or more dose reduction techniques (e.g., Automated exposure control, adjustment of the mA and/or kV according to patient size, use of iterative reconstruction technique) TECHNICAL DOCUMENTATION: JOB ID: [id number] [employer]- All Rights Reserved Reading location - IP/workstation name: [email or web address]
[2019-07-24] MEDS: LORAZEPAM 0.5 MG TABLET PO PRN (15:07)
[2019-07-25] MEDS: METHYLPREDNISOLONE INJ 125 MG/2 ML SDV IV SCH ×2 (05:25→13:48)
[2019-07-25] MEDS: OXYCODONE-ACETAMINOPHEN 5-325 MG TABLET PO PRN ×2 (05:26→13:47)
--- NOTE | 2019-07-25 07:37 | PDOC PROGRESS REPORT ---
Subjective Progress Note for:: 07/24/19 Subjective:: Shan Palmer is a 63-year-old male with past medical history of arthritis, hepatitis C on Vosevi and Ribavarin, admitted to ICU on 07/17/2019 after being admitted in ED complaining of flulike symptoms, bradycardia anorexia, found to have left lower lobe pneumonia and noted to be hypotensive, tachycardic, tachypnea with elevated LFTs and leukocytosis, and RHONDA. Was admitted to ICU, where he was started on Levophed, BiPAP and empiric IV antibiotics. Transfer to IMCU on 07/11/2019. 07/21/2019. No acute events overnight. Comfortably sitting in bed in no appa rent distress. Alert and noted x3, SPO2 WNL on 2 L nasal cannula, denies any fever, chills, nausea, vomiting, diarrhea, constipation or any urinary symptoms. P.o. tolerant. Ambulatory. Having normal bowel and bladder movement. Patient would like to go home unfortunately still having significant leukocytosis and requiring oxygen. Possible discharge home tomorrow. 07/22/2019. No acute events overnight. Patient currently resting in bed no apparent distress, endorsing shortness of breath on exertion, denies any fever, chills, nausea, vomiting, diarrhea, constipation or any urinary symptoms. Patient still has a significant leukocytosis and requiring supplemental O2. 07/23/2019. No acute events overnight. Unfortunately patient noncompliant with his BiPAP and is still requiring 4 to 5 L of oxygen. Denies any fever, chills, nausea, vomiting, diarrhea, constipation or any urinary symptoms. Ambulatory. P.o. tolerant. Having normal bowel and bladder movements. 07/24/2019. No acute events overnight. Unfortunately patient noncompliant with his BiPAP and is still requiring 4 to 5 L of oxygen. Reason For Visit: SEPTIC SHOCK FROM CAP, DEHYDRATION, POSSIBLE Physical Exam Vital Signs: Temp Pulse Resp BP Pulse Ox 97.7 F 86 20 121/72 92 07/25/19 03:05 07/25/19 03:05 07/25/19 03:05 07/25/19 03:05 07/25/19 03:05 Intake & Output 07/24/19 07/25/19 07/26/19 06:59 06:59 06:59 Intake Total 960 942 Output Total 600 100 Balance 360 842 Weight 64.2 kg 55.7 kg Results Laboratory Results: 07/24/19 04:24 07/24/19 04:24 07/17/19 09:02 Troponin I < 0.012 NT-Pro-B Natriuret Pep 2710 H Impressions: Chest CT 07/18/19 00:00 IMPRESSION: 1. Extensive left upper lobe and left lower lobe pneumonia. Additional findings include patchy multifocal additional areas of pneumonia with small effusions. 2. Upper abdominal findings as above. Abdomen Ultrasound 07/19/19 00:00 IMPRESSION: No significant ascites is present Chest X-Ray 07/23/19 00:00 IMPRESSION: Marked progression of diffuse parenchymal opacities. Differential includes pneumonia and vaping related injuries. Chest/Abdomen CTA 07/24/19 00:00 IMPRESSION: 1. NORMAL CTA OF THE CHEST. NO PULMONARY EMBOLI. 2. SIGNIFICANT WORSENING IN APPEARANCE OF THE CHEST. EXTENSIVE GROUND-GLASS OPACITIES WHICH MAY BE DUE TO PNEUMONITIS. VAPING IS A POSSIBILITY. COULD ALSO BE DUE TO INFECTION, INCLUDING PNEUMOCYSTIS. 3. GALLSTONES. ASCITES. Assessment and Plan - Diagnosis (1) Pneumonitis Is this a current diagnosis for this admission?: Yes Plan: Patient is still hypoxic and requiring on submental SPO2. Repeat CT shows diffuse groundglass opacities possibly due to pneumonitis or vaping injury. Patient is stating that he used to use electronic cigarettes several years ago in the past but has not done any vaping. Patient very anxious to leave I had an extensive discussion with daughter and patient and updated him about new CTA finding. 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 We will restart high-dose steroids and consult pulmonology. (2) Pneumonia involving left lung Qualifiers: Pneumonia type: due to Pneumococcus Lung location: unspecified part of lung Qualified Code(s): J13 - Pneumonia due to Streptococcus pneumoniae Is this a current diagnosis for this admission?: Yes Plan: Community-acquired. Left lower lobe. Due to Streptococcus pneumonia pansensitive. Still having persistent leukocytosis, afebrile, vitals WNL, repeat cultures negative. Day 8 IV antibiotics. Day 2 p.o. levofloxacin. Received 6 days of IV ceftriaxone. Received 4 days of IV azithromycin. Switch to p.o. levofloxacin in anticipation of discharge. Repeat blood cultures all negative. (3) COPD (chronic obstructive pulmonary disease) Qualifiers: Chronic bronchitis type: unspecified Is this a current diagnosis for this admission?: Yes Plan: History of non-oxygen dependent COPD. Still requiring 4 to 5 L nasal cannula to keep SPO2 88 to 92%. Unfortunately noncompliant with BiPAP. May need home oxygen upon discharge. Continue PRN nebs, PRN BiPAP. Outpatient PCP and pulmonology follow-up. (4) Acute respiratory failure with hypoxia Is this a current diagnosis for this admission?: Yes Plan: Due to #1 and #2. Plan as above. (5) Acute kidney injury Is this a current diagnosis for this admission?: Yes Plan: Resolved. Prerenal. Most likely due to septic shock. Creatinine on admission 2.04. Continue monitoring volume status and electrolytes replace as needed. Avoid nephrotoxic meds. (6) Pneumococcal bacteremia Is this a current diagnosis for this admission?: Yes Plan: Initial blood cultures on admission positive for Streptococcus pneumonia pans ensitive. Repeat cultures negative. Plan as per #1. (7) Atrial fibrillation and flutter Is this a current diagnosis for this admission?: Yes Plan: Sinus rhythm. Controlled. Patient denies history of A. fib. Review of EKGs on EMR does not show any history of A. fib. Not sure if patient has A. fib RVR but as per ICU note patient developed A. fib RVR while in ICU and was started on amnio drip and converted back to sinus rhy thm. No EKG to confirm A. fib RVR. Continue metoprolol. Will obtain EKG. Outpatient cardiology follow-up. (8) Liver cancer Qualifiers: Liver malignancy type: unspecified liver malignancy Qualified Code(s): C22.9 - Malignant neoplasm of liver, not specified as primary or secondary Is this a current diagnosis for this admission?: Yes Plan: Likely due to hepatitis C. Outpatient oncology follow-up. (9) Septic shock Is this a current diagnosis for this admission?: Yes Plan: Resolved. Likely due to Streptococcus pneumonia. Blood cultures positive for Streptococcus pneumonia. Repeat blood cultures negative. Presented with leukocytosis, hypotension, tachypnea, tachycardia, RHONDA, elevated lactic acid. Was initially admitted to ICU started on Levophed and empiric IV antibiotics. Currently vitals stable. SPO2 WNL on RA. (10) History of hepatitis C Is this a current diagnosis for this admission?: Yes Plan: Elevated T bili. Elevated AST. INR 1.4. Platelets WNL. Used to take Vosevi and Ribavarin. Patient is stating that he has an appointment as outpatient with gastroenterology and oncology for resumption of his meds. (11) Tobacco abuse Is this a current diagnosis for this admission?: Yes Plan: Extensively counseled on quitting. NicoDerm patch provided.
[2019-07-25] MEDS: FUROSEMIDE 40 MG TABLET PO SCH (09:46)
[2019-07-25] MEDS: ENOXAPARIN SODIUM INJ 40 MG/0.4 ML DISP.SYRIN SUBCUT SCH (09:46)
[2019-07-25] MEDS: LEVOFLOXACIN 750 MG TABLET PO SCH (09:46)
[2019-07-25] MEDS: METOPROLOL SUCCINATE 25 MG TAB.SR.24H PO SCH (09:46)
[2019-07-25] MEDS: NICOTINE 14 MG/24 HR PATCH.TD24 TD SCH (09:46)
[2019-07-25 10:24] LABS: HEMATOCRIT 37.2 % (37.9-51.0); HEMOGLOBIN 12.5 g/dL (13.5-17.0); MEAN CORPUSCULAR HEMOGLOBIN 31.3 pg (27.0-33.4); MEAN CORPUSCULAR HGB CONC 33.5 g/dL (32.0-36.0); MEAN CORPUSCULAR VOLUME 93 fl (80-97); PLATELET COUNT 251 10^3/uL (150-450); RED BLOOD COUNT 3.99 10^6/uL (4.35-5.55); RED CELL DISTRIBUTION WIDTH 16.1 % (11.5-14.0)
[2019-07-25 10:33] LABS: BLOOD UREA NITROGEN 30 mg/dL (7-20); CALCIUM 7.5 mg/dL (8.4-10.2); CARBON DIOXIDE 30 mmol/L (22-30); CHLORIDE 104 mmol/L (98-107); GLUCOSE 181 mg/dL (75-110); POTASSIUM 4.4 mmol/L (3.6-5.0)
[2019-07-25 10:39] LABS: ANION GAP 5 (5-19)
[2019-07-25 11:19] LABS: ABSOLUTE MONOCYTES # (MANUAL) 0.4 10^3/uL (0.1-1.4); BAND NEUTROPHILS % (MANUAL) 1 % (3-5); BASOPHILS % (MANUAL) 0 % (0-2); EOSINOPHILS % (MANUAL) 2 % (0-6); LYMPHOCYTES % (MANUAL) 0 % (13-45); MONOCYTES % (MANUAL) 1 % (3-13); SEGMENTED NEUTROPHILS % (MAN) 96 % (42-78); TOTAL CELLS COUNTED 100
[2019-07-25 11:21] LABS: ANISOCYTOSIS 1+; BURR CELLS SLIGHT; OVALOCYTES 1+; PLATELET CLUMPS PRESENT; PLATELET COMMENT ADEQUATE; TEAR DROP CELLS SLIGHT; TOXIC GRANULATION 1+
[2019-07-25 13:10] LABS: HEMATOCRIT 35.6 % (37.9-51.0); HEMOGLOBIN 12.2 g/dL (13.5-17.0); MEAN CORPUSCULAR HEMOGLOBIN 31.4 pg (27.0-33.4); MEAN CORPUSCULAR HGB CONC 34.2 g/dL (32.0-36.0); MEAN CORPUSCULAR VOLUME 92 fl (80-97); PLATELET COUNT 215 10^3/uL (150-450); RED BLOOD COUNT 3.87 10^6/uL (4.35-5.55); RED CELL DISTRIBUTION WIDTH 15.9 % (11.5-14.0)
[2019-07-25 13:39] LABS: ABSOLUTE LYMPHOCYTES# (MANUAL) 0.4 10^3/uL (0.5-4.7); BASOPHILS % (MANUAL) 0 % (0-2); EOSINOPHILS % (MANUAL) 0 % (0-6); LYMPHOCYTES % (MANUAL) 1 % (13-45); MONOCYTES % (MANUAL) 0 % (3-13); SEGMENTED NEUTROPHILS % (MAN) 99 % (42-78); TOTAL CELLS COUNTED 100
[2019-07-25 13:40] LABS: ANISOCYTOSIS SLIGHT; OVALOCYTES 1+; PLATELET COMMENT ADEQUATE; POIKILOCYTOSIS SLIGHT; POLYCHROMASIA SLIGHT; TOXIC GRANULATION 1+
[2019-07-25 13:42] LABS: WHITE BLOOD COUNT 36.7 10^3/uL (4.0-10.5)
--- NOTE | 2019-07-25 14:30 | PDOC PROGRESS REPORT ---
Subjective Progress Note for:: 07/25/19 Subjective:: Shan Palmer is a 63-year-old male with past medical history of arthritis, hepatitis C on Vosevi and Ribavarin, admitted to ICU on 07/17/2019 after being admitted in ED complaining of flulike symptoms, bradycardia anorexia, found to have left lower lobe pneumonia and noted to be hypotensive, tachycardic, tachypnea with elevated LFTs and leukocytosis, and RHONDA. Was admitted to ICU, where he was started on Levophed, BiPAP and empiric IV antibiotics. Transfer to IMCU on 07/11/2019. 07/21/2019. No acute events overnight. Comfortably sitting in bed in no appa rent distress. Alert and noted x3, SPO2 WNL on 2 L nasal cannula, denies any fever, chills, nausea, vomiting, diarrhea, constipation or any urinary symptoms. P.o. tolerant. Ambulatory. Having normal bowel and bladder movement. Patient would like to go home unfortunately still having significant leukocytosis and requiring oxygen. Possible discharge home tomorrow. 07/22/2019. No acute events overnight. Patient currently resting in bed no apparent distress, endorsing shortness of breath on exertion, denies any fever, chills, nausea, vomiting, diarrhea, constipation or any urinary symptoms. Patient still has a significant leukocytosis and requiring supplemental O2. 07/23/2019. No acute events overnight. Unfortunately patient noncompliant with his BiPAP and is still requiring 4 to 5 L of oxygen. Denies any fever, chills, nausea, vomiting, diarrhea, constipation or any urinary symptoms. Ambulatory. P.o. tolerant. Having normal bowel and bladder movements. 07/24/2019. No acute events overnight. Unfortunately patient noncompliant with his BiPAP and is still requiring 4 to 5 L of oxygen. 07/25/2019. No acute events overnight. Patient still dependent on 5 L of supplemental oxygen, has not been able to be weaned off, complaining of worsening ascites, otherwise denies any fever, chills, nausea, vomiting, diarrhea, constipation or any urinary symptoms. P.o. tolerant. Ambulatory. Reason For Visit: SEPTIC SHOCK FROM CAP, DEHYDRATION, POSSIBLE Physical Exam Vital Signs: Temp Pulse Resp BP Pulse Ox 97.6 F 92 18 111/69 90 L 07/25/19 11:10 07/25/19 11:10 07/25/19 11:10 07/25/19 11:10 07/25/19 11:38 Intake & Output 07/24/19 07/25/19 07/26/19 06:59 06:59 06:59 Intake Total 960 1092 Output Total 600 100 Balance 360 992 Weight 64.2 kg 55.7 kg General appearance: PRESENT: no acute distress, well-developed, well-nourished Head exam: PRESENT: atraumatic, normocephalic Respiratory exam: PRESENT: clear to auscultation henny. ABSENT: rales, rhonchi, wheezes Cardiovascular exam: PRESENT: RRR. ABSENT: diastolic murmur, rubs, systolic mu rmur GI/Abdominal exam: PRESENT: ascites, normal bowel sounds, soft, other - Positive fluid waves.. ABSENT: distended, guarding, mass, organolmegaly, rebound, tenderness Neurological exam: PRESENT: alert, awake, oriented to person, oriented to place, oriented to time, oriented to situation, CN II-XII grossly intact. ABSENT: motor sensory deficit Results Laboratory Results: 07/25/19 12:46 07/25/19 09:56 07/25/19 07/25/19 07/25/19 09:56 09:56 12:46 WBC 42.0 H* 36.7 H* RBC 3.99 L 3.87 L Hgb 12.5 L 12.2 L Hct 37.2 L 35.6 L MCV 93 92 MCH 31.3 31.4 MCHC 33.5 34.2 RDW 16.1 H 15.9 H Plt Count 251 215 Seg Neutrophils % Not Reportable Not Reportable Sodium 138.7 Potassium 4.4 Chloride 104 Carbon Dioxide 30 Anion Gap 5 BUN 30 H Creatinine 0.62 Est GFR ( Amer) > 60 Glucose 181 H Calcium 7.5 L 07/23/19 22:20 Sputum Gram Stain - Final 07/23/19 22:20 Sputum Sputum Culture - Final Yeast, Not Raven Albicans Greatly Reduced Normal Miladis 07/17/19 09:02 Troponin I < 0.012 NT-Pro-B Natriuret Pep 2710 H Impressions: Chest CT 07/18/19 00:00 IMPRESSION: 1. Extensive left upper lobe and left lower lobe pneumonia. Additional findings include patchy multifocal additional areas of pneumonia with small effusions. 2. Upper abdominal findings as above. Abdomen Ultrasound 07/19/19 00:00 IMPRESSION: No significant ascites is present Chest X-Ray 07/23/19 00:00 IMPRESSION: Marked progression of diffuse parenchymal opacities. Differential includes pneumonia and vaping related injuries. Chest/Abdomen CTA 07/24/19 00:00 IMPRESSION: 1. NORMAL CTA OF THE CHEST. NO PULMONARY EMBOLI. 2. SIGNIFICANT WORSENING IN APPEARANCE OF THE CHEST. EXTENSIVE GROUND-GLASS OPACITIES WHICH MAY BE DUE TO PNEUMONITIS. VAPING IS A POSSIBILITY. COULD ALSO BE DUE TO INFECTION, INCLUDING PNEUMOCYSTIS. 3. GALLSTONES. ASCITES. Assessment and Plan - Diagnosis (1) Pneumonitis Is this a current diagnosis for this admission?: Yes Plan: Patient is still hypoxic and requiring on submental SPO2. Repeat CT shows diffuse groundglass opacities possibly due to pneumonitis or vaping injury. Patient is stating that he used to use electronic cigarettes several years ago in the past but has not done any vaping. Patient very anxious to leave I had an extensive discussion with daughter and patient and updated him about new CTA finding. 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 07/25/2019 consulted pulmonology at [facility] back to neurologist who reviewed patient's imaging suggested for patient to be continued on high- dose steroids, recultured and rechecked for influenza and if no improvement to be transferred to [facility] for possible bronchoscopy. If no improvement within 2 days patient can be transferred to [facility] for possible bronchoscopy. Transfer center already aware. We will recheck for Haemophilus influenza type a and B, sputum, blood culture, and continue high-dose steroids. (2) Pneumonia involving left lung Qualifiers: Pneumonia type: due to Pneumococcus Lung location: unspecified part of lung Qualified Code(s): J13 - Pneumonia due to Streptococcus pneumoniae Is this a current diagnosis for this admission?: Yes Plan: Community-acquired. Left lower lobe. Due to Streptococcus pneumonia pansensitive. Still having persistent leukocytosis, afebrile, vitals WNL, repeat cultures negative. Day 9 IV antibiotics. Day 3 p.o. levofloxacin. Received 6 days of IV ceftriaxone. Received 4 days of IV azithromycin. Repeat blood cultures all negative. (3) Ascites Qualifiers: Ascites type: other type Qualified Code(s): R18.8 - Other ascites Is this a current diagnosis for this admission?: Yes Plan: Worsening ascites. Patient has underlying hepatitis C and liver cancer likely developing cirrhosis. We will consult IR for possible paracentesis. Continue Lasix, spironolactone and fluid restriction. Hepatic diet. (4) COPD (chronic obstructive pulmonary disease) Qualifiers: Chronic bronchitis type: unspecified Is this a current diagnosis for this admission?: Yes Plan: History of non-oxygen dependent COPD. Still requiring 4 to 5 L nasal cannula to keep SPO2 88 to 92%. Unfortunately noncompliant with BiPAP. Continue PRN nebs, PRN BiPAP. Outpatient PCP and pulmonology follow-up. (5) Acute respiratory failure with hypoxia Is this a current diagnosis for this admission?: Yes Plan: as per above. (6) Acute kidney injury Is this a current diagnosis for this admission?: Yes Plan: Resolved. Prerenal. Most likely due to septic shock. Creatinine on admission 2.04. Continue monitoring volume status and electrolytes replace as needed. Avoid nephrotoxic meds. (7) Pneumococcal bacteremia Is this a current diagnosis for this admission?: Yes Plan: Initial blood cultures on admission positive for Streptococcus pneumonia pansensitive. Repeat cultures negative. Plan as per #1. (8) Atrial fibrillation and flutter Is this a current diagnosis for this admission?: Yes Plan: Sinus rhythm. Controlled. Patient denies history of A. fib. Review of EKGs on EMR does not show any history of A. fib. Not sure if patient has A. fib RVR but as per ICU note patient developed A. fib RVR while in ICU and was started on amnio drip and converted back to sinus rhythm. No EKG to confirm A. fib RVR. Continue metoprolol. Will obtain EKG. Outpatient cardiology follow-up. (9) Liver cancer Qualifiers: Liver malignancy type: unspecified liver malignancy Qualified Code(s): C22. 9 - Malignant neoplasm of liver, not specified as primary or secondary Is this a current diagnosis for this admission?: Yes Plan: Likely due to hepatitis C. Outpatient oncology follow-up. (10) Septic shock Is this a current diagnosis for this admission?: Yes Plan: Resolved. Likely due to Streptococcus pneumonia. Blood cultures positive for Streptococcus pneumonia. Repeat blood cultures negative. Presented with leukocytosis, hypotension, tachypnea, tachycardia, RHONDA, elevated lactic acid. Was initially admitted to ICU started on Levophed and empiric IV antibiotics. Currently vitals stable. SPO2 WNL on RA. (11) History of hepatitis C Is this a current diagnosis for this admission?: Yes Plan: Elevated T bili. Elevated AST. INR 1.4. Platelets WNL. Used to take Vosevi and Ribavarin. Patient is stating that he has an appointment as outpatient with gastroenterology and oncology for resumption of his meds. (12) Tobacco abuse Is this a current diagnosis for this admission?: Yes Plan: Extensively counseled on quitting. NicoDerm patch provided.
[2019-07-26 06:54] LABS: HEMATOCRIT 32.5 % (37.9-51.0); HEMOGLOBIN 11.1 g/dL (13.5-17.0); MEAN CORPUSCULAR HEMOGLOBIN 31.3 pg (27.0-33.4); MEAN CORPUSCULAR HGB CONC 34.2 g/dL (32.0-36.0); MEAN CORPUSCULAR VOLUME 92 fl (80-97); PLATELET COUNT 201 10^3/uL (150-450); RED BLOOD COUNT 3.55 10^6/uL (4.35-5.55); RED CELL DISTRIBUTION WIDTH 15.9 % (11.5-14.0)
[2019-07-26 06:57] LABS: INTERNATIONAL RATION (INR) 1.27
[2019-07-26 07:07] LABS: ALBUMIN 2.1 g/dL (3.5-5.0); ALKALINE PHOSPHATASE 176 U/L (38-126); ANION GAP 6 (5-19); ASPARTATE AMINO TRANSFERASE 46 U/L (17-59); BILIRUBIN,DIRECT 0.3 mg/dL (0.0-0.4); BILIRUBIN,TOTAL 0.8 mg/dL (0.2-1.3); BLOOD UREA NITROGEN 28 mg/dL (7-20); CALCIUM 7.2 mg/dL (8.4-10.2); CARBON DIOXIDE 28 mmol/L (22-30); CHLORIDE 105 mmol/L (98-107); GLUCOSE 159 mg/dL (75-110); POTASSIUM 3.6 mmol/L (3.6-5.0); TOTAL PROTEIN 5.9 g/dL (6.3-8.2)
[2019-07-26] MEDS: OXYCODONE-ACETAMINOPHEN 5-325 MG TABLET PO PRN ×3 (08:17→21:01)
[2019-07-26 08:43] LABS: WHITE BLOOD COUNT 31.7 10^3/uL (4.0-10.5)
[2019-07-26 08:46] LABS: ABSOLUTE LYMPHOCYTES# (MANUAL) 3.2 10^3/uL (0.5-4.7); ABSOLUTE MONOCYTES # (MANUAL) 3.2 10^3/uL (0.1-1.4); BASOPHILS % (MANUAL) 0 % (0-2); EOSINOPHILS % (MANUAL) 0 % (0-6); LYMPHOCYTES % (MANUAL) 10 % (13-45); MONOCYTES % (MANUAL) 10 % (3-13); SEGMENTED NEUTROPHILS % (MAN) 80 % (42-78); TOTAL CELLS COUNTED 100
[2019-07-26 08:47] LABS: ANISOCYTOSIS SLIGHT; OVALOCYTES SLIGHT; PLATELET COMMENT ADEQUATE; POLYCHROMASIA SLIGHT; TOXIC GRANULATION SLIGHT
[2019-07-26] MEDS ORDERED: SPIRONOLACTONE 25 MG TABLET PO SCH (10:00)
[2019-07-26] MEDS: FUROSEMIDE 40 MG TABLET PO SCH (10:05)
[2019-07-26] MEDS: LEVOFLOXACIN 750 MG TABLET PO SCH (10:05)
[2019-07-26] MEDS: METOPROLOL SUCCINATE 25 MG TAB.SR.24H PO SCH (10:06)
[2019-07-26] MEDS: SPIRONOLACTONE 25 MG TABLET PO SCH (10:07)
[2019-07-26] MEDS: NICOTINE 14 MG/24 HR PATCH.TD24 TD SCH (10:09)
[2019-07-26] MEDS: PREDNISONE 20 MG TABLET PO SCH (10:09)
[2019-07-26] MEDS: ENOXAPARIN SODIUM INJ 40 MG/0.4 ML DISP.SYRIN SUBCUT SCH (10:10)
--- NOTE | 2019-07-26 11:10 | PDOC PROGRESS REPORT ---
Subjective Progress Note for:: 07/26/19 Reason For Visit: SEPTIC SHOCK FROM CAP, DEHYDRATION, POSSIBLE 07/26/2019 Patient was admitted to the ICU with-like symptoms history of hepatitis C, left lower lobe pneumonia, hypotension, tachycardia, leukocytosis Physical Exam Vital Signs: Temp Pulse Resp BP Pulse Ox 98.0 F 82 16 113/74 92 07/26/19 08:15 07/26/19 08:15 07/26/19 03:59 07/26/19 08:15 07/26/19 10:20 Intake & Output 07/25/19 07/26/19 07/27/19 06:59 06:59 06:59 Intake Total 1092 Output Total 100 Balance 992 Weight 55.7 kg 58.1 kg General appearance: PRESENT: mild distress, other - Patient states he feels much better today than yesterday Respiratory exam: PRESENT: decreased breath sounds, other - However clear Cardiovascular exam: PRESENT: RRR. ABSENT: diastolic murmur, rubs, systolic murmur Neurological exam: PRESENT: alert, awake, oriented to person, oriented to place, oriented to time, oriented to situation, CN II-XII grossly intact. ABSENT: motor sensory deficit Psychiatric exam: PRESENT: appropriate affect, normal mood. ABSENT: homicidal ideation, suicidal ideation Results Laboratory Results: 07/26/19 05:17 07/26/19 05:17 07/25/19 07/25/19 07/26/19 09:56 12:46 05:17 WBC 42.0 H* 36.7 H* RBC 3.99 L 3.87 L Hgb 12.5 L 12.2 L Hct 37.2 L 35.6 L MCV 93 92 MCH 31.3 31.4 MCHC 33.5 34.2 RDW 16.1 H 15.9 H Plt Count 251 215 Seg Neutrophils % Not Reportable Not Reportable Sodium 138.7 Potassium 3.6 Chloride 105 Carbon Dioxide 28 Anion Gap 6 BUN 28 H Creatinine 0.61 Est GFR ( Amer) > 60 Glucose 159 H Calcium 7.2 L Total Bilirubin 0.8 AST 46 Alkaline Phosphatase 176 H Total Protein 5.9 L Albumin 2.1 L 07/26/19 05:17 WBC 31.7 H* RBC 3.55 L Hgb 11.1 L Hct 32.5 L MCV 92 MCH 31.3 MCHC 34.2 RDW 15.9 H Plt Count 201 Seg Neutrophils % Not Reportable Sodium Potassium Chloride Carbon Dioxide Anion Gap BUN Creatinine Est GFR ( Amer) Glucose Calcium Total Bilirubin AST Alkaline Phosphatase Total Protein Albumin 07/21/19 09:08 Blood Blood Culture - Final NO GROWTH IN 5 DAYS 07/21/19 09:30 Blood Blood Culture - Final NO GROWTH IN 5 DAYS 07/23/19 22:20 Sputum Gram Stain - Final 07/23/19 22:20 Sputum Sputum Culture - Final Yeast, Not Raven Albicans Greatly Reduced Normal Miladis 07/17/19 09:02 Troponin I < 0.012 NT-Pro-B Natriuret Pep 2710 H Impressions: Chest CT 07/18/19 00:00 IMPRESSION: 1. Extensive left upper lobe and left lower lobe pneumonia. Additional findings include patchy multifocal additional areas of pneumonia with small effusions. 2. Upper abdominal findings as above. Abdomen Ultrasound 07/19/19 00:00 IMPRESSION: No significant ascites is present Chest X-Ray 07/23/19 00:00 IMPRESSION: Marked progression of diffuse parenchymal opacities. Differential includes pneumonia and vaping related injuries. Chest/Abdomen CTA 07/24/19 00:00 IMPRESSION: 1. NORMAL CTA OF THE CHEST. NO PULMONARY EMBOLI. 2. SIGNIFICANT WORSENING IN APPEARANCE OF THE CHEST. EXTENSIVE GROUND-GLASS OPACITIES WHICH MAY BE DUE TO PNEUMONITIS. VAPING IS A POSSIBILITY. COULD ALSO BE DUE TO INFECTION, INCLUDING PNEUMOCYSTIS. 3. GALLSTONES. ASCITES. Assessment and Plan - Diagnosis (1) Acute kidney injury Is this a current diagnosis for this admission?: Yes (2) Acute respiratory failure with hypoxia Is this a current diagnosis for this admission?: Yes (3) History of hepatitis C Is this a current diagnosis for this admission?: Yes (4) Pneumonia involving left lung Qualifiers: Pneumonia type: due to Pneumococcus Lung location: unspecified part of lung Qualified Code(s): J13 - Pneumonia due to Streptococcus pneumoniae Is this a current diagnosis for this admission?: Yes (5) Pneumonitis Is this a current diagnosis for this admission?: Yes (6) Septic shock Is this a current diagnosis for this admission?: Yes (7) Ascites of liver Is this a current diagnosis for this admission?: Yes (8) Leukocytosis Is this a current diagnosis for this admission?: Yes (9) Tobacco abuse Is this a current diagnosis for this admission?: Yes Plan: Extensively counseled on quitting. NicoDerm patch provided. - Plan Summary Summary: 07/26/2019 Patient is sitting up in chair speaking in full sentences does not appear to be short of breath. States he feels much better today than yesterday Temperature 97 4 pulse 92 which is his baseline, blood pressure 107/64 2 sat between 90 and 97% on 4 or 5 L of nasal cannula. It appears to be oxygen dependent now. He scan done on 2 2 shows a groundglass appearance suggesting either pneumocystitis or pneumonitis Sputum cultures growing out yeast blood cultures growing out nothing in 5 days Urine cultures growing out strep pneumonia sensitive to everything but tetracycline Regional H. influenzae was negative repeat flu a and B is pending Patient currently taking Lasix 40 mg p.o. daily, well is Levaquin 750 mg p.o. daily ,Aldactone 12.5 mg daily, and prednisone 40 mg daily Increase his prednisone to 60 mg a day. Think since he clinically feels better will give him another day before we talk about transferring to [facility]. Also by increasing steroids he may do a little better today. Paracentesis had to be delayed today due to Lovenox administration. Will try for tomorrow - Time Time Spent with patient: 35 or more minutes
[2019-07-26] MEDS ORDERED: PREDNISONE 20 MG TABLET PO ONE (11:45)
[2019-07-26 13:47] LABS: PATH REVIEW PATHOLOGIST REVIEWED
--- NOTE | 2019-07-26 14:26 | Progress Note ---
Provider Note Provider Note: 07/26/2019 Patient's daughter has requested that we transfer the patient divided. She does not feel he is getting any better. I have called [facility] transfer center and they have accepted the patient however there is no bed available. We will continue on course with high-dose steroids and interventional radiology will do a paracentesis tomorrow. The patient should worsen will call and moving up to an ICU level. If the patient should get better we will cancel his transfer.. I have explained this to the daughter.. Patient is medically stable to wait for transfer at this time.
[2019-07-27] MEDS: OXYCODONE-ACETAMINOPHEN 5-325 MG TABLET PO PRN ×3 (08:09→21:25)
[2019-07-27] MEDS: FUROSEMIDE 40 MG TABLET PO SCH (09:22)
[2019-07-27] MEDS: LEVOFLOXACIN 750 MG TABLET PO SCH (09:22)
[2019-07-27] MEDS: NICOTINE 14 MG/24 HR PATCH.TD24 TD SCH (09:23)
[2019-07-27] MEDS: PREDNISONE 20 MG TABLET PO SCH (09:23)
[2019-07-27] MEDS: SPIRONOLACTONE 25 MG TABLET PO SCH (09:26)
[2019-07-27] MEDS: METOPROLOL SUCCINATE 25 MG TAB.SR.24H PO SCH (09:26)
--- NOTE | 2019-07-27 11:26 | RADIOLOGY REPORT (SQ) ---
EXAM DESCRIPTION: U/S ABDOMEN LIMITED W/O DOP COMPLETED DATE/TIME: 07/27/2019 10:07 am REASON FOR STUDY: Worsening ascites COMPARISON: None. TECHNIQUE: Static grayscale images of the upper and lower quadrants were obtained to assess for asci jacey. LIMITATIONS: None. FINDINGS: There is a mild amount of free fluid within the peritoneal cavity. IMPRESSION: Mild amount of ascites. TECHNICAL DOCUMENTATION: JOB ID: [id number] [employer]- All Rights Reserved Reading location - IP/workstation name: [email or web address]
--- NOTE | 2019-07-27 11:58 | PDOC PROGRESS REPORT ---
Subjective Progress Note for:: 07/27/19 Reason For Visit: SEPTIC SHOCK FROM CAP, DEHYDRATION, POSSIBLE 07/27/2019 Hepatitis C, left lower lobe pneumonia, hypotension, tachycardia, leukocytosis, ascites, cirrhosis Physical Exam Vital Signs: Temp Pulse Resp BP Pulse Ox 97.5 F 93 16 119/65 91 L 07/27/19 05:26 07/27/19 07:00 07/27/19 05:26 07/27/19 09:25 07/27/19 05:26 Intake & Output 07/26/19 07/27/19 07/28/19 06:59 06:59 06:59 Intake Total 1080 Output Total 250 Balance 830 Weight 58.1 kg 62 kg General appearance: PRESENT: no acute distress Respiratory exam: PRESENT: decreased breath sounds Cardiovascular exam: PRESENT: RRR. ABSENT: diastolic murmur, rubs, systolic murmur Neurological exam: PRESENT: alert, awake, oriented to person, oriented to place, oriented to time, oriented to situation, CN II-XII grossly intact. ABSENT: motor sensory deficit Psychiatric exam: PRESENT: appropriate affect, normal mood. ABSENT: homicidal ideation, suicidal ideation Results Laboratory Results: 07/26/19 05:17 07/26/19 05:17 07/21/19 09:08 Blood Blood Culture - Final NO GROWTH IN 5 DAYS 07/21/19 09:30 Blood Blood Culture - Final NO GROWTH IN 5 DAYS 07/17/19 09:02 Troponin I < 0.012 NT-Pro-B Natriuret Pep 2710 H Impressions: Chest CT 07/18/19 00:00 IMPRESSION: 1. Extensive left upper lobe and left lower lobe pneumonia. Additional findings include patchy multifocal additional areas of pneumonia with small effusions. 2. Upper abdominal findings as above. Chest X-Ray 07/23/19 00:00 IMPRESSION: Marked progression of diffuse parenchymal opacities. Differential includes pneumonia and vaping related injuries. Chest/Abdomen CTA 07/24/19 00:00 IMPRESSION: 1. NORMAL CTA OF THE CHEST. NO PULMONARY EMBOLI. 2. SIGNIFICANT WORSENING IN APPEARANCE OF THE CHEST. EXTENSIVE GROUND-GLASS OPACITIES WHICH MAY BE DUE TO PNEUMONITIS. VAPING IS A POSSIBILITY. COULD ALSO BE DUE TO INFECTION, INCLUDING PNEUMOCYSTIS. 3. GALLSTONES. ASCITES. Abdomen Ultrasound 07/27/19 00:00 IMPRESSION: Mild amount of ascites. Assessment and Plan - Diagnosis (1) Acute kidney injury Is this a current diagnosis for this admission?: Yes (2) Acute respiratory failure with hypoxia Is this a current diagnosis for this admission?: Yes (3) History of hepatitis C Is this a current diagnosis for this admission?: Yes (4) Pneumonia involving left lung Qualifiers: Pneumonia type: due to Pneumococcus Lung location: unspecified part of lung Qualified Code(s): J13 - Pneumonia due to Streptococcus pneumoniae Is this a current diagnosis for this admission?: Yes (5) Pneumonitis Is this a current diagnosis for this admission?: Yes (6) Septic shock Is this a current diagnosis for this admission?: Yes (7) Ascites of liver Is this a current diagnosis for this admission?: Yes (8) Leukocytosis Is this a current diagnosis for this admission?: Yes (9) Tobacco abuse Is this a current diagnosis for this admission?: Yes - Plan Summary Summary: 07/26/2019 Patient is sitting up in chair speaking in full sentences does not appear to be short of breath. States he feels much better today than yesterday Temperature 97 4 pulse 92 which is his baseline, blood pressure 107/64 2 sat between 90 and 97% on 4 or 5 L of nasal cannula. It appears to be oxygen dependent now. He scan done on 2 2 shows a groundglass appearance suggesting either pneumocystitis or pneumonitis Sputum cultures growing out yeast blood cultures growing out nothing in 5 days Urine cultures growing out strep pneumonia sensitive to everything but tetracycline Regional H. influenzae was negative repeat flu a and B is pending Patient currently taking Lasix 40 mg p.o. daily, well is Levaquin 750 mg p.o. daily ,Aldactone 12.5 mg daily, and prednisone 40 mg daily Increase his prednisone to 60 mg a day. Think since he clinically feels better will give him another day before we talk about transferring to [facility]. Also by increasing steroids he may do a little better today. Paracentesis had to be delayed today due to Lovenox administration. Will try for tomorrow0 07/27/2019 Temperature 97.5, pulse 88 and regular, blood pressure 112/64, O2 sat between 90 and 95% on 4 L nasal cannula White count is up to 31,700 but this is due to steroids Patient had an ultrasound of his abdomen today that only showed a mild amount of ascites Patient received 60 mg of prednisone yesterday and will receive 40 mg today. She states he is a little "jittery" from the steroids but overall feels significantly improved. Less shortness of breath. Talk to nursing today and they are going to try to wean him down to 3 L of nasal cannula oxygen. I think patient's baseline saturation is between 90 and 92%. Patient's family would like him to be transferred to [facility] they have accepted the patient however there are no beds available. Continue to treat with p.o. prednisone, continue the Lasix 40 mg daily by mouth, continue the p.o. Levaquin, aldlactone 12.5 mg daily. Patient may possibly be discharged to home before a bed becomes available he continues to improve Patient I is probably talk for at least 15 minutes and he exhibited no respiratory distress - Time Time Spent with patient: 25-34 minutes
--- NOTE | 2019-07-27 14:38 | RADIOLOGY REPORT (SQ) ---
EXAM DESCRIPTION: KUB/ABDOMEN (SINGLE VIEW) COMPLETED DATE/TIME: 07/27/2019 2:10 pm REASON FOR STUDY: Ascites vs stool COMPARISON: None. NUMBER OF VIEWS: One view. TECHNIQUE: AP supine views of the abdomen were obtained. LIMITATIONS: None. FINDINGS: BOWEL GAS PATTERN: No dilated loops of bowel. CALCIFICATIONS: Cholelithiasis. SOFT TISSUES: No abnormality. HARDWARE: None in the abdomen. BONES: No acute findings. OTHER: No other finding. IMPRESSION: 1. Nonobstructive bowel gas pattern. 2. Cholelithiasis. TECHNICAL DOCUMENTATION: JOB ID: [id number] [employer]- All Rights Reserved Reading location - IP/workstation name: [email or web address]
[2019-07-27] MEDS ORDERED: MORPHINE SULFATE 10 MG/ML INJ IV ONE (16:00)
--- NOTE | 2019-07-27 16:33 | RADIOLOGY REPORT (SQ) ---
EXAM DESCRIPTION: CT ABD/PELVIS WITH IV ONLY COMPLETED DATE/TIME: 07/27/2019 4:10 pm REASON FOR STUDY: distended, hx of liver Ca COMPARISON: CT of the chest with contrast from 07/26/2019. TECHNIQUE: CT scan of the abdomen and pelvis performed using helical scanning technique with dynamic intravenous contrast injection. No oral contrast. Images reviewed with lung, soft tissue, and bone windows. Reconstructed coronal and sagittal MPR images reviewed. Delayed images for evaluation of the urinary system also acquired. All images stored on PACS. All CT scanners at this facility use dose modulation, iterative reconstruction, and/or weight based d osing when appropriate to reduce radiation dose to as low as reasonably achievable (ALARA). [facility]: Dose Right [facility]: CareDose [facility]: Dose Right [facility]: Teradose 4D [facility]: Puzl CONTRAST TYPE AND DOSE: Contrast/concentration: Isovue 350.00 mg/ml; Total Contrast Delivered: 71.0 ml; Total Saline Delivered: 66.0 ml RENAL FUNCTION: GFR > 60. RADIATION DOSE: CT Rad equipment meets quality standard of care and radiation dose reduction techniq ues were employed. CTDIvol: 4.1 mGy. DLP: 453 mGy-cm. LIMITATIONS: None. FINDINGS: LOWER CHEST: Unchanged findings compared to the CTA from 07/24/2019. LIVER: The nodular contour of the liver is consistent with hepatic steatosis. The nodular areas of h yperenhancement within segments 4A and 8 of the liver described on previous CTA demonstrate washout o n the current CT and are suspected to represent an HCC. The portal veins are patent. SPLEEN: The spleen is enlarged. There is a dystrophic calcification in the anterior aspect of the sp perry PANCREAS: No acute abnormality of the pancreas. GALLBLADDER: Cholelithiasis. ADRENAL GLANDS: No mass or asymmetry. RIGHT KIDNEY AND URETER: Caliceal calculi that measure up to 3 mm in diameter. There is no associate d hydronephrosis, hydroureter or ureterolithiasis. LEFT KIDNEY AND URETER: 3 mm calculus within a lower pole calyx. There is no associated hydronephros is, hydroureter or ureterolithiasis. AORTA AND VESSELS: Paraesophageal varices. The abdominal aorta is normal in caliber. RETROPERITONEUM: No retroperitoneal adenopathy, hemorrhage or mass. BOWEL AND PERITONEAL CAVITY: There is a mild amount of ascites. There are several fluid-filled diste nded loops of jejunum in the mid abdomen without evidence of obstruction. The circumferential thicke jonathan of long segments of jejunum and ascending colon are nonspecific and could represent portal hyper tensive enteropathy/colopathy. There is no pneumatosis or portal venous gas. APPENDIX: Unable to identify the appendix. PELVIS: The urinary bladder is partially distended. The prostate gland measures 3.5 cm in transvers e diameter. ABDOMINAL WALL: Anasarca. BONES: No acute findings. OTHER: No other finding. IMPRESSION: 1. Cirrhosis complicated by HCC and portal hypertension (ascites, paraesophageal varice s, and portal hypertensive enteropathy / colopathy). 2. Cholelithiasis. 3. Nephrolithiasis without obstructive uropathy. TECHNICAL DOCUMENTATION: JOB ID: [id number] Quality ID # [id number]: Final reports with documentation of one or more dose reduction techniques (e.g., Au tomated exposure control, adjustment of the mA and/or kV according to patient size, use of iterative reconstruction technique) 2010 [employer]- All Rights Reserved Reading location - IP/workstation name: [email or web address]
--- NOTE | 2019-07-27 17:30 | Progress Note ---
Provider Note Provider Note: Patient's ascites appears to be getting worse clinically. Patient is having more abdominal pain than yesterday, I feel like on the basis of distention and strictly mechanical. KUB as well as CT scan of the abdomen and pelvis shows multiple pockets of fluid, located by bowel rounding these pockets. After discussing with interventional radiologist he does not feel that he would be able to get enough fluid out to cause a clinical improvement. His daughter tells me that this is the same thing that happened several months ago when he had to have paracentesis done at [facility]. Called [facility] transfer [place] and explained this to him and they are going to try and move him up on the list, waiting for a bed. Patient is in no respiratory distress now but if this continues at the same rate within the next 24 to 36 hours he may be.
--- NOTE | 2019-07-27 17:42 | PDOC TRANSFER SUMMARY ---
General Admission Date/PCP: 07/17/19 10:40 VENKATA SAAB MD Resuscitation Status: Full Code - Transfer Diagnosis (1) Acute kidney injury Is this a current diagnosis for this admission?: Yes (2) Acute respiratory failure with hypoxia Is this a current diagnosis for this admission?: Yes (3) History of hepatitis C Is this a current diagnosis for this admission?: Yes (4) Pneumonia involving left lung Is this a current diagnosis for this admission?: Yes (5) Pneumonitis Is this a current diagnosis for this admission?: Yes (6) Septic shock Is this a current diagnosis for this admission?: Yes (7) Ascites of liver Is this a current diagnosis for this admission?: Yes (8) Leukocytosis Is this a current diagnosis for this admission?: Yes (9) Tobacco abuse Is this a current diagnosis for this admission?: Yes - Transfer Medications Home Medications: Furosemide [Lasix 40 mg Tablet] 40 mg PO DAILY 07/17/19 Metoprolol Succinate [Toprol Xl 25 mg Tab.sr] 25 mg PO Q12 07/17/19 Potassium Chloride 10 meq PO DAILY 07/17/19 Transfer Medications: Current Medications Acetaminophen (Tylenol 325 Mg Tablet) 650 mg PO Q4HP PRN PRN Reason: FEVER > 102 Stop: 08/16/19 11:38 Albuterol (Ventolin 0.083% Neb 2.5 Mg/3 Ml Ampul) 2.5 mg NEB RTQ6HP PRN PRN Reason: SHORTNESS OF BREATH Stop: 08/16/19 11:38 Enoxaparin Sodium (Lovenox Inj 40 Mg/0.4 Ml Disp.Syrin) 40 mg SUBCUT DAILY [facility] Stop: 08/16/19 11:44 Last Admin: 07/26/19 10:10 Dose: 40 mg Documented by: Furosemide (Lasix 40 Mg Tablet) 40 mg PO DAILY [facility] Stop: 08/20/19 09:59 Last Admin: 07/27/19 09:22 Dose: 40 mg Documented by: Levofloxacin (Levaquin 750 Mg Tablet) 750 mg PO DAILY [facility] Stop: 07/30/19 09:59 Last Admin: 07/27/19 09:22 Dose: 750 mg Documented by: Metoprolol Succinate (Toprol Xl 25 Mg Tab.Sr) 25 mg PO DAILY [facility] Stop: 08/18/19 09:59 Last Admin: 07/27/19 09:26 Dose: 25 mg Documented by: Nicotine (Nicoderm 14 Mg/24 Hr Transdermal Patch) 1 each TD DAILY [facility] Stop: 08/19/19 13:59 Last Admin: 07/27/19 09:23 Dose: 1 each Documented by: Oxycodone/Acetaminophen (Percocet 5-325 Mg Tablet) 1 tab PO Q6HP PRN PRN Reason: FOR PAIN Stop: 08/02/19 13:25 Last Admin: 07/27/19 14:53 Dose: 1 tab Documented by: Prednisone (Deltasone 20 Mg Tablet) 40 mg PO DAILY [facility] Stop: 08/25/19 09:59 Last Admin: 07/27/19 09:23 Dose: 40 mg Documented by: Sodium Chloride (Saline Flush 2.5 Ml Monoject Prefil Syrin) 2.5 ml IV Q8 [facility] Stop: 08/16/19 13:59 Last Admin: 07/27/19 14:55 Dose: 2.5 ml Documented by: Spironolactone (Aldactone 25 Mg Tablet) 12.5 mg PO DAILY [facility] Stop: 08/25/19 09:59 Last Admin: 07/27/19 09:26 Dose: 12.5 mg Documented by: - Allergies Allergies/Adverse Reactions: No Known Allergies Allergy (Verified 09/02/17 10:01) Hospital Course Hospital Course: Patient was admitted to the hospital on 07/17/2019 with septic shock. In the emergency room the patient was placed on Levophed and BiPAP. Patient presented with flulike symptoms fever chills body aches. Chest x-ray showed a left upper lobe pneumonia. She has a complicated past medical history including COPD, atrial fib and flutter, as well as liver cancer. Patient's daughter tells me that a couple of months ago he was transferred to [facility], intubated, that time had to have paracentesis done at was technically difficult. Patient appears to be heading down the same path with his history of alcoholic cirrhosis, as well as hepatitis C, and liver cancer.. 07/20/2019 patient was transferred out of the ICU to the floor primary complaint of pneumococcal bacteremia acute respiratory failure with hypoxia secondary to pneumonia and cirrhosis of the liver secondary to alcohol and hepatitis C. patient has been making good progress with his treatment for pneumonia and is now on 2 L of nasal cannula with a saturation in the low 90s. Recently patient had been maintained on 4 5 L. However patient appears to be more distended in his abdomen secondary to the ascites, patient is complaining of more abdominal pain, and our interventional radiologist here do not feel that they can safely remove enough fluid to give patient any relief. Spoken to the patient as well as his daughter who is a nurse and have told him that I am going to call [facility] to see if we can move him up on the transfer list. Patient is not in any respiratory distress at this time but I feel like to prevent that he should be at a higher level of care Physical Exam Vital Signs: Temp Pulse Resp BP Pulse Ox 97.5 F 70 22 H 103/65 97 07/27/19 15:37 07/27/19 15:37 07/27/19 15:37 07/27/19 15:37 07/27/19 15:37 Intake & Output 07/26/19 07/27/19 07/28/19 06:59 06:59 06:59 Intake Total 1080 775 Output Total 250 Balance 830 775 Weight 58.1 kg 62 kg General appearance: PRESENT: mild distress, other - Wake alert sitting up in the chair speaking in full sentences Respiratory exam: PRESENT: decreased breath sounds Cardiovascular exam: PRESENT: RRR. ABSENT: diastolic murmur, rubs, systolic murmur GI/Abdominal exam: PRESENT: ascites, distended, firm, normal bowel sounds Neurological exam: PRESENT: alert, awake, oriented to person, oriented to place, oriented to time, oriented to situation, CN II-XII grossly intact. ABSENT: motor sensory deficit Psychiatric exam: PRESENT: appropriate affect, normal mood. ABSENT: homicidal ideation, suicidal ideation Results Laboratory Results: 07/26/19 05:17 07/26/19 05:17 07/17/19 09:02 Troponin I < 0.012 NT-Pro-B Natriuret Pep 2710 H Impressions: Chest CT 07/18/19 00:00 IMPRESSION: 1. Extensive left upper lobe and left lower lobe pneumonia. Additional findings include patchy multifocal additional areas of pneumonia with small effusions. 2. Upper abdominal findings as above. Chest X-Ray 07/23/19 00:00 IMPRESSION: Marked progression of diffuse parenchymal opacities. Differential includes pneumonia and vaping related injuries. Chest/Abdomen CTA 07/24/19 00:00 IMPRESSION: 1. NORMAL CTA OF THE CHEST. NO PULMONARY EMBOLI. 2. SIGNIFICANT WORSENING IN APPEARANCE OF THE CHEST. EXTENSIVE GROUND-GLASS OPACITIES WHICH MAY BE DUE TO PNEUMONITIS. VAPING IS A POSSIBILITY. COULD ALSO BE DUE TO INFECTION, INCLUDING PNEUMOCYSTIS. 3. GALLSTONES. ASCITES. Abdomen Ultrasound 07/27/19 00:00 IMPRESSION: Mild amount of ascites. Abdomen/Pelvis CT 07/27/19 00:00 IMPRESSION: 1. Cirrhosis complicated by HCC and portal hypertension (ascites, paraesophageal varices, and portal hypertensive enteropathy / colopathy). 2. Cholelithiasis. 3. Nephrolithiasis without obstructive uropathy. KUB X-Ray 07/27/19 00:00 IMPRESSION: 1. Nonobstructive bowel gas pattern. 2. Cholelithiasis. Plan Discharge Plan: From the respiratory standpoint patient is doing much better on his prednisone 40 mg daily. Patient is also getting Lasix 40 mg daily. Also Aldactone 12.5 mg daily. Patient is on Levaquin 750 mg daily for his pneumonia Continue the above treatment. Continue to try to transfer patient to [facility] for probable paracentesis and possible bronchoscopy. Time Spent: Greater than 30 Minutes
[2019-07-27] MEDS: ALBUMIN HUMAN 12.5 GM/50 ML RTUINJ IV SCH ×2 (20:17→21:25)
[2019-07-28] MEDS ORDERED: MAG HYDROX/AL HYDROX/SIMETH SUSP 30 ML UDCUP ONE (08:11)
[2019-07-28] MEDS ORDERED: MAG HYDROX/AL HYDROX/SIMETH SUSP 30 ML UDCUP PO PRN (08:16)
[2019-07-28] MEDS: LEVOFLOXACIN 750 MG TABLET PO SCH (09:21)
[2019-07-28] MEDS: SPIRONOLACTONE 25 MG TABLET PO SCH (09:21)
[2019-07-28] MEDS: FUROSEMIDE 40 MG TABLET PO SCH (09:21)
[2019-07-28] MEDS: METOPROLOL SUCCINATE 25 MG TAB.SR.24H PO SCH (09:21)
[2019-07-28] MEDS: PREDNISONE 20 MG TABLET PO SCH (09:21)
[2019-07-28] MEDS: ENOXAPARIN SODIUM INJ 40 MG/0.4 ML DISP.SYRIN SUBCUT SCH (09:22)
[2019-07-28] MEDS: NICOTINE 14 MG/24 HR PATCH.TD24 TD SCH (09:23)
[2019-07-28] MEDS ORDERED: FAMOTIDINE 20 MG TABLET PO SCH (10:00)
--- NOTE | 2019-07-28 12:04 | PDOC PROGRESS REPORT ---
Subjective Progress Note for:: 07/28/19 Reason For Visit: SEPTIC SHOCK FROM CAP, DEHYDRATION, POSSIBLE 07/28/2019 Lower lobe pneumonia, hepatitis C, hypotension, tachycardia, leukocytosis, ascites, cirrhosis, pneumonitis Physical Exam Vital Signs: Temp Pulse Resp BP Pulse Ox 98.8 F 76 20 105/58 L 95 07/28/19 11:14 07/28/19 11:14 07/28/19 11:14 07/28/19 11:14 07/28/19 11:14 Intake & Output 07/27/19 07/28/19 07/29/19 06:59 06:59 06:59 Intake Total 1080 2275 Output Total 250 Balance 830 2275 Weight 62 kg 61.2 kg General appearance: PRESENT: no acute distress Respiratory exam: PRESENT: decreased breath sounds Cardiovascular exam: PRESENT: RRR. ABSENT: diastolic murmur, rubs, systolic murmur GI/Abdominal exam: PRESENT: ascites, distended, other - Less abdominal distention today Neurological exam: PRESENT: alert, awake, oriented to person, oriented to place, oriented to time, oriented to situation, CN II-XII grossly intact. ABSENT: motor sensory deficit Psychiatric exam: PRESENT: appropriate affect, normal mood. ABSENT: homicidal ideation, suicidal ideation Results Laboratory Results: 07/26/19 05:17 07/26/19 05:17 07/17/19 09:02 Troponin I < 0.012 NT-Pro-B Natriuret Pep 2710 H Impressions: Chest CT 07/18/19 00:00 IMPRESSION: 1. Extensive left upper lobe and left lower lobe pneumonia. Additional findings include patchy multifocal additional areas of pneumonia with small effusions. 2. Upper abdominal findings as above. Chest X-Ray 07/23/19 00:00 IMPRESSION: Marked progression of diffuse parenchymal opacities. Differential includes pneumonia and vaping related injuries. Chest/Abdomen CTA 07/24/19 00:00 IMPRESSION: 1. NORMAL CTA OF THE CHEST. NO PULMONARY EMBOLI. 2. SIGNIFICANT WORSENING IN APPEARANCE OF THE CHEST. EXTENSIVE GROUND-GLASS OPACITIES WHICH MAY BE DUE TO PNEUMONITIS. VAPING IS A POSSIBILITY. COULD ALSO BE DUE TO INFECTION, INCLUDING PNEUMOCYSTIS. 3. GALLSTONES. ASCITES. Abdomen Ultrasound 07/27/19 00:00 IMPRESSION: Mild amount of ascites. Abdomen/Pelvis CT 07/27/19 00:00 IMPRESSION: 1. Cirrhosis complicated by HCC and portal hypertension (ascites, paraesophageal varices, and portal hypertensive enteropathy / colopathy). 2. Cholelithiasis. 3. Nephrolithiasis without obstructive uropathy. KUB X-Ray 07/27/19 00:00 IMPRESSION: 1. Nonobstructive bowel gas pattern. 2. Cholelithiasis. Assessment and Plan - Diagnosis (1) Acute kidney injury Is this a current diagnosis for this admission?: Yes (2) Acute respiratory failure with hypoxia Is this a current diagnosis for this admission?: Yes (3) History of hepatitis C Is this a current diagnosis for this admission?: Yes (4) Pneumonia involving left lung Qualifiers: Pneumonia type: due to Pneumococcus Lung location: unspecified part of lung Qualified Code(s): J13 - Pneumonia due to Streptococcus pneumoniae Is this a current diagnosis for this admission?: Yes (5) Pneumonitis Is this a current diagnosis for this admission?: Yes (6) Septic shock Is this a current diagnosis for this admission?: Yes (7) Ascites of liver Is this a current diagnosis for this admission?: Yes (8) Leukocytosis Is this a current diagnosis for this admission?: Yes (9) Tobacco abuse Is this a current diagnosis for this admission?: Yes (10) Liver cancer Qualifiers: Liver malignancy type: unspecified liver malignancy Qualified Code(s): C22.9 - Malignant neoplasm of liver, not specified as primary or secondary Is this a current diagnosis for this admission?: Yes - Plan Summary Summary: 07/26/2019 Patient is sitting up in chair speaking in full sentences does not appear to be short of breath. States he feels much better today than yesterday Temperature 97 4 pulse 92 which is his baseline, blood pressure 107/64 2 sat between 90 and 97% on 4 or 5 L of nasal cannula. It appears to be oxygen dependent now. He scan done on 2 shows a groundglass appearance suggesting either pneumocystitis or pneumonitis Sputum cultures growing out yeast blood cultures growing out nothing in 5 days Urine cultures growing out strep pneumonia sensitive to everything but tetracycline [facility] influenzae was negative repeat flu a and B is pending Patient currently taking Lasix 40 mg p.o. daily, well is Levaquin 750 mg p.o. daily ,Aldactone 12.5 mg daily, and prednisone 40 mg daily Increase his prednisone to 60 mg a day. Think since he clinically feels better will give him another day before we talk about transferring to [facility]. Also by increasing steroids he may do a little better today. Paracentesis had to be delayed today due to Lovenox administration. Will try for tomorrow0 07/27/2019 Temperature 97.5, pulse 88 and regular, blood pressure 112/64, O2 sat between 90 and 95% on 4 L nasal cannula White count is up to 31,700 but this is due to steroids Patient had an ultrasound of his abdomen today that only showed a mild amount of ascites Patient received 60 mg of prednisone yesterday and will receive 40 mg today. She states he is a little "jittery" from the steroids but overall feels significantly improved. Less shortness of breath. Talk to nursing today and they are going to try to wean him down to 3 L of nasal cannula oxygen. I think patient's baseline saturation is between 90 and 92%. Patient's family would like him to be transferred to [facility] and they have accepted the patient however there are no beds available. Continue to treat with p.o. prednisone, continue the Lasix 40 mg daily by mouth, continue the p.o. Levaquin, aldlactone 12.5 mg daily. Patient may possibly be discharged to home before a bed becomes available he continues to improve Patient I is probably talk for at least 15 minutes and he exhibited no respiratory distress 07/28/2019 Seems to be maintaining his oxygen saturation on 3 L nasal cannula anywhere from 91-97 Blood pressure and pulse are stable Labs will be repeated today I spoke to [facility] transfer center today and he is still on the waiting list. I discussed the need for paracentesis by their interventional radiologist Had an episode of GERD this morning with vomiting. Patient states he has had this a lot in the past. Patient states that as soon as he vomited he felt much better concerning shortness of breath and abdominal pain. I have placed the patient on Pepcid 20 mg twice daily, and also ordered antacids as needed Patient's calcium level is low and I am replacing calcium today Continue p.o. prednisone and other medications I explained all this to the patient and he seems satisfied - Time Time Spent with patient: 35 or more minutes
[2019-07-28 13:31] LABS: HEMATOCRIT 35.8 % (37.9-51.0); MEAN CORPUSCULAR HEMOGLOBIN 31.2 pg (27.0-33.4); MEAN CORPUSCULAR HGB CONC 33.5 g/dL (32.0-36.0); MEAN CORPUSCULAR VOLUME 93 fl (80-97); PLATELET COUNT 187 10^3/uL (150-450); RED BLOOD COUNT 3.85 10^6/uL (4.35-5.55); RED CELL DISTRIBUTION WIDTH 15.9 % (11.5-14.0); WHITE BLOOD COUNT 27.1 10^3/uL (4.0-10.5)
[2019-07-28] MEDS: CALCIUM GLUC IN NACL, ISO-OSM 1 GM/50 ML RTUPB IV SCH ×2 (13:50→14:59)
[2019-07-28 13:54] LABS: ANION GAP 6 (5-19); BLOOD UREA NITROGEN 33 mg/dL (7-20); CALCIUM 7.4 mg/dL (8.4-10.2); CARBON DIOXIDE 25 mmol/L (22-30); CHLORIDE 107 mmol/L (98-107); GLUCOSE 112 mg/dL (75-110); POTASSIUM 4.1 mmol/L (3.6-5.0)
[2019-07-28 14:51] LABS: ABSOLUTE LYMPHOCYTES# (MANUAL) 1.1 10^3/uL (0.5-4.7); ABSOLUTE MONOCYTES # (MANUAL) 1.6 10^3/uL (0.1-1.4); BASOPHILS % (MANUAL) 0 % (0-2); EOSINOPHILS % (MANUAL) 0 % (0-6); LYMPHOCYTES % (MANUAL) 4 % (13-45); MONOCYTES % (MANUAL) 6 % (3-13); SEGMENTED NEUTROPHILS % (MAN) 90 % (42-78); TOTAL CELLS COUNTED 100
[2019-07-28 14:53] LABS: ANISOCYTOSIS SLIGHT; OVALOCYTES 1+; POIKILOCYTOSIS SLIGHT; POLYCHROMASIA SLIGHT; TOXIC GRANULATION SLIGHT
[2019-07-28 14:54] LABS: PLATELET COMMENT ADEQUATE
[2019-07-28 15:09] VITALS: BP 98/50
[2019-07-28] MEDS: OXYCODONE-ACETAMINOPHEN 5-325 MG TABLET PO PRN (18:03)
[2019-07-29] MEDS ORDERED: PREDNISONE 20 MG TABLET PO SCH (10:00)
== END 2019-07-28 19:10 | disposition short-term general hospital (02) | DRG 871 ==
LOC: ER 08:55 → EH 10:40 → ICU 12:23 → 3W 07-19 21:13
PROVIDERS: ADMIT Anesthesiology; ATTEND Anesthesiology
PROC: 5A09557 Assistance with Respiratory Ventilation, Greater than 96 Consecutive Hours, Continuous Positive Airway Pressure (ICD-10-PCS; principal; 2019-07-17)
DX: A40.3 Sepsis due to Streptococcus pneumoniae (principal); R65.21 Severe sepsis with septic shock; J15.20 Pneumonia due to staphylococcus, unspecified; J96.01 Acute respiratory failure with hypoxia; N17.9 Acute kidney failure, unspecified; J44.0 Chronic obstructive pulmonary disease with (acute) lower respiratory infection; C22.9 Malignant neoplasm of liver, not specified as primary or secondary; K70.31 Alcoholic cirrhosis of liver with ascites; E86.0 Dehydration; B18.2 Chronic viral hepatitis C; J44.9 Chronic obstructive pulmonary disease, unspecified; E78.5 Hyperlipidemia, unspecified; I10 Essential (primary) hypertension; M19.042 Primary osteoarthritis, left hand; M19.041 Primary osteoarthritis, right hand; I48.91 Unspecified atrial fibrillation; F17.290 Nicotine dependence, other tobacco product, uncomplicated
CPT/HCPCS: 36415; 51702; 71045; 71046; 71250; 71275; 74018; 74177; 76705; 80048; 80053; 81001; 82533; 82803; 82962; 83605; 83735; 83880; 84100; 84484; 85025; 85027; 85379; 85610; 86317; 86701; 86710; 87040; 87070; 87077; 87086; 87088; 87150; 87186; 87205; 87804; 93005; 93010; 94640; 94660; 96365; 96367; 96375; 99291; J0610; C1751; J0282; J0456; J0696; J1160; J1650; J1815; J1940; J2270; J2930; J3475; J3490; J7030; J7060; J7120; J7512; J7620; P9047

== ENCOUNTER 2019-10-03 12:02 | Inpatient (IN) | payer MEDICAID ==
[2019-10-03] MEDS ORDERED: AMIODARONE HCL 150 MG in DEXTROSE 5%-WATER 100 ML IV ONE (12:16)
[2019-10-03] MEDS ORDERED: DEXTROSE 5%-WATER 500 ML with AMIODARONE HCL 900 MG IV PRN ×2 (12:20)
[2019-10-03] MEDS ORDERED: NORMAL SALINE 250 ML IV ONE (12:20)
[2019-10-03] MEDS ORDERED: AMIODARONE HCL INJ 150 MG/3 ML VIAL IV ONE ×2 (12:23→12:35)
[2019-10-03 12:34] LABS: HEMATOCRIT 30.4 % (37.9-51.0); HEMOGLOBIN 10.5 g/dL (13.5-17.0); MEAN CORPUSCULAR HGB CONC 34.5 g/dL (32.0-36.0); MEAN CORPUSCULAR VOLUME 93 fl (80-97); PLATELET COUNT 260 10^3/uL (150-450); RED BLOOD COUNT 3.28 10^6/uL (4.35-5.55); WHITE BLOOD COUNT 20.1 10^3/uL (4.0-10.5)
[2019-10-03 12:39] LABS: INTERNATIONAL RATION (INR) 1.85; PROTHROMBIN TIME 21.6 SEC (11.4-15.4)
[2019-10-03] MEDS ORDERED: VANCOMYCIN HCL INJ 1000 MG VIAL IV ONE (12:39)
[2019-10-03] MEDS ORDERED: CEFEPIME 2 GM/D5W RTU 2 GM/50 ML RTUPB IV ONE (12:39)
[2019-10-03] MEDS ORDERED: NORMAL SALINE 1000 ML 1,000 ML IV ONE (12:40)
[2019-10-03] MEDS ORDERED: DEXTROSE 5%-WATER 250 ML with NOREPINEPHRINE BITARTRATE 4 MG IV PRN ×4 (12:40→14:16)
[2019-10-03 12:42] LABS: D-DIMER 3.31 ug/mL (0.00-0.50)
[2019-10-03] MEDS ORDERED: NOREPINEPHRINE BITARTRATE INJ/PF 4 MG/4 ML SDV IV ONE ×2 (12:48→18:43)
--- NOTE | 2019-10-03 12:50 | RADIOLOGY REPORT (SQ) ---
EXAM DESCRIPTION: CHEST SINGLE VIEW IMAGES COMPLETED DATE/TIME: 10/03/2019 12:41 pm REASON FOR STUDY: sobr/tachycardia COMPARISON: PA and lateral views of the chest from 07/23/2019. EXAM PARAMETERS: NUMBER OF VIEWS: One view. TECHNIQUE: An AP view of the chest was obtained. RADIATION DOSE: NA LIMITATIONS: None. FINDINGS: LUNGS AND PLEURA: Multi-lobar multifocal parenchymal opacities in the right upper lobe an d inferior left hemithorax. There is no sizable pleural effusion or pneumothorax. MEDIASTINUM AND HILAR STRUCTURES: No mediastinal or hilar contour abnormality. HEART AND VASCULAR STRUCTURES: The cardiac silhouette and pulmonary vasculature are within normal swanson its. BONES: No acute findings. HARDWARE: None in the chest. OTHER: No other finding. IMPRESSION: Multi-lobar multifocal parenchymal opacities in the right upper lobe and inferior left h emithorax. Clinical correlation to exclude a multifocal pneumonia is recommended. TECHNICAL DOCUMENTATION: JOB ID: [id number] 2010 [employer]- All Rights Reserved Reading location - IP/workstation name: [email or web address]
[2019-10-03 12:53] LABS: ALBUMIN 1.5 g/dL (3.5-5.0); ALKALINE PHOSPHATASE 56 U/L (38-126); ANION GAP 7 (5-19); ASPARTATE AMINO TRANSFERASE 86 U/L (17-59); BILIRUBIN,DIRECT 0.5 mg/dL (0.0-0.4); BILIRUBIN,TOTAL 1.8 mg/dL (0.2-1.3); BLOOD UREA NITROGEN 28 mg/dL (7-20); CARBON DIOXIDE 15 mmol/L (22-30); CHLORIDE 115 mmol/L (98-107); CREATINE KINASE 39 U/L (55-170); POTASSIUM 3.1 mmol/L (3.6-5.0)
[2019-10-03 13:03] LABS: ABSOLUTE LYMPHOCYTES# (MANUAL) 0.4 10^3/uL (0.5-4.7); ABSOLUTE MONOCYTES # (MANUAL) 0.8 10^3/uL (0.1-1.4); BAND NEUTROPHILS % (MANUAL) 2 % (3-5); BASOPHILS % (MANUAL) 0 % (0-2); EOSINOPHILS % (MANUAL) 0 % (0-6); LYMPHOCYTES % (MANUAL) 2 % (13-45); MONOCYTES % (MANUAL) 4 % (3-13); SEGMENTED NEUTROPHILS % (MAN) 92 % (42-78); TOTAL CELLS COUNTED 100
[2019-10-03 13:06] LABS: ANISOCYTOSIS 1+; OVALOCYTES SLIGHT; PARTIAL THROMBOPLASTIN TIME < 20.0 SEC (23.5-35.8); TOXIC GRANULATION SLIGHT; TOXIC VACUOLATION PRESENT
[2019-10-03 13:07] LABS: ALCOHOL < 10 mg/dL (NONE DETECTED); BURR CELLS SLIGHT; GLUCOSE 60 mg/dL (75-110); PLATELET COMMENT ADEQUATE; POLYCHROMASIA SLIGHT
[2019-10-03 13:09] LABS: CREATINE KINASE MB 1.88 ng/mL (<4.55)
[2019-10-03 13:16] LABS: CALCIUM 6.1 mg/dL (8.4-10.2)
[2019-10-03 13:17] LABS: TROPONIN I 0.081 ng/mL
[2019-10-03] MEDS ORDERED: CALCIUM GLUCONATE 1000 MG/10 ML INJ IV ONE (13:18)
[2019-10-03] MEDS ORDERED: DEXTROSE 50%-WATER 25 GM/50 ML DISP.SYRIN IV ONE ×3 (13:25→13:27)
[2019-10-03 13:31] LABS: ARTERIAL BLOOD BASE EXCESS -6.2 mmol/L; ARTERIAL BLOOD H2CO3 0.76 mmol/L (1.05-1.35); ARTERIAL BLOOD HCO3 16.4 mmol/L (20-24); ARTERIAL BLOOD PCO2 25.4 mmHg (35-45); ARTERIAL BLOOD PH 7.43 (7.35-7.45); ARTERIAL BLOOD TOTAL CO2 17.2 mmol/L (23-27)
[2019-10-03 13:35] LABS: APPEARANCE,URINE CLEAR; BILIRUBIN,URINE NEGATIVE (NEGATIVE); COLOR,URINE YELLOW; GLUCOSE, URINE NEGATIVE (NEGATIVE); KETONES,URINE NEGATIVE (NEGATIVE); LEUKOCYTE ESTERASE,URINE NEGATIVE (NEGATIVE); NITRITE,URINE NEGATIVE (NEGATIVE); PROTEIN,URINE 30 mg/dL (NEGATIVE)
[2019-10-03 13:37] LABS: ARTERIAL BLOOD FIO2 3L
[2019-10-03 13:45] LABS: A TYPE INFLUENZA AG NEGATIVE (NEGATIVE); B INFLUENZA AG NEGATIVE (NEGATIVE)
[2019-10-03 13:47] LABS: ARTERIAL BLOOD O2 SATURATION 61.2 % (94-98); ARTERIAL BLOOD PO2 30.3 mmHg (80-100)
[2019-10-03] MEDS ORDERED: DILTIAZEM HCL INJ 25 MG/5 ML VIAL ONE (13:49)
[2019-10-03 13:52] LABS: URINE AMPHETAMINES SCREEN NEGATIVE; URINE BARBITURATES SCREEN NEGATIVE; URINE BENZODIAZEPINES SCREEN NEGATIVE; URINE COCAINE SCREEN NEGATIVE; URINE MARIJUANA (THC) SCREEN NEGATIVE; URINE METHADONE SCREEN NEGATIVE; URINE PHENCYCLIDINE SCREEN NEGATIVE
[2019-10-03] MEDS ORDERED: DILTIAZEM HCL INJ 25 MG/5 ML VIAL IV ONE (14:00)
[2019-10-03] MEDS ORDERED: FENTANYL CITRATE INJ/PF 100 MCG/2 ML AMPUL ONE (14:11)
[2019-10-03] MEDS ORDERED: PROPOFOL 1,000 MG/100 ML INFUS..BTL IV PRN ×2 (14:15→15:16)
[2019-10-03] MEDS ORDERED: FENTANYL CITRATE INJ/PF 100 MCG/2 ML AMPUL IV ONE (14:17)
[2019-10-03] MEDS ORDERED: RINGERS SOLUTION,LACTATED 1,000 ML IV PRN (15:16)
[2019-10-03] MEDS ORDERED: ZINC SULFATE 220 MG CAPSULE PO ONE (16:30)
[2019-10-03] MEDS ORDERED: CHOLECALCIFEROL (D3) 1,000 UNIT (25 MCG) TABLET PO SCH (16:30)
[2019-10-03] MEDS ORDERED: HYDROXYCHLOROQUINE SULFATE 200 MG TABLET PO SCH (16:30)
[2019-10-03] MEDS ORDERED: ASCORBIC ACID 500 MG TABLET PO SCH (16:30)
[2019-10-03 16:32] LABS: C-REACTIVE PROTEIN 184.8 mg/L (<10.0)
[2019-10-03 16:35] LABS: CARCINOEMBRYONIC ANTIGEN 3.05 ng/mL (<3.0)
[2019-10-03] MEDS ORDERED: THIAMINE HCL INJ 200 MG/2 ML VIAL IV SCH (17:00)
[2019-10-03 17:01] LABS: INTERNATIONAL RATION (INR) 1.89
[2019-10-03] MEDS: THIAMINE HCL 500 MG in NORMAL SALINE 250 ML IV SCH (17:04)
[2019-10-03 17:19] LABS: PARTIAL THROMBOPLASTIN TIME 41.8 SEC (23.5-35.8)
[2019-10-03 17:44] LABS: TROPONIN I 0.095 ng/mL
[2019-10-03] MEDS ORDERED: PHARMACY COMMUNICATION ORDER MC NR (17:45)
--- NOTE | 2019-10-03 18:13 | Operative Report ---
Bedside Procedure - History of Present Illness History of Present Illness: 63-year-old white male presented with acute hypoxic respiratory failure with respiratory distress. Suspected to have SARS, 2-CoViD19 he required intubation secondary to early respiratory fatigue Procedure Endotracheal Intubation: Indication: Hypoxic respiratory failure with concern for SARS, 2-CoViD1 Post procedure diagnosis: Same Attending physician: Indy Consent: We will given by patient Consent was obtained from patient prior to the procedure. Indications, risks and benefits were explained at length. Procedure summary: A timeout was performed. Both this author and to nurses were PPE with mask and and 95 protection. This was also donned by the respiratory therapist. And intubating plastic containment shield was then placed over the patient. My hands were washed immediately prior to the procedure. I were surgical cap, mask with protective eyewear, gown and gloves throughout the procedure. The patient was placed on a monitoring manager including continuous pulse oximetry. Rapid sequence intubation done. The patient received 100 Mcg of continue as well as 20 mg of etomidate for induction and 100 mg mg of peroneum for adequate paralysis. No bag mask valve use was needed nor used. Using a S4 glide scope and a size 7.5 endotracheal tube with stylette, the patient was intubated on the first attempt. The stylette was removed and the cuff balloon was inflated. Appropriate endotracheal tube position was confirmed by direct visualization of vocal cord passage, CO2 colorimetric indicator and symmetric chest rise. Lung sounds not auscultated secondary to the confines of PPE and poor auditory capability of disposable stethoscope.The tube was secured at 24 centimeters at the lips. Post intubation chest x-ray confirms ET tube at appropriate position 2 to 3 cm centimeters above the jacki Indication for Procedure: Hypoxic respiratory Failure; SARS, 2-CoViD19 Date: 10/03/19 Provider: CHRYSTAL BARNES
--- NOTE | 2019-10-03 18:34 | CRITICAL CARE ADMISSION REPORT ---
HPI Date:: 10/03/19 Time:: 15:00 Reason for ICU Reason:: Acute hypoxic respiratory failure with possible SARS, 2- CoViD19 HPI: 63-year-old white male presented with acute hypoxic respiratory failure with respiratory distress. Has a history of liver cancer presumably from hepatitis C and alcohol exposure in the past. Suspected to have SARS, 2-CoViD19 he required intubation secondary to early respiratory fatigue in Emergency room by this author. He states he had not been feeling well for slightly over a week. He has had a dry cough. 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 Emergency room notes: "This 63-year-old male with history of atrial fibrillation, hepatitis C, pneumonia, COPD, intubation for respiratory distress presents to the emergency department via EMS with a chief complaint of shortness of breath. Patient complains that he is "hurting all over". Patient said that a physician has "said something about" having an irregular heartbeat. Patient mentions that he has been laying in bed for the past two weeks. EMS reports that patient's blood pressure was 80/50 and was tachypneic. Patient reports abdominal pain." As can be seen some of the stories are disparate in the patient's respiratory status had worsened. He endorsed tiring. Rapid sequence intubation occurred under protective mechanisms against SARS, 2- CoViD19 Patient had been here in July and reviewing his x-ray appeared to have a viral pneumonitis at that time. He either had influenza or SARS, 2-CoViD19 at that time however given his successful recovery it is unlikely he had SARS, 2- CoViD19. Prior to intubation he told us that he had rods in his neck. Patient was intubated with glide scope with careful neutral position of his neck History obtained from:: Patient, daughter, ED - Diagnosis/Plan (1) Acute respiratory failure with hypoxia Is this a current diagnosis for this admission?: Yes (2) Suspected COVID-19 virus infection Is this a current diagnosis for this admission?: Yes (3) Atrial fibrillation with RVR Is this a current diagnosis for this admission?: Yes (4) Protein-calorie malnutrition, moderate Is this a current diagnosis for this admission?: Yes (5) Sepsis Qualifiers: Sepsis type: sepsis due to unspecified organism Sepsis acute organ dysfunction status: without acute organ dysfunction Qualified Code(s): A41.9 - Sepsis, unspecified organism Is this a current diagnosis for this admission?: Yes (6) Lactic acidosis Is this a current diagnosis for this admission?: Yes - . Plan Summary: Obviously patient required intubation. Will send specimens for respiratory viral PCR as well as SARS, 2-CoViD19 studies He will be started on Plaquenil and full treatment Lovenox for elevated d-dimer. Until measurement of ferritin and CRP will be done. Broad-spectrum antibiotics until can be ascertained that there is no bacterial infection Procalcitonin is not available in a timely fashion to assist us with de- escalation Had a short discussion with the patient reguarding goals of care and if he should have an untimely cardiac arrest. He would want full resuscitation. Discussed, at length with his daughter Nicole Sanchez who is his daughter and power of estate attorney. He is aware that she may have to make decisions for him if he becomes worse. She is a nurse at [facility] emergency room Will adjust ventilator to support hypoxia. Control atrial fibrillation with a non-amiodarone drugs so as to not worsen lung disease--if this does not improve with intubation. He has a history of liver cancer and have sent alpha-fetoprotein and CEA levels. He has a mild transaminitis which may be related to infection. 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 He will be admitted to the ICU central lines will be placed an arterial catheter to facilitate lab draws. Prognosis and mortality can be high in this pandemic given his comorbid illnesses. Past Medical History Cardiac Medical History: Denies: Coronary Artery Disease, Myocardial Infarction, Hypertension Pulmonary Medical History: Denies: Asthma, Bronchitis, Chronic Obstructive Pulmonary Disease (COPD), Pneumonia Neurological Medical History: Denies: Seizures GI Medical History: Reports: Hepatitis Musculoskeltal Medical History: Reports: Arthritis - Hands Hematology: Denies: Anemia Past Surgical History Past Surgical History: Reports: Orthopedic Surgery - Removal of multiple disc from neck area Social/Family History - Social History Smoking Status: Former Smoker Last Alcohol Use: 02/20/19 Hx Recreational Drug Use: No - Family History Family History: Reviewed & Not Pertinent - Medication/Allergies Home Medications: Furosemide [Lasix 40 mg Tablet] 40 mg PO DAILY 07/17/19 Potassium Chloride 10 meq PO DAILY 07/17/19 Gabapentin [Neurontin 100 mg Capsule] 100 mg PO TID 10/03/19 Spironolactone 100 mg PO DAILY 10/03/19 Allergies/Adverse Reactions: No Known Allergies Allergy (Verified 09/02/17 10:01) Review of Systems ROS unobtainable: Due to mental status All systems: reviewed and no additional remarkable complaints except as stated Constitutional: PRESENT: fever(s). ABSENT: chills Respiratory: PRESENT: cough. ABSENT: hemoptysis Gastrointestinal: PRESENT: diarrhea. ABSENT: abdominal pain Musculoskeletal: PRESENT: as per HPI, other - Neck pain and stiffness with serafin placement Neurological: PRESENT: weakness Physical Exam Vital Signs: Temp Pulse Resp BP Pulse Ox 98.6 F 164 H 15 99/53 L 94 10/03/19 12:30 10/03/19 12:30 10/03/19 17:55 10/03/19 17:55 10/03/19 17:55 Intake & Output 10/02/19 10/03/19 10/04/19 06:59 06:59 06:59 Intake Total 1556 Balance 1556 Weight 56.699 kg Weight/Height Weight 56.699 kg Height 5 ft 9 in General appearance: PRESENT: disheveled, severe distress, thin Exam: Older appearing 63-year-old white male who is in respiratory distress. He appears to be tiring. Rate is 142 pressure 110/60 Head exam: PRESENT: atraumatic, normocephalic Eye exam: PRESENT: conjunctiva pink, EOMI, PERRLA. ABSENT: conjunctival injec tion, nystagmus, scleral icterus Ear exam: PRESENT: normal external ear exam Mouth exam: PRESENT: dry mucosa Teeth exam: PRESENT: edentulous Throat exam: ABSENT: post pharyngeal erythema, tonsillar erythema, tonsillar exudate Neck exam: ABSENT: full ROM, JVD Respiratory exam: PRESENT: accessory muscle use, tachypnea, other - Lung sounds not auscultated secondary to the confines of PPE and poor auditory capability of disposable stethoscope. ABSENT: unlabored Cardiovascular exam: PRESENT: irregular rhythm, tachycardia, other - Heart sounds not auscultated secondary to the confines of PPE and poor auditory capability of disposable stethoscope Vascular exam: PRESENT: normal capillary refill GI/Abdominal exam: PRESENT: soft, other - Gastric sounds not auscultated secon ana to the confines of PPE and poor auditory capability of disposable stethoscope. ABSENT: ascites, distended, guarding, mass, organolmegaly, rebound, tenderness Rectal exam: PRESENT: deferred Gentrourinary exam: ABSENT: scrotal swelling Extremities exam: ABSENT: pedal edema Musculoskeletal exam: ABSENT: deformity, dislocation Neurological exam: PRESENT: altered - Slight decrease with lethargy. No focal deficits Psychiatric exam: PRESENT: anxious Focused psych exam: PRESENT: restlessness Skin exam: PRESENT: dry, intact, warm. ABSENT: cyanosis, jaundice, rash Laboratory/Radiographs Laboratory Results: 10/03/19 12:15 10/03/19 12:15 10/03/19 10/03/19 10/03/19 12:15 12:15 12:15 WBC 20.1 H RBC 3.28 L Hgb 10.5 L Hct 30.4 L MCV 93 MCH 32.0 MCHC 34.5 RDW 17.0 H Plt Count 260 Seg Neutrophils % Not Reportable Carbonic Acid HCO3/H2CO3 Ratio ABG pH ABG pCO2 ABG pO2 ABG HCO3 ABG O2 Saturation ABG Base Excess Methemoglobin FiO2 Sodium 137.0 Potassium 3.1 L Chloride 115 H Carbon Dioxide 15 L Anion Gap 7 BUN 28 H Creatinine 0.69 Est GFR ( Amer) > 60 Glucose 60 L Lactic Acid Calcium 6.1 L* Ferritin 130.00 Total Bilirubin 1.8 H AST 86 H Alkaline Phosphatase 56 Ammonia C-Reactive Protein 184.8 H Total Protein 5.0 L Albumin 1.5 L Lipase 57.5 TSH Urine Color Urine Appearance Urine pH Ur Specific [place] Urine Protein Urine Glucose (UA) Urine Ketones Urine Blood Urine Nitrite Ur Leukocyte Esterase Urine WBC (Auto) Urine RBC (Auto) 10/03/19 10/03/19 10/03/19 12:15 13:10 13:10 WBC RBC Hgb Hct MCV MCH MCHC RDW Plt Count Seg Neutrophils % Carbonic Acid 0.76 L HCO3/H2CO3 Ratio 21:1 ABG pH 7.43 ABG pCO2 25.4 L ABG pO2 30.3 L* ABG HCO3 16.4 L ABG O2 Saturation 61.2 L ABG Base Excess -6.2 Methemoglobin FiO2 3L Sodium Potassium Chloride Carbon Dioxide Anion Gap BUN Creatinine Est GFR ( Amer) Glucose Lactic Acid Calcium Ferritin Total Bilirubin AST Alkaline Phosphatase Ammonia C-Reactive Protein Total Protein Albumin Lipase TSH 3.26 Urine Color YELLOW Urine Appearance CLEAR Urine pH 6.0 Ur Specific [place] 1.020 Urine Protein 30 H Urine Glucose (UA) NEGATIVE Urine Ketones NEGATIVE Urine Blood NEGATIVE Urine Nitrite NEGATIVE Ur Leukocyte Esterase NEGATIVE Urine WBC (Auto) 7 Urine RBC (Auto) 1 10/03/19 10/03/19 10/03/19 15:25 16:33 16:33 WBC RBC Hgb Hct MCV MCH MCHC RDW Plt Count Seg Neutrophils % Carbonic Acid HCO3/H2CO3 Ratio ABG pH ABG pCO2 ABG pO2 ABG HCO3 ABG O2 Saturation ABG Base Excess Methemoglobin 0.8 FiO2 Sodium Potassium Chloride Carbon Dioxide Anion Gap BUN Creatinine Est GFR ( Amer) Glucose Lactic Acid 4.9 H Calcium Ferritin Total Bilirubin AST Alkaline Phosphatase Ammonia 26.7 C-Reactive Protein Total Protein Albumin Lipase TSH Urine Color Urine Appearance Urine pH Ur Specific [place] Urine Protein Urine Glucose (UA) Urine Ketones Urine Blood Urine Nitrite Ur Leukocyte Esterase Urine WBC (Auto) Urine RBC (Auto) 10/03/19 10/03/19 10/03/19 12:15 12:15 12:15 Creatine Kinase 39 L 42 L CK-MB (CK-2) 1.88 Troponin I 0.081 NT-Pro-B Natriuret Pep 4050 H 10/03/19 16:33 Creatine Kinase CK-MB (CK-2) Troponin I 0.095 NT-Pro-B Natriuret Pep 6400 H Impressions: Chest X-Ray 10/03/19 12:19 IMPRESSION: Multi-lobar multifocal parenchymal opacities in the right upper lobe and inferior left hemithorax. Clinical correlation to exclude a multifocal pneumonia is recommended. All labs, radiographs, diagnostic studies and EKGs were personally reviewed: Yes In addition, reports of radiographic and diagnostic studies were read: Yes Critical Time Critical Time (minutes): 80 -: The care of a critically ill patient is dynamic. This note represents a static moment in the admission process. Orders and treatments may be given simultaneously and urgently, and time is not screening representative of the treatment process. This patient requires Critical Care secondary to life threatening organ or limb dysfunction. Without Critical Care services, the patient is at risk for incre ased mortality and morbidity.
--- NOTE | 2019-10-03 18:38 | EKG REPORT ---
SEVERITY:- ABNORMAL ECG - ATRIAL FIBRILLATION, V-RATE 150/MIN LVH : Confirmed by: Dave Flaherty MD 03-Oct-2019 18:38:06
--- NOTE | 2019-10-03 18:48 | ER Document Report ---
Entered by XAVIER TRIPP SCRIBE 10/03/19 1216 Acting as scribe for:NORM WOODSON MD ED General - General Stated Complaint: SHORTNESS OF BREATH Time Seen by Provider: 10/03/19 12:05 Information source: Patient Notes: This 63-year-old male with history of atrial fibrillation, hepatitis C, pneumonia, COPD, intubation for respiratory distress presents to the emergency department via EMS with a chief complaint of shortness of breath. Patient complains that he is "hurting all over". Patient said that a physician has "said something about" having an irregular heartbeat. Patient mentions that he has been laying in bed for the past two weeks. EMS reports that patient's blood pressure was 80/50 and was tachypneic. Patient reports abdominal pain. TRAVEL OUTSIDE OF THE [place] IN LAST 30 DAYS: No - Related Data Allergies/Adverse Reactions: No Known Allergies Allergy (Verified 09/02/17 10:01) Past Medical History - General Information source: Patient - Social History Smoking Status: Current Every Day Smoker Cigarette use (# per day): Yes Chew tobacco use (# tins/day): No Family History: Hyperlipidemia, Hypertension, Malignancy - Past Medical History Cardiac Medical History: Reports: Hx Atrial Fibrillation Pulmonary Medical History: Reports: Hx COPD, Hx Pneumonia Malignancy Medical History: Reports Hx Liver Cancer GI Medical History: Reports: Hx Hepatitis - C Musculoskeletal Medical History: Reports Hx Arthritis - Hands, Reports Hx Musculoskeletal Deformity - Degenerative disc disease especially in the neck Infectious Medical History: Reports: Hx Hepatitis - C Past Surgical History: Reports: Hx Herniorrhaphy, Hx Orthopedic Surgery - Removal of multiple disc from neck area - Immunizations Immunizations up to date: Yes Hx Diphtheria, Pertussis, Tetanus Vaccination: Yes Review of Systems - Review of Systems Constitutional: No symptoms reported EENT: No symptoms reported Cardiovascular: No symptoms reported Respiratory: See HPI, Short of breath Gastrointestinal: See HPI, Abdominal pain Genitourinary: No symptoms reported Male Genitourinary: No symptoms reported Musculoskeletal: No symptoms reported Skin: No symptoms reported Hematologic/Lymphatic: No symptoms reported Neurological/Psychological: No symptoms reported -: Yes All other systems reviewed and negative Physical Exam - Vital signs Vitals: Resp 41 H 10/03/19 12:05 - Notes Notes: Physical Exam: General: Alert, appears emaciated and cachectic with generalized weakness. Hypotensive. HEENT: Normocephalic. Atraumatic. PERRL. Extraocular movements intact. Oropharynx clear. Neck: Supple. Non-tender. Respiratory: Moderate to severe respiratory distress. Diminished breath sounds bilaterally. Cardiovascular: Tachycardic. Abdominal: Epigastric tenderness to palpation with no guarding. No distension. Normal Bowel Sounds. Back: No gross abnormalities. Extremities: Moves all four extremities. Upper extremities: Normal inspection. Normal ROM. Lower extremities: Normal inspection. No edema. Normal ROM. Neurological: Normal cognition. AAOx4. Normal speech. Psychological: Normal affect. Normal Mood. Skin: Warm. Dry. Normal color. Course - Re-evaluation Re-evalutation: 10/03/19 18:42 Patient presents to the emergency department via EMS hypotensive with a systolic in the 80s with a tachycardia atrial fibrillation RVR ventricular rate of 160s. Patient also was noted to be tachypneic with increased work of breathing on nasal cannula O2 4 L with saturation around 90 to 94%. Patient has been given diltiazem in the feel to control the rapid atrial fib RVR. However patient's atrial fibrillation and rapid rate had not changed. Patient was begun on IV amiodarone for control of atrial fibrillation and further laboratories were ordered including CBC chemistries d-dimer blood cultures etc. Once we learn patient had bilateral pneumonia we determined that patient needed to be in the [facility] area of the emergency department. Antibiotics were started for patient as well as fluid boluses for blood pressure improvement. Norepinephrine drip was ordered and not given as patient's improvement in his systolic blood pressure up to 105. Patient was then given IV Cardizem 25mg with an improvement of his atrial fib RVR down to a ventricular rate of 105. Patient's blood pressure remained stable at that time. Discussed case with Dr. Putnam, feed elevator worker at the day who reported that he would come down and see patient at bedside. - Vital Signs Vital signs: Temp Pulse Resp BP Pulse Ox 98.6 F 164 H 15 99/53 L 94 10/03/19 12:30 10/03/19 12:30 10/03/19 17:55 10/03/19 17:55 10/03/19 17:55 Patient is tachycardic and hypotensive with a low saturation of 94% on 4 L nasal O2. - Laboratory Result Diagrams: 10/03/19 12:15 10/03/19 12:15 Laboratory results interpreted by me: 10/03/19 10/03/19 10/03/19 12:15 12:15 12:15 WBC 20.1 H RBC 3.28 L Hgb 10.5 L Hct 30.4 L RDW 17.0 H Seg Neuts % (Manual) 92 H Band Neutrophils % 2 L Lymphocytes % (Manual) 2 L Abs Neuts (Manual) 18.9 H Abs Lymphs (Manual) 0.4 L PT APTT D-Dimer Carbonic Acid ABG pCO2 ABG pO2 ABG HCO3 ABG Total CO2 ABG O2 Saturation Potassium 3.1 L Chloride 115 H Carbon Dioxide 15 L BUN 28 H Glucose 60 L Lactic Acid Calcium 6.1 L* Total Bilirubin 1.8 H Direct Bilirubin 0.5 H AST 86 H ALT 64 H Creatine Kinase 39 L C-Reactive Protein NT-Pro-B Natriuret Pep 4050 H Total Protein 5.0 L Albumin 1.5 L Carcinoembryonic Ag Urine Protein Urine Urobilinogen 10/03/19 10/03/19 10/03/19 12:15 12:15 13:10 WBC RBC Hgb Hct RDW Seg Neuts % (Manual) Band Neutrophils % Lymphocytes % (Manual) Abs Neuts (Manual) Abs Lymphs (Manual) PT 21.6 H APTT < 20.0 L* D-Dimer 3.31 H Carbonic Acid ABG pCO2 ABG pO2 ABG HCO3 ABG Total CO2 ABG O2 Saturation Potassium Chloride Carbon Dioxide BUN Glucose Lactic Acid Calcium Total Bilirubin Direct Bilirubin AST ALT Creatine Kinase 42 L C-Reactive Protein 184.8 H NT-Pro-B Natriuret Pep Total Protein Albumin Carcinoembryonic Ag 3.05 H Urine Protein 30 H Urine Urobilinogen 4.0 H 10/03/19 10/03/19 13:10 15:25 WBC RBC Hgb Hct RDW Seg Neuts % (Manual) Band Neutrophils % Lymphocytes % (Manual) Abs Neuts (Manual) Abs Lymphs (Manual) PT APTT D-Dimer Carbonic Acid 0.76 L ABG pCO2 25.4 L ABG pO2 30.3 L* ABG HCO3 16.4 L ABG Total CO2 17.2 L ABG O2 Saturation 61.2 L Potassium Chloride Carbon Dioxide BUN Glucose Lactic Acid 4.9 H Calcium Total Bilirubin Direct Bilirubin AST ALT Creatine Kinase C-Reactive Protein NT-Pro-B Natriuret Pep Total Protein Albumin Carcinoembryonic Ag Urine Protein Urine Urobilinogen - Diagnostic Test Radiology reviewed: Image reviewed, Reports reviewed Radiology results interpreted by me: 10/03/19 18:41 Chest x-ray one-view portable disclose multifocal infiltrates right upper lung and left lower lung consistent with pneumonia. - EKG Interpretation by Me Additional EKG results interpreted by me: 10/03/19 18:39 Twelve-lead EKG today 10/03/2019 at 1212 shows atrial fibrillation with rapid ventricular response. Ventricular rate [address]-T wave changes noted. Critical Care Note - Critical Care Note Total time excluding time spent on procedures (mins): 69 - Management and control of hypotension, atrial fibrillation with RVR, pneumonia, hypoxia, sepsis. Discharge - Discharge Clinical Impression: Respiratory failure, Bilateral pneumonia, Hypotension, Chronic atrial fibrillation with RVR, Hepatitis C, Liver cancer, COPD (chronic obstructive pulmonary disease) Sepsis Qualifiers: Sepsis type: sepsis due to unspecified organism Sepsis acute organ dysfunction status: without acute organ dysfunction Qualified Code(s): A41.9 - Sepsis, unspecified organism Condition: Critical Disposition: ADMITTED INPATIENT Admitting Provider: Indy (Director Of Marketing And Promotions) Unit Admitted: ICU I personally performed the services described in the documentation, reviewed and edited the documentation which was dictated to the scribe in my presence, and it accurately records my words and actions.
[2019-10-03] MEDS: DEXTROSE 5%-WATER 250 ML with NOREPINEPHRINE BITARTRATE 4 MG IV PRN ×4 (18:50→23:50)
[2019-10-03] MEDS ORDERED: ALBUMIN HUMAN 5% INJ 25 GM/500 ML BOTTLE IV ONE (20:00)
[2019-10-03] MEDS ORDERED: THIAMINE HCL INJ 200 MG/2 ML VIAL ONE ×2 (21:14→21:15)
[2019-10-03] MEDS: ENOXAPARIN SODIUM INJ 60 MG/0.6 ML DISP.SYRIN SUBCUT SCH (21:14)
[2019-10-03] MEDS: ASCORBIC ACID 500 MG TABLET NG SCH ×2 (21:14→23:59)
[2019-10-03] MEDS: HYDROXYCHLOROQUINE SULFATE 200 MG TABLET NG SCH (21:15)
[2019-10-03] MEDS: FAMOTIDINE 20 MG TABLET NG SCH (21:20)
[2019-10-03] MEDS: GABAPENTIN 100 MG CAPSULE PO SCH (21:22)
[2019-10-03] MEDS ORDERED: FAMOTIDINE 20 MG TABLET PO SCH (22:00)
[2019-10-03] MEDS ORDERED: ETOMIDATE INJ/PF 20 MG/10 ML SDV IV ONE (22:00)
[2019-10-03] MEDS ORDERED: AZITHROMYCIN 500 MG in DEXTROSE 5%-WATER 250 ML IV ONE (23:00)
[2019-10-03] MEDS ORDERED: LINEZOLID 600 MG/300 ML RTUPB IV ONE (23:15)
[2019-10-03] MEDS ORDERED: CEFEPIME 1 GM/D5W RTU 1 GM/50 ML RTUPB IV ONE (23:15)
[2019-10-03] MEDS ORDERED: AZITHROMYCIN INJ 500 MG VIAL IV SCH (23:59)
[2019-10-04] MEDS ORDERED: MIDAZOLAM 2 MG/2 ML INJ ONE (00:33)
[2019-10-04] MEDS ORDERED: CALCIUM GLUCONATE 1000 MG/10 ML INJ IV ONE ×2 (00:42→02:18)
[2019-10-04] MEDS ORDERED: EPINEPHRINE INJ 1 MG/10 ML DISP.SYRIN ONE ×3 (00:49→01:32)
[2019-10-04] MEDS: DEXTROSE 5%-WATER 250 ML with VASOPRESSIN 100 UNIT IV PRN ×2 (00:50)
[2019-10-04] MEDS ORDERED: VASOPRESSIN INJ 20 UNIT/1 ML VIAL ONE (00:51)
[2019-10-04] MEDS: DEXTROSE 5%-WATER 250 ML with EPINEPHRINE/PF 1 MG IV PRN ×16 (01:00→13:52)
[2019-10-04] MEDS ORDERED: EPINEPHRINE INJ 1 MG/10 ML DISP.SYRIN IV ONE (01:00)
[2019-10-04] MEDS ORDERED: CEFEPIME 1 GM/D5W RTU 1 GM/50 ML RTUPB IV ONE (01:00)
[2019-10-04] MEDS ORDERED: EPINEPHRINE INJ/PF 1 MG/1 ML AMPULE ONE ×4 (01:01→06:01)
[2019-10-04] MEDS ORDERED: PHENYLEPHRINE HCL INJ/PF 10 MG/1 ML SDV ONE ×2 (01:32→04:44)
[2019-10-04] MEDS: DEXTROSE 5%-WATER 250 ML with PHENYLEPHRINE HCL 40 MG IV PRN ×10 (01:35→17:50)
[2019-10-04] MEDS ORDERED: NOREPINEPHRINE BITARTRATE INJ/PF 4 MG/4 ML SDV IV ONE ×2 (01:52→07:19)
[2019-10-04] MEDS ORDERED: LINEZOLID 600 MG/300 ML RTUPB IV ONE ×2 (02:00→02:06)
[2019-10-04] MEDS ORDERED: POTASSI CL 20 MEQ/50 ML RIDER 20 MEQ/50 ML RTUPB IV ONE ×2 (02:05→02:18)
[2019-10-04] MEDS ORDERED: AZITHROMYCIN INJ 500 MG VIAL IV ONE (02:06)
[2019-10-04] MEDS ORDERED: MIDAZOLAM 2 MG/2 ML INJ IV ONE (02:18)
[2019-10-04] MEDS: RINGERS SOLUTION,LACTATED 1,000 ML IV PRN ×2 (02:20→03:38)
[2019-10-04] MEDS ORDERED: METHYLPREDNISOLONE INJ 125 MG/2 ML SDV ONE (02:39)
[2019-10-04] MEDS ORDERED: GLUCAGON,HUMAN RECOMB 1 MG INJ IM PRN (02:46)
[2019-10-04] MEDS ORDERED: DEXTROSE 40% GEL 15 GM TUBE PO PRN ×2 (02:46)
[2019-10-04] MEDS ORDERED: DEXTROSE 50%-WATER 25 GM/50 ML DISP.SYRIN IV PRN ×2 (02:46)
[2019-10-04 02:53] LABS: ARTERIAL BLOOD BASE EXCESS -21.6 mmol/L; ARTERIAL BLOOD H2CO3 1.77 mmol/L (1.05-1.35); ARTERIAL BLOOD HCO3 11.6 mmol/L (20-24); ARTERIAL BLOOD O2 SATURATION 78.7 % (94-98); ARTERIAL BLOOD PCO2 58.7 mmHg (35-45); ARTERIAL BLOOD PO2 68.8 mmHg (80-100); ARTERIAL BLOOD TOTAL CO2 13.4 mmol/L (23-27)
[2019-10-04 02:59] LABS: ARTERIAL BLOOD FIO2 100%
[2019-10-04] MEDS ORDERED: CALCIUM GLUCONATE 1 GM/NS 50 ML RTU IV ONE (03:00)
[2019-10-04] MEDS ORDERED: METHYLPREDNISOLONE INJ 125 MG/2 ML SDV IV ONE (03:00)
[2019-10-04 03:01] LABS: APPEARANCE,URINE CLEAR; ARTERIAL BLOOD PH 6.91 (7.35-7.45); BILIRUBIN,URINE NEGATIVE (NEGATIVE); COLOR,URINE AMBER; GLUCOSE, URINE 50 mg/dL (NEGATIVE); KETONES,URINE NEGATIVE (NEGATIVE); PROTEIN,URINE 30 mg/dL (NEGATIVE); URINE SPECIFIC GRAVITY 1.021; UROBILINOGEN,URINE NEGATIVE mg/dL (<2.0)
[2019-10-04] MEDS ORDERED: SODIUM BICARBONATE 8.4% INJ 50 MEQ/50 ML DISP.SYRIN IV ONE (03:04)
[2019-10-04] MEDS ORDERED: SODIUM BICARBONATE 8.4% INJ 50 MEQ/50 ML DISP.SYRIN ONE (03:05)
[2019-10-04 03:08] LABS: ANION GAP 14 (5-19); BLOOD UREA NITROGEN 30 mg/dL (7-20); CARBON DIOXIDE 13 mmol/L (22-30); CHLORIDE 108 mmol/L (98-107); GLUCOSE 84 mg/dL (75-110); PHOSPHORUS 7.2 mg/dL (2.5-4.5); POTASSIUM 3.9 mmol/L (3.6-5.0)
[2019-10-04] MEDS ORDERED: NORMAL SALINE INJ/PF 0.9% 10 ML SDV IV PRN (03:10)
[2019-10-04] MEDS: ALBUMIN HUMAN 12.5 GM/50 ML RTUINJ IV SCH ×2 (03:13→03:37)
[2019-10-04 03:16] LABS: URINE AMPHETAMINES SCREEN NEGATIVE; URINE BARBITURATES SCREEN NEGATIVE; URINE BENZODIAZEPINES SCREEN NEGATIVE; URINE COCAINE SCREEN NEGATIVE; URINE MARIJUANA (THC) SCREEN NEGATIVE; URINE METHADONE SCREEN NEGATIVE; URINE PHENCYCLIDINE SCREEN NEGATIVE
[2019-10-04] MEDS: INSULIN REG, HUMAN 100 UNIT/ML 3 ML VIAL (PYX) SUBCUT SCH ×4 (03:22→20:10)
--- NOTE | 2019-10-04 03:30 | Operative Report ---
Bedside Procedure - History of Present Illness History of Present Illness: 63-year-old white male with acute hypoxic respiratory failure presumed to be from COVID-19 and now refractory shock with increasing Norepinephrine requirements. To note, patient also has a history of atrial fibrillation, hepatitis C, pneumonia, COPD, liver cancer presumably from hepatitis C and alcohol exposure in the past. PROCEDURE: ARTERIAL LINE PROCEDURALIST: DENEEN MALDONADO INDICATION: Shock with increasing vasopressor requirements ANESTHESIA: 2 mL 1% Lidocaine COMPLICATIONS: none Patient placed in proper procedural position followed by prepping and draping in usual sterile fashion. Utilizing ultrasound, the left radial artery was identified and found to be pulsating though very easily collapsible with minimal pressure applied with the probe over the artery. The dermis and subcutaneous tissue was anesthetized with 2 mL of 1% lidocaine. Next, a 22-gauge introducer needle with preloaded 20-gauge 1 .75" catheter was visualized entering the left radial artery with return of a flash of blood. The catheter was advanced over the needle into the left radial artery and the needle was removed, noting pulsatile blood from the catheter. The catheter was sutured into place and the transducer tubing was hooked up to the catheter in usual fashion noting a good arterial waveform on the monitor. A sterile occlusive transparent dressing was then applied. Patient tolerated well. Systolic blood pressure noted to be in the 50s for which crystalloid boluses were then administered followed by escalating norepinephrine as well as administering small doses of epinephrine and initiating a vasopressin infusion, which will continue to be followed up. Indication for Procedure: Refractory shock Date: 10/03/19 Provider: FEI TUCKER - Central Line Right Internal jugular Time completed: 01:00 Consent obtained: Yes Central line pre-insertion: Sterile PPE donned, Chloraprep applied, Sterile drapes applied Central line size (Fr.): 7 Central line lumen type: Triple Anesthetic type: 1% Lidocaine mL's of anesthesia: 2 Ultrasound guided: Yes CM at insertion site: 17 Line secured with sutures: Yes Central line post-insertion: Blood return from lumens, Biopatch applied, Sutured, Sterile dressing applied, Position confirmed w/ CXR Number of attempts: 1 Complications: No Notes: 10/04/19 02:22 Patient placed in proper procedural position followed by prepping and draping in usual sterile fashion. Utilizing ultrasound, the right internal jugular vein was identified and noted to be free of thrombus from the angle of the mandible down to the clavicle. 2 mL of 1% lidocaine was administered to anesthetize the dermis and subcutaneous tissue. A 20-gauge introducer needle attached to a syringe under negative pressure was then visualized entering the right internal jugular vein with a return of blood in the syringe. The syringe was detached from the needle noting a slow passive ooze of blood from the needle. A guidewire was then inserted through the needle into the right internal jugular vein and the needle was removed. The wire was confirmed to be in the right internal jugular vein in 2 views utilizing ultrasound. Next, a small skin stab incision was made to prepare for dilation. A dilator was then passed over the wire to dilate the subcutaneous tissue and was subsequently removed. A 7 [place] 20 cm catheter was then passed over the wire into the right internal jugular vein and the guidewire was removed, again noting a slow passive dripping of blood from the distal lumen of the catheter. All lumens aspirated and flushed easily. The line was secured into place at 17 cm at the skin with sutures, a Biopatch was applied, and a sterile occlusive transparent dressing was applied. Patient tolerated procedure well without complication. Chest x-ray obtained demonstrating no pneumothorax and the tip of the CVC is in the SVC. Worsening right upper lobe and left lower lobe pneumonia. Tip of endotracheal tube is approximately 5 cm above the jacki and satisfactory at this time. 10/04/19 03:23
[2019-10-04] MEDS: DEXTROSE 5%-WATER 250 ML with NOREPINEPHRINE BITARTRATE 4 MG IV PRN ×14 (03:32→23:25)
--- NOTE | 2019-10-04 03:33 | RADIOLOGY REPORT (SQ) ---
EXAM DESCRIPTION: XR CHEST 1 VIEW COMPLETED DATE/TME: 10/04/2019 00:00 CLINICAL HISTORY: 63 years, Male, ETT CVC confirmation COMPARISON: 10/03/2019 chest NUMBER OF VIEWS: 1 TECHNIQUE: Portable chest LIMITATIONS: None. FINDINGS: Heart size is normal. Endotracheal tube, with the tip approximately 4.5 cm above the jacki. Enteric tube with the tip extending into the upper abdomen, likely in the distal stomach. The sidehole is visible in the stomach. Central venous catheter with the tip in the cavoatrial junction. No pneumothorax. Worsening airspace opacities of the right upper lobe/apex and left lung base with suspected small bilateral effusions, greater on the left. IMPRESSION: Indwelling tubes/lines/catheters as above. Worsening airspace opacities bilaterally with suspected small bilateral effusions copyright 2010 [employer]- All Rights Reserved
[2019-10-04] MEDS ORDERED: METHYLENE BLUE 50 MG/10 ML AMPULE IV ONE (03:45)
[2019-10-04] MEDS ORDERED: WATER IV PRN ×4 (03:50→05:00)
[2019-10-04] MEDS ORDERED: DEXTROSE 5% IV PRN ×4 (03:50→05:00)
[2019-10-04] MEDS ORDERED: METHYLENE BLUE IV PRN ×4 (03:50→05:00)
[2019-10-04] MEDS: DEXTROSE 5%-WATER 1000 ML 1,000 ML with SODIUM BICARBONATE 150 MEQ IV PRN ×4 (04:30→13:30)
[2019-10-04 04:34] LABS: ARTERIAL BLOOD H2CO3 1.28 mmol/L (1.05-1.35); ARTERIAL BLOOD HCO3 12.9 mmol/L (20-24); ARTERIAL BLOOD O2 SATURATION 79.9 % (94-98); ARTERIAL BLOOD PCO2 42.5 mmHg (35-45); ARTERIAL BLOOD PO2 58.4 mmHg (80-100); ARTERIAL BLOOD TOTAL CO2 14.2 mmol/L (23-27)
[2019-10-04 04:38] LABS: ARTERIAL BLOOD FIO2 100%
[2019-10-04] MEDS: THIAMINE HCL 500 MG in NORMAL SALINE 250 ML IV SCH ×2 (05:09→17:32)
[2019-10-04] MEDS ORDERED: ASCORBIC ACID 500 MG TABLET ONE (05:19)
[2019-10-04] MEDS: ENOXAPARIN SODIUM INJ 60 MG/0.6 ML DISP.SYRIN SUBCUT SCH ×2 (05:25→17:26)
[2019-10-04] MEDS: ASCORBIC ACID 500 MG TABLET NG SCH ×3 (05:25→17:18)
[2019-10-04 06:00] LABS: ARTERIAL BLOOD BASE EXCESS -16.2 mmol/L; ARTERIAL BLOOD FIO2 100%; ARTERIAL BLOOD H2CO3 1.26 mmol/L (1.05-1.35); ARTERIAL BLOOD HCO3 12.7 mmol/L (20-24); ARTERIAL BLOOD O2 SATURATION 91.3 % (94-98); ARTERIAL BLOOD PCO2 41.9 mmHg (35-45); ARTERIAL BLOOD PO2 80.6 mmHg (80-100)
[2019-10-04 06:06] LABS: INTERNATIONAL RATION (INR) 2.26; PROTHROMBIN TIME 25.3 SEC (11.4-15.4)
[2019-10-04 06:07] LABS: PARTIAL THROMBOPLASTIN TIME 53.6 SEC (23.5-35.8)
[2019-10-04 06:28] LABS: D-DIMER 9.35 ug/mL (0.00-0.50)
[2019-10-04 07:02] LABS: HEMOGLOBIN 9.7 g/dL (13.5-17.0); MEAN CORPUSCULAR HEMOGLOBIN 31.3 pg (27.0-33.4); MEAN CORPUSCULAR HGB CONC 32.3 g/dL (32.0-36.0); PLATELET COUNT 319 10^3/uL (150-450); RED BLOOD COUNT 3.09 10^6/uL (4.35-5.55); RED CELL DISTRIBUTION WIDTH 17.4 % (11.5-14.0)
[2019-10-04 07:13] LABS: MEAN CORPUSCULAR VOLUME 97 fl (80-97)
[2019-10-04 07:18] LABS: ALBUMIN 2.4 g/dL (3.5-5.0); ALKALINE PHOSPHATASE 66 U/L (38-126); ANION GAP 17 (5-19); ASPARTATE AMINO TRANSFERASE 678 U/L (17-59); BILIRUBIN,DIRECT 1.6 mg/dL (0.0-0.4); BILIRUBIN,TOTAL 2.8 mg/dL (0.2-1.3); BLOOD UREA NITROGEN 32 mg/dL (7-20); CALCIUM 7.4 mg/dL (8.4-10.2); CARBON DIOXIDE 14 mmol/L (22-30); CHLORIDE 99 mmol/L (98-107); CREATINE KINASE 307 U/L (55-170); GLUCOSE 319 mg/dL (75-110); PHOSPHORUS 6.1 mg/dL (2.5-4.5); POTASSIUM 3.9 mmol/L (3.6-5.0); TOTAL PROTEIN 6.3 g/dL (6.3-8.2); TRIGLYCERIDES 51 mg/dL (<150)
[2019-10-04 07:19] LABS: ABSOLUTE LYMPHOCYTES# (MANUAL) 1.1 10^3/uL (0.5-4.7); ABSOLUTE MONOCYTES # (MANUAL) 0.7 10^3/uL (0.1-1.4); BAND NEUTROPHILS % (MANUAL) 2 % (3-5); BASOPHILS % (MANUAL) 0 % (0-2); EOSINOPHILS % (MANUAL) 1 % (0-6); LYMPHOCYTES % (MANUAL) 3 % (13-45); MONOCYTES % (MANUAL) 2 % (3-13); SEGMENTED NEUTROPHILS % (MAN) 90 % (42-78); TOTAL CELLS COUNTED 100
[2019-10-04 07:23] LABS: ANISOCYTOSIS 1+; BURR CELLS 1+; OVALOCYTES 1+; POLYCHROMASIA SLIGHT
[2019-10-04 07:24] LABS: METAMYELOCYTES % (MANUAL) 1 % (0-1); PLATELET COMMENT ADEQUATE; PROMYELOCYTES % (MANUAL) 1 % (0)
[2019-10-04 07:25] LABS: TOXIC GRANULATION SLIGHT
[2019-10-04 07:27] LABS: WHITE BLOOD COUNT 35.9 10^3/uL (4.0-10.5)
[2019-10-04 07:29] LABS: C-REACTIVE PROTEIN 175.6 mg/L (<10.0)
--- NOTE | 2019-10-04 08:10 | EKG REPORT ---
SEVERITY:- NORMAL ECG - SINUS RHYTHM : Confirmed by: Dave Flaherty MD 04-Oct-2019 08:10:18
[2019-10-04 08:13] LABS: CHOLESTEROL < 50 mg/dL (0-200); DIRECT LDL < 30 mg/dL (<100)
[2019-10-04] MEDS ORDERED: VANCOMYCIN HCL 0 MG in DEXTROSE 5%-WATER 250 ML IV NR (08:45)
[2019-10-04] MEDS ORDERED: IMMUNE GLOBULIN IV SCH (08:45)
[2019-10-04] MEDS: FAMOTIDINE 20 MG TABLET NG SCH ×2 (09:25→21:21)
[2019-10-04 09:26] LABS: PATH REVIEW PATHOLOGIST REVIEWED
[2019-10-04] MEDS: CHOLECALCIFEROL (D3) 1,000 UNIT (25 MCG) TABLET NG SCH (09:26)
[2019-10-04] MEDS: GABAPENTIN 100 MG CAPSULE PO SCH ×3 (09:27→17:18)
[2019-10-04] MEDS ORDERED: LORAZEPAM INJ 2 MG/1 ML VIAL IV ONE (09:30)
[2019-10-04] MEDS ORDERED: NITROGLYCERIN 2% OINTMENT 1 GM PACKET TP ONE (09:30)
[2019-10-04] MEDS: METHYLPREDNISOLONE INJ 125 MG/2 ML SDV IV SCH ×2 (09:32→17:18)
[2019-10-04] MEDS: CLINDAMYCIN 900 MG/D5W RTU 900 MG/50 ML RTUPB IV SCH ×2 (09:32→18:07)
[2019-10-04] MEDS: HYDROXYCHLOROQUINE SULFATE 200 MG TABLET NG SCH ×2 (09:32→17:17)
[2019-10-04] MEDS ORDERED: IMMUNE GLOB,GAM CAPRYLATE(IGG) 20 GM/200 ML SDV IV ONE (10:00)
[2019-10-04] MEDS ORDERED: TERBUTALINE SULFATE INJ/PF 1 MG/1 ML SDV SUBCUT ONE (10:00)
[2019-10-04] MEDS ORDERED: [UNRECOGNIZED DRUG - OTHER] IV ONE ×12 (11:30→12:30)
[2019-10-04] MEDS ORDERED: IMMUNE GLOB GAM CAPRYLATE IV ONE ×12 (11:30→12:30)
[2019-10-04] MEDS: VANCOMYCIN HCL 1,000 MG in DEXTROSE 5%-WATER 250 ML IV SCH (11:35)
[2019-10-04 11:49] LABS: ARTERIAL BLOOD BASE EXCESS -11.8 mmol/L; ARTERIAL BLOOD FIO2 90%; ARTERIAL BLOOD H2CO3 1.19 mmol/L (1.05-1.35); ARTERIAL BLOOD HCO3 15.4 mmol/L (20-24); ARTERIAL BLOOD O2 SATURATION 94.2 % (94-98); ARTERIAL BLOOD PCO2 39.4 mmHg (35-45); ARTERIAL BLOOD PH 7.21 (7.35-7.45); ARTERIAL BLOOD TOTAL CO2 16.6 mmol/L (23-27)
[2019-10-04 12:11] LABS: ANION GAP 16 (5-19); BLOOD UREA NITROGEN 33 mg/dL (7-20); CALCIUM 7.3 mg/dL (8.4-10.2); CARBON DIOXIDE 15 mmol/L (22-30); CHLORIDE 96 mmol/L (98-107); GLUCOSE 382 mg/dL (75-110); POTASSIUM 3.5 mmol/L (3.6-5.0)
[2019-10-04] MEDS: ZINC SULFATE 220 MG CAPSULE PO SCH (13:32)
[2019-10-04] MEDS ORDERED: NORMAL SALINE 100 ML with INSULIN REGULAR, HUMAN 100 UNIT IV PRN ×2 (14:06)
--- NOTE | 2019-10-04 14:50 | RADIOLOGY REPORT (SQ) ---
EXAM DESCRIPTION: U/S ABDOMEN COMPLETE W/DOPPLER IMAGES COMPLETED DATE/TIME: 10/04/2019 2:27 pm REASON FOR STUDY: renal and liver failure COMPARISON: CT dated 07/27/2019 TECHNIQUE: Dynamic and static grayscale images acquired of the abdomen and recorded on PACS. Additio nal selected color Doppler and spectral images recorded. Note: Study does not meet criteria for complete doppler/duplex scan LIMITATIONS: None. FINDINGS: PANCREAS: Visualized portions the pancreas are normal in appearance. LIVER: The liver is nodular in contour consistent with cirrhosis. Multiple masses consistent with mu ltifocal hepatoma or metastatic disease. There is ascites. LIVER VASCULATURE: Vascular structures are poorly visualized. No flow could be demonstrated in the p ortal vein. GALLBLADDER: Gallstones and sludge. ULTRASOUND-DETECTED LAU'S SIGN: Negative. INTRAHEPATIC DUCTS AND COMMON DUCT: CBD and intrahepatic ducts normal caliber. No filling defects. INFERIOR VENA CAVA: Normal flow. AORTA: Visualized abdominal aorta is patent. No aneurysmal dilatation. RIGHT KIDNEY: Normal size. Normal echogenicity. No solid or suspicious masses. No hydronephros is. No calcifications. LEFT KIDNEY: Normal size. Normal echogenicity. No solid or suspicious masses. No hydronephrosi s. No calcifications. SPLEEN: Microcalcifications. No focal masses. PERITONEAL AND PLEURAL SPACES: Mild ascites. OTHER: No other significant finding. IMPRESSION: Multiple hepatic lesions. The largest measures 3.2 x 3.8 x 3.6 cm. Mild ascites. No flow could be demonstrated in the portal vein. Portal vein was patent on prior CT done 2 5. Hodges ges may be secondary to poor visualization due to bowel gas and body habitus. TECHNICAL DOCUMENTATION: JOB ID: [id number] [employer]- All Rights Reserved Reading location - IP/workstation name: [email or web address]
[2019-10-04 15:19] LABS: ARTERIAL BLOOD BASE EXCESS -8.4 mmol/L; ARTERIAL BLOOD H2CO3 1.28 mmol/L (1.05-1.35); ARTERIAL BLOOD HCO3 18.3 mmol/L (20-24); ARTERIAL BLOOD O2 SATURATION 95.7 % (94-98); ARTERIAL BLOOD PCO2 42.5 mmHg (35-45); ARTERIAL BLOOD PH 7.25 (7.35-7.45); ARTERIAL BLOOD TOTAL CO2 19.6 mmol/L (23-27)
[2019-10-04 15:25] LABS: ARTERIAL BLOOD FIO2 90%
[2019-10-04 15:44] LABS: ALBUMIN 2.3 g/dL (3.5-5.0); ALKALINE PHOSPHATASE 67 U/L (38-126); ANION GAP 13 (5-19); BILIRUBIN,DIRECT 1.9 mg/dL (0.0-0.4); BILIRUBIN,TOTAL 3.2 mg/dL (0.2-1.3); BLOOD UREA NITROGEN 35 mg/dL (7-20); CARBON DIOXIDE 18 mmol/L (22-30); CHLORIDE 93 mmol/L (98-107); PHOSPHORUS 4.7 mg/dL (2.5-4.5); POTASSIUM 3.6 mmol/L (3.6-5.0); TOTAL PROTEIN 6.5 g/dL (6.3-8.2)
[2019-10-04 16:38] LABS: ASPARTATE AMINO TRANSFERASE 1449 U/L (17-59)
[2019-10-04 16:41] LABS: GLUCOSE 405 mg/dL (75-110)
--- NOTE | 2019-10-04 17:10 | XCELERA REPORT ---
[address] [address] Transthoracic Echocardiogram Report Name: ELDER KIMBALL Age: 63 yrs Gender: Male : 1955 Patient Status: Inpatient Patient Location: ICU^601^A Study Date: 10/04/2019 11:56 AM Height: 69 in Weight: 129 lb BSA: 1.7 m2 Procedure: A two-dimensional transthoracic echocardiogram with color flow and Doppler was performed. Study Quality: Fair. Reason For Study: heart failure History: heart failure. Ordering Physician: FEI TUCKER Performed By: David Watson Interpretation Summary The left ventricle is normal in size. There is normal left ventricular wall thickness. LV EF is 65% Left ventricular systolic function is normal. Doppler measurements suggest normal left ventricular diastolic function The left ventricular wall motion is normal. There is no thrombus. No ASD,VSD,or PFO seen. The right ventricle is mildly dilated. The right atrium is normal. The left atrial size is normal. There is no evidence of mitral valve prolapse. There is no vegetation seen on the mitral valve. There is no mitral valve stenosis. There is a mild amount of mitral regurgitation There is no aortic valvular vegetation. There is no aortic valve stenosis There is aortic sclerosis without aortic stenosis. There is no tricuspid stenosis. There is a moderate to severe amount of tricuspid regurgitation There is servere pulmonary hypertension by echo RVSP is at least 60 mm of Hg , with RA mean of at least 20 mm of Hg. There is no pulmonic valvular stenosis. There is a trace amount of pulmonic regurgitation The aortic root is normal size. The inferior vena cava appeared dilated and did not change with respiration (RAP > 20 mmHg) MMode/2D Measurements & Calculations RVDd: 2.6 cm LVIDd: 4.3 cm FS: 36.9 % Ao root diam: 3.2 cm IVSd: 0.75 cm LVIDs: 2.7 cm EDV(Teich): 83.8 ml Ao root area: 7.9 cm2 LVPWd: 0.79 cm ESV(Teich): 27.6 ml LA dimension: 3.7 cm EF(Teich): 67.1 % Doppler Measurements & Calculations MV E max fish: MV P1/2t max fish: Ao V2 max: LV V1 max P.5 cm/sec 117.6 cm/sec 134.5 cm/sec 7.5 mmHg MV A max fish: MV P1/2t: 83.2 msec Ao max P.2 mmHgLV V1 max: 56.3 cm/sec MVA(P1/2t): 2.6 cm2 137.1 cm/sec MV E/A: 2.1 MV dec slope: 414.3 cm/sec2 MV dec time: 0.17 sec PA V2 max: TR max fish: MV P1/2t-pr_phl: 109.1 cm/sec 316.0 cm/sec 83.2 msec PA max P.8 mmHgTR max P.9 mmHg Left Ventricle The left ventricle is normal in size. There is normal left ventricular wall thickness. LV EF is 65%. Left ventricular systolic function is normal. Doppler measurements suggest normal left ventricular diastolic function. The left ventricular wall motion is normal. There is no thrombus. No ASD,VSD,or PFO seen. Right Ventricle The right ventricle is mildly dilated. The right ventricular systolic function is normal. Atria The right atrium is normal. The left atrial size is normal. Mitral Valve There is no evidence of mitral valve prolapse. There is no vegetation seen on the mitral valve. There is no mitral valve stenosis. There is a mild amount of mitral regurgitation. Aortic Valve There is no aortic valvular vegetation. There is no aortic valve stenosis. There is aortic sclerosis without aortic stenosis. Tricuspid Valve There is no tricuspid stenosis. There is a moderate to severe amount of tricuspid regurgitation. There is servere pulmonary hypertension by echo. RVSP is at least 60 mm of Hg , with RA mean of at least 20 mm of Hg. Pulmonic Valve There is no pulmonic valvular stenosis. There is a trace amount of pulmonic regurgitation. Great Vessels The aortic root is normal size. The inferior vena cava appeared dilated and did not change with respiration (RAP > 20 mmHg). Effusions There is no pericardial effusion. : EFI TUCKER Lakshmi
[2019-10-04] MEDS: CEFEPIME 1 GM/D5W RTU 1 GM/50 ML RTUPB IV SCH (17:27)
[2019-10-04] MEDS ORDERED: HYDROXYCHLOROQUINE SULFATE 200 MG TABLET PO SCH (18:00)
[2019-10-04] MEDS ORDERED: LINEZOLID 600 MG/300 ML RTUPB IV SCH (18:00)
--- NOTE | 2019-10-04 18:37 | PDOC CRITICAL CARE PROG REPORT ---
General Date:: 10/04/19 ICU Day:: 2 Ventilator Day:: 2 Hospital Day:: 2 Resuscitation Status: Full Code Medical Power of Sales And Marketing Analyst: Sal Rivera Events in the past 12 to 24 Hours:: 10.04.2019: Patient is extremely worse with hypotension on multiple vasopressors including epinephrine. Has gram-positive (strep) in bloodstream. Notable right wrist wound Nursing is also noted what appears to be possible extravasation in the left arm where Levophed was temporarily going and while a central line was placed. Chest x-ray is worsened Lactic acid has worsened I spoke with his daughter Nicole by phone and was told that he had a to box fall on him. She also disclosed that he has had problems with his gallbladder in the past and has had renal failure from a previous infection. His FiO2 requirements have worsened. Review of systems relevant to events:: 10.04.2019: Multiple vasopressors as noted below. Propofol has dropped his blood pressure further and he has been placed on benzodiazepines. There is currently a notable Dilaudid shortage after exhausting fentanyl. Lactic acid elevated and now improving. Creatinine increased as well. Eyes and nose reviewed. He is positive of about 6 L. Clindamycin and IVIG started with the notification from micro the patient has Streptococcus species in his bloodstream Has questionable vasopressor extravasation changes in the right upper arm medial aspect. The IV was removed and there was nothing active running through it. After IV was removed, the soft tissue was milked and clear fluid came out. Over time the discoloration improved. Reason for ICU Addmission:: Acute hypoxic respiratory failure with possible SARS, 2-CoViD19 - Medications: Medications reviewed and adjusted accordingly: Yes Vasopressors:: Epi 10 mcg, 26 mcg norepi, 180 neosynephrine, vasopressin Sedation:: Versed, dilaudid Physical Exam Vital Signs: Temp Pulse Resp BP Pulse Ox 97.3 F 82 31 H 98/58 L 97 10/04/19 03:29 10/03/19 18:49 10/04/19 06:00 10/04/19 01:24 10/04/19 06:00 Intake & Output 10/03/19 10/04/19 10/05/19 06:59 06:59 06:59 Intake Total 4571 111 Output Total 35 Balance 4536 111 Weight 59.1 kg Weight/Height Weight 59.1 kg Height 5 ft 9 in General appearance: PRESENT: thin Exam: Intubated very ill appearing 63-year-old male no active distress except for elevated respiratory rate off sedation Head exam: PRESENT: atraumatic, normocephalic Eye exam: PRESENT: conjunctival injection, conjunctiva pink, PERRLA. ABSENT: scleral icterus Teeth exam: PRESENT: edentulous Neck exam: ABSENT: JVD, lymphadenopathy, thyromegaly, tracheal deviation Respiratory exam: PRESENT: unlabored, other - Lung sounds not auscultated secondary to the confines of PPE and poor auditory capability of disposable stethoscope. ABSENT: accessory muscle use, tachypnea Cardiovascular exam: PRESENT: RRR, tachycardia, other - Heart sounds not auscultated secondary to the confines of PPE and poor auditory capability of disposable stethoscope. ABSENT: bradycardia Pulses: ABSENT: normal dorsalis pedis pul GI/Abdominal exam: PRESENT: distended, firm, organolmegaly, other - Gastric sounds not auscultated secondary to the confines of PPE and poor auditory capability of disposable stethoscope. ABSENT: ascites, guarding, Lee's sign, rigid, soft, tenderness Rectal exam: PRESENT: deferred Gentrourinary exam: PRESENT: indwelling catheter Extremities exam: PRESENT: other - Right wrist. ABSENT: pedal edema Musculoskeletal exam: ABSENT: deformity, dislocation Neurological exam: PRESENT: altered - sedated. GCS, other - Responsive to voice and moves extremities with noxious stimulus Psychiatric exam: PRESENT: appropriate affect. ABSENT: agitated Skin exam: PRESENT: skin tears, other - right wrist small discoid ulceration in the lateral aspect sub-thenar. Fluctuance no soft tissue changes. Also has what appears to be extravasation with discoloration in the right medial aspect of the upper arm. Laboratory/Radiographs Laboratory Results: 10/04/19 06:54 10/04/19 06:54 10/03/19 10/03/19 10/03/19 12:15 12:15 12:15 WBC 20.1 H RBC 3.28 L Hgb 10.5 L Hct 30.4 L MCV 93 MCH 32.0 MCHC 34.5 RDW 17.0 H Plt Count 260 Seg Neutrophils % Not Reportable Carbonic Acid HCO3/H2CO3 Ratio ABG pH ABG pCO2 ABG pO2 ABG HCO3 ABG O2 Saturation ABG Base Excess Methemoglobin FiO2 Sodium 137.0 Potassium 3.1 L Chloride 115 H Carbon Dioxide 15 L Anion Gap 7 BUN 28 H Creatinine 0.69 Est GFR ( Amer) > 60 Est GFR (Non-Af Amer) Glucose 60 L Lactic Acid Calcium 6.1 L* Ionized Calcium Jayjay Phosphorus Magnesium Ferritin 130.00 Total Bilirubin 1.8 H AST 86 H Alkaline Phosphatase 56 Ammonia C-Reactive Protein 184.8 H Total Protein 5.0 L Albumin 1.5 L Triglycerides Cholesterol LDL Cholesterol Direct VLDL Cholesterol HDL Cholesterol Lipase 57.5 TSH Urine Color Urine Appearance Urine pH Ur Specific Homer Urine Protein Urine Glucose (UA) Urine Ketones Urine Blood Urine Nitrite Ur Leukocyte Esterase Urine WBC (Auto) Urine RBC (Auto) 10/03/19 10/03/19 10/03/19 12:15 13:10 13:10 WBC RBC Hgb Hct MCV MCH MCHC RDW Plt Count Seg Neutrophils % Carbonic Acid 0.76 L HCO3/H2CO3 Ratio 21:1 ABG pH 7.43 ABG pCO2 25.4 L ABG pO2 30.3 L* ABG HCO3 16.4 L ABG O2 Saturation 61.2 L ABG Base Excess -6.2 Methemoglobin FiO2 3L Sodium Potassium Chloride Carbon Dioxide Anion Gap BUN Creatinine Est GFR ( Amer) Est GFR (Non-Af Amer) Glucose Lactic Acid Calcium Ionized Calcium Jayjay Phosphorus Magnesium Ferritin Total Bilirubin AST Alkaline Phosphatase Ammonia C-Reactive Protein Total Protein Albumin Triglycerides Cholesterol LDL Cholesterol Direct VLDL Cholesterol HDL Cholesterol Lipase TSH 3.26 Urine Color YELLOW Urine Appearance CLEAR Urine pH 6.0 Ur Specific Homer 1.020 Urine Protein 30 H Urine Glucose (UA) NEGATIVE Urine Ketones NEGATIVE Urine Blood NEGATIVE Urine Nitrite NEGATIVE Ur Leukocyte Esterase NEGATIVE Urine WBC (Auto) 7 Urine RBC (Auto) 1 10/03/19 10/03/19 10/03/19 15:25 16:33 16:33 WBC RBC Hgb Hct MCV MCH MCHC RDW Plt Count Seg Neutrophils % Carbonic Acid HCO3/H2CO3 Ratio ABG pH ABG pCO2 ABG pO2 ABG HCO3 ABG O2 Saturation ABG Base Excess Methemoglobin 0.8 FiO2 Sodium Potassium Chloride Carbon Dioxide Anion Gap BUN Creatinine Est GFR ( Amer) Est GFR (Non-Af Amer) Glucose Lactic Acid 4.9 H Calcium Ionized Calcium Jayjay Phosphorus Magnesium Ferritin Total Bilirubin AST Alkaline Phosphatase Ammonia 26.7 C-Reactive Protein Total Protein Albumin Triglycerides Cholesterol LDL Cholesterol Direct VLDL Cholesterol HDL Cholesterol Lipase TSH Urine Color Urine Appearance Urine pH Ur Specific Homer Urine Protein Urine Glucose (UA) Urine Ketones Urine Blood Urine Nitrite Ur Leukocyte Esterase Urine WBC (Auto) Urine RBC (Auto) 10/04/19 10/04/19 10/04/19 02:22 02:22 02:22 WBC RBC Hgb Hct MCV MCH MCHC RDW Plt Count Seg Neutrophils % Carbonic Acid HCO3/H2CO3 Ratio ABG pH ABG pCO2 ABG pO2 ABG HCO3 ABG O2 Saturation ABG Base Excess Methemoglobin FiO2 Sodium 135.1 L Potassium 3.9 Chloride 108 H Carbon Dioxide 13 L Anion Gap 14 BUN 30 H Creatinine 1.65 H Est GFR ( Amer) 51 L Est GFR (Non-Af Amer) Glucose 84 Lactic Acid 11.2 H Calcium 8.0 L Ionized Calcium Jayjay 1.18 Phosphorus 7.2 H Magnesium 2.1 Ferritin Total Bilirubin AST Alkaline Phosphatase Ammonia C-Reactive Protein Total Protein Albumin Triglycerides Cholesterol LDL Cholesterol Direct VLDL Cholesterol HDL Cholesterol Lipase TSH Urine Color Urine Appearance Urine pH Ur Specific Homer Urine Protein Urine Glucose (UA) Urine Ketones Urine Blood Urine Nitrite Ur Leukocyte Esterase Urine WBC (Auto) Urine RBC (Auto) 10/04/19 10/04/19 10/04/19 02:22 02:22 02:22 WBC RBC Hgb Hct MCV MCH MCHC RDW Plt Count Seg Neutrophils % Carbonic Acid Cancelled 1.77 H HCO3/H2CO3 Ratio Cancelled 6:1 ABG pH Cancelled 6.91 L* ABG pCO2 Cancelled 58.7 H ABG pO2 Cancelled 68.8 L ABG HCO3 Cancelled 11.6 L ABG O2 Saturation Cancelled 78.7 L ABG Base Excess Cancelled -21.6 Methemoglobin FiO2 Cancelled 100% Sodium Potassium Chloride Carbon Dioxide Anion Gap BUN Creatinine Est GFR ( Amer) Est GFR (Non-Af Amer) Glucose Lactic Acid Calcium Ionized Calcium Jayjay Phosphorus Magnesium Ferritin Total Bilirubin AST Alkaline Phosphatase Ammonia C-Reactive Protein Total Protein Albumin Triglycerides Cholesterol LDL Cholesterol Direct VLDL Cholesterol HDL Cholesterol Lipase TSH Urine Color KINJAL Urine Appearance CLEAR Urine pH 6.0 Ur Specific Homer 1.021 Urine Protein 30 H Urine Glucose (UA) 50 H Urine Ketones NEGATIVE Urine Blood NEGATIVE Urine Nitrite Ur Leukocyte Esterase Urine WBC (Auto) Urine RBC (Auto) 1 10/04/19 10/04/19 10/04/19 04:11 05:45 05:45 WBC Cancelled RBC Cancelled Hgb Cancelled Hct Cancelled MCV Cancelled MCH Cancelled MCHC Cancelled RDW Cancelled Plt Count Cancelled Seg Neutrophils % Cancelled Carbonic Acid 1.28 HCO3/H2CO3 Ratio 10:1 ABG pH 7.10 L* ABG pCO2 42.5 ABG pO2 58.4 L ABG HCO3 12.9 L ABG O2 Saturation 79.9 L ABG Base Excess -16.0 Methemoglobin FiO2 100% Sodium Cancelled Potassium Cancelled Chloride Cancelled Carbon Dioxide Cancelled Anion Gap Cancelled BUN Cancelled Creatinine Cancelled Est GFR ( Amer) Cancelled Est GFR (Non-Af Amer) Cancelled Glucose Cancelled Lactic Acid Calcium Cancelled Ionized Calcium Jayjay Phosphorus Cancelled Magnesium Cancelled Ferritin Cancelled Total Bilirubin Cancelled AST Cancelled Alkaline Phosphatase Cancelled Ammonia C-Reactive Protein Cancelled Total Protein Cancelled Albumin Cancelled Triglycerides Cancelled Cholesterol Cancelled LDL Cholesterol Direct Cancelled VLDL Cholesterol Cancelled HDL Cholesterol Cancelled Lipase TSH Urine Color Urine Appearance Urine pH Ur Specific Homer Urine Protein Urine Glucose (UA) Urine Ketones Urine Blood Urine Nitrite Ur Leukocyte Esterase Urine WBC (Auto) Urine RBC (Auto) 10/04/19 10/04/19 10/04/19 05:45 05:45 05:45 WBC RBC Hgb Hct MCV MCH MCHC RDW Plt Count Seg Neutrophils % Carbonic Acid 1.26 HCO3/H2CO3 Ratio 10:1 ABG pH 7.10 L* ABG pCO2 41.9 ABG pO2 80.6 ABG HCO3 12.7 L ABG O2 Saturation 91.3 L ABG Base Excess -16.2 Methemoglobin FiO2 100% Sodium Potassium Chloride Carbon Dioxide Anion Gap BUN Creatinine Est GFR ( Amer) Est GFR (Non-Af Amer) Glucose Lactic Acid 10.3 H Calcium Ionized Calcium Jayjay Phosphorus Magnesium Ferritin Total Bilirubin AST Alkaline Phosphatase Ammonia 31.8 C-Reactive Protein Total Protein Albumin Triglycerides Cholesterol LDL Cholesterol Direct VLDL Cholesterol HDL Cholesterol Lipase TSH Urine Color Urine Appearance Urine pH Ur Specific Homer Urine Protein Urine Glucose (UA) Urine Ketones Urine Blood Urine Nitrite Ur Leukocyte Esterase Urine WBC (Auto) Urine RBC (Auto) 10/04/19 10/04/19 06:54 06:54 WBC 35.9 H* RBC 3.09 L Hgb 9.7 L Hct 30.0 L MCV 97 D MCH 31.3 MCHC 32.3 RDW 17.4 H Plt Count 319 Seg Neutrophils % Not Reportable Carbonic Acid HCO3/H2CO3 Ratio ABG pH ABG pCO2 ABG pO2 ABG HCO3 ABG O2 Saturation ABG Base Excess Methemoglobin FiO2 Sodium 130.1 L Potassium 3.9 Chloride 99 Carbon Dioxide 14 L Anion Gap 17 BUN 32 H Creatinine 1.69 H Est GFR ( Amer) 50 L Est GFR (Non-Af Amer) Glucose 319 H Lactic Acid Calcium 7.4 L Ionized Calcium Jayjay Phosphorus 6.1 H Magnesium 1.8 Ferritin Total Bilirubin 2.8 H AST 678 H Alkaline Phosphatase 66 Ammonia C-Reactive Protein 175.6 H Total Protein 6.3 Albumin 2.4 L Triglycerides 51 Cholesterol LDL Cholesterol Direct VLDL Cholesterol 10.0 HDL Cholesterol 11 L Lipase TSH Urine Color Urine Appearance Urine pH Ur Specific Homer Urine Protein Urine Glucose (UA) Urine Ketones Urine Blood Urine Nitrite Ur Leukocyte Esterase Urine WBC (Auto) Urine RBC (Auto) 10/03/19 10/03/19 10/03/19 12:15 12:15 12:15 Creatine Kinase 39 L 42 L CK-MB (CK-2) 1.88 Troponin I 0.081 NT-Pro-B Natriuret Pep 4050 H 10/03/19 10/04/19 10/04/19 16:33 05:45 06:54 Creatine Kinase Cancelled 307 H CK-MB (CK-2) Troponin I 0.095 NT-Pro-B Natriuret Pep 6400 H Impressions: Chest X-Ray 10/04/19 00:00 IMPRESSION: Indwelling tubes/lines/catheters as above. Worsening airspace opacities bilaterally with suspected small bilateral effusions copyright 2011 [employer]- All Rights Reserved All labs, radiographs, diagnostic studies and EKGs were personally reviewed: Yes In addition, reports of radiographic and diagnostic studies were read: Yes Assessment and Plan - Diagnosis (1) Sepsis Qualifiers: Sepsis type: Streptococcus group B Sepsis acute organ dysfunction status: with acute organ dysfunction Severe sepsis acute organ dysfunction type: acute respiratory failure Acute respiratory failure type: with hypoxia Severe sepsis shock status: with septic shock Qualified Code(s): A40.1 - Sepsis due to streptococcus, group B; R65.21 - Severe sepsis with septic shock; J96.01 - Acute respiratory failure with hypoxia Is this a current diagnosis for this admission?: Yes (2) Streptococcal toxic shock syndrome Is this a current diagnosis for this admission?: Yes (3) Acute respiratory failure with hypoxia Is this a current diagnosis for this admission?: Yes (4) Suspected COVID-19 virus infection Is this a current diagnosis for this admission?: Yes (5) Atrial fibrillation with RVR Is this a current diagnosis for this admission?: Yes (6) Protein-calorie malnutrition, moderate Is this a current diagnosis for this admission?: Yes (7) Lactic acidosis Is this a current diagnosis for this admission?: Yes (8) Streptococcal bacteremia Is this a current diagnosis for this admission?: Yes (9) Streptococcus pneumoniae Is this a current diagnosis for this admission?: Yes Plan Summary: COVID-19 CDC guideline data points: The patient presents with suspected COVID-19 with associated symptoms of cough, shortness of breath, fever without diarrhea, complicated by this/these comorbidities: Liver malignancy hepatitis C possible COPD. ASSESSMENT: SARS, 2-CoViD19 suspected Respiratory: Patient has ARDS. His chest x-ray shows by lobar bilateral infiltrates. He has strep pneumoniae growing in his urine and we are suspecting that it is coming from his lungs primarily. Initial presentation of chest x-ray the concern for COVID is still valid and present. We await studies Infectious: As stated previously patient has toxic shock syndrome with strep species. He is on broad-spectrum antibiotics and will de-escalate as further information is obtained. I have added clindamycin and IVIG. IVIG will be given 1 g/kg today and half a gram per kilogram tomorrow and the day after. He is extremely ill with a high Minto score with begin increasing morbidity and mortality. Although we prefer linezolid for the lung bacteremia appears to respond better to vancomycin and I have exchanged the linezolid for vancomycin. If he continues to decline we may be forced to switch back to linezolid. Continue to follow lactic acid. Patient appears to be adequately volume resuscitated Cardiac: Patient is in septic shock. We are unable to give methylene blue secondary to the interactions with his medications. We will attempt to give this now that competing medications are off and his vasopressor requirements are increasing. Hematologic: Has critical care related anemia in addition to delusional. No requirements for blood transfusion at this time. His white count is extremely elevated secondary to sepsis. Endocrine: TSH acceptable. Follow glucose. Patient's cortisol was 7 which is extremely low. He has adrenal insufficiency Renal: Patient is becoming oliguric and is progressing in renal failure. I anticipate that he may need renal replacement therapy in the next 24 to 48 hours. I have adjusted his medications for his renal dysfunction. Metabolic: Patient has metabolic acidosis both respiratory and metabolic processes. Significant space but a significant lactic acid elevation. Continue to monitor and measure treat supportively including bicarbonate drip Alimentary: Patient's abdomen is slightly distended compared paired to yesterday. I am unable to elicit any tenderness. His LFTs are elevated in addition to bilirubin. Given his periods of gallstones in the past this may represent a cholecystitis picture as well. Have ordered ultrasound and will continue to follow monitor labs. If ultrasound is positive he would be unable to go to the OR secondary to his CODE STATUS. He would also be unable to have a secondary to how tenuous his status is it would be that a percutaneous cystostomy tube Neurologic: Patient is currently sedated and will keep him deeply sedated. Propofol caused hypotension and will be judicious with its use. I have ordered Ativan and Dilaudid as needed. Sedation: Please see above Lines/Tubes: Right internal jugular central venous catheter radial arterial catheter Other: Still, his daughter has been updated and all questions answered. Critical Time Critical Time (minutes): 90 Level of Care: ICU -: 1. The care of a critical patient is a dynamic process. This note is a sales representative girls' apparel synopsis but static in nature. The timeframe for treatments given in order is not necessarily the actual time these treatments may have been done. 2. This patient requires critical care secondary to ongoing requirements for therapy not offered or safe outside the critical care environment. Transfer to a lower level of care will result in altered life or limb morbidity and mortality. 3. Multidisciplinary rounds completed. 4. ABCDE bundle addressed.
[2019-10-04] MEDS: AZITHROMYCIN 500 MG in DEXTROSE 5%-WATER 250 ML IV SCH (21:58)
[2019-10-04] MEDS: HYDROMORPHONE HCL INJ/PF 2 MG/ML AMPULE IV PRN (22:03)
[2019-10-05] MEDS: HYDROMORPHONE HCL INJ/PF 2 MG/ML AMPULE IV PRN ×3 (00:19→19:46)
[2019-10-05] MEDS: ASCORBIC ACID 500 MG TABLET NG SCH ×4 (00:19→17:23)
[2019-10-05] MEDS: CLINDAMYCIN 900 MG/D5W RTU 900 MG/50 ML RTUPB IV SCH ×3 (01:18→17:50)
[2019-10-05] MEDS: DEXTROSE 5%-WATER 1000 ML 1,000 ML with SODIUM BICARBONATE 150 MEQ IV PRN ×4 (01:18→12:40)
[2019-10-05] MEDS: DEXTROSE 5%-WATER 250 ML with VASOPRESSIN 100 UNIT IV PRN ×2 (01:18)
[2019-10-05] MEDS: METHYLPREDNISOLONE INJ 125 MG/2 ML SDV IV SCH ×3 (01:19→17:24)
[2019-10-05] MEDS: INSULIN REG, HUMAN 100 UNIT/ML 3 ML VIAL (PYX) SUBCUT SCH ×5 (02:16→20:24)
[2019-10-05 03:51] LABS: ARTERIAL BLOOD BASE EXCESS -4.7 mmol/L; ARTERIAL BLOOD FIO2 80%; ARTERIAL BLOOD H2CO3 1.55 mmol/L (1.05-1.35); ARTERIAL BLOOD HCO3 22.6 mmol/L (20-24); ARTERIAL BLOOD PCO2 51.4 mmHg (35-45); ARTERIAL BLOOD PH 7.26 (7.35-7.45); ARTERIAL BLOOD PO2 75.4 mmHg (80-100); ARTERIAL BLOOD TOTAL CO2 24.2 mmol/L (23-27)
[2019-10-05 03:54] LABS: INTERNATIONAL RATION (INR) 2.02; PROTHROMBIN TIME 23.1 SEC (11.4-15.4)
[2019-10-05 03:55] LABS: FIBRINOGEN 315 mg/dL (209-497); PARTIAL THROMBOPLASTIN TIME 53.3 SEC (23.5-35.8)
[2019-10-05 03:57] LABS: HEMATOCRIT 25.7 % (37.9-51.0); HEMOGLOBIN 8.9 g/dL (13.5-17.0); MEAN CORPUSCULAR HEMOGLOBIN 31.2 pg (27.0-33.4); MEAN CORPUSCULAR HGB CONC 34.5 g/dL (32.0-36.0); PLATELET COUNT 176 10^3/uL (150-450); RED BLOOD COUNT 2.83 10^6/uL (4.35-5.55)
[2019-10-05 04:06] LABS: MEAN CORPUSCULAR VOLUME 91 fl (80-97)
[2019-10-05 04:09] LABS: PHOSPHORUS 5.3 mg/dL (2.5-4.5); WHITE BLOOD COUNT 35.7 10^3/uL (4.0-10.5)
[2019-10-05 04:12] LABS: D-DIMER 14.74 ug/mL (0.00-0.50)
[2019-10-05 04:21] LABS: ABSOLUTE LYMPHOCYTES# (MANUAL) 0.4 10^3/uL (0.5-4.7); BAND NEUTROPHILS % (MANUAL) 10 % (3-5); BASOPHILS % (MANUAL) 0 % (0-2); EOSINOPHILS % (MANUAL) 0 % (0-6); LYMPHOCYTES % (MANUAL) 1 % (13-45); PROMYELOCYTES % (MANUAL) 2 % (0); SEGMENTED NEUTROPHILS % (MAN) 84 % (42-78); TOTAL CELLS COUNTED 100
[2019-10-05 04:25] LABS: ANISOCYTOSIS 1+; BURR CELLS 1+; POIKILOCYTOSIS 1+; TOXIC GRANULATION 1+; TOXIC VACUOLATION PRESENT
[2019-10-05 04:26] LABS: C-REACTIVE PROTEIN 186.9 mg/L (<10.0); METAMYELOCYTES % (MANUAL) 2 % (0-1); MONOCYTES % (MANUAL) 1 % (3-13); OVALOCYTES 1+; PLATELET COMMENT ADEQUATE; TEAR DROP CELLS SLIGHT
[2019-10-05] MEDS ORDERED: ASCORBIC ACID 500 MG TABLET ONE (04:51)
[2019-10-05] MEDS: CEFEPIME 1 GM/D5W RTU 1 GM/50 ML RTUPB IV SCH ×2 (05:26→17:15)
[2019-10-05] MEDS: ENOXAPARIN SODIUM INJ 60 MG/0.6 ML DISP.SYRIN SUBCUT SCH ×2 (05:26→17:24)
[2019-10-05] MEDS: DEXTROSE 5%-WATER 250 ML with NOREPINEPHRINE BITARTRATE 4 MG IV PRN ×8 (05:26→19:25)
[2019-10-05] MEDS: THIAMINE HCL 500 MG in NORMAL SALINE 250 ML IV SCH (05:26)
[2019-10-05 07:29] LABS: ANION GAP 9 (5-19); BLOOD UREA NITROGEN 41 mg/dL (7-20); CALCIUM 7.2 mg/dL (8.4-10.2); CARBON DIOXIDE 24 mmol/L (22-30); CHLORIDE 89 mmol/L (98-107); GLUCOSE 137 mg/dL (75-110); POTASSIUM 3.7 mmol/L (3.6-5.0)
[2019-10-05] MEDS ORDERED: MAGNESIUM SULFATE 4 GM/100 ML RTUPB IV ONE (08:00)
[2019-10-05] MEDS: FAMOTIDINE 20 MG TABLET NG SCH ×2 (09:30→22:06)
[2019-10-05] MEDS: GABAPENTIN 100 MG CAPSULE PO SCH ×3 (09:30→17:23)
[2019-10-05] MEDS: CHOLECALCIFEROL (D3) 1,000 UNIT (25 MCG) TABLET NG SCH (09:30)
[2019-10-05] MEDS: VANCOMYCIN HCL 1,000 MG in DEXTROSE 5%-WATER 250 ML IV SCH (09:30)
[2019-10-05] MEDS: HYDROXYCHLOROQUINE SULFATE 200 MG TABLET NG SCH ×2 (09:30→17:23)
[2019-10-05] MEDS: ZINC SULFATE 220 MG CAPSULE PO SCH (09:30)
[2019-10-05] MEDS: LORAZEPAM INJ 2 MG/1 ML VIAL IV PRN (09:31)
[2019-10-05] MEDS ORDERED: LACTULOSE SYRUP 20 GM/30 ML UDCUP NG SCH (10:00)
[2019-10-05] MEDS ORDERED: THIAMINE HCL INJ 200 MG/2 ML VIAL IV SCH (10:00)
--- NOTE | 2019-10-05 15:16 | PDOC CRITICAL CARE PROG REPORT ---
General Date:: 10/05/19 ICU Day:: 3 Ventilator Day:: 3 Hospital Day:: 3 Resuscitation Status: Full Code Medical Power of Break And Load Operator: Sal Rivera Events in the past 12 to 24 Hours:: 10.05.2019: Patient has been weaned off epinephrine and vladimir-synephrine. Glucose improved with exchange of solutions. FiO2 down to 70%. 10.04.2019: Patient is extremely worse with hypotension on multiple vasopressors including epinephrine. Has gram-positive (strep) in bloodstream. Notable right wrist wound Nursing is also noted what appears to be possible extravasation in the left arm where Levophed was temporarily going and while a central line was placed. Chest x-ray is worsened Lactic acid has worsened I spoke with his daughter Nicole by phone and was told that he had a to box fall on him. She also disclosed that he has had problems with his gallbladder in the past and has had renal failure from a previous infection. His FiO2 requirements have worsened. Review of systems relevant to events:: 10.05.2019: Labs have some improvement except with D-Dimer. Given IVIG yesterday. Repeat dosing today at 0.5 mg/kg and this will be repeated tomorrow. His left arm is slightly darker compared to yesterday's exam where the infiltration occurred. Daughter has been made aware of this. 10.04.2019: Multiple vasopressors as noted below. Propofol has dropped his blood pressure further and he has been placed on benzodiazepines. There is currently a notable Dilaudid shortage after exhausting fentanyl. Lactic acid elevated and now improving. Creatinine increased as well. Eyes and nose reviewed. He is positive of about 6 L. Clindamycin and IVIG started with the notification from micro the patient has Streptococcus species in his bloodstream Has questionable vasopressor extravasation changes in the right upper arm medial aspect. The IV was removed and there was nothing active running through it. After IV was removed, the soft tissue was milked and clear fluid came out. Over time the discoloration improved. Reason for ICU Addmission:: Acute hypoxic respiratory failure with possible SARS, 2-CoViD19 - Medications: Medications reviewed and adjusted accordingly: Yes Vasopressors:: 12 mcg norepi, neosynephrine off, vasopressin Sedation:: Versed, dilaudid Physical Exam Vital Signs: Temp Pulse Resp BP Pulse Ox 97.0 F 88 15 89/51 L 94 10/05/19 06:00 10/05/19 06:00 10/05/19 06:00 10/05/19 06:00 10/05/19 06:00 Intake & Output 10/04/19 10/05/19 10/06/19 06:59 06:59 06:59 Intake Total 4826 6030 Output Total 35 1805 Balance 4791 4225 Weight 59.1 kg 67.3 kg Weight/Height Weight 67.3 kg Height 5 ft 9 in General appearance: PRESENT: no acute distress, cooperative, thin Exam: Intubated less toxic appearing older 63-year-old male no active distress Eye exam: PRESENT: conjunctival injection, conjunctiva pink, PERRLA. ABSENT: nystagmus, scleral icterus Teeth exam: PRESENT: edentulous Neck exam: ABSENT: JVD, lymphadenopathy, thyromegaly, tracheal deviation Respiratory exam: PRESENT: unlabored. ABSENT: accessory muscle use, tachypnea, other - Lung sounds not auscultated secondary to the confines of PPE and poor auditory capability of disposable stethoscope Cardiovascular exam: PRESENT: RRR, other - Heart sounds not auscultated secondary to the confines of PPE and poor auditory capability of disposable stethoscope. ABSENT: bradycardia, irregular rhythm, tachycardia Pulses: ABSENT: normal dorsalis pedis pul GI/Abdominal exam: PRESENT: firm, other - Gastric sounds not auscultated secondary to the confines of PPE and poor auditory capability of disposable stethoscope. ABSENT: ascites, rigid, tenderness Rectal exam: PRESENT: deferred Gentrourinary exam: PRESENT: indwelling catheter Extremities exam: ABSENT: pedal edema Musculoskeletal exam: ABSENT: deformity, dislocation Neurological exam: PRESENT: altered - Response to voice and noxious stimulus no focal deficit. Psychiatric exam: PRESENT: appropriate affect Skin exam: PRESENT: other - Has 2 ulcerations one on the right lateral wrist 1 on the right medial wrist which were present prior to admission. The upper medial aspect of the arm shows mild early dark discoloration but no swelling. Erythema has not improved slightly. Warm compresses noted to be on.. ABSENT: cyanosis Tubes/Lines: PRESENT: Endotracheal Tube, Central Line, Arterial Catheter, Other - Orogastric tube, Mock type urinary catheter Laboratory/Radiographs Laboratory Results: 10/05/19 03:35 04/14/20 04/14/20 04/14/20 06:54 06:54 11:30 WBC 35.9 H* RBC 3.09 L Hgb 9.7 L Hct 30.0 L MCV 97 D MCH 31.3 MCHC 32.3 RDW 17.4 H Plt Count 319 Seg Neutrophils % Carbonic Acid 1.19 HCO3/H2CO3 Ratio 12:1 ABG pH 7.21 L ABG pCO2 39.4 ABG pO2 84.0 ABG HCO3 15.4 L ABG O2 Saturation 94.2 ABG Base Excess -11.8 FiO2 90% Sodium 130.1 L Potassium 3.9 Chloride 99 Carbon Dioxide 14 L Anion Gap 17 BUN 32 H Creatinine 1.69 H Est GFR ( Amer) 50 L Glucose 319 H Lactic Acid Calcium 7.4 L Phosphorus 6.1 H Magnesium 1.8 Ferritin 874.00 H Total Bilirubin 2.8 H AST 678 H Alkaline Phosphatase 66 Ammonia C-Reactive Protein 175.6 H Total Protein 6.3 Albumin 2.4 L Triglycerides 51 Cholesterol < 50 LDL Cholesterol Direct < 30 VLDL Cholesterol 10.0 HDL Cholesterol 11 L 10/04/19 10/04/19 10/04/19 11:30 11:30 14:55 WBC RBC Hgb Hct MCV MCH MCHC RDW Plt Count Seg Neutrophils % Carbonic Acid 1.28 HCO3/H2CO3 Ratio 14:1 ABG pH 7.25 L ABG pCO2 42.5 ABG pO2 91.0 ABG HCO3 18.3 L ABG O2 Saturation 95.7 ABG Base Excess -8.4 FiO2 90% Sodium 126.5 L Potassium 3.5 L Chloride 96 L Carbon Dioxide 15 L Anion Gap 16 BUN 33 H Creatinine 1.66 H Est GFR ( Amer) 51 L Glucose 382 H Lactic Acid 7.2 H Calcium 7.3 L Phosphorus Magnesium Ferritin Total Bilirubin AST Alkaline Phosphatase Ammonia C-Reactive Protein Total Protein Albumin Triglycerides Cholesterol LDL Cholesterol Direct VLDL Cholesterol HDL Cholesterol 10/04/19 10/04/19 10/05/19 15:00 15:00 03:35 WBC 35.7 H* RBC 2.83 L Hgb 8.9 L Hct 25.7 L MCV 91 D MCH 31.2 MCHC 34.5 RDW 17.0 H Plt Count 176 Seg Neutrophils % Not Reportable Carbonic Acid HCO3/H2CO3 Ratio ABG pH ABG pCO2 ABG pO2 ABG HCO3 ABG O2 Saturation ABG Base Excess FiO2 Sodium 123.5 L Potassium 3.6 Chloride 93 L Carbon Dioxide 18 L Anion Gap 13 BUN 35 H Creatinine 1.65 H Est GFR ( Amer) 51 L Glucose 405 H* Lactic Acid 5.2 H Calcium 7.0 L* Phosphorus 4.7 H Magnesium 1.5 L Ferritin Total Bilirubin 3.2 H AST 1449 H Alkaline Phosphatase 67 Ammonia C-Reactive Protein Total Protein 6.5 Albumin 2.3 L Triglycerides Cholesterol LDL Cholesterol Direct VLDL Cholesterol HDL Cholesterol 10/05/19 10/05/19 10/05/19 03:35 03:35 03:35 WBC RBC Hgb Hct MCV MCH MCHC RDW Plt Count Seg Neutrophils % Carbonic Acid 1.55 H HCO3/H2CO3 Ratio 14:1 ABG pH 7.26 L ABG pCO2 51.4 H ABG pO2 75.4 L ABG HCO3 22.6 ABG O2 Saturation 93.0 L ABG Base Excess -4.7 FiO2 80% Sodium Potassium Chloride Carbon Dioxide Anion Gap BUN Creatinine Est GFR ( Amer) Glucose Lactic Acid Calcium Phosphorus 5.3 H Magnesium 1.5 L Ferritin 2740.00 H Total Bilirubin AST Alkaline Phosphatase Ammonia 47.5 H C-Reactive Protein 186.9 H Total Protein Albumin Triglycerides Cholesterol LDL Cholesterol Direct VLDL Cholesterol HDL Cholesterol 10/05/19 03:35 WBC RBC Hgb Hct MCV MCH MCHC RDW Plt Count Seg Neutrophils % Carbonic Acid HCO3/H2CO3 Ratio ABG pH ABG pCO2 ABG pO2 ABG HCO3 ABG O2 Saturation ABG Base Excess FiO2 Sodium Potassium Chloride Carbon Dioxide Anion Gap BUN Creatinine Est GFR ( Amer) Glucose Lactic Acid 2.4 H Calcium Phosphorus Magnesium Ferritin Total Bilirubin AST Alkaline Phosphatase Ammonia C-Reactive Protein Total Protein Albumin Triglycerides Cholesterol LDL Cholesterol Direct VLDL Cholesterol HDL Cholesterol 10/03/19 15:25 Blood Blood Culture (PCR) - Final Staphylococcus Species 10/03/19 13:10 Blood Blood Culture (PCR) - Final Streptococcus Pneumoniae 10/03/19 10/03/19 10/03/19 12:15 12:15 12:15 Creatine Kinase 39 L 42 L CK-MB (CK-2) 1.88 Troponin I 0.081 NT-Pro-B Natriuret Pep 4050 H 10/03/19 10/04/19 10/04/19 16:33 05:45 06:54 Creatine Kinase Cancelled 307 H CK-MB (CK-2) Troponin I 0.095 NT-Pro-B Natriuret Pep 6400 H Impressions: Abdomen Ultrasound 10/04/19 00:00 IMPRESSION: Multiple hepatic lesions. The largest measures 3.2 x 3.8 x 3.6 cm. Mild ascites. No flow could be demonstrated in the portal vein. Portal vein was patent on prior CT done 2 5. Changes may be secondary to poor visualization due to bowel gas and body habitus. Chest X-Ray 10/04/19 00:00 IMPRESSION: Indwelling tubes/lines/catheters as above. Worsening airspace opacities bilaterally with suspected small bilateral effusions copyright 2011 [employer]- All Rights Reserved All labs, radiographs, diagnostic studies and EKGs were personally reviewed: Yes In addition, reports of radiographic and diagnostic studies were read: Yes Assessment and Plan - Diagnosis (1) Sepsis Qualifiers: Sepsis type: Streptococcus group B Sepsis acute organ dysfunction status: with acute organ dysfunction Severe sepsis acute organ dysfunction type: acute respiratory failure Acute respiratory failure type: with hypoxia Severe sepsis shock status: with septic shock Qualified Code(s): A40.1 - Sepsis due to streptococcus, group B; R65.21 - Severe sepsis with septic shock; J96.01 - Acute respiratory failure with hypoxia Is this a current diagnosis for this admission?: Yes Plan: Improving but still critical (2) Streptococcal toxic shock syndrome Is this a current diagnosis for this admission?: Yes (3) Acute respiratory failure with hypoxia Is this a current diagnosis for this admission?: Yes (4) Suspected COVID-19 virus infection Is this a current diagnosis for this admission?: Yes (5) Atrial fibrillation with RVR Is this a current diagnosis for this admission?: Yes (6) Protein-calorie malnutrition, moderate Is this a current diagnosis for this admission?: Yes (7) Lactic acidosis Is this a current diagnosis for this admission?: Yes (8) Streptococcal bacteremia Is this a current diagnosis for this admission?: Yes (9) Streptococcus pneumoniae Is this a current diagnosis for this admission?: Yes Plan Summary: 10.05.2019: Patient has shown some progress and is now off epinephrine and Vladimir- Synephrine. If it is being weaned. Gram stain and culture show both a strep and staph species. Further delineation is still pending. If these are both positive this would lend suspicion to an intraluminal malignancy of the gut. Patient's hypoxia is improving as well. He is hypercarbic this morning and ventilator has been adjusted to fix this. He has acute kidney injury with a ratio greater than 20-1. This may be reflective of steroids. We will continue steroids. In studies with strep pneumonia at has been shown to be helpful; of her with staph species in the blood I am concerned about worsening infection. Fortunately, he has been improving. He does not fact have adrenal insufficiency so will need to be cognizant of this as we reduce steroid dosing. The source of this appears to be lung however patient has had skin injuries from his toolbox falling on him. Have ordered a chest x-ray to determine if pneumonia is improving. Due to dictation malfunction I reported yesterday that strep was in his urine when it should have said "blood" Patient's SARS, 2-CoViD19 is negative. Some of his immune parameters such as d- dimer and ferritin are elevated but given the degree of toxic shock syndrome this is not unexpected and these test are not specific for COVID. I have instructed the staff to still wear masks and gloves and gown around the patient. I do not think this is a false negative given the fact that we obtain this from a deep tracheal specimen. We will continue to follow his urine output. He has hyponatremia and have asked for a urine sodium to determine its etiology. He has a history of liver cancer and his alpha-fetoprotein is quite high at 58 He will need an MRI of his liver and evaluation by GI service when he is improved. His right arm, where we suspect levophed infiltration occurred, has early darkening of the skin. Will need to follow for necrosis. Nitropaste and terbutaline were instilled yesterday. To need to place warm compresses and follow Will begin nutritional support. Given the patient's elevated d-dimer he is on treatment dose Lovenox. Would wean to a phylactic type dosing once his d-dimer is less than 1 Discussed with his daughter Nicole 10.04.2019: COVID-19 CDC guideline data points: The patient presents with suspected COVID-19 with associated symptoms of cough, shortness of breath, fever without diarrhea, complicated by this/these comorbidities: Liver malignancy hepatitis C possible COPD. ASSESSMENT: SARS, 2-CoViD19 suspected Respiratory: Patient has ARDS. His chest x-ray shows by lobar bilateral infiltrates. He has strep pneumoniae growing in his blood and we are suspecting that it is coming from his lungs primarily. Initial presentation of chest x-ray the concern for COVID is still valid and present. We await studies Infectious: As stated previously patient has toxic shock syndrome with strep species. He is on broad-spectrum antibiotics and will de-escalate as further information is obtained. I have added clindamycin and IVIG. IVIG will be given 1 g/kg today and half a gram per kilogram tomorrow and the day after. He is extremely ill with a high Bosque score with begin increasing morbidity and mortality. Although we prefer linezolid for the lung bacteremia appears to respond better to vancomycin and I have exchanged the linezolid for vancomycin. If he continues to decline we may be forced to switch back to linezolid. Continue to follow lactic acid. Patient appears to be adequately volume resuscitated Cardiac: Patient is in septic shock. We are unable to give methylene blue secondary to the interactions with his medications. We will attempt to give this now that competing medications are off and his vasopressor requirements are increasing. Hematologic: Has critical care related anemia in addition to delutional. No requirements for blood transfusion at this time. His white count is extremely elevated secondary to sepsis. Endocrine: TSH acceptable. Follow glucose. Patient's cortisol was 7 which is extremely low. He has adrenal insufficiency Renal: Patient is becoming oliguric and is progressing in renal failure. I anticipate that he may need renal replacement therapy in the next 24 to 48 hours. I have adjusted his medications for his renal dysfunction. Metabolic: Patient has metabolic acidosis both respiratory and metabolic processes. Significant space but a significant lactic acid elevation. Continue to monitor and measure treat supportively including bicarbonate drip Alimentary: Patient's abdomen is slightly distended compared paired to yesterday. I am unable to elicit any tenderness. His LFTs are elevated in addition to bilirubin. Given his periods of gallstones in the past this may re present a cholecystitis picture as well. Have ordered ultrasound and will continue to follow monitor labs. If ultrasound is positive he would be unable to go to the OR secondary to his CODE STATUS. He would also be unable to have a secondary to how tenuous his status is it would be that a percutaneous cystostomy tube Neurologic: Patient is currently sedated and will keep him deeply sedated. P ropofol caused hypotension and will be judicious with its use. I have ordered Ativan and Dilaudid as needed. Sedation: Please see above Lines/Tubes: Right internal jugular central venous catheter radial arterial catheter Other: Still, his daughter has been updated and all questions answered. Critical Time Critical Time (minutes): 70 Level of Care: ICU -: 1. The care of a critical patient is a dynamic process. This note is a [employer] products sales representative synopsis but static in nature. The timeframe for treatments given in order is not necessarily the actual time these treatments may have been done. 2. This patient requires critical care secondary to ongoing requirements for therapy not offered or safe outside the critical care environment. Transfer to a lower level of care will result in altered life or limb morbidity and mortality. 3. Multidisciplinary rounds completed. 4. ABCDE bundle addressed.
[2019-10-05] MEDS ORDERED: SODIUM CHLORIDE 3% 500 ML IV ONE ×2 (16:00→22:04)
[2019-10-05] MEDS ORDERED: IMMUNE GLOB,GAM CAPRYLATE(IGG) 20 GM, IMMUNE GLOB,GAM CAPRYLATE(IGG) 10 GM in CONTAINER... IV ONE ×6 (16:00)
[2019-10-05 16:54] LABS: ARTERIAL BLOOD BASE EXCESS -1.4 mmol/L; ARTERIAL BLOOD H2CO3 1.51 mmol/L (1.05-1.35); ARTERIAL BLOOD O2 SATURATION 93.7 % (94-98); ARTERIAL BLOOD PH 7.32 (7.35-7.45); ARTERIAL BLOOD PO2 74.4 mmHg (80-100); ARTERIAL BLOOD TOTAL CO2 26.5 mmol/L (23-27)
[2019-10-05 16:56] LABS: ARTERIAL BLOOD FIO2 70%
[2019-10-05] MEDS: THIAMINE HCL 250 MG in NORMAL SALINE 50 ML IV SCH (17:26)
[2019-10-05] MEDS ORDERED: THIAMINE HCL 250 MG in NORMAL SALINE 250 ML IV SCH (18:00)
--- NOTE | 2019-10-05 20:32 | EKG REPORT ---
SEVERITY:- ABNORMAL ECG - ATRIAL FIB WITH RVR 136. BORDERLINE INFERIOR Q WAVES BORDERLINE PROLONGED QT INTERVAL : Confirmed by: Dave Flaherty MD 05-Oct-2019 20:31:42
[2019-10-05 21:10] LABS: HEMATOCRIT 25.2 % (37.9-51.0); HEMOGLOBIN 8.7 g/dL (13.5-17.0); MEAN CORPUSCULAR HEMOGLOBIN 30.9 pg (27.0-33.4); MEAN CORPUSCULAR HGB CONC 34.3 g/dL (32.0-36.0); MEAN CORPUSCULAR VOLUME 90 fl (80-97); PLATELET COUNT 140 10^3/uL (150-450); RED CELL DISTRIBUTION WIDTH 16.5 % (11.5-14.0); WHITE BLOOD COUNT 29.5 10^3/uL (4.0-10.5)
[2019-10-05 21:29] LABS: ANION GAP 9 (5-19); BLOOD UREA NITROGEN 47 mg/dL (7-20); CARBON DIOXIDE 27 mmol/L (22-30); CHLORIDE 85 mmol/L (98-107); GLUCOSE 193 mg/dL (75-110); PHOSPHORUS 4.5 mg/dL (2.5-4.5); POTASSIUM 3.4 mmol/L (3.6-5.0)
[2019-10-05] MEDS ORDERED: NORMAL SALINE 1000 ML 500 ML IV ONE (21:53)
[2019-10-05] MEDS ORDERED: NORMAL SALINE 500 ML IV ONE ×4 (22:00→23:45)
[2019-10-05] MEDS: AZITHROMYCIN 500 MG in DEXTROSE 5%-WATER 250 ML IV SCH (22:02)
[2019-10-05] MEDS ORDERED: METOPROLOL TARTRATE PF/INJ 5 MG/5 ML SDV IV ONE ×2 (22:26→22:27)
[2019-10-05] MEDS: METOPROLOL TARTRATE PF/INJ 5 MG/5 ML SDV IV SCH ×3 (22:30→22:40)
[2019-10-05] MEDS ORDERED: POTASSI CL 20 MEQ/50 ML RIDER 20 MEQ/50 ML RTUPB IV ONE (22:30)
[2019-10-06] MEDS: INSULIN REG, HUMAN 100 UNIT/ML 3 ML VIAL (PYX) SUBCUT SCH ×7 (00:07→22:58)
[2019-10-06] MEDS: ASCORBIC ACID 500 MG TABLET NG SCH ×4 (00:08→18:00)
[2019-10-06] MEDS: DEXTROSE 5%-WATER 250 ML with NOREPINEPHRINE BITARTRATE 4 MG IV PRN ×10 (00:11→22:54)
[2019-10-06] MEDS: METHYLPREDNISOLONE INJ 125 MG/2 ML SDV IV SCH ×3 (03:17→18:02)
[2019-10-06] MEDS: CLINDAMYCIN 900 MG/D5W RTU 900 MG/50 ML RTUPB IV SCH ×3 (03:17→17:59)
[2019-10-06 03:47] LABS: ARTERIAL BLOOD BASE EXCESS -1.6 mmol/L; ARTERIAL BLOOD H2CO3 1.41 mmol/L (1.05-1.35); ARTERIAL BLOOD HCO3 24.3 mmol/L (20-24); ARTERIAL BLOOD O2 SATURATION 95.4 % (94-98); ARTERIAL BLOOD PCO2 46.7 mmHg (35-45); ARTERIAL BLOOD PH 7.34 (7.35-7.45); ARTERIAL BLOOD TOTAL CO2 25.8 mmol/L (23-27)
[2019-10-06 03:50] LABS: ARTERIAL BLOOD FIO2 90%; HEMATOCRIT 25.1 % (37.9-51.0); HEMOGLOBIN 8.7 g/dL (13.5-17.0); MEAN CORPUSCULAR HEMOGLOBIN 31.2 pg (27.0-33.4); MEAN CORPUSCULAR HGB CONC 34.7 g/dL (32.0-36.0); MEAN CORPUSCULAR VOLUME 90 fl (80-97); PLATELET COUNT 137 10^3/uL (150-450); RED BLOOD COUNT 2.79 10^6/uL (4.35-5.55); RED CELL DISTRIBUTION WIDTH 16.6 % (11.5-14.0)
[2019-10-06] MEDS: DEXTROSE 5%-WATER 1000 ML 1,000 ML with SODIUM BICARBONATE 150 MEQ IV PRN ×6 (03:50→19:31)
[2019-10-06 03:54] LABS: PROTHROMBIN TIME 22.1 SEC (11.4-15.4)
[2019-10-06 03:55] LABS: PARTIAL THROMBOPLASTIN TIME 51.4 SEC (23.5-35.8)
[2019-10-06 04:07] LABS: ABSOLUTE LYMPHOCYTES# (MANUAL) 2.4 10^3/uL (0.5-4.7); BAND NEUTROPHILS % (MANUAL) 7 % (3-5); BASOPHILS % (MANUAL) 0 % (0-2); EOSINOPHILS % (MANUAL) 0 % (0-6); LYMPHOCYTES % (MANUAL) 7 % (13-45); METAMYELOCYTES % (MANUAL) 1 % (0-1); MONOCYTES % (MANUAL) 0 % (3-13); SEGMENTED NEUTROPHILS % (MAN) 85 % (42-78); TOTAL CELLS COUNTED 100
[2019-10-06 04:09] LABS: ANISOCYTOSIS 2+; OVALOCYTES 1+; PLATELET COMMENT DECREASED; POIKILOCYTOSIS 1+; TOXIC GRANULATION SLIGHT; TOXIC VACUOLATION PRESENT
[2019-10-06 04:10] LABS: WHITE BLOOD COUNT 34.7 10^3/uL (4.0-10.5)
[2019-10-06 04:37] LABS: ANION GAP 9 (5-19); BLOOD UREA NITROGEN 47 mg/dL (7-20); CARBON DIOXIDE 26 mmol/L (22-30); CHLORIDE 87 mmol/L (98-107); GLUCOSE 190 mg/dL (75-110); PHOSPHORUS 4.2 mg/dL (2.5-4.5); POTASSIUM 3.6 mmol/L (3.6-5.0)
[2019-10-06 04:52] LABS: CALCIUM 6.7 mg/dL (8.4-10.2)
[2019-10-06 05:20] LABS: C-REACTIVE PROTEIN 165.4 mg/L (<10.0)
[2019-10-06] MEDS: CEFEPIME 1 GM/D5W RTU 1 GM/50 ML RTUPB IV SCH ×2 (05:21→17:59)
[2019-10-06] MEDS: ENOXAPARIN SODIUM INJ 60 MG/0.6 ML DISP.SYRIN SUBCUT SCH ×2 (05:21→18:01)
[2019-10-06] MEDS: THIAMINE HCL 250 MG in NORMAL SALINE 50 ML IV SCH ×2 (05:32→17:59)
--- NOTE | 2019-10-06 06:07 | RADIOLOGY REPORT (SQ) ---
CLINICAL HISTORY: pneumonia COMPARISON: 10/04/2019. TECHNIQUE: XR CHEST 1 VIEW 10/06/2019 6:00 AM CDT FINDINGS: The heart is borderline in size. There is extensive bilateral airspace disease throughout much of the right lung and left lung base. There is no pleural effusion. There is no pneumothorax. There are no acute osseous findings. Endotracheal tube, nasogastric tube and right IJ central line are unchanged. IMPRESSION: Worsening pneumonia, especially in the right lung base.
[2019-10-06] MEDS: DEXTROSE 5%-WATER 250 ML with VASOPRESSIN 100 UNIT IV PRN ×2 (09:17)
[2019-10-06] MEDS: ZINC SULFATE 220 MG CAPSULE PO SCH (10:00)
[2019-10-06] MEDS: VANCOMYCIN HCL 1,000 MG in DEXTROSE 5%-WATER 250 ML IV SCH (10:01)
[2019-10-06] MEDS: HYDROXYCHLOROQUINE SULFATE 200 MG TABLET NG SCH ×2 (10:02→18:01)
[2019-10-06] MEDS: FAMOTIDINE 20 MG TABLET NG SCH ×2 (10:03→21:12)
[2019-10-06] MEDS: CHOLECALCIFEROL (D3) 1,000 UNIT (25 MCG) TABLET NG SCH (10:03)
[2019-10-06] MEDS: GABAPENTIN 100 MG CAPSULE PO SCH ×3 (10:04→18:00)
--- NOTE | 2019-10-06 11:28 | PDOC CRITICAL CARE PROG REPORT ---
General Date:: 10/06/19 ICU Day:: 3 Ventilator Day:: 2 Hospital Day:: 3 Resuscitation Status: Full Code Medical Power of Relocation Manager: Sal Rivera Events in the past 12 to 24 Hours:: Sodium back down. Making some progress on vasopressors. Review of systems relevant to events:: Respiratory and CV Reason for ICU Addmission:: Acute hypoxic respiratory failure with possible SARS, 2-CoViD19 - Medications: Medications reviewed and adjusted accordingly: Yes Vasopressors:: Levophed and vasopressin. Sedation:: Dilaudid and versed boluses. Physical Exam Vital Signs: Temp Pulse Resp BP Pulse Ox 97.5 F 84 16 121/80 96 10/06/19 10:00 10/06/19 10:00 10/06/19 10:00 10/06/19 10:00 10/06/19 10:00 Intake & Output 10/05/19 10/06/19 10/07/19 06:59 06:59 06:59 Intake Total 6580 3695.5 401 Output Total 1805 1280 130 Balance 4775 2415.5 271 Weight 67.3 kg 74 kg Weight/Height Weight 74 kg Height 5 ft 9 in General appearance: PRESENT: no acute distress, well-developed, well-nourished Head exam: PRESENT: atraumatic, normocephalic Eye exam: PRESENT: conjunctiva pink, EOMI, PERRLA. ABSENT: scleral icterus Ear exam: PRESENT: normal external ear exam Mouth exam: PRESENT: moist, tongue midline Respiratory exam: PRESENT: symmetrical, unlabored Cardiovascular exam: PRESENT: RRR. ABSENT: diastolic murmur, rubs, systolic murmur GI/Abdominal exam: PRESENT: normal bowel sounds, soft. ABSENT: distended, guarding, mass, organolmegaly, rebound, tenderness Rectal exam: PRESENT: deferred Neurological exam: PRESENT: other - Sedated. Skin exam: PRESENT: dry, intact, warm. ABSENT: cyanosis, rash Laboratory/Radiographs Laboratory Results: 10/06/19 03:35 10/06/19 03:35 10/05/19 10/05/19 10/05/19 16:26 20:48 20:48 WBC RBC Hgb Hct MCV MCH MCHC RDW Plt Count Seg Neutrophils % Carbonic Acid 1.51 H HCO3/H2CO3 Ratio 16:1 ABG pH 7.32 L ABG pCO2 50.0 H ABG pO2 74.4 L ABG HCO3 25.0 H ABG O2 Saturation 93.7 L ABG Base Excess -1.4 FiO2 70% Sodium 121.3 L Potassium 3.4 L Chloride 85 L Carbon Dioxide 27 Anion Gap 9 BUN 47 H Creatinine 1.95 H Est GFR ( Amer) 42 L Glucose 193 H Lactic Acid 3.2 H Calcium 7.0 L* Ionized Calcium Jayjay Phosphorus 4.5 Magnesium 2.3 Ferritin Ammonia C-Reactive Protein 10/05/19 10/06/19 10/06/19 20:48 03:35 03:35 WBC 29.5 H RBC 2.80 L Hgb 8.7 L Hct 25.2 L MCV 90 MCH 30.9 MCHC 34.3 RDW 16.5 H Plt Count 140 L Seg Neutrophils % Carbonic Acid HCO3/H2CO3 Ratio ABG pH ABG pCO2 ABG pO2 ABG HCO3 ABG O2 Saturation ABG Base Excess FiO2 Sodium Potassium Chloride Carbon Dioxide Anion Gap BUN Creatinine Est GFR ( Amer) Glucose Lactic Acid Calcium Ionized Calcium Jayjay Phosphorus Magnesium Ferritin 1740.00 H Ammonia 31.4 C-Reactive Protein 165.4 H 10/06/19 10/06/19 10/06/19 03:35 03:35 03:35 WBC 34.7 H* RBC 2.79 L Hgb 8.7 L Hct 25.1 L MCV 90 MCH 31.2 MCHC 34.7 RDW 16.6 H Plt Count 137 L Seg Neutrophils % Not Reportable Carbonic Acid 1.41 H HCO3/H2CO3 Ratio 17:1 ABG pH 7.34 L ABG pCO2 46.7 H ABG pO2 82.0 ABG HCO3 24.3 H ABG O2 Saturation 95.4 ABG Base Excess -1.6 FiO2 90% Sodium 121.6 L Potassium 3.6 Chloride 87 L Carbon Dioxide 26 Anion Gap 9 BUN 47 H Creatinine 1.97 H Est GFR ( Amer) 42 L Glucose 190 H Lactic Acid Calcium 6.7 L* Ionized Calcium Jayjay Phosphorus 4.2 Magnesium 2.2 Ferritin Ammonia C-Reactive Protein 10/06/19 10/06/19 03:35 05:10 WBC RBC Hgb Hct MCV MCH MCHC RDW Plt Count Seg Neutrophils % Carbonic Acid HCO3/H2CO3 Ratio ABG pH ABG pCO2 ABG pO2 ABG HCO3 ABG O2 Saturation ABG Base Excess FiO2 Sodium Potassium Chloride Carbon Dioxide Anion Gap BUN Creatinine Est GFR ( Amer) Glucose Lactic Acid 3.2 H Calcium Ionized Calcium Jayjay 0.97 L Phosphorus Magnesium Ferritin Ammonia C-Reactive Protein 10/04/19 08:05 Tracheal Aspirate Gram Stain - Final 10/03/19 15:25 Blood Blood Culture (PCR) - Final Staphylococcus Species 10/03/19 15:25 Blood Blood Culture - Final Staphylococcus Hominis 10/03/19 13:10 Blood Blood Culture (PCR) - Final Streptococcus Pneumoniae 10/03/19 13:10 Blood Blood Culture - Final Streptococcus Pneumoniae 10/03/19 13:10 Throat Throat Culture - Final NORMAL DANIELLE 10/03/19 10/03/19 10/03/19 12:15 12:15 12:15 Creatine Kinase 39 L 42 L CK-MB (CK-2) 1.88 Troponin I 0.081 NT-Pro-B Natriuret Pep 4050 H 10/03/19 10/04/19 10/04/19 16:33 05:45 06:54 Creatine Kinase Cancelled 307 H CK-MB (CK-2) Troponin I 0.095 NT-Pro-B Natriuret Pep 6400 H 10/05/19 20:48 Creatine Kinase CK-MB (CK-2) Troponin I 0.057 NT-Pro-B Natriuret Pep Impressions: Abdomen Ultrasound 10/04/19 00:00 IMPRESSION: Multiple hepatic lesions. The largest measures 3.2 x 3.8 x 3.6 cm. Mild ascites. No flow could be demonstrated in the portal vein. Portal vein was patent on prior CT done 2 5. Changes may be secondary to poor visualization due to bowel gas and body habitus. Chest X-Ray 10/06/19 06:00 IMPRESSION: Worsening pneumonia, especially in the right lung base. All labs, radiographs, diagnostic studies and EKGs were personally reviewed: Yes In addition, reports of radiographic and diagnostic studies were read: Yes Assessment and Plan - Diagnosis (1) Acute respiratory failure with hypoxia Is this a current diagnosis for this admission?: Yes Plan: Intubated and likely not able to do much on weaning vent today. (2) COPD (chronic obstructive pulmonary disease) Qualifiers: Emphysema type: centrilobular Is this a current diagnosis for this admission?: Yes Plan: No wheezing but I'm sure this is playing a role in intubation status. (3) Hepatitis C Qualifiers: Viral hepatitis chronicity: chronic Hepatic coma status: without hepatic coma Qualified Code(s): B18.2 - Chronic viral hepatitis C Is this a current diagnosis for this admission?: Yes Plan: This is chronic and the possibility of hepatoma has been raised. He will need an MRI when extubated. (4) Hypotension Is this a current diagnosis for this admission?: Yes Plan: This may in fact be from septic shock but this is not clear. He is on steroids and both levophed and vasopressin. (5) Acute kidney injury Is this a current diagnosis for this admission?: Yes Plan: Right now in [address]. Likely due to hypotension and use of vasopressors. Perhaps sepsis. Expect improvement when off pressors. (6) Streptococcal bacteremia Is this a current diagnosis for this admission?: Yes Plan: Likely from a pneumococcal sepsis. (7) Streptococcal toxic shock syndrome Is this a current diagnosis for this admission?: Yes Plan: Improved but not resolved. (8) Septic shock Is this a current diagnosis for this admission?: Yes Plan: In septic shock on admission. Still in need of pressors. Plan Summary: Wean levophed and then vasopressin. When lower on both then we will attempt wean of vent. Critical Time Critical Time (minutes): 40 Level of Care: ICU Anticipated discharge: Home Within: Other -: 1. The care of a critical patient is a dynamic process. This note is a business services sales representative synopsis but static in nature. The timeframe for treatments given in order is not necessarily the actual time these treatments may have been done. 2. This patient requires critical care secondary to ongoing requirements for therapy not offered or safe outside the critical care environment. Transfer to a lower level of care will result in altered life or limb morbidity and mortality. 3. Multidisciplinary rounds completed. 4. ABCDE bundle addressed.
[2019-10-06] MEDS ORDERED: IMMUNE GLOB,GAM CAPRYLATE(IGG) 20 GM, IMMUNE GLOB,GAM CAPRYLATE(IGG) 10 GM in CONTAINER... IV ONE (12:00)
[2019-10-06] MEDS ORDERED: SODIUM CHLORIDE 3% 500 ML IV ONE (12:30)
[2019-10-06 13:13] LABS: UNC RESP CORONAVIRUS 229E NOT DETECTED; UNC RESP CORONAVIRUS OC43 NOT DETECTED; UNCRES RHINOVIRUS/ENTEROVIRUS NOT DETECTED
[2019-10-06 14:38] LABS: ANION GAP 8 (5-19); BLOOD UREA NITROGEN 54 mg/dL (7-20); CARBON DIOXIDE 25 mmol/L (22-30); CHLORIDE 87 mmol/L (98-107); GLUCOSE 141 mg/dL (75-110); POTASSIUM 3.6 mmol/L (3.6-5.0)
[2019-10-06 14:59] LABS: CALCIUM 6.6 mg/dL (8.4-10.2)
[2019-10-06] MEDS: HYDROMORPHONE HCL INJ/PF 2 MG/ML AMPULE IV PRN ×2 (15:09→22:04)
[2019-10-06 18:28] LABS: ANION GAP 6 (5-19); BLOOD UREA NITROGEN 55 mg/dL (7-20); CARBON DIOXIDE 26 mmol/L (22-30); CHLORIDE 89 mmol/L (98-107); GLUCOSE 106 mg/dL (75-110); POTASSIUM 3.5 mmol/L (3.6-5.0)
[2019-10-06 18:39] LABS: CALCIUM 6.7 mg/dL (8.4-10.2)
[2019-10-06] MEDS: SODIUM CHLORIDE 3% 500 ML IV PRN (20:00)
[2019-10-06] MEDS: AZITHROMYCIN 500 MG in DEXTROSE 5%-WATER 250 ML IV SCH (22:01)
[2019-10-06] MEDS ORDERED: METOPROLOL TARTRATE PF/INJ 5 MG/5 ML SDV IV ONE ×4 (22:09→23:00)
[2019-10-06] MEDS ORDERED: ALBUMIN HUMAN 500 ML IV ONE (22:20)
[2019-10-06] MEDS ORDERED: ALBUMIN HUMAN 12.5 GM/50 ML RTUINJ IV ONE (22:21)
[2019-10-06] MEDS ORDERED: HYDROMORPHONE HCL INJ/PF 2 MG/ML AMPULE IV ONE (22:30)
[2019-10-06] MEDS: CALCIUM GLUC IN NACL, ISO-OSM 1 GM/50 ML RTUPB IV SCH (23:02)
[2019-10-07 00:06] LABS: ANION GAP 8 (5-19); BLOOD UREA NITROGEN 55 mg/dL (7-20); CARBON DIOXIDE 26 mmol/L (22-30); CHLORIDE 89 mmol/L (98-107); GLUCOSE 115 mg/dL (75-110); POTASSIUM 3.5 mmol/L (3.6-5.0)
[2019-10-07] MEDS: CALCIUM GLUC IN NACL, ISO-OSM 1 GM/50 ML RTUPB IV SCH (00:09)
[2019-10-07] MEDS: ASCORBIC ACID 500 MG TABLET NG SCH ×2 (00:10→06:28)
[2019-10-07 00:15] LABS: CALCIUM 6.7 mg/dL (8.4-10.2)
[2019-10-07] MEDS: METHYLPREDNISOLONE INJ 125 MG/2 ML SDV IV SCH ×3 (02:38→17:37)
[2019-10-07] MEDS: INSULIN REG, HUMAN 100 UNIT/ML 3 ML VIAL (PYX) SUBCUT SCH ×6 (02:38→23:16)
[2019-10-07] MEDS: CLINDAMYCIN 900 MG/D5W RTU 900 MG/50 ML RTUPB IV SCH ×3 (02:38→17:36)
[2019-10-07] MEDS ORDERED: METOPROLOL TARTRATE PF/INJ 5 MG/5 ML SDV IV ONE ×2 (03:08→03:30)
[2019-10-07] MEDS: HYDROMORPHONE HCL INJ/PF 2 MG/ML AMPULE IV PRN ×3 (03:21→16:35)
[2019-10-07] MEDS ORDERED: NORMAL SALINE 1000 ML 500 ML IV ONE (03:30)
[2019-10-07] MEDS: LORAZEPAM INJ 2 MG/1 ML VIAL IV PRN (03:36)
[2019-10-07 05:00] LABS: MEAN CORPUSCULAR HGB CONC 34.2 g/dL (32.0-36.0); MEAN CORPUSCULAR VOLUME 91 fl (80-97); RED BLOOD COUNT 2.54 10^6/uL (4.35-5.55); RED CELL DISTRIBUTION WIDTH 17.3 % (11.5-14.0)
[2019-10-07 05:11] LABS: ANION GAP 8 (5-19); BLOOD UREA NITROGEN 54 mg/dL (7-20); CARBON DIOXIDE 26 mmol/L (22-30); CHLORIDE 94 mmol/L (98-107); GLUCOSE 90 mg/dL (75-110); POTASSIUM 3.6 mmol/L (3.6-5.0)
[2019-10-07] MEDS: SODIUM CHLORIDE 3% 500 ML IV PRN ×2 (05:15→20:15)
[2019-10-07 05:16] LABS: PLATELET COUNT 93 10^3/uL (150-450)
[2019-10-07 05:27] LABS: ABSOLUTE LYMPHOCYTES# (MANUAL) 0.4 10^3/uL (0.5-4.7); ABSOLUTE MONOCYTES # (MANUAL) 1.1 10^3/uL (0.1-1.4); BASOPHILS % (MANUAL) 0 % (0-2); EOSINOPHILS % (MANUAL) 0 % (0-6); LYMPHOCYTES % (MANUAL) 1 % (13-45); METAMYELOCYTES % (MANUAL) 1 % (0-1); MONOCYTES % (MANUAL) 3 % (3-13); PROMYELOCYTES % (MANUAL) 1 % (0); SEGMENTED NEUTROPHILS % (MAN) 94 % (42-78); TOTAL CELLS COUNTED 100
[2019-10-07 05:28] LABS: ANISOCYTOSIS 1+; OVALOCYTES 1+; TOXIC GRANULATION SLIGHT
[2019-10-07 05:30] LABS: PLATELET COMMENT DECREASED
[2019-10-07 05:32] LABS: POIKILOCYTOSIS 1+
[2019-10-07] MEDS ORDERED: SODIUM CHLORIDE 3% 500 ML IV PRN ×2 (05:33→21:24)
[2019-10-07 05:35] LABS: HEMOGLOBIN 7.9 g/dL (13.5-17.0); WHITE BLOOD COUNT 36.5 10^3/uL (4.0-10.5)
[2019-10-07] MEDS: ENOXAPARIN SODIUM INJ 60 MG/0.6 ML DISP.SYRIN SUBCUT SCH (06:19)
[2019-10-07] MEDS: THIAMINE HCL 250 MG in NORMAL SALINE 50 ML IV SCH ×2 (06:23→17:39)
[2019-10-07] MEDS: CEFEPIME 1 GM/D5W RTU 1 GM/50 ML RTUPB IV SCH ×2 (06:25→17:37)
[2019-10-07] MEDS: DEXTROSE 5%-WATER 250 ML with NOREPINEPHRINE BITARTRATE 4 MG IV PRN ×4 (06:32→19:40)
--- NOTE | 2019-10-07 06:48 | RADIOLOGY REPORT (SQ) ---
AP Portable chest: 10/07/2019 5:46 AM CDT History: 63-year old patient with respiratory failure. Comparison: Chest Radiograph performed 10/06/2019. Findings: The cardiomediastinal silhouette is normal in size. No pneumothorax is seen. Bilateral interstitial airspace opacities are seen, most pronounced about the right hemithorax and left lung base. These are similar to prior imaging. A right internal jugular central line catheter tip projects near the SVC/right atrial junction. An endotracheal tube tip projects approximately 1.9 cm above the jacki. Impression: Bilateral interstitial airspace opacities appear similar to prior imaging.
[2019-10-07] MEDS ORDERED: LINEZOLID 600 MG/300 ML RTUPB IV SCH (07:24)
[2019-10-07 09:10] LABS: APPEARANCE,URINE CLOUDY; BILIRUBIN,URINE NEGATIVE (NEGATIVE); COLOR,URINE YELLOW; GLUCOSE, URINE NEGATIVE (NEGATIVE); KETONES,URINE NEGATIVE (NEGATIVE); LEUKOCYTE ESTERASE,URINE NEGATIVE (NEGATIVE); NITRITE,URINE NEGATIVE (NEGATIVE); PROTEIN,URINE NEGATIVE (NEGATIVE); UROBILINOGEN,URINE NEGATIVE mg/dL (<2.0)
[2019-10-07 09:30] LABS: ANION GAP 7 (5-19); BLOOD UREA NITROGEN 61 mg/dL (7-20); CARBON DIOXIDE 27 mmol/L (22-30); CHLORIDE 94 mmol/L (98-107); GLUCOSE 106 mg/dL (75-110); POTASSIUM 3.6 mmol/L (3.6-5.0)
[2019-10-07 09:35] LABS: VANCOMYCIN,TROUGH 14.4 ug/mL (5.0-20.0)
[2019-10-07 09:48] LABS: CALCIUM 6.9 mg/dL (8.4-10.2)
[2019-10-07] MEDS ORDERED: ENOXAPARIN SODIUM INJ 60 MG/0.6 ML DISP.SYRIN SUBCUT SCH (10:00)
[2019-10-07] MEDS: LINEZOLID 600 MG/300 ML RTUPB IV SCH ×2 (11:00→21:50)
[2019-10-07] MEDS: ENOXAPARIN SODIUM INJ 30 MG/0.3 ML DISP.SYRIN SUBCUT SCH (11:15)
[2019-10-07] MEDS: FAMOTIDINE 20 MG TABLET NG SCH ×2 (11:15→21:53)
[2019-10-07] MEDS: GABAPENTIN 100 MG CAPSULE PO SCH ×3 (11:16→17:37)
--- NOTE | 2019-10-07 14:04 | RADIOLOGY REPORT (SQ) ---
EXAM DESCRIPTION: CT HEAD WITHOUT IMAGES COMPLETED DATE/TIME: 10/07/2019 1:45 pm REASON FOR STUDY: No sedation X 2 days, not waking up COMPARISON: None. TECHNIQUE: Axial images acquired through the brain without intravenous contrast. Images reviewed wi th bone, brain and subdural windows. Additional sagittal and coronal reconstructions were generated. Images stored on PACS. All CT scanners at this facility use dose modulation, iterative reconstruction, and/or weight based d osing when appropriate to reduce radiation dose to as low as reasonably achievable (ALARA). [facility]: Dose Right [facility]: CareDose [facility]: Dose Right [facility]: Teradose 4D [facility]: I-lighting RADIATION DOSE: CT Rad equipment meets quality standard of care and radiation dose reduction techniq ues were employed. CTDIvol: 48.7 mGy. DLP: 955 mGy-cm. LIMITATIONS: None. FINDINGS: The confluent areas of hypoattenuation within the supratentorial periventricular and subco rtical white matter are nonspecific c and could represent the sequela of chronic microvascular ischem ia. There is no acute intracranial hemorrhage, vascular territorial infarct, extra-axial fluid collection , mass effect or midline shift. The ball-white matter differentiation is preserved. There is no eff acement of the basal subarachnoid cisterns are cerebral sulci. The ventricles appear diminutive in caliber for the patient's age. There are oroenteric and nasogastric tubes in place. The orbits and globes are intact. The paranasa l sinuses are clear. There is no fracture of the calvarium. IMPRESSION: 1. The ventricles appear diminutive in caliber for the patient's age however the ball-wh ite matter differentiation is preserved and the cerebellum is isodense to the cerebral hemispheres. Therefore the findings are equivocal for diffuse cerebral edema. 2. No acute intracranial hemorrhage. EVIDENCE OF ACUTE STROKE: NO. COMMENT: Quality ID # [id number]: Final reports with documentation of one or more dose reduction techniques (e.g., Automated exposure control, adjustment of the mA and/or kV according to patient size, use of iterative reconstruction technique) TECHNICAL DOCUMENTATION: JOB ID: [id number] 2010 [employer]- All Rights Reserved Reading location - IP/workstation name: [email or web address]
[2019-10-07 14:39] LABS: ALBUMIN 2.1 g/dL (3.5-5.0); ALKALINE PHOSPHATASE 101 U/L (38-126); ANION GAP 8 (5-19); ASPARTATE AMINO TRANSFERASE 163 U/L (17-59); BILIRUBIN,DIRECT 2.6 mg/dL (0.0-0.4); BILIRUBIN,TOTAL 3.9 mg/dL (0.2-1.3); BLOOD UREA NITROGEN 59 mg/dL (7-20); CARBON DIOXIDE 26 mmol/L (22-30); CHLORIDE 93 mmol/L (98-107); GLUCOSE 115 mg/dL (75-110); POTASSIUM 3.5 mmol/L (3.6-5.0); TOTAL PROTEIN 6.6 g/dL (6.3-8.2)
--- NOTE | 2019-10-07 14:52 | RADIOLOGY REPORT (SQ) ---
EXAM DESCRIPTION: CT ABD/PELVIS ORAL ONLY IMAGES COMPLETED DATE/TIME: 10/07/2019 1:46 pm REASON FOR STUDY: Increasing girth, hx of liver cancer. COMPARISON: CT of the abdomen and pelvis with contrast from 07/27/2019. TECHNIQUE: CT scan of the abdomen and pelvis performed without intravenous or oral contrast. Images reviewed with lung, soft tissue, and bone windows. Reconstructed coronal and sagittal MPR images revi ewed. All images stored on PACS. All CT scanners at this facility use dose modulation, iterative reconstruction, and/or weight based d osing when appropriate to reduce radiation dose to as low as reasonably achievable (ALARA). [facility]: Dose Right [facility]: CareDose [facility]: Dose Right [facility]: Teradose 4D [facility]: [employer] RADIATION DOSE: CT Rad equipment meets quality standard of care and radiation dose reduction techniq ues were employed. CTDIvol: 20.2 - 20.2 mGy. DLP: 2319 mGy-cm. LIMITATIONS: None. FINDINGS: LOWER CHEST: The tip of the right IJ central venous catheter terminates within the SVC. T here is atherosclerotic calcification of the coronary arteries. The relative hypoattenuation of the blood pool with respect to the myocardium is indicated of anemia. There are small bilateral effusion s and diffuse interstitial and ground-glass opacities and superimposed area of consolidation in the l eft lower lobe with air bronchograms. NON-CONTRASTED LIVER, SPLEEN, ADRENALS: Evaluation is limited due to the absence of intravenous contr ast. There round areas of hypoattenuation in the hepatic dome (image 20 of series 2) and in the late ral aspect of the right hepatic lobe (image 26 of series 2) that are incompletely evaluated without c ontrast. The spleen is enlarged. There is no adrenal mass. PANCREAS: No acute abnormality of the pancreas. GALLBLADDER: Cholelithiasis. RIGHT KIDNEY AND URETER: Evaluation is limited due to the absence of intravenous contrast. There is no hydronephrosis or hydroureter. LEFT KIDNEY AND URETER: Evaluation is limited due to the absence of intravenous contrast. There is n o hydronephrosis or hydroureter. AORTA AND RETROPERITONEUM: No aneurysm of the abdominal aorta. No retroperitoneal adenopathy, hemorr domenico or mass. BOWEL AND PERITONEAL CAVITY: The tip of the enteric tube projects within the proximal duodenum. Ther e is no bowel obstruction or pneumatosis. The nodularity in the superior recess of the lesser sac an d around the esophagus could represent lymph nodes or varices. There is a small amount of ascites. There is no free intraperitoneal air. APPENDIX: Unable to identify the appendix. PELVIS, BLADDER, AND ABDOMINAL WALL:Diffuse anasarca. There is a Mock catheter within the urinary b ladder. The prostate gland is normal in size. BONES: No acute fracture or osseous lesion. OTHER: No other finding. IMPRESSION: 1. Small bilateral effusions and diffuse interstitial and ground-glass opacities and sup erimposed area of consolidation in the left lower lobe with air bronchograms. These findings could r epresent multifocal pneumonia or pulmonary edema/ARDS with a superimposed left lower lobe pneumonia. 2. Cirrhosis with nodular areas of hypoattenuation in the hepatic dome and lateral aspect of the rig ht hepatic dome that are incompletely evaluated on a noncontrast CT. 3. Stigmata of portal hypertension including ascites, splenomegaly and gastroesophageal varices. 4. Other secondary findings as detailed above. COMMENT: Quality ID # [id number]: Final reports with documentation of one or more dose reduction techniques (e.g., Automated exposure control, adjustment of the mA and/or kV according to patient size, use of iterative reconstruction technique) TECHNICAL DOCUMENTATION: JOB ID: [id number] 2010 [id number]- All Rights Reserved Reading location - IP/workstation name: [email or web address]
[2019-10-07 14:54] LABS: CALCIUM 6.6 mg/dL (8.4-10.2)
[2019-10-07 15:07] LABS: C DIFFICILE GDH NEGATIVE (NEGATIVE)
[2019-10-07] MEDS: DEXTROSE 5%-WATER 1000 ML 1,000 ML with SODIUM BICARBONATE 150 MEQ IV PRN ×2 (17:39)
[2019-10-07 20:20] LABS: ANION GAP 8 (5-19); BLOOD UREA NITROGEN 67 mg/dL (7-20); CARBON DIOXIDE 27 mmol/L (22-30); CHLORIDE 94 mmol/L (98-107); GLUCOSE 114 mg/dL (75-110); POTASSIUM 3.6 mmol/L (3.6-5.0)
[2019-10-07 20:32] LABS: CALCIUM 6.8 mg/dL (8.4-10.2)
[2019-10-07 22:32] LABS: ANION GAP 8 (5-19); BLOOD UREA NITROGEN 65 mg/dL (7-20); CARBON DIOXIDE 27 mmol/L (22-30); CHLORIDE 94 mmol/L (98-107); GLUCOSE 129 mg/dL (75-110); POTASSIUM 3.7 mmol/L (3.6-5.0)
[2019-10-07 22:42] LABS: CALCIUM 6.4 mg/dL (8.4-10.2)
[2019-10-07] MEDS: AZITHROMYCIN 500 MG in DEXTROSE 5%-WATER 250 ML IV SCH (22:53)
[2019-10-07] MEDS ORDERED: POTASSIUM CHLORIDE 20 MEQ PACKET NG ONE (23:30)
[2019-10-08] MEDS: ALBUMIN HUMAN 12.5 GM/50 ML RTUINJ IV SCH ×2 (00:36→07:00)
[2019-10-08] MEDS: HYDROMORPHONE HCL INJ/PF 2 MG/ML AMPULE IV PRN ×4 (01:36→17:33)
[2019-10-08] MEDS ORDERED: METOPROLOL TARTRATE PF/INJ 5 MG/5 ML SDV IV ONE ×2 (01:48→20:44)
[2019-10-08] MEDS: METOPROLOL TARTRATE PF/INJ 5 MG/5 ML SDV IV SCH ×6 (01:52→22:16)
[2019-10-08] MEDS: CLINDAMYCIN 900 MG/D5W RTU 900 MG/50 ML RTUPB IV SCH ×3 (02:02→17:25)
[2019-10-08] MEDS: METHYLPREDNISOLONE INJ 125 MG/2 ML SDV IV SCH ×3 (02:02→17:25)
[2019-10-08] MEDS ORDERED: NORMAL SALINE 1000 ML 500 ML IV ONE (03:00)
[2019-10-08] MEDS: DEXTROSE 5%-WATER 250 ML with NOREPINEPHRINE BITARTRATE 4 MG IV PRN ×6 (03:05→18:42)
[2019-10-08] MEDS: INSULIN REG, HUMAN 100 UNIT/ML 3 ML VIAL (PYX) SUBCUT SCH ×6 (03:47→23:19)
[2019-10-08] MEDS: THIAMINE HCL 250 MG in NORMAL SALINE 50 ML IV SCH ×2 (05:44→17:33)
[2019-10-08 06:06] LABS: ARTERIAL BLOOD BASE EXCESS -2.8 mmol/L; ARTERIAL BLOOD H2CO3 1.59 mmol/L (1.05-1.35); ARTERIAL BLOOD O2 SATURATION 93.4 % (94-98); ARTERIAL BLOOD PCO2 52.8 mmHg (35-45); ARTERIAL BLOOD PH 7.28 (7.35-7.45); ARTERIAL BLOOD PO2 76.3 mmHg (80-100); ARTERIAL BLOOD TOTAL CO2 25.7 mmol/L (23-27); HEMATOCRIT 22.2 % (37.9-51.0); MEAN CORPUSCULAR HEMOGLOBIN 30.8 pg (27.0-33.4); MEAN CORPUSCULAR HGB CONC 34.1 g/dL (32.0-36.0); MEAN CORPUSCULAR VOLUME 90 fl (80-97); RED BLOOD COUNT 2.46 10^6/uL (4.35-5.55); RED CELL DISTRIBUTION WIDTH 17.1 % (11.5-14.0)
[2019-10-08 06:08] LABS: PLATELET COUNT 81 10^3/uL (150-450)
[2019-10-08 06:10] LABS: ARTERIAL BLOOD FIO2 60%
[2019-10-08] MEDS: CEFEPIME 1 GM/D5W RTU 1 GM/50 ML RTUPB IV SCH ×2 (06:27→18:07)
[2019-10-08 06:29] LABS: ANION GAP 7 (5-19); BLOOD UREA NITROGEN 68 mg/dL (7-20); CARBON DIOXIDE 27 mmol/L (22-30); CHLORIDE 97 mmol/L (98-107); GLUCOSE 142 mg/dL (75-110); PHOSPHORUS 5.6 mg/dL (2.5-4.5); POTASSIUM 3.9 mmol/L (3.6-5.0)
[2019-10-08 06:32] LABS: ABSOLUTE LYMPHOCYTES# (MANUAL) 1.7 10^3/uL (0.5-4.7); ABSOLUTE MONOCYTES # (MANUAL) 0.7 10^3/uL (0.1-1.4); BAND NEUTROPHILS % (MANUAL) 1 % (3-5); BASOPHILS % (MANUAL) 0 % (0-2); EOSINOPHILS % (MANUAL) 0 % (0-6); LYMPHOCYTES % (MANUAL) 5 % (13-45); MONOCYTES % (MANUAL) 2 % (3-13); NUCLEATED RED BLOOD CELLS 2 /100 WBC (0); SEGMENTED NEUTROPHILS % (MAN) 92 % (42-78); TOTAL CELLS COUNTED 100
[2019-10-08 06:34] LABS: ANISOCYTOSIS 1+; OVALOCYTES 1+; PLATELET COMMENT DECREASED; POIKILOCYTOSIS 1+; POLYCHROMASIA SLIGHT; TARGET CELLS SLIGHT; TEAR DROP CELLS SLIGHT
[2019-10-08 06:36] LABS: HEMOGLOBIN 7.6 g/dL (13.5-17.0); WHITE BLOOD COUNT 34.6 10^3/uL (4.0-10.5)
[2019-10-08 06:54] LABS: CALCIUM 6.6 mg/dL (8.4-10.2)
[2019-10-08] MEDS: GABAPENTIN 100 MG CAPSULE PO SCH ×3 (09:11→17:34)
[2019-10-08] MEDS: FAMOTIDINE 20 MG TABLET NG SCH ×2 (09:11→21:19)
[2019-10-08] MEDS: ENOXAPARIN SODIUM INJ 30 MG/0.3 ML DISP.SYRIN SUBCUT SCH ×2 (09:14→11:04)
[2019-10-08] MEDS: LINEZOLID 600 MG/300 ML RTUPB IV SCH ×2 (10:56→21:18)
[2019-10-08] MEDS: SODIUM CHLORIDE 3% 500 ML IV PRN (10:57)
--- NOTE | 2019-10-08 11:28 | PDOC CRITICAL CARE PROG REPORT ---
General Date:: 10/08/19 ICU Day:: 5 Ventilator Day:: 5 Hospital Day:: 5 Resuscitation Status: Full Code Medical Power of Relay Adjuster: Sal Rivera Events in the past 12 to 24 Hours:: Found to have cerebral edema. Review of systems relevant to events:: Neurological, hepatic. Reason for ICU Addmission:: Acute hypoxic respiratory failure with possible SARS, 2-CoViD19 - Medications: Medications reviewed and adjusted accordingly: Yes Vasopressors:: Levophed. Sedation:: None Physical Exam Vital Signs: Temp Pulse Resp BP Pulse Ox 97.9 F 95 11 L 100/51 L 95 10/08/19 05:30 10/07/19 19:10 10/08/19 06:00 10/07/19 18:00 10/08/19 08:00 Intake & Output 10/07/19 10/08/19 10/09/19 06:59 06:59 06:59 Intake Total 3502.5 3857.5 50 Output Total 2050 1475 100 Balance 1452.5 2382.5 -50 Weight 76.1 kg 79.4 kg Weight/Height Weight 79.4 kg Height 5 ft 9 in General appearance: PRESENT: no acute distress, thin Head exam: PRESENT: atraumatic, normocephalic Eye exam: PRESENT: conjunctiva pink, EOMI, PERRLA. ABSENT: scleral icterus Ear exam: PRESENT: normal external ear exam Mouth exam: PRESENT: moist, tongue midline Respiratory exam: PRESENT: rhonchi, symmetrical, tachypnea, unlabored Cardiovascular exam: PRESENT: RRR. ABSENT: diastolic murmur, rubs, systolic murmur GI/Abdominal exam: PRESENT: normal bowel sounds, soft. ABSENT: distended, guarding, mass, organolmegaly, rebound, tenderness Rectal exam: PRESENT: deferred Extremities exam: PRESENT: full ROM. ABSENT: calf tenderness, clubbing, pedal edema Neurological exam: PRESENT: motor sensory deficit, other - He occassionaly makes a movement but nothing purposeful. Skin exam: PRESENT: dry, intact, warm. ABSENT: cyanosis, rash Tubes/Lines: PRESENT: Endotracheal Tube, Nasogastic Tube Laboratory/Radiographs Laboratory Results: 10/08/19 05:55 10/08/19 05:55 10/07/19 10/07/19 10/07/19 14:00 14:00 19:54 WBC RBC Hgb Hct MCV MCH MCHC RDW Plt Count Seg Neutrophils % Carbonic Acid HCO3/H2CO3 Ratio ABG pH ABG pCO2 ABG pO2 ABG HCO3 ABG O2 Saturation ABG Base Excess FiO2 Sodium 127.2 L 128.6 L Potassium 3.5 L 3.6 Chloride 93 L 94 L Carbon Dioxide 26 27 Anion Gap 8 8 BUN 59 H 67 H Creatinine 2.23 H 2.02 H Est GFR ( Amer) 36 L 41 L Glucose 115 H 114 H Calcium 6.6 L* 6.8 L* Ionized Calcium Jayjay Phosphorus Magnesium Total Bilirubin 3.9 H AST 163 H Alkaline Phosphatase 101 Ammonia 24.3 Total Protein 6.6 Albumin 2.1 L 10/07/19 10/08/19 10/08/19 22:03 05:55 05:55 WBC RBC Hgb Hct MCV MCH MCHC RDW Plt Count Seg Neutrophils % Carbonic Acid 1.59 H HCO3/H2CO3 Ratio 15:1 ABG pH 7.28 L ABG pCO2 52.8 H ABG pO2 76.3 L ABG HCO3 24.0 ABG O2 Saturation 93.4 L ABG Base Excess -2.8 FiO2 60% Sodium 129.1 L 131.4 L Potassium 3.7 3.9 Chloride 94 L 97 L Carbon Dioxide 27 27 Anion Gap 8 7 BUN 65 H 68 H Creatinine 1.94 H 2.05 H Est GFR ( Amer) 43 L 40 L Glucose 129 H 142 H Calcium 6.4 L* 6.6 L* Ionized Calcium Jayjay 1.05 L Phosphorus 5.6 H Magnesium 2.2 Total Bilirubin AST Alkaline Phosphatase Ammonia Total Protein Albumin 10/08/19 05:55 WBC 34.6 H* RBC 2.46 L Hgb 7.6 L Hct 22.2 L MCV 90 MCH 30.8 MCHC 34.1 RDW 17.1 H Plt Count 81 L Seg Neutrophils % Not Reportable Carbonic Acid HCO3/H2CO3 Ratio ABG pH ABG pCO2 ABG pO2 ABG HCO3 ABG O2 Saturation ABG Base Excess FiO2 Sodium Potassium Chloride Carbon Dioxide Anion Gap BUN Creatinine Est GFR ( Amer) Glucose Calcium Ionized Calcium Jayjay Phosphorus Magnesium Total Bilirubin AST Alkaline Phosphatase Ammonia Total Protein Albumin 10/04/19 08:05 Tracheal Aspirate Gram Stain - Final 10/04/19 08:05 Tracheal Aspirate Sputum Culture - Final Mrsa (Meth Resis Staph Aureus) Haemophilus Influenzae Normal Miladis Absent 10/03/19 10/03/19 10/03/19 12:15 12:15 12:15 Creatine Kinase 39 L 42 L CK-MB (CK-2) 1.88 Troponin I 0.081 NT-Pro-B Natriuret Pep 4050 H 10/03/19 10/04/19 10/04/19 16:33 05:45 06:54 Creatine Kinase Cancelled 307 H CK-MB (CK-2) Troponin I 0.095 NT-Pro-B Natriuret Pep 6400 H 10/05/19 20:48 Creatine Kinase CK-MB (CK-2) Troponin I 0.057 NT-Pro-B Natriuret Pep Impressions: Abdomen Ultrasound 10/04/19 00:00 IMPRESSION: Multiple hepatic lesions. The largest measures 3.2 x 3.8 x 3.6 cm. Mild ascites. No flow could be demonstrated in the portal vein. Portal vein was patent on prior CT done 2 5. Changes may be secondary to poor visualization due to bowel gas and body habitus. Abdomen/Pelvis CT 10/07/19 00:00 IMPRESSION: 1. Small bilateral effusions and diffuse interstitial and ground- glass opacities and superimposed area of consolidation in the left lower lobe with air bronchograms. These findings could represent multifocal pneumonia or pulmonary edema/ARDS with a superimposed left lower lobe pneumonia. 2. Cirrhosis with nodular areas of hypoattenuation in the hepatic dome and lateral aspect of the right hepatic dome that are incompletely evaluated on a noncontrast CT. 3. Stigmata of portal hypertension including ascites, splenomegaly and gastroesophageal varices. 4. Other secondary findings as detailed above. Head CT 10/07/19 00:00 IMPRESSION: 1. The ventricles appear diminutive in caliber for the patient's age however the ball-white matter differentiation is preserved and the cerebellum is isodense to the cerebral hemispheres. Therefore the findings are equivocal for diffuse cerebral edema. 2. No acute intracranial hemorrhage. EVIDENCE OF ACUTE STROKE: NO. All labs, radiographs, diagnostic studies and EKGs were personally reviewed: Yes In addition, reports of radiographic and diagnostic studies were read: Yes Assessment and Plan - Diagnosis (1) Acute respiratory failure with hypoxia Is this a current diagnosis for this admission?: Yes Plan: The patient still requires vent support for bilateral PNA. He also would have difficulty protecting his airway. (2) COPD (chronic obstructive pulmonary disease) Qualifiers: Emphysema type: centrilobular Is this a current diagnosis for this admission?: Yes Plan: This undoubtably is playing a role but he is not wheezing and has normal peak and plataue pressures. (3) Hepatitis C Qualifiers: Viral hepatitis chronicity: chronic Hepatic coma status: without hepatic coma Qualified Code(s): B18.2 - Chronic viral hepatitis C Is this a current diagnosis for this admission?: Yes Plan: He has by CT a nodular heterogenous liver and esophageal varices. as well as splenomegaly. (4) Hypotension Qualifiers: Hypotension type: idiopathic hypotension Qualified Code(s): I95.0 - Idiopathic hypotension Is this a current diagnosis for this admission?: Yes Plan: He is still requiring levophed. (5) Acute kidney injury Is this a current diagnosis for this admission?: Yes Plan: Cr still about 2.0 (6) Streptococcal bacteremia Is this a current diagnosis for this admission?: Yes Plan: Continue antibiotics. (7) Streptococcal toxic shock syndrome Is this a current diagnosis for this admission?: Yes (8) Septic shock Is this a current diagnosis for this admission?: Yes (9) Cytotoxic cerebral edema Is this a current diagnosis for this admission?: Yes Plan: This is likely due to hepatic dysfunction and acute infection. His ventricles and cisterns are open and as yet is not in danger of herniation. However this is a worrisome sign and poor prognostic indicator. He is on 3% saline foe hyponatremia. He is on steroids although this is of questionable value. He is being limited as far as IVF amount is concerned and his HOB is at 30 degrees or higher. Nevertheless this is a poor prognostic sign. Plan Summary: Continue the present plan and he will likely need a repeat head CT. Critical Time Critical Time (minutes): 35 Level of Care: ICU Anticipated discharge: SNF Within: Other -: 1. The care of a critical patient is a dynamic process. This note is a territory account representative synopsis but static in nature. The timeframe for treatments given in order is not necessarily the actual time these treatments may have been done. 2. This patient requires critical care secondary to ongoing requirements for therapy not offered or safe outside the critical care environment. Transfer to a lower level of care will result in altered life or limb morbidity and m ortality. 3. Multidisciplinary rounds completed. 4. ABCDE bundle addressed.
[2019-10-08 16:00] LABS: ANION GAP 8 (5-19); BLOOD UREA NITROGEN 73 mg/dL (7-20); CARBON DIOXIDE 26 mmol/L (22-30); CHLORIDE 98 mmol/L (98-107); GLUCOSE 162 mg/dL (75-110); POTASSIUM 3.8 mmol/L (3.6-5.0)
[2019-10-08 16:10] LABS: CALCIUM 6.6 mg/dL (8.4-10.2)
[2019-10-08] MEDS ORDERED: DILTIAZEM HCL INJ 25 MG/5 ML VIAL ONE (17:46)
[2019-10-08] MEDS ORDERED: DIGOXIN INJ 0.5 MG/2 ML AMPULE ONE (17:46)
[2019-10-08] MEDS: DEXMEDETOMIDINE IN 0.9 % NACL 400 MCG/100 ML RTUPB IV PRN (21:07)
[2019-10-08] MEDS: AZITHROMYCIN 500 MG in DEXTROSE 5%-WATER 250 ML IV SCH (21:18)
[2019-10-08] MEDS ORDERED: ALBUMIN HUMAN 500 ML IV ONE ×2 (23:13→23:59)
[2019-10-09] MEDS: HYDROMORPHONE HCL INJ/PF 2 MG/ML AMPULE IV PRN ×5 (00:30→19:12)
[2019-10-09] MEDS: AMINO AC/PROTEIN HYDR/WHEY PRO 11 GM/45 ML PKT NG SCH ×4 (00:40→17:01)
[2019-10-09] MEDS ORDERED: SODIUM CHLORIDE 1 GM TABLET ONE (00:42)
[2019-10-09] MEDS: SODIUM CHLORIDE 1 GM TABLET NG SCH ×4 (01:00→17:01)
[2019-10-09] MEDS: SENNOSIDES/DOCUSATE 8.6-50 MG 1 EACH TABLET NG SCH ×2 (01:00→09:33)
[2019-10-09] MEDS: METHYLPREDNISOLONE INJ 125 MG/2 ML SDV IV SCH ×3 (01:13→17:04)
[2019-10-09] MEDS: CLINDAMYCIN 900 MG/D5W RTU 900 MG/50 ML RTUPB IV SCH ×3 (01:13→17:01)
[2019-10-09] MEDS: SODIUM CHLORIDE 3% 500 ML IV PRN (01:20)
[2019-10-09] MEDS: INSULIN REG, HUMAN 100 UNIT/ML 3 ML VIAL (PYX) SUBCUT SCH ×6 (02:43→23:45)
[2019-10-09] MEDS: DEXMEDETOMIDINE IN 0.9 % NACL 400 MCG/100 ML RTUPB IV PRN ×6 (02:44→20:02)
[2019-10-09] MEDS: DEXTROSE 5%-WATER 250 ML with NOREPINEPHRINE BITARTRATE 4 MG IV PRN ×2 (02:44)
[2019-10-09 04:15] LABS: ANION GAP 8 (5-19); BLOOD UREA NITROGEN 80 mg/dL (7-20); CARBON DIOXIDE 25 mmol/L (22-30); CHLORIDE 103 mmol/L (98-107); GLUCOSE 147 mg/dL (75-110); POTASSIUM 3.5 mmol/L (3.6-5.0)
[2019-10-09 04:27] LABS: CALCIUM 6.3 mg/dL (8.4-10.2)
[2019-10-09] MEDS: THIAMINE HCL 250 MG in NORMAL SALINE 50 ML IV SCH ×2 (05:49→18:27)
[2019-10-09] MEDS: CEFEPIME 1 GM/D5W RTU 1 GM/50 ML RTUPB IV SCH ×2 (05:49→17:02)
[2019-10-09] MEDS ORDERED: SODIUM CHLORIDE 3% 500 ML IV PRN (07:40)
[2019-10-09] MEDS: ALBUMIN HUMAN 12.5 GM/50 ML RTUINJ IV SCH ×3 (07:52→23:46)
[2019-10-09] MEDS: GABAPENTIN 100 MG CAPSULE PO SCH ×3 (09:23→17:01)
[2019-10-09] MEDS: FAMOTIDINE 20 MG TABLET NG SCH ×2 (09:23→21:37)
[2019-10-09] MEDS: LINEZOLID 600 MG/300 ML RTUPB IV SCH ×2 (09:23→21:37)
[2019-10-09] MEDS: ENOXAPARIN SODIUM INJ 30 MG/0.3 ML DISP.SYRIN SUBCUT SCH (09:31)
--- NOTE | 2019-10-09 11:34 | PDOC CRITICAL CARE PROG REPORT ---
General Date:: 10/09/19 ICU Day:: 6 Ventilator Day:: 6 Hospital Day:: 6 Resuscitation Status: Full Code Medical Power of Assembler [employer] Spider: Sal Rivera Events in the past 12 to 24 Hours:: More agitated and now needing precedex Review of systems relevant to events:: Respiratory, neurological. Reason for ICU Addmission:: Acute hypoxic respiratory failure with possible SARS, 2-CoViD19 R/O, intubated - Medications: Medications reviewed and adjusted accordingly: Yes Vasopressors:: Levophed. Sedation:: Precedex Physical Exam Vital Signs: Temp Pulse Resp BP Pulse Ox 98.2 F 146 H 10 L 98/53 L 90 L 10/08/19 19:55 10/08/19 22:00 10/09/19 10:00 10/08/19 18:00 10/09/19 11:10 Intake & Output 10/08/19 10/09/19 10/10/19 06:59 06:59 06:59 Intake Total 3857.5 2971.5 96 Output Total 1475 2100 625 Balance 2382.5 871.5 -529 Weight 79.4 kg 78.1 kg Weight/Height Weight 78.1 kg Height 5 ft 9 in General appearance: PRESENT: no acute distress, disheveled, thin Head exam: PRESENT: atraumatic, normocephalic Eye exam: PRESENT: conjunctiva pink, EOMI, PERRLA, other - Pupils conjugate, midline about 2-3 mm.. ABSENT: scleral icterus Ear exam: PRESENT: normal external ear exam Mouth exam: PRESENT: moist, tongue midline Respiratory exam: PRESENT: rhonchi, symmetrical, unlabored Cardiovascular exam: PRESENT: RRR. ABSENT: diastolic murmur, rubs, systolic murmur GI/Abdominal exam: PRESENT: normal bowel sounds, soft. ABSENT: distended, gu arding, mass, organolmegaly, rebound, tenderness Rectal exam: PRESENT: deferred Gentrourinary exam: PRESENT: indwelling catheter Extremities exam: PRESENT: full ROM. ABSENT: calf tenderness, clubbing, pedal edema Neurological exam: PRESENT: altered Psychiatric exam: PRESENT: agitated Skin exam: PRESENT: dry, intact, warm. ABSENT: cyanosis, rash Tubes/Lines: PRESENT: Endotracheal Tube, Central Line, Arterial Catheter, Na sogastic Tube Laboratory/Radiographs Laboratory Results: 10/08/19 05:55 10/09/19 03:38 10/08/19 10/09/19 15:25 03:38 Sodium 132.2 L 135.7 L Potassium 3.8 3.5 L Chloride 98 103 Carbon Dioxide 26 25 Anion Gap 8 8 BUN 73 H 80 H Creatinine 2.35 H 1.82 H Est GFR ( Amer) 34 L 46 L Glucose 162 H 147 H Calcium 6.6 L* 6.3 L* 10/07/19 08:50 Tracheal Aspirate Gram Stain - Final 10/07/19 08:50 Tracheal Aspirate Sputum Culture - Final Yeast, Not Raven Albicans Normal Miladis Absent 10/03/19 10/03/19 10/03/19 12:15 12:15 12:15 Creatine Kinase 39 L 42 L CK-MB (CK-2) 1.88 Troponin I 0.081 NT-Pro-B Natriuret Pep 4050 H 10/03/19 10/04/19 10/04/19 16:33 05:45 06:54 Creatine Kinase Cancelled 307 H CK-MB (CK-2) Troponin I 0.095 NT-Pro-B Natriuret Pep 6400 H 10/05/19 20:48 Creatine Kinase CK-MB (CK-2) Troponin I 0.057 NT-Pro-B Natriuret Pep Impressions: Abdomen Ultrasound 10/04/19 00:00 IMPRESSION: Multiple hepatic lesions. The largest measures 3.2 x 3.8 x 3.6 cm. Mild ascites. No flow could be demonstrated in the portal vein. Portal vein was patent on prior CT done 2 5. Changes may be secondary to poor visualization due to bowel gas and body habitus. Abdomen/Pelvis CT 10/07/19 00:00 IMPRESSION: 1. Small bilateral effusions and diffuse interstitial and ground- glass opacities and superimposed area of consolidation in the left lower lobe with air bronchograms. These findings could represent multifocal pneumonia or pulmonary edema/ARDS with a superimposed left lower lobe pneumonia. 2. Cirrhosis with nodular areas of hypoattenuation in the hepatic dome and lateral aspect of the right hepatic dome that are incompletely evaluated on a noncontrast CT. 3. Stigmata of portal hypertension including ascites, splenomegaly and gastroesophageal varices. 4. Other secondary findings as detailed above. Head CT 10/07/19 00:00 IMPRESSION: 1. The ventricles appear diminutive in caliber for the patient's age however the ball-white matter differentiation is preserved and the cerebellum is isodense to the cerebral hemispheres. Therefore the findings are equivocal for diffuse cerebral edema. 2. No acute intracranial hemorrhage. EVIDENCE OF ACUTE STROKE: NO. All labs, radiographs, diagnostic studies and EKGs were personally reviewed: Yes In addition, reports of radiographic and diagnostic studies were read: Yes Assessment and Plan - Diagnosis (1) Acute respiratory failure with hypoxia Is this a current diagnosis for this admission?: Yes Plan: Still present have begun weaning vent slowly. Needs both PEEP and FiO2 lower. (2) COPD (chronic obstructive pulmonary disease) Qualifiers: Emphysema type: centrilobular Is this a current diagnosis for this admission?: Yes Plan: No wheezing (3) Hepatitis C Qualifiers: Viral hepatitis chronicity: chronic Hepatic coma status: without hepatic coma Qualified Code(s): B18.2 - Chronic viral hepatitis C Is this a current diagnosis for this admission?: Yes Plan: The cause for his encephalopathy, hyponatremia. (4) Hypotension Qualifiers: Hypotension type: idiopathic hypotension Qualified Code(s): I95.0 - Id iopathic hypotension Is this a current diagnosis for this admission?: Yes Plan: Will add midodrine to his regimen to try and get him off levophed. (5) Acute kidney injury Is this a current diagnosis for this admission?: Yes Plan: Improving slowly (6) Streptococcal bacteremia Is this a current diagnosis for this admission?: Yes Plan: Keep on antibiotics. (7) Streptococcal toxic shock syndrome Is this a current diagnosis for this admission?: Yes Plan: Resolved (8) Septic shock Is this a current diagnosis for this admission?: Yes Plan: Resolved (9) Cytotoxic cerebral edema Is this a current diagnosis for this admission?: Yes Plan: Improving Plan Summary: Sedate as needed and slowly wean ventilator. Critical Time Critical Time (minutes): 35 Level of Care: ICU Anticipated discharge: SNF Within: Other -: 1. The care of a critical patient is a dynamic process. This note is a representative government relations synopsis but static in nature. The timeframe for treatments given in order is not necessarily the actual time these treatments may have been done. 2. This patient requires critical care secondary to ongoing requirements for therapy not offered or safe outside the critical care environment. Transfer to a lower level of care will result in altered life or limb morbidity and mortality. 3. Multidisciplinary rounds completed. 4. ABCDE bundle addressed.
[2019-10-09] MEDS ORDERED: CALCIUM GLUCONATE 1000 MG/10 ML INJ IV ONE (11:36)
[2019-10-09] MEDS: MIDODRINE HCL 5 MG TABLET PO SCH ×2 (12:17→17:01)
[2019-10-09] MEDS: CALCIUM GLUCONATE 1 GM/NS 50 ML RTU IV SCH ×2 (12:17→13:52)
[2019-10-09 16:19] LABS: ANION GAP 7 (5-19); BLOOD UREA NITROGEN 89 mg/dL (7-20); CALCIUM 7.3 mg/dL (8.4-10.2); CARBON DIOXIDE 26 mmol/L (22-30); CHLORIDE 105 mmol/L (98-107); GLUCOSE 174 mg/dL (75-110); POTASSIUM 3.9 mmol/L (3.6-5.0)
[2019-10-09] MEDS ORDERED: MIDAZOLAM 2 MG/2 ML INJ ONE (19:56)
[2019-10-09] MEDS ORDERED: OXYCODONE HCL IR 5 MG TABLET PO ONE (20:30)
[2019-10-09] MEDS ORDERED: MIDAZOLAM 2 MG/2 ML INJ IV ONE (20:30)
[2019-10-09] MEDS: AZITHROMYCIN 500 MG in DEXTROSE 5%-WATER 250 ML IV SCH (21:37)
[2019-10-09] MEDS: OXYCODONE HCL IR 5 MG TABLET PO SCH (23:46)
[2019-10-10] MEDS: METHYLPREDNISOLONE INJ 125 MG/2 ML SDV IV SCH ×3 (01:28→18:21)
[2019-10-10] MEDS: CLINDAMYCIN 900 MG/D5W RTU 900 MG/50 ML RTUPB IV SCH ×3 (01:28→18:19)
[2019-10-10] MEDS: DEXMEDETOMIDINE IN 0.9 % NACL 400 MCG/100 ML RTUPB IV PRN ×5 (02:25→18:28)
[2019-10-10] MEDS: HYDROMORPHONE HCL INJ/PF 2 MG/ML AMPULE IV PRN ×3 (02:25→22:57)
[2019-10-10] MEDS ORDERED: MIDAZOLAM 2 MG/2 ML INJ ONE ×2 (02:29→21:32)
[2019-10-10] MEDS ORDERED: MIDAZOLAM 2 MG/2 ML INJ IV ONE ×2 (03:00→21:41)
[2019-10-10] MEDS: OXYCODONE HCL IR 5 MG TABLET PO SCH (03:24)
[2019-10-10] MEDS: INSULIN REG, HUMAN 100 UNIT/ML 3 ML VIAL (PYX) SUBCUT SCH ×5 (03:24→20:38)
[2019-10-10 03:54] LABS: HEMATOCRIT 21.6 % (37.9-51.0); MEAN CORPUSCULAR VOLUME 91 fl (80-97); RED BLOOD COUNT 2.37 10^6/uL (4.35-5.55); RED CELL DISTRIBUTION WIDTH 17.1 % (11.5-14.0); WHITE BLOOD COUNT 24.5 10^3/uL (4.0-10.5)
[2019-10-10 04:07] LABS: ANION GAP 7 (5-19); BLOOD UREA NITROGEN 93 mg/dL (7-20); CARBON DIOXIDE 27 mmol/L (22-30); CHLORIDE 105 mmol/L (98-107); GLUCOSE 185 mg/dL (75-110); POTASSIUM 3.8 mmol/L (3.6-5.0)
[2019-10-10 04:11] LABS: PLATELET COUNT 54 10^3/uL (150-450)
[2019-10-10 04:12] LABS: HEMOGLOBIN 7.4 g/dL (13.5-17.0)
[2019-10-10 04:17] LABS: CALCIUM 6.8 mg/dL (8.4-10.2)
[2019-10-10 04:22] LABS: BAND NEUTROPHILS % (MANUAL) 6 % (3-5); BASOPHILS % (MANUAL) 0 % (0-2); EOSINOPHILS % (MANUAL) 0 % (0-6); LYMPHOCYTES % (MANUAL) 0 % (13-45); MONOCYTES % (MANUAL) 4 % (3-13); SEGMENTED NEUTROPHILS % (MAN) 90 % (42-78); TOTAL CELLS COUNTED 100
[2019-10-10 04:24] LABS: ANISOCYTOSIS 1+; BURR CELLS 1+; PLATELET COMMENT DECREASED; POIKILOCYTOSIS 1+; POLYCHROMASIA 1+
[2019-10-10] MEDS: CEFEPIME 1 GM/D5W RTU 1 GM/50 ML RTUPB IV SCH (05:09)
[2019-10-10] MEDS: THIAMINE HCL 250 MG in NORMAL SALINE 50 ML IV SCH ×2 (05:09→18:26)
[2019-10-10] MEDS: ALBUMIN HUMAN 12.5 GM/50 ML RTUINJ IV SCH ×2 (08:28→16:04)
[2019-10-10] MEDS: GABAPENTIN 100 MG CAPSULE PO SCH ×3 (10:45→18:26)
[2019-10-10] MEDS: MIDODRINE HCL 5 MG TABLET PO SCH ×2 (10:45→18:26)
[2019-10-10] MEDS: LINEZOLID 600 MG/300 ML RTUPB IV SCH ×2 (10:45→21:55)
[2019-10-10] MEDS: FAMOTIDINE 20 MG TABLET NG SCH ×2 (11:05→21:47)
[2019-10-10] MEDS: ENOXAPARIN SODIUM INJ 30 MG/0.3 ML DISP.SYRIN SUBCUT SCH (11:05)
[2019-10-10] MEDS: AMINO AC/PROTEIN HYDR/WHEY PRO 11 GM/45 ML PKT NG SCH ×3 (11:06→18:26)
[2019-10-10] MEDS: SENNOSIDES/DOCUSATE 8.6-50 MG 1 EACH TABLET NG SCH (11:06)
[2019-10-10] MEDS: SODIUM CHLORIDE 1 GM TABLET NG SCH ×3 (11:10→18:26)
[2019-10-10] MEDS ORDERED: METOPROLOL TARTRATE PF/INJ 5 MG/5 ML SDV IV ONE ×5 (11:41→23:00)
[2019-10-10] MEDS: DILTIAZEM HCL 30 MG TABLET PO SCH ×2 (12:38→21:47)
[2019-10-10] MEDS: LORAZEPAM INJ 2 MG/1 ML VIAL IV PRN (15:08)
[2019-10-10] MEDS: DILTIAZEM HCL INJ 25 MG/5 ML VIAL IV PRN (15:08)
[2019-10-10] MEDS ORDERED: CALCIUM GLUCONATE 1000 MG/10 ML INJ IV ONE (17:29)
[2019-10-10] MEDS ORDERED: CEFEPIME 2 GM/D5W RTU 2 GM/50 ML RTUPB IV SCH (18:00)
--- NOTE | 2019-10-10 18:00 | PDOC CRITICAL CARE PROG REPORT ---
General Date:: 10/10/19 ICU Day:: 7 Ventilator Day:: 7 Hospital Day:: 7 Resuscitation Status: Full Code Medical Power of Manager Account Management: Nicole Daughter [phone]. Events in the past 12 to 24 Hours:: More awake but not purposeful. Review of systems relevant to events:: Neuro, GI, pulmonary. Reason for ICU Addmission:: Acute hypoxic respiratory failure with possible SARS, 2-CoViD19 R/O, intubated - Medications: Medications reviewed and adjusted accordingly: Yes Vasopressors:: Levophed Sedation:: Propofol, on hold. Physical Exam Vital Signs: Temp Pulse Resp BP Pulse Ox 99.1 F 92 37 H 98/53 L 88 L 10/10/19 08:00 10/10/19 10:00 10/10/19 16:00 10/08/19 18:00 10/10/19 16:00 Intake & Output 10/09/19 10/10/19 10/11/19 06:59 06:59 06:59 Intake Total 3074.0 2926.0 150 Output Total 2100 3275 1050 Balance 974.0 -349.0 -900 Weight 78.1 kg 78.3 kg Weight/Height Weight 78.3 kg Height 5 ft 9 in General appearance: PRESENT: no acute distress, disheveled Head exam: PRESENT: atraumatic, normocephalic Eye exam: PRESENT: conjunctiva pink, EOMI, PERRLA. ABSENT: scleral icterus Ear exam: PRESENT: normal external ear exam Mouth exam: PRESENT: moist, tongue midline Respiratory exam: PRESENT: decreased breath sounds, rhonchi, symmetrical, unlabored, wheezes Cardiovascular exam: PRESENT: RRR. ABSENT: diastolic murmur, rubs, systolic murmur GI/Abdominal exam: PRESENT: ascites, distended, hypoactive bowel sounds, soft Rectal exam: PRESENT: deferred Extremities exam: PRESENT: full ROM. ABSENT: calf tenderness, clubbing, pedal edema Neurological exam: PRESENT: altered Psychiatric exam: PRESENT: agitated Skin exam: PRESENT: dry, intact, warm. ABSENT: cyanosis, rash Tubes/Lines: PRESENT: Endotracheal Tube, Central Line, Nasogastic Tube Laboratory/Radiographs Laboratory Results: 10/10/19 03:36 10/10/19 03:36 10/10/19 10/10/19 03:36 03:36 WBC 24.5 H RBC 2.37 L Hgb 7.4 L Hct 21.6 L MCV 91 MCH 31.0 MCHC 34.0 RDW 17.1 H Plt Count 54 L Seg Neutrophils % Not Reportable Sodium 138.6 Potassium 3.8 Chloride 105 Carbon Dioxide 27 Anion Gap 7 BUN 93 H Creatinine 1.97 H Est GFR ( Amer) 42 L Glucose 185 H Calcium 6.8 L* 10/03/19 10/03/19 10/03/19 12:15 12:15 12:15 Creatine Kinase 39 L 42 L CK-MB (CK-2) 1.88 Troponin I 0.081 NT-Pro-B Natriuret Pep 4050 H 10/03/19 10/04/19 10/04/19 16:33 05:45 06:54 Creatine Kinase Cancelled 307 H CK-MB (CK-2) Troponin I 0.095 NT-Pro-B Natriuret Pep 6400 H 10/05/19 20:48 Creatine Kinase CK-MB (CK-2) Troponin I 0.057 NT-Pro-B Natriuret Pep Impressions: Abdomen Ultrasound 10/04/19 00:00 IMPRESSION: Multiple hepatic lesions. The largest measures 3.2 x 3.8 x 3.6 cm. Mild ascites. No flow could be demonstrated in the portal vein. Portal vein was patent on prior CT done 2 5. Changes may be secondary to poor visualization due to bowel gas and body habitus. Abdomen/Pelvis CT 10/07/19 00:00 IMPRESSION: 1. Small bilateral effusions and diffuse interstitial and ground- glass opacities and superimposed area of consolidation in the left lower lobe with air bronchograms. These findings could represent multifocal pneumonia or pulmonary edema/ARDS with a superimposed left lower lobe pneumonia. 2. Cirrhosis with nodular areas of hypoattenuation in the hepatic dome and lateral aspect of the right hepatic dome that are incompletely evaluated on a noncontrast CT. 3. Stigmata of portal hypertension including ascites, splenomegaly and gastr oesophageal varices. 4. Other secondary findings as detailed above. Head CT 10/07/19 00:00 IMPRESSION: 1. The ventricles appear diminutive in caliber for the patient's age however the ball-white matter differentiation is preserved and the cerebellum is isodense to the cerebral hemispheres. Therefore the findings are equivocal for diffuse cerebral edema. 2. No acute intracranial hemorrhage. EVIDENCE OF ACUTE STROKE: NO. All labs, radiographs, diagnostic studies and EKGs were personally reviewed: Yes In addition, reports of radiographic and diagnostic studies were read: Yes Assessment and Plan - Diagnosis (1) Acute respiratory failure with hypoxia Is this a current diagnosis for this admission?: Yes Plan: We have made some progress on his vent and he may tolerate extubation. However he will not protect his airway and has a weak cough. Keep intubated for now. (2) COPD (chronic obstructive pulmonary disease) Qualifiers: Emphysema type: centrilobular Is this a current diagnosis for this admission?: Yes Plan: He is wheezing slightly and steroids. (3) Hepatitis C Qualifiers: Viral hepatitis chronicity: chronic Hepatic coma status: without hepatic coma Qualified Code(s): B18.2 - Chronic viral hepatitis C Is this a current diagnosis for this admission?: Yes Plan: Long standing and the cause of his liver cancer. I have spoken with Dr. Small his oncologist who points out he has not seen him in 6 months and recomended a chemoemboliztion he is not sure he received. In short he has offered to serve as an oncology resourse but saw no need to transfer to [facility] at this time. Dr. Small [phone] (4) Hypotension Qualifiers: Hypotension type: idiopathic hypotension Qualified Code(s): I95.0 - Idiopathic hypotension Is this a current diagnosis for this admission?: Yes Plan: Weaning levophed. (5) Acute kidney injury Is this a current diagnosis for this admission?: Yes Plan: Stable Cr 1.97 GFR 42. (6) Streptococcal bacteremia Is this a current diagnosis for this admission?: Yes Plan: Resolved (7) Streptococcal toxic shock syndrome Is this a current diagnosis for this admission?: Yes Plan: Resolved (8) Septic shock Is this a current diagnosis for this admission?: Yes Plan: Resolved (9) Cytotoxic cerebral edema Is this a current diagnosis for this admission?: Yes Plan: Mental status improving but still not ready for extubation. Plan Summary: Attempt weaning his levophed further and his ventilator. Critical Time Critical Time (minutes): 45 Level of Care: ICU Anticipated discharge: SNF Within: Other -: 1. The care of a critical patient is a dynamic process. This note is a repre sentative synopsis but static in nature. The timeframe for treatments given in order is not necessarily the actual time these treatments may have been done. 2. This patient requires critical care secondary to ongoing requirements for therapy not offered or safe outside the critical care environment. Transfer to a lower level of care will result in altered life or limb morbidity and mortality. 3. Multidisciplinary rounds completed. 4. ABCDE bundle addressed.
[2019-10-10] MEDS: CALCIUM GLUC IN NACL, ISO-OSM 2 GM/100 ML RTUPB IV SCH ×2 (18:16→20:34)
[2019-10-10] MEDS: CEFEPIME HCL 2 GM in DEXTROSE 5%-WATER 50 ML IV SCH (18:27)
[2019-10-10] MEDS: AZITHROMYCIN 500 MG in DEXTROSE 5%-WATER 250 ML IV SCH (22:32)
[2019-10-11] MEDS ORDERED: METOPROLOL TARTRATE PF/INJ 5 MG/5 ML SDV IV ONE ×3 (01:29→02:00)
[2019-10-11] MEDS: LORAZEPAM INJ 2 MG/1 ML VIAL IV PRN (02:19)
[2019-10-11] MEDS: CLINDAMYCIN 900 MG/D5W RTU 900 MG/50 ML RTUPB IV SCH (03:01)
[2019-10-11] MEDS: METHYLPREDNISOLONE INJ 125 MG/2 ML SDV IV SCH ×3 (03:02→18:01)
[2019-10-11] MEDS: INSULIN REG, HUMAN 100 UNIT/ML 3 ML VIAL (PYX) SUBCUT SCH ×6 (03:05→18:30)
[2019-10-11 04:36] LABS: HEMATOCRIT 20.2 % (37.9-51.0); MEAN CORPUSCULAR HEMOGLOBIN 31.2 pg (27.0-33.4); MEAN CORPUSCULAR HGB CONC 33.6 g/dL (32.0-36.0); MEAN CORPUSCULAR VOLUME 93 fl (80-97); RED BLOOD COUNT 2.17 10^6/uL (4.35-5.55); RED CELL DISTRIBUTION WIDTH 17.9 % (11.5-14.0); WHITE BLOOD COUNT 21.5 10^3/uL (4.0-10.5)
[2019-10-11 04:49] LABS: ANION GAP 8 (5-19); BLOOD UREA NITROGEN 108 mg/dL (7-20); CALCIUM 7.2 mg/dL (8.4-10.2); CARBON DIOXIDE 26 mmol/L (22-30); CHLORIDE 108 mmol/L (98-107); GLUCOSE 152 mg/dL (75-110)
[2019-10-11] MEDS: DILTIAZEM HCL 30 MG TABLET PO SCH ×2 (05:14→13:00)
[2019-10-11] MEDS: THIAMINE HCL 250 MG in NORMAL SALINE 50 ML IV SCH ×2 (05:15→18:03)
[2019-10-11] MEDS: CEFEPIME HCL 2 GM in DEXTROSE 5%-WATER 50 ML IV SCH (05:15)
[2019-10-11 05:30] LABS: HEMOGLOBIN 6.8 g/dL (13.5-17.0); PLATELET COUNT 59 10^3/uL (150-450)
[2019-10-11] MEDS: HYDROMORPHONE HCL INJ/PF 2 MG/ML AMPULE IV PRN (05:31)
[2019-10-11 05:37] LABS: ABSOLUTE LYMPHOCYTES# (MANUAL) 0.2 10^3/uL (0.5-4.7); ABSOLUTE MONOCYTES # (MANUAL) 0.4 10^3/uL (0.1-1.4); ANISOCYTOSIS 1+; BAND NEUTROPHILS % (MANUAL) 1 % (3-5); BASOPHILS % (MANUAL) 0 % (0-2); EOSINOPHILS % (MANUAL) 0 % (0-6); LYMPHOCYTES % (MANUAL) 1 % (13-45); MONOCYTES % (MANUAL) 2 % (3-13); PLATELET COMMENT DECREASED; SEGMENTED NEUTROPHILS % (MAN) 96 % (42-78); TOTAL CELLS COUNTED 100; TOXIC GRANULATION 1+; TOXIC VACUOLATION PRESENT
[2019-10-11 05:38] LABS: OVALOCYTES 2+
[2019-10-11 05:41] LABS: POLYCHROMASIA SLIGHT
[2019-10-11] MEDS ORDERED: ALBUMIN HUMAN 12.5 GM/50 ML RTUINJ IV ONE (05:42)
[2019-10-11] MEDS ORDERED: NORMAL SALINE 250 ML IV PRN (05:44)
[2019-10-11 07:06] LABS: ABSOLUTE RETICS # 0.111 10^6/uL (0.028-0.122); APPEARANCE,URINE CLEAR; BILIRUBIN,URINE NEGATIVE (NEGATIVE); COLOR,URINE YELLOW; GLUCOSE, URINE NEGATIVE (NEGATIVE); KETONES,URINE NEGATIVE (NEGATIVE); LEUKOCYTE ESTERASE,URINE NEGATIVE (NEGATIVE); NITRITE,URINE NEGATIVE (NEGATIVE); PROTEIN,URINE 30 mg/dL (NEGATIVE); RETICULOCYTE COUNT (AUTO) 4.91 % (0.66-2.85); URINE SPECIFIC GRAVITY 1.014; UROBILINOGEN,URINE NEGATIVE mg/dL (<2.0)
[2019-10-11 07:10] LABS: INTERNATIONAL RATION (INR) 1.98; PARTIAL THROMBOPLASTIN TIME 32.8 SEC (23.5-35.8); PROTHROMBIN TIME 22.8 SEC (11.4-15.4)
[2019-10-11 07:22] LABS: ALBUMIN 2.5 g/dL (3.5-5.0); ALKALINE PHOSPHATASE 128 U/L (38-126); ASPARTATE AMINO TRANSFERASE 79 U/L (17-59); BILIRUBIN,DIRECT 3.3 mg/dL (0.0-0.4); BILIRUBIN,TOTAL 4.8 mg/dL (0.2-1.3); TOTAL PROTEIN 6.4 g/dL (6.3-8.2)
[2019-10-11 07:27] LABS: FIBRINOGEN 111 mg/dL (209-497)
[2019-10-11 07:28] LABS: D-DIMER 11.18 ug/mL (0.00-0.50)
[2019-10-11] MEDS: ALBUMIN HUMAN 12.5 GM/50 ML RTUINJ IV SCH ×3 (07:42→15:12)
[2019-10-11] MEDS: ENOXAPARIN SODIUM INJ 30 MG/0.3 ML DISP.SYRIN SUBCUT SCH (11:04)
[2019-10-11] MEDS: GABAPENTIN 100 MG CAPSULE PO SCH ×3 (11:05→18:02)
[2019-10-11] MEDS: MIDODRINE HCL 5 MG TABLET PO SCH ×2 (11:05→18:02)
[2019-10-11] MEDS: FAMOTIDINE 20 MG TABLET NG SCH ×2 (11:05→21:06)
[2019-10-11] MEDS: SODIUM CHLORIDE 1 GM TABLET NG SCH ×3 (11:09→18:03)
[2019-10-11] MEDS: AMINO AC/PROTEIN HYDR/WHEY PRO 11 GM/45 ML PKT NG SCH ×3 (11:09→18:06)
[2019-10-11] MEDS: LINEZOLID 600 MG/300 ML RTUPB IV SCH ×2 (11:20→22:18)
[2019-10-11] MEDS: SENNOSIDES/DOCUSATE 8.6-50 MG 1 EACH TABLET NG SCH (11:47)
[2019-10-11] MEDS ORDERED: DIGOXIN INJ 0.5 MG/2 ML AMPULE IV ONE (13:00)
--- NOTE | 2019-10-11 13:46 | PDOC CRITICAL CARE PROG REPORT ---
General Date:: 10/11/19 ICU Day:: 8 Ventilator Day:: 8 Hospital Day:: 8 Resuscitation Status: Full Code Medical Power of Fitness And Wellness Coordinator: Nicole Daughter [phone]. Events in the past 12 to 24 Hours:: A bit more awake but not purposeful yet. Review of systems relevant to events:: Respiratory, neurological and hepatic Reason for ICU Addmission:: Acute hypoxic respiratory failure with possible SARS, 2-CoViD19 R/O, intubated - Medications: Medications reviewed and adjusted accordingly: Yes Vasopressors:: Levophed. Sedation:: None Physical Exam Vital Signs: Temp Pulse Resp BP Pulse Ox 102.0 F H 132 H 20 137/74 H 96 10/11/19 11:41 10/11/19 11:41 10/11/19 11:41 10/11/19 11:41 10/11/19 11:41 Intake & Output 10/10/19 10/11/19 10/12/19 06:59 06:59 06:59 Intake Total 2926.0 1794.5 581.5 Output Total 3275 2780 350 Balance -349.0 -985.5 231.5 Weight 78.3 kg 77.9 kg Weight/Height Weight 77.9 kg Height 5 ft 9 in General appearance: PRESENT: no acute distress, disheveled, thin Head exam: PRESENT: atraumatic, normocephalic Eye exam: PRESENT: conjunctiva pink, EOMI, PERRLA. ABSENT: scleral icterus Ear exam: PRESENT: normal external ear exam Mouth exam: PRESENT: moist, tongue midline Respiratory exam: PRESENT: clear to auscultation henny, decreased breath sounds, rhonchi - Mild rhonchi.. ABSENT: rales, wheezes Cardiovascular exam: PRESENT: irregular rhythm, tachycardia Pulses: PRESENT: normal dorsalis pedis pul GI/Abdominal exam: PRESENT: ascites, diminished bowel sounds, distended, hypoactive bowel sounds, soft Rectal exam: PRESENT: deferred Gentrourinary exam: PRESENT: indwelling catheter Extremities exam: PRESENT: full ROM. ABSENT: calf tenderness, clubbing, pedal edema Neurological exam: PRESENT: altered, other - Moving more but still not oriented Psychiatric exam: PRESENT: agitated Skin exam: PRESENT: dry, intact, warm. ABSENT: cyanosis, rash Laboratory/Radiographs Laboratory Results: 10/11/19 04:20 10/11/19 04:20 10/11/19 10/11/19 10/11/19 04:20 04:20 04:20 WBC 21.5 H RBC 2.17 L Hgb 6.8 L Hct 20.2 L MCV 93 MCH 31.2 MCHC 33.6 RDW 17.9 H Plt Count 59 L Seg Neutrophils % Not Reportable Retic Count (auto) Sodium 141.5 Potassium 4.0 Chloride 108 H Carbon Dioxide 26 Anion Gap 8 BUN 108 H Creatinine 1.91 H Est GFR ( Amer) 43 L Glucose 152 H Calcium 7.2 L Ionized Calcium Jayjay 1.04 L Total Bilirubin AST Alkaline Phosphatase Total Protein Albumin Urine Color Urine Appearance Urine pH Ur Specific [place] Urine Protein Urine Glucose (UA) Urine Ketones Urine Blood Urine Nitrite Ur Leukocyte Esterase Urine WBC (Auto) Urine RBC (Auto) Blood Type Antibody Screen 10/11/19 10/11/19 10/11/19 06:45 06:45 06:45 WBC RBC Hgb Hct MCV MCH MCHC RDW Plt Count Seg Neutrophils % Retic Count (auto) 4.91 H Sodium Potassium Chloride Carbon Dioxide Anion Gap BUN Creatinine Est GFR ( Amer) Glucose Calcium Ionized Calcium Jayjya Total Bilirubin 4.8 H AST 79 H Alkaline Phosphatase 128 H Total Protein 6.4 Albumin 2.5 L Urine Color YELLOW Urine Appearance CLEAR Urine pH 5.0 Ur Specific [place] 1.014 Urine Protein 30 H Urine Glucose (UA) NEGATIVE Urine Ketones NEGATIVE Urine Blood SMALL H Urine Nitrite NEGATIVE Ur Leukocyte Esterase NEGATIVE Urine WBC (Auto) 3 Urine RBC (Auto) 2 Blood Type Antibody Screen 10/11/19 06:59 WBC RBC Hgb Hct MCV MCH MCHC RDW Plt Count Seg Neutrophils % Retic Count (auto) Sodium Potassium Chloride Carbon Dioxide Anion Gap BUN Creatinine Est GFR ( Amer) Glucose Calcium Ionized Calcium Jayjay Total Bilirubin AST Alkaline Phosphatase Total Protein Albumin Urine Color Urine Appearance Urine pH Ur Specific [place] Urine Protein Urine Glucose (UA) Urine Ketones Urine Blood Urine Nitrite Ur Leukocyte Esterase Urine WBC (Auto) Urine RBC (Auto) Blood Type O NEGATIVE Antibody Screen NEGATIVE 10/03/19 10/03/19 10/03/19 12:15 12:15 12:15 Creatine Kinase 39 L 42 L CK-MB (CK-2) 1.88 Troponin I 0.081 NT-Pro-B Natriuret Pep 4050 H 10/03/19 10/04/19 10/04/19 16:33 05:45 06:54 Creatine Kinase Cancelled 307 H CK-MB (CK-2) Troponin I 0.095 NT-Pro-B Natriuret Pep 6400 H 10/05/19 20:48 Creatine Kinase CK-MB (CK-2) Troponin I 0.057 NT-Pro-B Natriuret Pep Impressions: Abdomen Ultrasound 10/04/19 00:00 IMPRESSION: Multiple hepatic lesions. The largest measures 3.2 x 3.8 x 3.6 cm. Mild ascites. No flow could be demonstrated in the portal vein. Portal vein was patent on prior CT done 2 5. Changes may be secondary to poor visualization due to bowel gas and body habitus. Abdomen/Pelvis CT 10/07/19 00:00 IMPRESSION: 1. Small bilateral effusions and diffuse interstitial and ground- glass opacities and superimposed area of consolidation in the left lower lobe with air bronchograms. These findings could represent multifocal pneumonia or pulmonary edema/ARDS with a superimposed left lower lobe pneumonia. 2. Cirrhosis with nodular areas of hypoattenuation in the hepatic dome and lateral aspect of the right hepatic dome that are incompletely evaluated on a noncontrast CT. 3. Stigmata of portal hypertension including ascites, splenomegaly and gastroesophageal varices. 4. Other secondary findings as detailed above. Head CT 10/07/19 00:00 IMPRESSION: 1. The ventricles appear diminutive in caliber for the patient's age however the ball-white matter differentiation is preserved and the cerebellum is isodense to the cerebral hemispheres. Therefore the findings are equivocal for diffuse cerebral edema. 2. No acute intracranial hemorrhage. EVIDENCE OF ACUTE STROKE: NO. All labs, radiographs, diagnostic studies and EKGs were personally reviewed: Yes In addition, reports of radiographic and diagnostic studies were read: Yes Assessment and Plan - Diagnosis (1) Acute respiratory failure with hypoxia Is this a current diagnosis for this admission?: Yes Plan: He is more stable from a respiratory standpoint. However even though I believe he can withstand extubation as I do not believe he will deep breath well or cough out secretions. Daughter is against trach and PEG. I tend to agree as ascites makes a PEG contraindicated and his thrombocytopenia and infection risk makes a trach undesirable. (2) COPD (chronic obstructive pulmonary disease) Qualifiers: Emphysema type: centrilobular Is this a current diagnosis for this admission?: Yes Plan: Inactive. (3) Hepatitis C Qualifiers: Viral hepatitis chronicity: chronic Hepatic coma status: without hepatic coma Qualified Code(s): B18.2 - Chronic viral hepatitis C Is this a current diagnosis for this admission?: Yes Plan: Chronic (4) Hypotension Qualifiers: Hypotension type: idiopathic hypotension Qualified Code(s): I95.0 - Idiopathic hypotension Is this a current diagnosis for this admission?: Yes Plan: Still on small amounts of levophed. (5) Acute kidney injury Is this a current diagnosis for this admission?: Yes Plan: Stable with CR 1.9 (6) Streptococcal bacteremia Is this a current diagnosis for this admission?: Yes Plan: Resolved (7) Streptococcal toxic shock syndrome Is this a current diagnosis for this admission?: Yes Plan: Resolved (8) Septic shock Is this a current diagnosis for this admission?: Yes Plan: Resolved (9) Cytotoxic cerebral edema Is this a current diagnosis for this admission?: Yes Plan: Improving (10) Hyponatremia Is this a current diagnosis for this admission?: Yes Plan: Resolved (11) Atrial fibrillation with RVR Is this a current diagnosis for this admission?: Yes Plan: Receiving PRN digoxin and PO cardizem with IV boluses. Plan Summary: Slowly wean vent and await neurological recovery. Critical Time Critical Time (minutes): 35 Level of Care: ICU Anticipated discharge: SNF Within: Other -: 1. The care of a critical patient is a dynamic process. This note is a manufacturers service representative synopsis but static in nature. The timeframe for treatments given in order is not necessarily the actual time these treatments may have been done. 2. This patient requires critical care secondary to ongoing requirements for therapy not offered or safe outside the critical care environment. Transfer to a lower level of care will result in altered life or limb morbidity and mortality. 3. Multidisciplinary rounds completed. 4. ABCDE bundle addressed.
[2019-10-11] MEDS: DILTIAZEM HCL INJ 25 MG/5 ML VIAL IV PRN ×2 (15:12→18:02)
[2019-10-11 15:37] LABS: HEMATOCRIT 22.6 % (37.9-51.0); MEAN CORPUSCULAR HEMOGLOBIN 30.6 pg (27.0-33.4); MEAN CORPUSCULAR HGB CONC 33.4 g/dL (32.0-36.0); MEAN CORPUSCULAR VOLUME 92 fl (80-97); RED BLOOD COUNT 2.47 10^6/uL (4.35-5.55); RED CELL DISTRIBUTION WIDTH 18.7 % (11.5-14.0); WHITE BLOOD COUNT 28.7 10^3/uL (4.0-10.5)
[2019-10-11 16:03] LABS: PLATELET COUNT 66 10^3/uL (150-450)
[2019-10-11 16:06] LABS: ABSOLUTE LYMPHOCYTES# (MANUAL) 0.6 10^3/uL (0.5-4.7); BAND NEUTROPHILS % (MANUAL) 5 % (3-5); BASOPHILS % (MANUAL) 0 % (0-2); EOSINOPHILS % (MANUAL) 0 % (0-6); LYMPHOCYTES % (MANUAL) 2 % (13-45); METAMYELOCYTES % (MANUAL) 1 % (0-1); MONOCYTES % (MANUAL) 0 % (3-13); SEGMENTED NEUTROPHILS % (MAN) 92 % (42-78); TOTAL CELLS COUNTED 100
[2019-10-11 16:07] LABS: ANISOCYTOSIS 1+; POIKILOCYTOSIS SLIGHT
[2019-10-11 16:08] LABS: PLATELET COMMENT DECREASED; TOXIC GRANULATION 1+
[2019-10-11 16:11] LABS: HEMOGLOBIN 7.6 g/dL (13.5-17.0); OVALOCYTES 1+; TOXIC VACUOLATION PRESENT
[2019-10-11 16:12] LABS: POLYCHROMASIA SLIGHT
[2019-10-11] MEDS: DEXMEDETOMIDINE IN 0.9 % NACL 400 MCG/100 ML RTUPB IV PRN (19:39)
[2019-10-11] MEDS ORDERED: FUROSEMIDE INJ/PF 40 MG/4 ML SDV IV ONE (20:13)
[2019-10-11] MEDS: DILTIAZEM HCL/D5W 125 MG/125 ML RTUINJ IV PRN (20:30)
[2019-10-11] MEDS ORDERED: ACETAMINOPHEN SOLN 325 MG/10.15 ML UDCUP PO PRN (20:54)
[2019-10-11] MEDS ORDERED: MIDAZOLAM 2 MG/2 ML INJ ONE (20:58)
[2019-10-11] MEDS: MIDAZOLAM 2 MG/2 ML INJ IV PRN ×2 (20:59→22:26)
[2019-10-11] MEDS: PANTOPRAZOLE SODIUM 40 MG VIAL IV SCH (23:03)
[2019-10-12] MEDS: ALBUMIN HUMAN 12.5 GM/50 ML RTUINJ IV SCH (00:22)
[2019-10-12] MEDS: INSULIN REG, HUMAN 100 UNIT/ML 3 ML VIAL (PYX) SUBCUT SCH ×6 (00:22→22:00)
[2019-10-12] MEDS: MIDAZOLAM 2 MG/2 ML INJ IV PRN ×4 (00:22→20:30)
[2019-10-12] MEDS: METHYLPREDNISOLONE INJ 125 MG/2 ML SDV IV SCH ×3 (03:09→22:01)
[2019-10-12] MEDS: DEXMEDETOMIDINE IN 0.9 % NACL 400 MCG/100 ML RTUPB IV PRN ×2 (04:30→12:12)
[2019-10-12 04:42] LABS: HEMATOCRIT 21.9 % (37.9-51.0); MEAN CORPUSCULAR HEMOGLOBIN 30.9 pg (27.0-33.4); MEAN CORPUSCULAR VOLUME 91 fl (80-97); RED BLOOD COUNT 2.41 10^6/uL (4.35-5.55); WHITE BLOOD COUNT 23.4 10^3/uL (4.0-10.5)
[2019-10-12 04:45] LABS: HEMOGLOBIN 7.4 g/dL (13.5-17.0)
[2019-10-12 04:55] LABS: ANION GAP 11 (5-19); BLOOD UREA NITROGEN 110 mg/dL (7-20); CALCIUM 7.3 mg/dL (8.4-10.2); CARBON DIOXIDE 23 mmol/L (22-30); CHLORIDE 111 mmol/L (98-107); GLUCOSE 182 mg/dL (75-110); POTASSIUM 3.7 mmol/L (3.6-5.0)
[2019-10-12 05:05] LABS: ABSOLUTE LYMPHOCYTES# (MANUAL) 0.9 10^3/uL (0.5-4.7); ABSOLUTE MONOCYTES # (MANUAL) 1.2 10^3/uL (0.1-1.4); BAND NEUTROPHILS % (MANUAL) 2 % (3-5); BASOPHILS % (MANUAL) 0 % (0-2); EOSINOPHILS % (MANUAL) 0 % (0-6); LYMPHOCYTES % (MANUAL) 4 % (13-45); MONOCYTES % (MANUAL) 5 % (3-13); SEGMENTED NEUTROPHILS % (MAN) 89 % (42-78); TOTAL CELLS COUNTED 100
[2019-10-12 05:07] LABS: ANISOCYTOSIS 1+; BURR CELLS SLIGHT; OVALOCYTES 1+; POIKILOCYTOSIS 1+; POLYCHROMASIA 1+; SCHISTOCYTES SLIGHT; TEAR DROP CELLS SLIGHT; TOXIC GRANULATION 2+; TOXIC VACUOLATION PRESENT
[2019-10-12 05:08] LABS: PLATELET COMMENT DECREASED; PLATELET COUNT 59 10^3/uL (150-450)
[2019-10-12] MEDS: THIAMINE HCL 250 MG in NORMAL SALINE 50 ML IV SCH ×2 (05:57→17:27)
[2019-10-12] MEDS: DILTIAZEM HCL/D5W 125 MG/125 ML RTUINJ IV PRN (07:13)
--- NOTE | 2019-10-12 09:31 | PDOC CRITICAL CARE PROG REPORT ---
General Date:: 10/12/19 ICU Day:: 9 Ventilator Day:: 9 Hospital Day:: 9 Resuscitation Status: Full Code Medical Power of Perinatal Educator: Nicole Daughter [phone]. Events in the past 12 to 24 Hours:: Afib RVR unresponsive to cardizem Review of systems relevant to events:: Neurological, CV. Hepatic. Reason for ICU Addmission:: Acute hypoxic respiratory failure with possible SARS, 2-CoViD19 R/O, intubated - Medications: Medications reviewed and adjusted accordingly: Yes Vasopressors:: Levophed. Sedation:: Precedex. Physical Exam Vital Signs: Temp Pulse Resp BP Pulse Ox 100.8 F H 136 H 14 139/87 H 94 10/11/19 23:03 10/11/19 22:00 10/12/19 06:00 10/12/19 01:59 10/12/19 08:07 Intake & Output 10/11/19 10/12/19 10/13/19 06:59 06:59 06:59 Intake Total 1794.5 2446.5 18 Output Total 2780 2875 Balance -985.5 -428.5 18 Weight 77.9 kg 76.3 kg Weight/Height Weight 76.3 kg Height 5 ft 9 in General appearance: PRESENT: no acute distress, disheveled Head exam: PRESENT: atraumatic, normocephalic Eye exam: PRESENT: conjunctiva pink, EOMI, PERRLA. ABSENT: scleral icterus Ear exam: PRESENT: normal external ear exam Mouth exam: PRESENT: moist, tongue midline Respiratory exam: PRESENT: accessory muscle use, crackles, rhonchi, symmetrical, unlabored Cardiovascular exam: PRESENT: irregular rhythm, tachycardia GI/Abdominal exam: PRESENT: ascites, distended Rectal exam: PRESENT: deferred Extremities exam: PRESENT: +2 edema Musculoskeletal exam: PRESENT: normal inspection Neurological exam: PRESENT: altered Psychiatric exam: PRESENT: agitated Skin exam: PRESENT: dry, intact, warm. ABSENT: cyanosis, rash Tubes/Lines: PRESENT: Endotracheal Tube, Arterial Catheter, Nasogastic Tube Laboratory/Radiographs Laboratory Results: 10/12/19 04:28 10/12/19 04:28 10/11/19 10/11/19 10/11/19 06:59 15:00 22:00 WBC 28.7 H RBC 2.47 L Hgb 7.6 L Hct 22.6 L MCV 92 MCH 30.6 MCHC 33.4 RDW 18.7 H Plt Count 66 L Seg Neutrophils % Not Reportable Sodium Potassium Chloride Carbon Dioxide Anion Gap BUN Creatinine Est GFR ( Amer) Glucose Calcium Stool Occult Blood POSITIVE Blood Type O NEGATIVE Antibody Screen NEGATIVE 10/12/19 10/12/19 04:28 04:28 WBC 23.4 H RBC 2.41 L Hgb 7.4 L Hct 21.9 L MCV 91 MCH 30.9 MCHC 34.0 RDW 19.0 H Plt Count 59 L Seg Neutrophils % Not Reportable Sodium 145.2 H Potassium 3.7 Chloride 111 H Carbon Dioxide 23 Anion Gap 11 BUN 110 H Creatinine 1.78 H Est GFR ( Amer) 47 L Glucose 182 H Calcium 7.3 L Stool Occult Blood Blood Type Antibody Screen 10/07/19 07:48 Blood Blood Culture - Final NO GROWTH IN 5 DAYS 10/07/19 07:39 Blood Blood Culture - Final NO GROWTH IN 5 DAYS 10/03/19 10/03/19 10/03/19 12:15 12:15 12:15 Creatine Kinase 39 L 42 L CK-MB (CK-2) 1.88 Troponin I 0.081 NT-Pro-B Natriuret Pep 4050 H 10/03/19 10/04/19 10/04/19 16:33 05:45 06:54 Creatine Kinase Cancelled 307 H CK-MB (CK-2) Troponin I 0.095 NT-Pro-B Natriuret Pep 6400 H 10/05/19 20:48 Creatine Kinase CK-MB (CK-2) Troponin I 0.057 NT-Pro-B Natriuret Pep Impressions: Abdomen Ultrasound 10/04/19 00:00 IMPRESSION: Multiple hepatic lesions. The largest measures 3.2 x 3.8 x 3.6 cm. Mild ascites. No flow could be demonstrated in the portal vein. Portal vein was patent on prior CT done 2 5. Changes may be secondary to poor visualization due to bowel gas and body habitus. Abdomen/Pelvis CT 10/07/19 00:00 IMPRESSION: 1. Small bilateral effusions and diffuse interstitial and ground- glass opacities and superimposed area of consolidation in the left lower lobe with air bronchograms. These findings could represent multifocal pneumonia or pulmonary edema/ARDS with a superimposed left lower lobe pneumonia. 2. Cirrhosis with nodular areas of hypoattenuation in the hepatic dome and lateral aspect of the right hepatic dome that are incompletely evaluated on a noncontrast CT. 3. Stigmata of portal hypertension including ascites, splenomegaly and g astroesophageal varices. 4. Other secondary findings as detailed above. Head CT 10/07/19 00:00 IMPRESSION: 1. The ventricles appear diminutive in caliber for the patient's age however the ball-white matter differentiation is preserved and the cerebellum is isodense to the cerebral hemispheres. Therefore the findings are equivocal for diffuse cerebral edema. 2. No acute intracranial hemorrhage. EVIDENCE OF ACUTE STROKE: NO. All labs, radiographs, diagnostic studies and EKGs were personally reviewed: Yes In addition, reports of radiographic and diagnostic studies were read: Yes Assessment and Plan - Diagnosis (1) Acute respiratory failure with hypoxia Is this a current diagnosis for this admission?: Yes Plan: He has made some weaning progress, however given his mental state I do not feel as though he will protect his airway. (2) COPD (chronic obstructive pulmonary disease) Qualifiers: Emphysema type: centrilobular Is this a current diagnosis for this admission?: Yes Plan: Stable. (3) Hepatitis C Qualifiers: Viral hepatitis chronicity: chronic Hepatic coma status: without hepatic coma Qualified Code(s): B18.2 - Chronic viral hepatitis C Is this a current diagnosis for this admission?: Yes Plan: Chronic. (4) Hypotension Qualifiers: Hypotension type: idiopathic hypotension Qualified Code(s): I95.0 - Idiopathic hypotension Is this a current diagnosis for this admission?: Yes Plan: Still on small amount of levophed. (5) Acute kidney injury Is this a current diagnosis for this admission?: Yes Plan: GFR 47 Cr 1.7 Improved slightly. (6) Streptococcal bacteremia Is this a current diagnosis for this admission?: Yes Plan: Resolved (7) Streptococcal toxic shock syndrome Is this a current diagnosis for this admission?: Yes Plan: Resolved (8) Septic shock Is this a current diagnosis for this admission?: Yes Plan: Resolved (9) Cytotoxic cerebral edema Is this a current diagnosis for this admission?: Yes Plan: Improving (10) Hyponatremia Is this a current diagnosis for this admission?: Yes Plan: Resolved. (11) Atrial fibrillation with RVR Is this a current diagnosis for this admission?: Yes Plan: IV cardizem not working, try amiodarone. Plan Summary: Cut down sedation, again, try IV amiodarone for rate control Critical Time Critical Time (minutes): 35 Level of Care: ICU Anticipated discharge: SNF Within: Other -: 1. The care of a critical patient is a dynamic process. This note is a uniforms sales representative synopsis but static in nature. The timeframe for treatments given in order is not necessarily the actual time these treatments may have been done. 2. This patient requires critical care secondary to ongoing requirements for therapy not offered or safe outside the critical care environment. Transfer to a lower level of care will result in altered life or limb morbidity and mortality. 3. Multidisciplinary rounds completed. 4. ABCDE bundle addressed.
[2019-10-12] MEDS: SENNOSIDES/DOCUSATE 8.6-50 MG 1 EACH TABLET NG SCH (09:32)
[2019-10-12] MEDS: GABAPENTIN 100 MG CAPSULE PO SCH ×3 (09:49→17:28)
[2019-10-12] MEDS: PANTOPRAZOLE SODIUM 40 MG VIAL IV SCH ×2 (09:49→22:01)
[2019-10-12] MEDS: MIDODRINE HCL 5 MG TABLET PO SCH ×2 (09:51→17:27)
[2019-10-12] MEDS: AMINO AC/PROTEIN HYDR/WHEY PRO 11 GM/45 ML PKT NG SCH ×3 (09:57→17:27)
[2019-10-12] MEDS: SODIUM CHLORIDE 1 GM TABLET NG SCH ×3 (09:57→17:27)
[2019-10-12] MEDS ORDERED: FUROSEMIDE 40 MG TABLET PO SCH (10:00)
[2019-10-12] MEDS ORDERED: AMIODARONE HCL 150 MG in DEXTROSE 5%-WATER 100 ML IV ONE (10:00)
[2019-10-12] MEDS: LINEZOLID 600 MG/300 ML RTUPB IV SCH ×2 (10:17→22:02)
[2019-10-12] MEDS: FAMOTIDINE 20 MG TABLET NG SCH ×2 (10:24→22:01)
[2019-10-12] MEDS ORDERED: DEXTROSE 5%-WATER 500 ML with AMIODARONE HCL 900 MG IV PRN ×2 (10:49)
[2019-10-12] MEDS: LORAZEPAM INJ 2 MG/1 ML VIAL IV PRN (12:11)
[2019-10-13] MEDS: INSULIN REG, HUMAN 100 UNIT/ML 3 ML VIAL (PYX) SUBCUT SCH ×7 (00:24→22:31)
[2019-10-13] MEDS: MIDAZOLAM 2 MG/2 ML INJ IV PRN ×4 (00:24→06:53)
[2019-10-13] MEDS ORDERED: DEXTROSE 5%-WATER 500 ML with AMIODARONE HCL 900 MG IV PRN ×2 (03:27)
[2019-10-13 04:22] LABS: HEMATOCRIT 22.4 % (37.9-51.0); MEAN CORPUSCULAR HEMOGLOBIN 31.2 pg (27.0-33.4); MEAN CORPUSCULAR HGB CONC 33.2 g/dL (32.0-36.0); MEAN CORPUSCULAR VOLUME 94 fl (80-97); RED BLOOD COUNT 2.38 10^6/uL (4.35-5.55); RED CELL DISTRIBUTION WIDTH 19.6 % (11.5-14.0); WHITE BLOOD COUNT 18.4 10^3/uL (4.0-10.5)
[2019-10-13 04:26] LABS: PLATELET COUNT 69 10^3/uL (150-450)
[2019-10-13 04:34] LABS: ANION GAP 9 (5-19); CALCIUM 7.2 mg/dL (8.4-10.2); CARBON DIOXIDE 26 mmol/L (22-30); CHLORIDE 111 mmol/L (98-107); GLUCOSE 228 mg/dL (75-110)
[2019-10-13 04:43] LABS: ABSOLUTE LYMPHOCYTES# (MANUAL) 0.6 10^3/uL (0.5-4.7); ABSOLUTE MONOCYTES # (MANUAL) 0.6 10^3/uL (0.1-1.4); BASOPHILS % (MANUAL) 0 % (0-2); EOSINOPHILS % (MANUAL) 0 % (0-6); LYMPHOCYTES % (MANUAL) 3 % (13-45); MONOCYTES % (MANUAL) 3 % (3-13); SEGMENTED NEUTROPHILS % (MAN) 94 % (42-78); TOTAL CELLS COUNTED 100
[2019-10-13 04:45] LABS: TOXIC GRANULATION SLIGHT
[2019-10-13 04:46] LABS: ANISOCYTOSIS 2+; OVALOCYTES 1+; PLATELET COMMENT DECREASED; POIKILOCYTOSIS 1+; POLYCHROMASIA SLIGHT
[2019-10-13 04:47] LABS: BLOOD UREA NITROGEN 122 mg/dL (7-20); HEMOGLOBIN 7.4 g/dL (13.5-17.0)
[2019-10-13] MEDS: THIAMINE HCL 250 MG in NORMAL SALINE 50 ML IV SCH (05:15)
[2019-10-13] MEDS ORDERED: AMIODARONE HCL 150 MG in DEXTROSE 5%-WATER 100 ML IV ONE (06:38)
[2019-10-13] MEDS ORDERED: AMIODARONE HCL INJ 150 MG/3 ML VIAL IV ONE ×2 (06:49→15:12)
[2019-10-13] MEDS: SENNOSIDES/DOCUSATE 8.6-50 MG 1 EACH TABLET NG SCH (10:12)
[2019-10-13] MEDS: FAMOTIDINE 20 MG TABLET NG SCH ×2 (10:16→22:30)
[2019-10-13] MEDS: MIDODRINE HCL 5 MG TABLET PO SCH (10:16)
[2019-10-13] MEDS: METHYLPREDNISOLONE INJ 125 MG/2 ML SDV IV SCH ×2 (10:16→22:30)
[2019-10-13] MEDS: GABAPENTIN 100 MG CAPSULE PO SCH (10:16)
[2019-10-13] MEDS: LINEZOLID 600 MG/300 ML RTUPB IV SCH ×2 (10:17→22:32)
[2019-10-13] MEDS: SODIUM CHLORIDE 1 GM TABLET NG SCH ×3 (10:17→17:26)
[2019-10-13] MEDS: AMINO AC/PROTEIN HYDR/WHEY PRO 11 GM/45 ML PKT NG SCH ×3 (10:17→17:26)
[2019-10-13] MEDS: PANTOPRAZOLE SODIUM 40 MG VIAL IV SCH ×2 (10:17→22:30)
[2019-10-13] MEDS ORDERED: ACETAMINOPHEN SOLN 325 MG/10.15 ML UDCUP NG PRN (11:00)
[2019-10-13] MEDS: LORAZEPAM INJ 2 MG/1 ML VIAL IV PRN (12:22)
[2019-10-13] MEDS: AMIODARONE HCL 200 MG TABLET PO SCH ×2 (13:16→22:31)
[2019-10-13] MEDS: GABAPENTIN 100 MG CAPSULE NG SCH ×2 (13:16→17:26)
[2019-10-13] MEDS ORDERED: METOPROLOL TARTRATE PF/INJ 5 MG/5 ML SDV IV PRN (17:02)
[2019-10-13] MEDS: MIDODRINE HCL 5 MG TABLET NG SCH (17:26)
[2019-10-13] MEDS: DEXTROSE 5%-WATER 500 ML with AMIODARONE HCL 900 MG IV PRN ×2 (18:21)
[2019-10-13] MEDS: OXYCODONE HCL IR 5 MG TABLET PO SCH (23:58)
[2019-10-14] MEDS ORDERED: RINGERS SOLUTION,LACTATED 500 ML IV ONE (01:48)
[2019-10-14] MEDS: DEXTROSE 5%-WATER 500 ML with AMIODARONE HCL 900 MG IV PRN ×2 (02:15)
[2019-10-14] MEDS: OXYCODONE HCL IR 5 MG TABLET PO SCH ×6 (03:13→23:12)
[2019-10-14] MEDS: DEXTROSE 5%-WATER 250 ML with NOREPINEPHRINE BITARTRATE 4 MG IV PRN ×6 (03:14→17:23)
[2019-10-14] MEDS: INSULIN REG, HUMAN 100 UNIT/ML 3 ML VIAL (PYX) SUBCUT SCH ×6 (03:18→23:12)
[2019-10-14] MEDS ORDERED: NORMAL SALINE 1000 ML 1,000 ML IV ONE (03:53)
[2019-10-14 04:48] LABS: ANION GAP 14 (5-19); CALCIUM 7.1 mg/dL (8.4-10.2); CARBON DIOXIDE 20 mmol/L (22-30); CHLORIDE 113 mmol/L (98-107); GLUCOSE 142 mg/dL (75-110); POTASSIUM 4.8 mmol/L (3.6-5.0)
[2019-10-14] MEDS: LORAZEPAM INJ 2 MG/1 ML VIAL IV PRN ×3 (04:49→13:40)
[2019-10-14 04:56] LABS: BLOOD UREA NITROGEN 132 mg/dL (7-20)
[2019-10-14] MEDS: NORMAL SALINE 1000 ML 1,000 ML IV PRN ×2 (05:59→17:26)
[2019-10-14 09:04] LABS: MEAN CORPUSCULAR HEMOGLOBIN 31.6 pg (27.0-33.4); MEAN CORPUSCULAR HGB CONC 31.4 g/dL (32.0-36.0); RED BLOOD COUNT 1.99 10^6/uL (4.35-5.55); RED CELL DISTRIBUTION WIDTH 21.5 % (11.5-14.0)
[2019-10-14 09:22] LABS: HEMOGLOBIN 6.3 g/dL (13.5-17.0); MEAN CORPUSCULAR VOLUME 101 fl (80-97)
[2019-10-14 09:23] LABS: PLATELET COUNT 94 10^3/uL (150-450)
[2019-10-14 09:26] LABS: ABSOLUTE LYMPHOCYTES# (MANUAL) 0.2 10^3/uL (0.5-4.7); ABSOLUTE MONOCYTES # (MANUAL) 0.2 10^3/uL (0.1-1.4); BASOPHILS % (MANUAL) 0 % (0-2); EOSINOPHILS % (MANUAL) 0 % (0-6); LYMPHOCYTES % (MANUAL) 1 % (13-45); MONOCYTES % (MANUAL) 1 % (3-13); NUCLEATED RED BLOOD CELLS 2 /100 WBC (0); SEGMENTED NEUTROPHILS % (MAN) 98 % (42-78); TOTAL CELLS COUNTED 100
[2019-10-14 09:30] LABS: ANISOCYTOSIS 3+; OVALOCYTES 1+; TEAR DROP CELLS SLIGHT; TOXIC GRANULATION SLIGHT; TOXIC VACUOLATION PRESENT
[2019-10-14 09:31] LABS: PLATELET COMMENT DECREASED; POIKILOCYTOSIS 1+
[2019-10-14] MEDS ORDERED: THIAMINE HCL 100 MG TABLET NG SCH (10:00)
[2019-10-14] MEDS ORDERED: AMIODARONE HCL 200 MG TABLET NG SCH (10:00)
[2019-10-14] MEDS ORDERED: NORMAL SALINE 250 ML IV PRN ×2 (10:43)
[2019-10-14] MEDS: PANTOPRAZOLE SODIUM 40 MG VIAL IV SCH ×2 (10:50→21:05)
[2019-10-14] MEDS: METHYLPREDNISOLONE INJ 125 MG/2 ML SDV IV SCH ×2 (10:50→21:04)
--- NOTE | 2019-10-14 11:15 | PDOC CRITICAL CARE PROG REPORT ---
General Date:: 10/14/19 ICU Day:: 11 Ventilator Day:: 11 Resuscitation Status: Full Code Medical Power of It Consulting Manager: Nicole , Daughter [phone]. Events in the past 12 to 24 Hours:: Starting to GI bleed from NG. Needs transfusion. Review of systems relevant to events:: Neurological, GI, respiratory. Reason for ICU Addmission:: Acute hypoxic respiratory failure with possible SARS, 2-CoViD19 R/O, intubated - Medications: Medications reviewed and adjusted accordingly: Yes Vasopressors:: Levophed Sedation:: Ativan PRN. Physical Exam Vital Signs: Temp Pulse Resp BP Pulse Ox 101.5 F H 139 H 0 L 139/87 H 99 10/13/19 18:27 10/13/19 20:00 10/14/19 06:00 10/12/19 01:59 10/14/19 07:53 Intake & Output 10/13/19 10/14/19 10/15/19 06:59 06:59 06:59 Intake Total 1185.5 6686.5 Output Total 2200 2845 95 Balance -1014.5 3841.5 -95 Weight 76.8 kg 74.1 kg Weight/Height Weight 74.1 kg Height 5 ft 9 in General appearance: PRESENT: no acute distress, disheveled, thin Head exam: PRESENT: atraumatic, normocephalic Eye exam: PRESENT: conjunctiva pink, EOMI, PERRLA. ABSENT: scleral icterus Ear exam: PRESENT: normal external ear exam Mouth exam: PRESENT: moist, tongue midline Respiratory exam: PRESENT: clear to auscultation henny, rhonchi, other - Some SCM retractions.. ABSENT: rales, wheezes Cardiovascular exam: PRESENT: irregular rhythm, tachycardia GI/Abdominal exam: PRESENT: ascites, distended, normal bowel sounds, soft, other - NG putting out heme positive brownish liquid.. ABSENT: guarding, mass, organolmegaly, rebound, tenderness Rectal exam: PRESENT: deferred, heme (+) stool Gentrourinary exam: PRESENT: indwelling catheter Extremities exam: PRESENT: full ROM. ABSENT: calf tenderness, clubbing, pedal edema Neurological exam: PRESENT: altered Skin exam: PRESENT: dry, intact, warm. ABSENT: cyanosis, rash Tubes/Lines: PRESENT: Endotracheal Tube, Central Line, Arterial Catheter, Nasogastic Tube Laboratory/Radiographs Laboratory Results: 10/14/19 08:50 10/14/19 04:20 10/14/19 10/14/19 10/14/19 04:20 06:15 08:50 WBC Cancelled 22.0 H RBC Cancelled 1.99 L Hgb Cancelled 6.3 L Hct Cancelled 20.0 L MCV Cancelled 101 H D MCH Cancelled 31.6 MCHC Cancelled 31.4 L RDW Cancelled 21.5 H Plt Count Cancelled 94 L Seg Neutrophils % Cancelled Not Reportable Sodium 147.4 H Potassium 4.8 Chloride 113 H Carbon Dioxide 20 L Anion Gap 14 BUN 132 H Creatinine 2.28 H Est GFR ( Amer) 35 L Glucose 142 H Calcium 7.1 L 10/11/19 20:59 Tracheal Aspirate Gram Stain - Final 10/03/19 10/03/19 10/03/19 12:15 12:15 12:15 Creatine Kinase 39 L 42 L CK-MB (CK-2) 1.88 Troponin I 0.081 NT-Pro-B Natriuret Pep 4050 H 10/03/19 10/04/19 10/04/19 16:33 05:45 06:54 Creatine Kinase Cancelled 307 H CK-MB (CK-2) Troponin I 0.095 NT-Pro-B Natriuret Pep 6400 H 10/05/19 20:48 Creatine Kinase CK-MB (CK-2) Troponin I 0.057 NT-Pro-B Natriuret Pep Impressions: Abdomen Ultrasound 10/04/19 00:00 IMPRESSION: Multiple hepatic lesions. The largest measures 3.2 x 3.8 x 3.6 cm. Mild ascites. No flow could be demonstrated in the portal vein. Portal vein was patent on prior CT done 2 5. Changes may be secondary to poor visualization due to bowel gas and body habitus. Abdomen/Pelvis CT 10/07/19 00:00 IMPRESSION: 1. Small bilateral effusions and diffuse interstitial and ground- glass opacities and superimposed area of consolidation in the left lower lobe with air bronchograms. These findings could represent multifocal pneumonia or pulmonary edema/ARDS with a superimposed left lower lobe pneumonia. 2. Cirrhosis with nodular areas of hypoattenuation in the hepatic dome and lateral aspect of the right hepatic dome that are incompletely evaluated on a noncontrast CT. 3. Stigmata of portal hypertension including ascites, splenomegaly and gastroesophageal varices. 4. Other secondary findings as detailed above. Head CT 10/07/19 00:00 IMPRESSION: 1. The ventricles appear diminutive in caliber for the patient's age however the ball-white matter differentiation is preserved and the cerebellum is isodense to the cerebral hemispheres. Therefore the findings are equivocal for diffuse cerebral edema. 2. No acute intracranial hemorrhage. EVIDENCE OF ACUTE STROKE: NO. EKG: AFib with RVR All labs, radiographs, diagnostic studies and EKGs were personally reviewed: Yes In addition, reports of radiographic and diagnostic studies were read: Yes Assessment and Plan - Diagnosis (1) Acute respiratory failure with hypoxia Is this a current diagnosis for this admission?: Yes Plan: Not able tpo protect airway. No longer hypoxic on 40% FiO2. (2) COPD (chronic obstructive pulmonary disease) Qualifiers: Emphysema type: centrilobular Is this a current diagnosis for this admission?: Yes Plan: Inactive, resolved (3) Hepatitis C Qualifiers: Viral hepatitis chronicity: chronic Hepatic coma status: without hepatic coma Qualified Code(s): B18.2 - Chronic viral hepatitis C Is this a current diagnosis for this admission?: Yes Plan: Chronic (4) Hypotension Qualifiers: Hypotension type: idiopathic hypotension Qualified Code(s): I95.0 - Idiopathic hypotension Is this a current diagnosis for this admission?: Yes Plan: On steroids, midodrine and levophed. However his UGI bleeding and anemia is confounding this. (5) Acute kidney injury Is this a current diagnosis for this admission?: Yes Plan: Cr still about 2 (6) Streptococcal bacteremia Is this a current diagnosis for this admission?: Yes Plan: Resolved (7) Streptococcal toxic shock syndrome Is this a current diagnosis for this admission?: Yes Plan: Resolved (8) Septic shock Is this a current diagnosis for this admission?: Yes Plan: Resolved (9) Cytotoxic cerebral edema Is this a current diagnosis for this admission?: Yes Plan: Improved but not resolved (10) Hyponatremia Is this a current diagnosis for this admission?: Yes Plan: Resolved (11) Atrial fibrillation with RVR Is this a current diagnosis for this admission?: Yes Plan: On IV amiodarone. PO stopped as I do not believe he is absorbing. (12) UGI bleed Is this a current diagnosis for this admission?: Yes Plan: He will need at least 2units of PRBCs for a Hgb of 6.3. The source seems upper as evidenced by his NG output which is dark red, but not coffee ground. Doubt variceal bleeding due to the lack of red blood. On protonix, will add carafate. Plan Summary: Overall prognosis getting worse. Critical Time Critical Time (minutes): 40 Level of Care: ICU Anticipated discharge: SNF Within: Other -: 1. The care of a critical patient is a dynamic process. This note is a textiles sales representative synopsis but static in nature. The timeframe for treatments g iven in order is not necessarily the actual time these treatments may have been done. 2. This patient requires critical care secondary to ongoing requirements for therapy not offered or safe outside the critical care environment. Transfer to a lower level of care will result in altered life or limb morbidity and mortality. 3. Multidisciplinary rounds completed. 4. ABCDE bundle addressed.
--- NOTE | 2019-10-14 11:27 | PDOC CRITICAL CARE PROG REPORT ---
General Date:: 10/13/19 ICU Day:: 10 Ventilator Day:: 10 Resuscitation Status: Full Code Medical Power of Outlet Manager: Nicole Daughter [phone]. Events in the past 12 to 24 Hours:: No essential change. May extubate. Review of systems relevant to events:: Neurological, respiratory, GI. Reason for ICU Addmission:: Acute hypoxic respiratory failure with possible SA RS, 2-CoViD19 R/O, intubated - Medications: Medications reviewed and adjusted accordingly: Yes Vasopressors:: Levophed Sedation:: Midazolam. Physical Exam Vital Signs: Temp Pulse Resp BP Pulse Ox 101.5 F H 139 H 0 L 139/87 H 99 10/13/19 18:27 10/13/19 20:00 10/14/19 06:00 10/12/19 01:59 10/14/19 07:53 Intake & Output 10/13/19 10/14/19 10/15/19 06:59 06:59 06:59 Intake Total 1185.5 6686.5 Output Total 2200 2845 95 Balance -1014.5 3841.5 -95 Weight 76.8 kg 74.1 kg Weight/Height Weight 74.1 kg Height 5 ft 9 in General appearance: PRESENT: no acute distress, disheveled, thin Head exam: PRESENT: atraumatic, normocephalic Eye exam: PRESENT: conjunctiva pink, EOMI, PERRLA. ABSENT: scleral icterus Ear exam: PRESENT: normal external ear exam Mouth exam: PRESENT: moist, tongue midline Neck exam: ABSENT: carotid bruit, JVD, lymphadenopathy, thyromegaly Respiratory exam: PRESENT: clear to auscultation henny, rhonchi. ABSENT: rales, wheezes Cardiovascular exam: PRESENT: irregular rhythm, tachycardia Vascular exam: PRESENT: normal capillary refill GI/Abdominal exam: PRESENT: ascites, distended, normal bowel sounds, soft. ABSENT: guarding, mass, organolmegaly, rebound, tenderness Rectal exam: PRESENT: deferred Extremities exam: PRESENT: full ROM. ABSENT: calf tenderness, clubbing, pedal edema Neurological exam: PRESENT: altered Psychiatric exam: PRESENT: agitated Skin exam: PRESENT: dry, intact, warm. ABSENT: cyanosis, rash Tubes/Lines: PRESENT: Endotracheal Tube, Central Line, Arterial Catheter, Nasogastic Tube Laboratory/Radiographs Laboratory Results: 10/14/19 08:50 10/14/19 04:20 10/14/19 10/14/19 10/14/19 04:20 06:15 08:50 WBC Cancelled 22.0 H RBC Cancelled 1.99 L Hgb Cancelled 6.3 L Hct Cancelled 20.0 L MCV Cancelled 101 H D MCH Cancelled 31.6 MCHC Cancelled 31.4 L RDW Cancelled 21.5 H Plt Count Cancelled 94 L Seg Neutrophils % Cancelled Not Reportable Sodium 147.4 H Potassium 4.8 Chloride 113 H Carbon Dioxide 20 L Anion Gap 14 BUN 132 H Creatinine 2.28 H Est GFR ( Amer) 35 L Glucose 142 H Calcium 7.1 L 10/11/19 20:59 Tracheal Aspirate Gram Stain - Final 10/03/19 10/03/19 10/03/19 12:15 12:15 12:15 Creatine Kinase 39 L 42 L CK-MB (CK-2) 1.88 Troponin I 0.081 NT-Pro-B Natriuret Pep 4050 H 10/03/19 10/04/19 10/04/19 16:33 05:45 06:54 Creatine Kinase Cancelled 307 H CK-MB (CK-2) Troponin I 0.095 NT-Pro-B Natriuret Pep 6400 H 10/05/19 20:48 Creatine Kinase CK-MB (CK-2) Troponin I 0.057 NT-Pro-B Natriuret Pep Impressions: Abdomen Ultrasound 10/04/19 00:00 IMPRESSION: Multiple hepatic lesions. The largest measures 3.2 x 3.8 x 3.6 cm. Mild ascites. No flow could be demonstrated in the portal vein. Portal vein was patent on prior CT done 2 5. Changes may be secondary to poor visualization due to bowel gas and body habitus. Abdomen/Pelvis CT 10/07/19 00:00 IMPRESSION: 1. Small bilateral effusions and diffuse interstitial and ground- glass opacities and superimposed area of consolidation in the left lower lobe with air bronchograms. These findings could represent multifocal pneumonia or pulmonary edema/ARDS with a superimposed left lower lobe pneumonia. 2. Cirrhosis with nodular areas of hypoattenuation in the hepatic dome and lateral aspect of the right hepatic dome that are incompletely evaluated on a no ncontrast CT. 3. Stigmata of portal hypertension including ascites, splenomegaly and gastroesophageal varices. 4. Other secondary findings as detailed above. Head CT 10/07/19 00:00 IMPRESSION: 1. The ventricles appear diminutive in caliber for the patient's age however the ball-white matter differentiation is preserved and the cerebellum is isodense to the cerebral hemispheres. Therefore the findings are equivocal for diffuse cerebral edema. 2. No acute intracranial hemorrhage. EVIDENCE OF ACUTE STROKE: NO. All labs, radiographs, diagnostic studies and EKGs were personally reviewed: Yes In addition, reports of radiographic and diagnostic studies were read: Yes Assessment and Plan - Diagnosis (1) Acute respiratory failure with hypoxia Is this a current diagnosis for this admission?: Yes Plan: No longer hypoxic. May not protect airway. Family wants no trach. May extubate to see how he performs. (2) COPD (chronic obstructive pulmonary disease) Qualifiers: Emphysema type: centrilobular Is this a current diagnosis for this admission?: Yes Plan: Inactive. (3) Hepatitis C Qualifiers: Viral hepatitis chronicity: chronic Hepatic coma status: without hepatic coma Qualified Code(s): B18.2 - Chronic viral hepatitis C Is this a current diagnosis for this admission?: Yes Plan: Stable (4) Hypotension Qualifiers: Hypotension type: idiopathic hypotension Qualified Code(s): I95.0 - Idiopathic hypotension Is this a current diagnosis for this admission?: Yes Plan: Still needing levophed. On steroids and midodrine. (5) Acute kidney injury Is this a current diagnosis for this admission?: Yes Plan: Stable (6) Streptococcal bacteremia Is this a current diagnosis for this admission?: Yes Plan: Resolved (7) Streptococcal toxic shock syndrome Is this a current diagnosis for this admission?: Yes Plan: Resolved (8) Septic shock Is this a current diagnosis for this admission?: Yes Plan: Resolved (9) Cytotoxic cerebral edema Is this a current diagnosis for this admission?: Yes (10) Hyponatremia Is this a current diagnosis for this admission?: Yes Plan: Improving but still not oriented. (11) Atrial fibrillation with RVR Is this a current diagnosis for this admission?: Yes Plan: We will try amiodarone as neither metoprolol or cardizem are effective. (12) UGI bleed Is this a current diagnosis for this admission?: Yes Plan: Stable. Plan Summary: We may try extubation early to see if he can maintain airway for long. Critical Time Critical Time (minutes): 35 Level of Care: ICU Anticipated discharge: SNF Within: Other -: 1. The care of a critical patient is a dynamic process. This note is a client support representative synopsis but static in nature. The timeframe for treatments given in order is not necessarily the actual time these treatments may have been done. 2. This patient requires critical care secondary to ongoing requirements for therapy not offered or safe outside the critical care environment. Transfer to a lower level of care will result in altered life or limb morbidity and mortality. 3. Multidisciplinary rounds completed. 4. ABCDE bundle addressed.
--- NOTE | 2019-10-14 11:29 | Progress Note ---
Provider Note Provider Note: Patient's breathing pattern looked like he was working more. Plan to extubate on the put on hold.
[2019-10-14] MEDS: AMINO AC/PROTEIN HYDR/WHEY PRO 11 GM/45 ML PKT NG SCH ×3 (11:59→17:11)
[2019-10-14] MEDS: MIDODRINE HCL 5 MG TABLET NG SCH ×2 (11:59→17:11)
[2019-10-14] MEDS: GABAPENTIN 100 MG CAPSULE NG SCH ×3 (11:59→17:11)
[2019-10-14] MEDS: SODIUM CHLORIDE 1 GM TABLET NG SCH ×3 (12:00→17:11)
[2019-10-14] MEDS: SENNOSIDES/DOCUSATE 8.6-50 MG 1 EACH TABLET NG SCH (12:00)
[2019-10-14] MEDS: SUCRALFATE 1 GM TABLET PO SCH ×3 (12:01→23:11)
[2019-10-14] MEDS: MIDAZOLAM 2 MG/2 ML INJ IV PRN ×2 (12:09→13:40)
[2019-10-14 19:10] VITALS: BP 85/41
[2019-10-14] MEDS ORDERED: VASOPRESSIN INJ 20 UNIT/1 ML VIAL ONE (20:43)
[2019-10-14] MEDS ORDERED: DEXTROSE 5%-WATER 250 ML with VASOPRESSIN 100 UNIT IV PRN ×2 (20:44)
--- NOTE | 2019-10-14 20:56 | Progress Note ---
Provider Note Provider Note: Mr Hu became hypotensive 77/37 with a MAP of 58 on max dose of Levophed. Started Vasopressin but I feel at this point it is futile but will continue full therapy, agonal breathing on vent, and unresponsive, off sedation. Attempted to contact Nicole Giraldo daughter (POA), No answer and voicemail is full, will attempt to call again.
[2019-10-14 21:24] LABS: HEMATOCRIT 27.7 % (37.9-51.0); MEAN CORPUSCULAR HEMOGLOBIN 32.1 pg (27.0-33.4); MEAN CORPUSCULAR HGB CONC 32.4 g/dL (32.0-36.0); MEAN CORPUSCULAR VOLUME 99 fl (80-97); RED CELL DISTRIBUTION WIDTH 17.8 % (11.5-14.0)
[2019-10-14 22:14] LABS: PLATELET COUNT 92 10^3/uL (150-450)
[2019-10-14] MEDS ORDERED: DEXTROSE 5%-WATER 250 ML with NOREPINEPHRINE BITARTRATE 4 MG IV PRN ×2 (22:18)
[2019-10-14 22:19] LABS: ABSOLUTE LYMPHOCYTES# (MANUAL) 0.7 10^3/uL (0.5-4.7); ABSOLUTE MONOCYTES # (MANUAL) 0.7 10^3/uL (0.1-1.4); BAND NEUTROPHILS % (MANUAL) 4 % (3-5); BASOPHILS % (MANUAL) 0 % (0-2); EOSINOPHILS % (MANUAL) 0 % (0-6); LYMPHOCYTES % (MANUAL) 3 % (13-45); MONOCYTES % (MANUAL) 3 % (3-13); NUCLEATED RED BLOOD CELLS 1 /100 WBC (0); SEGMENTED NEUTROPHILS % (MAN) 90 % (42-78); TOTAL CELLS COUNTED 100
[2019-10-14 22:21] LABS: ANISOCYTOSIS 1+; BURR CELLS SLIGHT; OVALOCYTES SLIGHT; PLATELET COMMENT DECREASED; POIKILOCYTOSIS 1+; TEAR DROP CELLS SLIGHT
[2019-10-14] MEDS ORDERED: DEXTROSE 5%-WATER 250 ML with PHENYLEPHRINE HCL 40 MG IV PRN ×2 (22:53)
[2019-10-14] MEDS ORDERED: PHENYLEPHRINE HCL INJ/PF 10 MG/1 ML SDV ONE (22:55)
[2019-10-15] MEDS ORDERED: MORPHINE SULFATE 10 MG/ML INJ IV ONE ×2 (02:03→03:14)
[2019-10-15] MEDS ORDERED: MORPHINE SULFATE 10 MG/ML INJ ONE ×2 (02:06→03:14)
[2019-10-15] MEDS: OXYCODONE HCL IR 5 MG TABLET PO SCH (03:42)
[2019-10-15] MEDS: SUCRALFATE 1 GM TABLET PO SCH (05:08)
[2019-10-15] MEDS: INSULIN REG, HUMAN 100 UNIT/ML 3 ML VIAL (PYX) SUBCUT SCH (05:08)
--- NOTE | 2019-10-15 05:42 | Death Summary ---
Summary Date : 10/15/19 Time of :: 05:15 Autopsy: No Resuscitation Status: Comfort Measures Only - Final Diagnosis (1) Acute respiratory failure with hypoxia Is this a current diagnosis for this admission?: Yes Hospital Course:: 63-year-old white male initially presented with acute hypoxic respiratory failure with respiratory distress. Has a history of liver cancer presumably from hepatitis C and alcohol exposure in the past. Suspected to have SARS, 2-CoViD19 he required intubation. He was found to be COVID negative. His liver function declined. On 10/14/2019 He became profoundly hypotensive requiring Max doses of 3 pressors ( Vaso, Levo, and Phenylephrine) I contacted his daughter Nicole Giraldo and given the grave situation she was permitted to see her father. After a discussion regarding goals of care and that at this point there is no further agent to add to support his BP She decided on comfort measures only. He was given 4 mg Morphine for air hunger and extubated at 0309 at which time all pressor support was stopped. He at 0515 with daughter Nicole and son in law at bedside. Condolences were given.
== END 2019-10-15 06:41 | DRG 870 ==
LOC: ER 12:02 → EH 15:50 → ICU 18:21
PROVIDERS: ADMIT Internal Medicine Critical Care Medicine; ATTEND Internal Medicine Critical Care Medicine
PROC: 5A1955Z Respiratory Ventilation, Greater than 96 Consecutive Hours (ICD-10-PCS; principal; 2019-10-03)
PROC: 03HB33Z Insertion of Infusion Device into Right Radial Artery, Percutaneous Approach (ICD-10-PCS; 2019-10-03)
PROC: 0BH17EZ Insertion of Endotracheal Airway into Trachea, Via Natural or Artificial Opening (ICD-10-PCS; 2019-10-03)
PROC: 30233P1 Transfusion of Nonautologous Frozen Red Cells into Peripheral Vein, Percutaneous Approach (ICD-10-PCS; 2019-10-11)
DX: A40.3 Sepsis due to Streptococcus pneumoniae (principal); J96.01 Acute respiratory failure with hypoxia; R65.21 Severe sepsis with septic shock; J13 Pneumonia due to Streptococcus pneumoniae; G93.6 Cerebral edema; A48.3 Toxic shock syndrome; E44.0 Moderate protein-calorie malnutrition; I48.20 Chronic atrial fibrillation, unspecified; N17.9 Acute kidney failure, unspecified; E87.1 Hypo-osmolality and hyponatremia; C22.7 Other specified carcinomas of liver; E87.4 Mixed disorder of acid-base balance; K92.2 Gastrointestinal hemorrhage, unspecified; B18.2 Chronic viral hepatitis C; Z51.5 Encounter for palliative care; Z03.818 Encounter for observation for suspected exposure to other biological agents ruled out; M13.842 Other specified arthritis, left hand; M13.841 Other specified arthritis, right hand; J43.2 Centrilobular emphysema; F10.11 Alcohol abuse, in remission; Z83.438 Family history of other disorder of lipoprotein metabolism and other lipidemia; Z82.49 Family history of ischemic heart disease and other diseases of the circulatory system; Z98.1 Arthrodesis status; Z87.891 Personal history of nicotine dependence; Z78.1 Physical restraint status
CPT/HCPCS: 0099U; 31500; 36415; 36430; 36556; 36620; 70450; 71045; 74176; 76700; 80048; 80053; 80061; 80076; 80162; 80202; 80307; 81001; 82105; 82140; 82272; 82330; 82378; 82533; 82550; 82553; 82728; 82803; 82962; 83010; 83036; 83050; 83605; 83615; 83690; 83735; 83880; 84100; 84156; 84443; 84484; 85025; 85045; 85379; 85384; 85610; 85730; 86140; 86850; 86900; 86901; 86920; 87040; 87070; 87077; 87150; 87186; 87205; 87252; 87324; 87449; 87635; 87804; 87880; 93005; 93010; 93306; 93976; 94002; 94003; 96365; 96366; 96368; 96376; 99291; 99292; J0610; J1561; B4155; C9113; J0171; J0282; J0456; J0692; J1160; J1170; J1642; J1650; J1815; J1940; J2020; J2060; J2250; J2270; J2370; J2704; J2930; J3010; J3105; J3370; J3411; J3475; J3480; J3490; J7030; J7040; J7050; J7060; J7120; P9016; P9041; P9047